=== PATIENT | female | born 1960 | race Caucasian/White ===

== ENCOUNTER 2020-08-01 21:56 | Emergency (ER) | payer OTHER, SELFPAY ==
--- NOTE | ~2020-08-01 | US_ITS ---
EXAMINATION: US pelvic complete w TV EXAM DATE: 08/02/2020 07:40 INDICATION: Elevated beta hCG. Rule out tumor. TECHNIQUE: Pelvic transabdominal and transvaginal sonogram was performed. There are multiple graysca le and Doppler images available for interpretation. There is no prior study for comparison. FINDINGS: Uterus measures 6.2 x 4.6 x 2.9 cmwith focal region most likely fibroid in lower uterine s egment measuring 1.8 x 1.2 x 1.4 cm. Endometrium is within normal limits, with thin fluid pocket ins mel measuring about 2 mm in thickness. No intrauterine gestation sac identified. There is small pocke t of fluid within the endometrium There is no free pelvic fluid. Right adnexa: The ovary is not identified. There is no adnexal mass. Left adnexa: The ovary is not identified. There is no adnexal mass. IMPRESSION: 1. Small amount of endometrial fluid. 2. Lower uterine segment focal mass most likely fibroid. 3. No intrauterine or extrauterine identified. Please note the ovaries were not visualized . Reviewed, dictated and finalized at location A. IMPRESSION: 1. Small amount of endometrial fluid. 2. Lower uterine segment focal mass most likely fibroid. 3. No intrauterine or extrauterine identified. Please note the ovari es were not visualized.
--- NOTE | ~2020-08-01 | XR_ITS ---
EXAMINATION: XR chest 2V DATE: 08/01/2020 23:02 INDICATION: Syncope. TECHNIQUE: Frontal and lateral views of the chest were obtained. COMPARISON: Chest 2 views 06/08/2016 FINDINGS: There is mild scarring at right lung apex. No pleural effusion or pneumothorax. The heart s ize is normal. There is a moderate-sized hiatal hernia. IMPRESSION: 1. Mild scarring at right lung apex. 2. Moderate-sized hiatal hernia. Reviewed, dictated and finalized at location A.
[2020-08-01 21:53] VITALS: BP 103/75; PULSE 103; RESP 17; TEMP 36.3; O2SAT 98
--- NOTE | 2020-08-01 21:54 | ECG_ITS ---
Measurements Intervals [place] Rate: 92 P: 32 NV: 138 QRS: -1 QRSD: 90 T: 29 QT: 355 QTc: 440 Interpretive Statements SINUS RHYTHM LOW QRS VOLTAGE IN PRECORDIAL LEADS CANNOT RULE OUT SEPTAL INFARCT, AGE INDETERMINATE BORDERLINE ST-T WAVE ABNORMALITY- DIFFUSE LEADS ABNORMAL ECG Electronically Signed On 08-02-2020 7:32:49 CDT by Mick Leon D.O.
--- NOTE | 2020-08-01 21:54 | ED.OVERDOSE ---
HPI - Overdose General Chief Complaint: Alcohol <Radha Barrera MD - Last Filed: 08/02/20 07:12> Stated Complaint: depressed <Radha Barrera MD - Last Filed: 08/02/20 07:12> Source: patient and EMS <Radha Barrera MD - Last Filed: 08/02/20 07:12> Mode of arrival: EMS <Radha Barrera MD - Last Filed: 08/02/20 07:12> Limitations: intoxication <Radha Barrera MD - Last Filed: 08/02/20 07:12> History of Present Illness HPI Narrative: Patient is a 60-year-old female with a history of alcoholism who presents for evaluation of depression and alcohol intoxication. Patient had presented to the emergency department for evaluation of feeling sad per EMS. Patient transferred here and is intoxicated. She was found down the street from her house, laying down on the sidewalk by a passerby. No sign of traumatic injury at the time of EMS arrival and patient is intoxicated but alert and oriented to person, place and to time. Patient transported here in stable condition. For me, she is denying any headache, chest pain or shortness of breath. She is intoxicated but able to provide history. She states she is quite sad, lives with her brother and does feel safe at home. She denies suicidal thoughts, or plans to harm herself. She denies homicidal thoughts. Patient states that she drinks 5 small bottles of liquor today. She states she is a daily drinker. She states that she often drinks and then walks long distances. <Radha Barrera MD - Last Filed: 08/02/20 07:12> Related Data Allergies/Adverse Reactions: Allergies Allergy/AdvReac Type Severity Reaction Status Date / Time monosodium glutamate Allergy Unknown Unknown Verified 11/03/19 15:32 <Radha Barrera MD - Last Filed: 08/02/20 07:12> Review of Systems Review of Systems: Narrative: CONSTITUTIONAL: Denies fever, chills, or sweats. CARDIOVASCULAR: Denies chest pain, palpitations, or edema. RESPIRATORY: Denies cough or dyspnea. GASTROINTESTINAL: Denies abdominal pain, nausea, vomiting, or diarrhea. GENITOURINARY: Denies dysuria or hematuria. SKIN: Denies rash or itching. MUSCULOSKELETAL: Denies back pain, joint pain, or myalgia. NEUROLOGIC: Denies headache, numbness, or weakness. <Radha Barrera MD - Last Filed: 08/02/20 07:12> [facility]LY [facility] Past Medical History Medical History: Medical History Alcoholic Anxiety Clavicle fracture Depression Facial fracture Foot fracture, left Guillain-Simpson syndrome Self diagnosed Seizure Due to alcohol withdrawal Subarachnoid hemorrhage <Radha Barrera MD - Last Filed: 08/02/20 07:12> Surgical History Surgical History: Surgical History No significant past surgical history <Radha Barrera MD - Last Filed: 08/02/20 07:12> Social History Social History: Social History Social History: Patient is currently unemployed. She lives with her brother. 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 Her brother is a durable power contracts attorney for healthcare. Smoking status: Never smoker Alcohol intake: current Drinks per week: 42 Substance use: never Substance use type: does not use Gender identity (if verbalized by the patient): Female Spiritual care concerns: No Agree to blood products: Yes <Radha Barrera MD - Last Filed: 08/02/20 07:12> Exam Narrative: Exam Narrative: GENERAL: Awake, alert, conversant, intoxicated HEAD: Normocephalic, atraumatic. EYES: PERRLA and EOMI. ENT: Nares clear, no rhinorrhea or epistaxis. Mucous membranes moist. NECK: Supple. CHEST: No respiratory distress, breathing even and non labored HEART: Tachycardic rate, sinus rhythm ABDOMEN:Non distended, non tender EXTREMITIES: Normal range of motion. No edema. SKIN: Warm, dry, no rash. NEURO:No focal deficits. Alert and
[2020-08-01 22:48] LABS: Basophils Percent Auto 0.7 % (0.2-1.2); Eosinophils Absolute Auto 0.1 K/mm3 (0-0.3); Hematocrit 41.2 % (37.0-47.0); Hemoglobin 14.3 g/dL (12.0-15.0); Immature Granulocyte Absolute 0.04 K/mm3 (0.00-0.031); Immature Granulocyte Percent A 0.7 % (0-0.5); Lymphocytes Absolute Auto 2.85 K/mm3 (0.9-3.2); Lymphocytes Percent Auto 47.7 % (18.3-44.2); Mean Corpuscular HGB Conc 34.7 g/dl (32-36); Mean Corpuscular Hemoglobin 35.7 pg (26-34); Mean Corpuscular Volume 102.7 fl (80-100); Mean Platelet Volume 9.4 fl (7.4-10.4); Monocytes Absolute Auto 0.7 K/mm3 (0.1-0.6); Neutrophils Absolute Auto 2.3 K/mm3 (1.3-6.7); Neutrophils Percent Auto 37.9 % (45.5-73.1); Platelet Count Result 262 k/mm3 (150-375); Red Blood Count 4.01 M/mm3 (4.2-5.4); Red Cell Distribution Width 13.4 % (11.5-14.5)
[2020-08-01 22:56] LABS: Alanine Aminotransferase 72 U/L (4-35); Alkaline Phosphatase 77 U/L (38-126); Anion Gap 8 mmol/L (8-16); Aspartate Amino Transferase 369 U/L (14-36); Bilirubin,Total 0.5 mg/dL (0.2-1.3); Blood Urea Nitrogen 8 mg/dL (7-17); Calcium 8.9 mg/dL (8.4-10.2); Carbon Dioxide 32 mmol/L (22-30); Chloride 102 mmol/L (98-107); Estimated Glomerular Filt Rate > 60; Glucose 95 mg/dL (65-105); Magnesium 1.4 mg/dL (1.6-2.3); Potassium 3.7 mmol/L (3.4-5.0); Sodium 142 mmol/L (137-145)
[2020-08-01 23:06] LABS: Ethanol 409 mg/dL (<10)
[2020-08-01] MEDS: THIAMINE HCL 100 MG TABLET PO (23:43)
[2020-08-01] MEDS: FOLIC ACID 1 MG TABLET PO (23:54)
[2020-08-02 02:15] VITALS: BP 104/70; PULSE 94; RESP 20; O2SAT 96
[2020-08-02 03:20] LABS: Beta HCG Quantitative 17.14 mIU/ML
[2020-08-02 03:25] LABS: Add Urine Microscopic? YES; Appearance Urine Cloudy (Clear); Bilirubin Urine Negative (Negative); Blood Urine 1+ (Negative); Color Urine Amber (Yellow); Glucose Urine UA Negative (Negative); Ketones Urine Negative (Negative); Leukocyte Esterase Ur 2+ LEU/UL (Negative); Mucus Urine Heavy /lpf; Nitrate Urine Positive (Negative); Protein Urine 1+ mg/dL (Negative); Specific Grav Ur 1.028 (1.001-1.035); Squamous Epithelial Cell Urine Many /hpf (Few); WBC Urine 31-50 /hpf
[2020-08-02 04:05] LABS: Amphetamine Screen Urine Negative (Negative); Barbiturate Screen Urine Negative (Negative); Benzodiazepines Screen Urine Negative (Negative); Cannabinoid Screen Urine Negative (Negative); Cocaine Screen Urine Negative (Negative); Methadone Screen Urine Negative (Negative); Opiate Screen Urine Negative (Negative); Phencyclidine Screen Urine Negative (Negative)
[2020-08-02 04:16] VITALS: BP 105/72; PULSE 90; RESP 18; O2SAT 96
[2020-08-02 05:56] VITALS: BP 98/67; PULSE 86; RESP 18; O2SAT 98
[2020-08-02 08:04] VITALS: BP 100/73; PULSE 80; RESP 18; O2SAT 98
[2020-08-02] MEDS: NITROFURANTOIN MONOHYD MACROCR 100 MG CAP PO (08:04)
[2020-08-02 12:19] LABS: Ethanol 104 mg/dL (<10)
[2020-08-02 12:25] LABS: SARS-CoV-2 RNA PCR Negative
== END 2020-08-02 14:56 | disposition home or self-care (01) ==
PROVIDERS: Emergency Medicine; Emergency Provider Emergency Medicine
DX: F10.920 Alcohol use, unspecified with intoxication, uncomplicated (principal); N39.0 Urinary tract infection, site not specified; R82.998 Other abnormal findings in urine
CPT/HCPCS: 36415; 71046; 76830; 76856; 80053; 80307; 81001; 81025; 83735; 84443; 84702; 85025; 87086; 87088; 87635; 93005; 99284; A9270; C9803; U0003

== ENCOUNTER 2020-08-28 14:32 | Observation (INO) | payer OTHER, SELFPAY ==
[2020-08-28] VITALS (36 sets, daily range): BP systolic 125–156; BP diastolic 79–116; PULSE 91–124; RESP 13–25; TEMP 37.2–37.6; O2SAT 90–100; BMI 20.7
--- NOTE | ~2020-08-28 | CT_ITS ---
EXAMINATION: CT brain wo con INDICATION: Altered mental status COMPARISON: 03/19/2019 TECHNIQUE: Standard unenhanced head CT. The dose-length product (DLP) was 605.33 mGy-cm. The mA was a djusted according to patient size. Iterative reconstruction technique was employed. FINDINGS: There is no acute intraparenchymal hemorrhage. No evidence of mass lesion. No evidence of a cute infarction. There is mild periventricular and subcortical hypodensity probably related to small vessel ischemic disease. There is mild prominence of the sulci and ventricles related to cerebral atr ophy. Intracranial calcified cerebral atherosclerosis is noted. There are no extra-axial collections. There is no mass effect or midline shift. The orbits and soft tissues are unremarkable. The visuali zed sinuses and mastoid air cells are well aerated. IMPRESSION: 1. No acute intracranial abnormality. 2. Age related findings. Reviewed, dictated and finalized at location A.
--- NOTE | 2020-08-28 14:38 | ECG_ITS ---
Measurements Intervals [place] Rate: 111 P: 25 IA: 125 QRS: -9 QRSD: 88 T: 4 QT: 330 QTc: 449 Interpretive Statements SINUS TACHYCARDIA INFERIOR INFARCT, AGE INDETERMINATE BORDERLINE ST-T WAVE ABNORMALITY- ANTEROLAT/HIGH LAT LEADS ABNORMAL ECG Electronically Signed On 08-28-2020 15:00:19 CDT by Mick Leon D.O.
[2020-08-28 15:04] LABS: Basophils Percent Auto 0.8 % (0.2-1.2); Eosinophils Percent Auto 0.2 % (0-4.4); Hematocrit 40.8 % (37.0-47.0); Hemoglobin 14.6 g/dL (12.0-15.0); Immature Granulocyte Absolute 0.04 K/mm3 (0.00-0.031); Immature Granulocyte Percent A 0.8 % (0-0.5); Lymphocytes Absolute Auto 0.61 K/mm3 (0.9-3.2); Lymphocytes Percent Auto 12.4 % (18.3-44.2); Mean Corpuscular HGB Conc 35.8 g/dl (32-36); Mean Corpuscular Hemoglobin 35.7 pg (26-34); Mean Corpuscular Volume 99.8 fl (80-100); Mean Platelet Volume 9.1 fl (7.4-10.4); Monocytes Absolute Auto 0.5 K/mm3 (0.1-0.6); Neutrophils Absolute Auto 3.7 K/mm3 (1.3-6.7); Neutrophils Percent Auto 74.8 % (45.5-73.1); Platelet Count Result 180 k/mm3 (150-375); Red Blood Count 4.09 M/mm3 (4.2-5.4); Red Cell Distribution Width 13.6 % (11.5-14.5); White Blood Count 4.9 K/mm3 (4.5-10.0)
[2020-08-28 15:16] LABS: Add Urine Microscopic? YES; Appearance Urine Cloudy (Clear); Bacteria Urine 3+ /hpf; Bilirubin Urine 1+ (Negative); Blood Urine 1+ (Negative); Color Urine Amber (Yellow); Glucose Urine UA Negative (Negative); Ketones Urine Trace mg/dL (Negative); Leukocyte Esterase Ur 1+ LEU/UL (Negative); Mucus Urine Heavy /lpf; Nitrate Urine Negative (Negative); Protein Urine 2+ mg/dL (Negative); Specific Grav Ur 1.018 (1.001-1.035); Squamous Epithelial Cell Urine Moderate /hpf (Few)
[2020-08-28 15:19] LABS: Ethanol < 10 mg/dL (<10)
[2020-08-28 15:23] LABS: Alanine Aminotransferase 60 U/L (4-35); Albumin Level 4.6 g/dL (3.5-5.1); Alkaline Phosphatase 146 U/L (38-126); Anion Gap 15 mmol/L (8-16); Aspartate Amino Transferase 326 U/L (14-36); Bilirubin,Total 0.9 mg/dL (0.2-1.3); Blood Urea Nitrogen 5 mg/dL (7-17); Calcium 8.4 mg/dL (8.4-10.2); Carbon Dioxide 32 mmol/L (22-30); Chloride 86 mmol/L (98-107); Estimated CRCL calculation 83 ml/min; Estimated Glomerular Filt Rate > 60; Glucose 129 mg/dL (65-105); Potassium 2.6 mmol/L (3.4-5.0); Sodium 133 mmol/L (137-145)
--- NOTE | 2020-08-28 15:26 | ED.GENADULT ---
HPI - General Adult General Chief complaint: Altered Mental Status Stated complaint: Altered Source: patient History of Present Illness HPI narrative: Patient is a 60 y/o female brought in by EMS for altered mental status. EMS was called by bystander at a local establishment because patient was not responsive. When EMS arrived, patient was awake, but still somewhat confused. Patient states that she feels fine. She has some headache. She admits that she was drinking last night but not today, She denies using any illicit drugs. Related Data Home Medications Medication Instructions Recorded Confirmed No Home Medications 08/28/20 08/28/20 Allergies Allergy/AdvReac Type Severity Reaction Status Date / Time monosodium glutamate Allergy Unknown Unknown Verified 11/03/19 15:32 Review of Systems Constitutional: Constitutional: Denies chills, Denies fever(s), Reports headache(s) and Denies weakness Eyes: Eyes: Denies blurry vision ENT: Reports headache(s) and Denies neck pain Cardiovascular: Cardiovascular: Denies chest pain and Denies dyspnea Respiratory: Respiratory: Denies cough and Denies dyspnea Gastrointestinal: Gastrointestinal: Denies abdominal pain, Denies diarrhea, Denies nausea and Denies vomiting Genitourinary: Genitourinary: Denies hematuria and Denies dysuria Musculoskeletal: Musculoskeletal: Denies back pain and Denies neck pain Neurologic: Reports headache(s) and Denies weakness PMFSH Past Medical History Medical History (Updated 08/28/20 @ 20:34 by Tawanna He MD) Alcoholic Anxiety Clavicle fracture Depression Facial fracture Foot fracture, left Guillain-[place]o syndrome Self diagnosed Seizure Due to alcohol withdrawal Subarachnoid hemorrhage Surgical History Surgical History No significant past surgical history Family History Family History (Updated 08/28/20 @ 19:52 by Ramona Trevino RN) Sibling Family history of multiple sclerosis Father Colon cancer Arthritis Mother Throat cancer Social History Social History Social History: Patient is currently unemployed. She lives with her brother. 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 Her brother is a durable power commonwealth attorney for healthcare. Smoking status: Never smoker Alcohol intake: current Drinks per week: 42 Substance use: never Substance use type: does not use Gender identity (if verbalized by the patient): Female Spiritual care concerns: No Agree to blood products: Yes Exam Const: General: no acute distress and well developed Orientation/consciousness: oriented to person, oriented to place and confusion HENMT: Head: normocephalic Ears: external ears normal General nose exam: Normal external nose present Eyes: General: appearance normal, both eyes and all related structures Conjunctivae: conjunctivae normal Neck: Neck: normal visual inspection and full ROM Chest: Chest palpation & inspection: normal inspection of the chest and no tenderness Resp: Effort & Inspection: normal respiratory effort Auscultation: clear to auscultation bilaterally Cardio: Rate: regular rate Rhythm: regular rhythm GI: GI Palp: No abdominal tenderness and Yes Soft to palpation Skin: General skin exam: normal color and turgor normal Neuro: General: oriented to person and oriented to place Cognition (Neuro): normal cognition Extrem: General: normal to inspection, full ROM and no pedal edema Psych: Appearance: grossly normal Mental Status: mental status grossly normal Affect: normal affect Course Consultations Consultation #1: Discussed with SHA Villasenor, who agrees to admit to Dr. De León. Date: 08/28/20 Time: 17:10 Vital Signs Vital signs: Vital Signs Pulse Rate 118 H 08/28/20 14:33 Respiratory Rate 22 H 08/28/20 14:33 Blood Pressure 150/92 H 08/28/20 14:33 Pulse Oximetry 96 08/28/20 14:33
[2020-08-28 15:33] LABS: Amphetamine Screen Urine Negative (Negative); Barbiturate Screen Urine Negative (Negative); Benzodiazepines Screen Urine Negative (Negative); Cannabinoid Screen Urine Negative (Negative); Cocaine Screen Urine Negative (Negative); Methadone Screen Urine Negative (Negative); Opiate Screen Urine Negative (Negative); Phencyclidine Screen Urine Negative (Negative)
[2020-08-28] MEDS: POTASSIUM CHLORIDE 20 MEQ TABLET 40 MEQ PO (15:49)
[2020-08-28] MEDS: KCL 20 MEQ/D5/0.45% SOD CHL 1,000 ML 100 ML IV CONT (17:48)
--- NOTE | 2020-08-28 19:15 | PC.NURSE ---
BEDSIDE REPORT TO ARMANI DRUMMOND AT THIS TIME, SHE HAS ASSUMED PT CARE.
--- NOTE | 2020-08-28 19:51 | ADMGEN ---
This patient, Radha Strong, was admitted to 2 Medical Room 254-01. Patient/family oriented to hospital policies and general routines including ID bracelet, bed and alarms, visiting hours, pain management, procedures, bathroom and other care routines, personal items, smoking policy, room service/diet, and visiting hours. Valuables list has been completed. Information on how to activate the Rapid Response Team has been discussed. Patient/Family are encouraged to report perceived risks to care and to ask questions if they do not understand what they are told or what they should do.
--- NOTE | 2020-08-28 21:23 | PM.IMHP ---
H&P: HPI History of Present Illness Date/Time: 08/28/20 21:23 Chief complaint: hypokalemia/altered mental status Narrative: This is a pleasant 60-year-old female with known past medical history of subarachnoid hemorrhage and withdrawal seizures who is known to be a daily drinker presented to the hospital today with acute altered mental status. The patient herself does not remember what happened today and cannot give me any specific details about how she got to the hospital. According to the emergency physician's note EMS was called by a bystander at a local establishments because the patient was and not responsive. The patient herself cannot tell me when the last time she had any alcohol. She also is not sure if she had any type of seizure-like activity today but she denies any recent head trauma. She also denies any tongue lacerations or loss of urine. She believes her last alcoholic drink was last night. She was complaining of a headache in the ER but currently she has no headache. The patient states she does not take any medications daily and on my encounter with her she has no complaints. She denies any fever, chills, chest pain, shortness of breath, wheezing, cough, nausea, vomiting, abdominal pain, dysuria, open wounds, diarrhea, rectal bleeding, or lower extremity swelling. Patient was evaluated emergency room and routine labs were obtained. Urinalysis was mildly abnormal and the patient was treated with IV ceftriaxone in the ER. On my encounter with her she flat out denies any urinary symptoms including dysuria, hematuria, urinary frequency, or urinary incontinence. Brain CT was unremarkable for any acute pathology. The patient was found to have significant hypokalemia. She was treated with an oral dose of potassium and started on IV fluids that contain potassium. Review of Systems Review of Systems: All systems reviewed & are unremarkable except as noted in HPI and below PMFSH Past Medical History Medical History (Updated 08/28/20 @ 21:34 by Abdirahman Lynch MD) Alcoholic Anxiety Clavicle fracture Depression Facial fracture Foot fracture, left Guillain-Holloway syndrome Self diagnosed Seizure Due to alcohol withdrawal Subarachnoid hemorrhage Surgical History Surgical History No significant past surgical history Family History Family History Sibling Family history of multiple sclerosis Father Colon cancer Arthritis Mother Throat cancer Social History Social History Social History: Patient is currently unemployed. She lives with her brother. 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 Her brother is a durable power vacuum forming machine operator for healthcare. Smoking status: Never smoker Alcohol intake: current Drinks per week: 42 Substance use: never Substance use type: does not use Gender identity (if verbalized by the patient): Female Spiritual care concerns: No Agree to blood products: Yes Meds Home Medications and Allergies Home Medications Medication Instructions Recorded Confirmed Type No Home Medications 08/28/20 08/28/20 History Allergies Allergy/AdvReac Type Severity Reaction Status Date / Time monosodium glutamate Allergy Unknown Unknown Verified 11/03/19 15:32 Vital Signs Vital Signs - 24 hr 08/28/20 14:33 08/28/20 14:35 08/28/20 14:36 Temperature 37.2 C Pulse Rate 118 H 124 H Respiratory Rate 22 H 17 Blood Pressure 150/92 H 144/116 H Pulse Oximetry 96 96 08/28/20 14:37 08/28/20 14:39 08/28/20 14:45 Temperature Pulse Rate 119 H 110 H 113 H Respiratory Rate 25 H 23 H 21 H Blood Pressure 150/92 H 143/94 H Pulse Oximetry 96 96 97 08/28/20 14:46 08/28/20 14:49 08/28/20 15:00 Temperature Pulse Rate 111 H 108 H 100 Respiratory Rate 15 19 19 Blood Pressure 143/94 H Pulse Oximetry
[2020-08-28 21:34] LABS: Magnesium 1.1 mg/dL (1.6-2.3)
[2020-08-28] MEDS: chlordiazePOXIDE (*CRX) 25 MG CAPSULE PO (21:51)
[2020-08-28] MEDS: THIAMINE HCL 200 MG/2 ML VIAL 100 MG IV PUSH (22:03)
[2020-08-28] MEDS: MAGNESIUM SULF 2 GM/WATER 50ML 2 GM/50 ML BAG IVPB (22:04)
[2020-08-28] MEDS: SODIUM CHLORIDE 0.9% IV 1,000 ML 100 ML IV CONT (22:04)
[2020-08-29] VITALS (11 sets, daily range): BP systolic 109–138; BP diastolic 70–95; PULSE 81–101; RESP 16–20; TEMP 36.5–37.2; O2SAT 95–98; BMI 20.7
[2020-08-29 02:12] LABS: Glucose Point of Care 108 (65-105)
[2020-08-29] MEDS: chlordiazePOXIDE (*CRX) 25 MG CAPSULE PO ×3 (04:24→20:56)
[2020-08-29 06:06] LABS: Anion Gap 5 mmol/L (8-16); Basophils Percent Auto 0.7 % (0.2-1.2); Blood Urea Nitrogen 3 mg/dL (7-17); Calcium 7.8 mg/dL (8.4-10.2); Carbon Dioxide 34 mmol/L (22-30); Chloride 96 mmol/L (98-107); Eosinophils Absolute Auto 0.1 K/mm3 (0-0.3); Eosinophils Percent Auto 1.4 % (0-4.4); Estimated CRCL calculation 83 ml/min; Estimated Glomerular Filt Rate > 60; Glucose 86 mg/dL (65-105); Hematocrit 35.5 % (37.0-47.0); Hemoglobin 12.2 g/dL (12.0-15.0); Immature Granulocyte Absolute 0.02 K/mm3 (0.00-0.031); Immature Granulocyte Percent A 0.5 % (0-0.5); Lymphocytes Absolute Auto 1.11 K/mm3 (0.9-3.2); Lymphocytes Percent Auto 26.7 % (18.3-44.2); Mean Corpuscular HGB Conc 34.4 g/dl (32-36); Mean Corpuscular Hemoglobin 33.8 pg (26-34); Mean Corpuscular Volume 98.3 fl (80-100); Mean Platelet Volume 9.4 fl (7.4-10.4); Monocytes Absolute Auto 0.7 K/mm3 (0.1-0.6); Monocytes Percent Auto 16.8 % (2.6-8.5); Neutrophils Absolute Auto 2.2 K/mm3 (1.3-6.7); Neutrophils Percent Auto 53.9 % (45.5-73.1); Platelet Count Result 178 k/mm3 (150-375); Potassium 3.7 mmol/L (3.4-5.0); Red Blood Count 3.61 M/mm3 (4.2-5.4); Red Cell Distribution Width 13.6 % (11.5-14.5); Sodium 135 mmol/L (137-145); White Blood Count 4.2 K/mm3 (4.5-10.0)
[2020-08-29 07:10] LABS: Folic Acid 3.5 ng/mL (2.76->20)
[2020-08-29 07:42] LABS: Glucose Point of Care 80 (65-105)
[2020-08-29 08:01] LABS: Glucose Point of Care 74 (65-105)
[2020-08-29 11:46] LABS: Alanine Aminotransferase 37 U/L (4-35); Albumin Level 3.3 g/dL (3.5-5.1); Alkaline Phosphatase 92 U/L (38-126); Aspartate Amino Transferase 186 U/L (14-36); Bilirubin,Total 0.8 mg/dL (0.2-1.3); Magnesium 1.9 mg/dL (1.6-2.3)
[2020-08-29 12:31] LABS: Glucose Point of Care 93 (65-105)
[2020-08-29 13:09] LABS: Hepatitis B Surface Antigen Negative (Negative)
[2020-08-29 13:15] LABS: HAV RESULT Negative (Negative); Hepatitis B Core IgM Result Negative (Negative)
[2020-08-29] MEDS: SODIUM CHLORIDE 0.9% IV 1,000 ML 100 ML IV CONT (13:23)
[2020-08-29 13:27] LABS: Hepatitis C Virus Antibody Negative (Negative)
--- NOTE | 2020-08-29 13:41 | PCNSR ---
On 08/29/20, the student, Antonia Oneill, provided care and completed [facility] documentation on this patient. I have reviewed the student's documentation and agree with the findings.
--- NOTE | 2020-08-29 13:57 | PM.IMPN ---
Progress Note: A&P Assessment and Plan (1) Acute metabolic encephalopathy: Code(s): G93.41 - Metabolic encephalopathy Status: Acute Assessment and Plan: -----patient's altered mental status is likely from withdrawal seizure. She says her last drink was 2 days ago and she has a history of withdrawal seizures in the past. She has not had any symptoms since being here but does not recall the events prior. Her CIWA score this morning was 9 but back down to 1. On my exam she is alert and oriented x4 and answers all questions and commands. I do not suspect infection at this time and the UA seems to be a contaminant with moderate amount of squamous cells. The plan is to wean down Librium and watch her CIWA score overnight since she is in Prime time for seizure withdrawal. If she does well she can go home. If we notice her CIWA score increasing, Librium can be added back. Patient has history of subarachnoid hemorrhage, CT of the brain is normal. She has no deficits on exam or headache. This would be less likely (2) Alcohol withdrawal syndrome: Qualifiers: Complication of substance-induced condition: with unspecified complication Qualified Code(s): F10.239 - Alcohol dependence with withdrawal, unspecified Code(s): F10.239 - Alcohol dependence with withdrawal, unspecified Status: Acute Assessment and Plan: ------as above. Continue CIWA-AR protocol. Thiamine IV and folic acid q24hrs. Librium PO scheduled. Ativan withdrawal prophylaxis. (3) Hypokalemia: Code(s): E87.6 - Hypokalemia Status: Acute Assessment and Plan: -----potassium and magnesium improved. Will start Mag daily (4) Abnormal urinalysis: Code(s): R82.90 - Unspecified abnormal findings in urine Status: Acute Assessment and Plan: -----likely contaminant, no treatment indicated. 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 Hepatitis screen negative. We had a long discussion about liver failure and alcohol. She understands that if she continues to drink her liver will fail. Time Spent With Patient Time with patient: 25 - 35 minutes Subjective Date/time seen: 08/29/20 13:57 Interval history: Pt is a a 60-year-old female here for alcohol withdrawal and confusion. Patient was seen today and is actually feeling a little better. She states that she has had a withdrawal seizure in the past and has had elucidation the past but so far she has not had either of those since being here. She is eating and drinking well. Pt denies nausea, vomiting, fevers, chills, constipation, diarrhea, chest pain, sob, or abdominal pain. We had a long conversation about the effects of alcohol and her current state. We discussed that if she continues the way she is she will go into full liver failure which causes . She says that she is motivated although does not seem happy about the decision. No thoughts of harming herself or others Review of Systems Review of Systems: All systems reviewed & are unremarkable except as noted in HPI and below Exam Narrative: Exam Narrative: General: Well developed well nourished patient in NAD HEENT: normocephalic Neck: supple Neuro: Alert and oriented x4. Cranial nerves 2-12 intact. Equal strength the upper lower extremities 5/5. Able to do [id number] and rapid alternating movements CV:RRR Resp:CTA Abd: Soft, non distended. No pain to palpation. Positive bowel sounds Extremities: No swelling, erythema, or pain to palpation. Objective Data Vital Signs Vital Signs: Vital Signs - 24 hr 08/28/20 14:33 08/28/20 14:35 08/28/20 14:36 Temperature 98.9 F Pulse Rate 118 H 124 H Respiratory Rate 22 H 17 Blood Pressure 150/92 H 144/116 H Pulse Oximetry 96 96
[2020-08-29] MEDS: FOLIC ACID 1 MG TABLET PO (17:11)
[2020-08-29 17:24] LABS: Glucose Point of Care 96 (65-105)
[2020-08-29] MEDS: THIAMINE HCL 200 MG/2 ML VIAL 100 MG IV PUSH (20:56)
[2020-08-30] VITALS: PULSE 89
[2020-08-30 00:10] LABS: Glucose Point of Care 91 (65-105)
[2020-08-30] MEDS: SODIUM CHLORIDE 0.9% IV 1,000 ML 100 ML IV CONT (00:42)
[2020-08-30] MEDS: LORazepam INJ (*CRX) 2 MG/ML VIAL 1 MG IV PUSH (00:51)
[2020-08-30 02:00] VITALS: BP 118/68; PULSE 88; RESP 12; TEMP 36.6; O2SAT 98
[2020-08-30 04:00] VITALS: PULSE 85
[2020-08-30 06:00] VITALS: BP 114/76; PULSE 81; RESP 18; TEMP 36.7; O2SAT 93
[2020-08-30 06:21] LABS: Glucose Point of Care 73 (65-105)
[2020-08-30 06:56] LABS: Alanine Aminotransferase 33 U/L (4-35); Albumin Level 2.9 g/dL (3.5-5.1); Alkaline Phosphatase 81 U/L (38-126); Anion Gap 3 mmol/L (8-16); Aspartate Amino Transferase 147 U/L (14-36); Bilirubin,Total 0.9 mg/dL (0.2-1.3); Blood Urea Nitrogen 3 mg/dL (7-17); Calcium 8.3 mg/dL (8.4-10.2); Carbon Dioxide 30 mmol/L (22-30); Chloride 104 mmol/L (98-107); Estimated CRCL calculation 83 ml/min; Estimated Glomerular Filt Rate > 60; Glucose 86 mg/dL (65-105); Magnesium 1.6 mg/dL (1.6-2.3); Potassium 3.8 mmol/L (3.4-5.0); Sodium 137 mmol/L (137-145)
[2020-08-30 08:00] VITALS: PULSE 84
[2020-08-30] MEDS: chlordiazePOXIDE (*CRX) 25 MG CAPSULE PO (08:37)
[2020-08-30] MEDS: MAGNESIUM OXIDE 400 MG TABLET PO (08:37)
[2020-08-30] MEDS: FOLIC ACID 1 MG TABLET PO (08:37)
[2020-08-30 09:40] VITALS: BP 143/92; PULSE 84; RESP 16; TEMP 36.8; O2SAT 96
[2020-08-30] MEDS: CEFDINIR 300 MG CAPSULE PO (10:10)
--- NOTE | 2020-08-30 10:56 | PM.DS ---
DS: Admitting Diagnosis Admitting Diagnosis Admitting Diagnosis: hypokalemia/altered mental status DS: Discharge Diagnosis Discharge Diagnosis (1) Acute metabolic encephalopathy: Code(s): G93.41 - Metabolic encephalopathy Status: Acute Assessment and Plan: -----patient's altered mental status is likely from withdrawal seizure. She says her last drink was1.5 days prior and she has a history of withdrawal seizures in the past. She has not had any symptoms since being here but does not recall the events prior. Her CIWA has been 1. On my exam she is alert and oriented x4 and answers all questions and commands. Urine culture positive, short course of abx were given but doubt this was causing her AMS. The plan is to wean down Librium outpt. Patient has history of subarachnoid hemorrhage, CT of the brain is normal. She has no deficits on exam or headache. This would be less likely (2) Alcohol withdrawal syndrome: Qualifiers: Complication of substance-induced condition: with unspecified complication Qualified Code(s): F10.239 - Alcohol dependence with withdrawal, unspecified Code(s): F10.239 - Alcohol dependence with withdrawal, unspecified Status: Acute Assessment and Plan: ------as above. (3) Hypokalemia: Code(s): E87.6 - Hypokalemia Status: Acute Assessment and Plan: -----potassium and magnesium improved. 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 Hepatitis screen negative. We had a long discussion about liver failure and alcohol. She understands that if she continues to drink her liver will fail. (5) UTI (urinary tract infection): Code(s): N39.0 - Urinary tract infection, site not specified Status: Acute Assessment and Plan: -----continue abx DS: Summary Hospital Course Reason for hospitalization: Altered mental status Hospital Course: Patient is a 60-year-old female who has a history of alcohol abuse intoxication after being found laying on the sidewalk. Temperature is 36.3? C, pulse 103, RR 17, 103/75, o2 98. CBC within normal limits. BMP within normal limits. EKG showed no ST abnormalities but did have inverted T-waves anteriorly which was seen on prior EKGs. No CP. Head CT shows no acute abnormalities. Patient was thought to have alcohol withdrawal possible seizure and was admitted to the hospitalist service on Librium and was observed. She never showed signs of withdrawal while hospitalized and had no complaints. We had a long conversation about the importance of refraining from alcohol and she understands. She plans to quit and understands that she cannot take the Librium and drink. Since she has multiple episodes of alcohol withdrawal including a seizure, she was given Librium taper at discharge with special instructions. The patient seems motivated and has no thoughts of harming herself or others. She was educated about the worrisome signs and symptoms to come back to emergency room for and was discharged in stable condition. Status at Discharge Functional status at discharge: independent ambulation Overall status at discharge: patient is back to baseline Time Spent with Patient Time attestation: Total time spent providing and/or coordinating discharge services: 34 min Exam Narrative: Exam Narrative: General: Well developed well nourished patient in NAD HEENT: normocephalic Neck: supple Neuro: Alert and oriented x4. Cranial nerves 2-12 intact. Equal strength the upper lower extremities 5/5. Able to do [id number] and rapid alternating movements CV:RRR Resp:CTA Abd: Soft, non distended. No pain to palpation. Positive bowel sounds Extremities: No swelling, erythema, or pain to palpation. DS: Data Data Completed and Pending Lab
[2020-08-30 11:40] LABS: Glucose Point of Care 82 (65-105)
== END 2020-08-30 12:00 | disposition home or self-care (01) ==
LOC: ANHED 17:21 → ANH2MED 18:24
PROVIDERS: Family Medicine; Physician Assistant; Admitting Provider Family Medicine; Emergency Provider Emergency Medicine; Visit Provider Family Medicine
DX: G93.40 Encephalopathy, unspecified (principal); F10.239 Alcohol dependence with withdrawal, unspecified; N39.0 Urinary tract infection, site not specified; E87.6 Hypokalemia; R74.8 Abnormal levels of other serum enzymes; F41.8 Other specified anxiety disorders
CPT/HCPCS: 36415; 70450; 80048; 80053; 80074; 80076; 80307; 81001; 82607; 82746; 83735; 84132; 84443; 85025; 87077; 87086; 87088; 87186; 93005; 96361; 96365; 96366; 96367; 96374; 96375; 99285; A9270; G0378; G0379; J0696; J2060; J3411; J3475; J3480; J7030

== ENCOUNTER 2020-09-18 20:32 | Observation (INO) | payer OTHER, SELFPAY ==
--- NOTE | ~2020-09-18 | CT_ITS ---
EXAMINATION: CT brain wo con DATE: 09/18/2020 22:01 INDICATION: Dizziness. TECHNIQUE: Computed tomography (CT) of the head was performed without intravenous contrast. The mA wa s adjusted according to patient size. Iterative reconstruction technique was employed. The dose-lengt h product was 681.00 mGy-cm. COMPARISON: Head CT 08/28/2020 FINDINGS: There is no intracranial hemorrhage, acute infarction, or abnormal intracranial mass lesion . There are scattered areas of low attenuation in the cerebral white matter, which is within normal l imits for the patient's age. The ventricles are normal in size. There is mild mucosal thickening in t he paranasal sinuses. The orbits are normal. The mastoid air cells are normal. IMPRESSION: 1. Normal aging brain. Reviewed, dictated and finalized at location A. T [employer]PER[employer] IMPRESSION: 1. Normal aging brain.
[2020-09-18 20:38] VITALS: BP 160/101; PULSE 118; RESP 20; TEMP 36.7; O2SAT 97
--- NOTE | 2020-09-18 21:30 | ECG_ITS ---
Measurements Intervals [place] Rate: 101 P: 25 ME: 132 QRS: 23 QRSD: 85 T: 53 QT: 360 QTc: 469 Interpretive Statements SINUS TACHYCARDIA ATRIAL PREMATURE COMPLEX BORDERLINE ST ABNORMALITY- DIFFUSE LEADS BASELINE ARTIFACT- II, III, AVR, AVL, AVF, V1-V6 BORDERLINE ECG Electronically Signed On 09-19-2020 6:58:19 NURSE PRACTITIONER HOME ASSESSMENTS by Mick Leon D.O.
--- NOTE | 2020-09-18 21:33 | ED.SEIZURE ---
HPI - Seizure General Chief Complaint: Seizure Stated Complaint: seizure Time Seen by Provider: 09/18/20 21:11 Source: patient Mode of arrival: EMS Limitations: no limitations History of Present Illness HPI Narrative: Patient is a 60-year-old female brought in by EMS due to seizure, one episode, started prior to arrival. Patient states that she has a history of seizure and gets one when I drink a lot . Patient states that she drank a lot last night. She denies drinking today. Denies any drug use. Patient cannot recall if she hit her head or not when she fell and had a seizure tonight. She denies any neck pain, chest pain, shortness of breath, abdominal pain, back pain or any other extremity pain/injury. Seizure History: Yes (alcohol withdrawl seizures) Related Data Allergies Allergy/AdvReac Type Severity Reaction Status Date / Time monosodium glutamate Allergy Unknown Unknown Verified 09/18/20 20:41 Review of Systems Review of Systems: All systems reviewed & are unremarkable except as noted in HPI and below Constitutional: Constitutional: Denies body ache(s), Denies chills, Denies excessive sweating, Denies fatigue, Denies fever(s), Denies headache(s), Denies lethargy, Denies malaise, Denies weakness and Denies weight loss Eyes: Eyes: Denies blurry vision, Denies change in vision and Denies loss of vision ENT: Denies dizziness, Denies ear discharge, Denies headache(s), Denies lip swelling, Denies epistaxis, Denies nasal congestion, Denies neck pain, Denies throat swelling and Denies tongue swelling Cardiovascular: Cardiovascular: Denies chest pain, Denies chest pain at rest, Denies chest pain with activity, Denies diaphoresis, Denies rapid heart rate, Denies edema, Denies irregular heart rhythm, Denies lightheadedness, Denies palpitations, Denies dyspnea and Denies dyspnea on exertion Respiratory: Respiratory: Denies chest congestion, Denies cough, Denies hemoptysis, Denies dyspnea and Denies dyspnea on exertion Gastrointestinal: Gastrointestinal: Denies abdominal pain, Denies melena, Denies hematochezia, Denies diarrhea, Denies nausea, Denies vomiting and Denies hematemesis Musculoskeletal: Musculoskeletal: Denies abnormal gait, Denies deformity, Denies joint swelling, Denies limited range of motion, Denies neck pain and Denies numbness Neurologic: Denies Abnormal speech present, Denies abnormal gait, Denies confusion, Denies dizziness, Denies headache(s), Denies focal weakness, Denies loss of vision, Denies numbness, Denies Other visual disturbances, Denies Sensory deficit (Neuro) and Denies weakness Psychiatric: Psychiatric: Denies confusion, Denies depression, Denies auditory hallucinations, Denies homicidal ideation and Denies suicidal ideation Endocrine: Endocrine: Denies cold intolerance, Denies excessive sweating, Denies fatigue, Denies heat intolerance and Denies palpitations Hematologic/Lymphatic: Hematologic/Lymphatic: Denies easy bleeding and Denies easy bruising Allergic/Immunologic: Allergic/Immunologic: Denies lip swelling, Denies throat swelling and Denies tongue swelling PMFSH Past Medical History Medical History (Updated 09/18/20 @ 22:37 by Migdalia Alvarenga DO) Alcoholic Anxiety Clavicle fracture Depression Facial fracture Foot fracture, left Guillain-[place] syndrome Self diagnosed Seizure Due to alcohol withdrawal Subarachnoid hemorrhage Surgical History Surgical History No significant past surgical history Family History Family History Sibling Family history of multiple sclerosis Father Colon cancer Arthritis Mother Throat cancer Social History Social History Social History: Patient is currently unemployed. She lives with her brother. 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 Her brother is a durable power civil litigation attorney for healthcare.
[2020-09-18 21:50] LABS: Basophils Percent Auto 0.3 % (0.2-1.2); Eosinophils Percent Auto 0.2 % (0-4.4); Hematocrit 34.6 % (37.0-47.0); Hemoglobin 12.2 g/dL (12.0-15.0); Immature Granulocyte Absolute 0.02 K/mm3 (0.00-0.031); Immature Granulocyte Percent A 0.3 % (0-0.5); Lymphocytes Absolute Auto 0.59 K/mm3 (0.9-3.2); Lymphocytes Percent Auto 9.5 % (18.3-44.2); Mean Corpuscular HGB Conc 35.3 g/dl (32-36); Mean Corpuscular Hemoglobin 34.7 pg (26-34); Mean Corpuscular Volume 98.3 fl (80-100); Mean Platelet Volume 9.1 fl (7.4-10.4); Monocytes Absolute Auto 0.4 K/mm3 (0.1-0.6); Monocytes Percent Auto 6.4 % (2.6-8.5); Neutrophils Absolute Auto 5.2 K/mm3 (1.3-6.7); Neutrophils Percent Auto 83.3 % (45.5-73.1); Platelet Count Result 139 k/mm3 (150-375); Red Blood Count 3.52 M/mm3 (4.2-5.4); Red Cell Distribution Width 13.6 % (11.5-14.5); White Blood Count 6.2 K/mm3 (4.5-10.0)
[2020-09-18 21:59] LABS: Prothrombin Time 14.1 Seconds (11.1-14.7)
[2020-09-18 22:00] LABS: Partial Thromboplastin Time 26.8 SECONDS (22.3-36.8)
[2020-09-18 22:02] LABS: Alanine Aminotransferase 35 U/L (4-35); Alkaline Phosphatase 120 U/L (38-126); Anion Gap 13 mmol/L (8-16); Aspartate Amino Transferase 157 U/L (14-36); Bilirubin,Total 0.8 mg/dL (0.2-1.3); Blood Urea Nitrogen 4 mg/dL (7-17); Calcium 7.9 mg/dL (8.4-10.2); Carbon Dioxide 31 mmol/L (22-30); Chloride 92 mmol/L (98-107); Estimated CRCL calculation 83 ml/min; Estimated Glomerular Filt Rate > 60; Ethanol < 10 mg/dL (<10); Glucose 123 mg/dL (65-105); Potassium 2.5 mmol/L (3.4-5.0); Sodium 136 mmol/L (137-145)
[2020-09-18 22:12] LABS: Troponin I 0.014 ng/mL (0.000-0.034)
[2020-09-18 22:26] VITALS: BP 150/94; PULSE 102; RESP 18; O2SAT 95
--- NOTE | 2020-09-18 22:36 | PM.IMHP ---
H&P: HPI History of Present Illness Date/Time: 09/18/20 22:36 Chief complaint: SEIZURE, ALCOHOL RELATED, HYPOKALEMIA Narrative: Radha Strong is a 60 year old female with past medical history of alcohol abuse who presents to ED brought in by EMS for reported seizure. 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 She went home and drink 4 mixed drinks 4 which is normal for her giving a buzz. This time she does not know what happened. She has no recollection of the events of the evening. She lives with her brother and is fairly independent. She has no history of seizures, has no neurologist. Patient states she was seen in the ED a couple weeks ago and was prescribed potassium supplement as she was hypokalemic. she was recently admitted 08/28 to 08/30 for hypokalemia/L2 mental status. She was thought to have a withdrawal seizure at the time. During that admission her CIWA has been 1. She was found to have a UTI as well which was treated. She was discharged with Librium outpatient. Patient has a history of subarachnoid hemorrhage. In the ED: She is on very hypokalemic at 2.5. Patient was admitted for observation for seizure Which may be due to the low potassium versus alcohol withdrawal however she states she was drinking last night. Review of Systems Review of Systems: Narrative: Constitutional: No Fever, No Chills, No Night Sweats, No Fatigue, No Malaise ENT/Mouth: No Hearing Changes, No Ear Pain, No Nasal Congestion, No Sinus Pain, No Hoarseness, No sore throat, No Rhinorrhea, No Swallowing Difficulty Eyes: No Eye Pain, No Redness, No Vision Changes Cardiovascular: No Chest Pain, No Palpitations, No Dyspnea on Exertion, No Orthopnea, No Claudication, No Edema Respiratory: No Cough, No Sputum, No Wheezing, No Shortness of Breath Gastrointestinal: Endorses nausea, vomiting. Denies diarrhea/constipation/abdominal pain. 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 Psych: No Anxiety/Panic, No Depression, No Insomnia Heme: No Bruising, No Bleeding Lymph: No Adenopathy Endocrine: No Polyuria, No Polydipsia, No Temperature Intolerance PMF Past Medical History Medical History (Updated 09/19/20 @ 01:58 by Migdalia Alvarenga DO) Alcoholic Anxiety Clavicle fracture Depression Facial fracture Foot fracture, left 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 She lives with her brother. 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 Her brother is a durable power commercial attorney for healthcare. Smoking status: Never smoker Alcohol intake: current Drinks per week: 4 Substance use: former Substance use type: does not use Additional occupation/education comments: worked the 2019 Gender identity (if verbalized by the patient): Female Spiritual care concerns: Yes Agree to blood products: Yes Meds Home Medications and Allergies Home Medications Medication Instructions Recorded Confirmed Type folic acid 1 mg PO DAILY #30 tablet 08/30/20 09/19/20 Rx magnesium oxide 400 mg PO QAM #30 tablet 08/30/20 09/19/20 Rx Allergies Allergy/AdvReac Type Severity Reactio
[2020-09-18 22:42] VITALS: O2SAT 99
[2020-09-18] MEDS: POTASSIUM CHLORIDE 20 MEQ PACKET (FOR LIQUID) 40 MEQ PO (22:56)
[2020-09-18 23:07] LABS: Lactic Acid Reflex 3.1 mmol/L (0.7-2.1)
[2020-09-19] VITALS (14 sets, daily range): BP systolic 110–162; BP diastolic 74–98; PULSE 93–136; RESP 13–22; TEMP 36.4–37.7; O2SAT 96–99; BMI 22.3
[2020-09-19] MEDS: KCL 20 MEQ/SW 100 ML 100 ML 50 MEQ IVPB (00:09)
--- NOTE | 2020-09-19 00:27 | PC.NURSE ---
This patient, Radha Strong, was admitted to 2 Medical Room 247-. Patient/family oriented to hospital policies and general routines including ID bracelet, bed and alarms, visiting hours, pain management, procedures, bathroom and other care routines, personal items, smoking policy, room service/diet, and visiting hours. Information on how to activate the Rapid Response Team has been discussed. Patient/Family are encouraged to report perceived risks to care and to ask questions if they do not understand what they are told or what they should do. Pt come up from ER incontinent of urine pt states she didn't know where to go so she just urinated on stretcher. Pt also vomiting received order for zofran.
[2020-09-19] MEDS: ONDANSETRON INJ 4 MG/2 ML VIAL IV PUSH (00:33)
[2020-09-19] MEDS: SODIUM CHLORIDE 0.9% IV 1,000 ML 999 ML IV CONT (00:33)
[2020-09-19 01:50] LABS: Reflex Lactic Acid Yes or No Add Lactic
[2020-09-19 02:59] LABS: Lactic Acid 1.4 mmol/L (0.7-2.1)
[2020-09-19] MEDS: chlordiazePOXIDE (*CRX) 10 MG CAPSULE PO ×3 (05:38→21:11)
--- NOTE | 2020-09-19 08:40 | PM.IMPN ---
Progress Note: A&P Assessment and Plan (1) Alcohol withdrawal syndrome: Qualifiers: Complication of substance-induced condition: with unspecified complication Qualified Code(s): F10.239 - Alcohol dependence with withdrawal, unspecified Code(s): F10.239 - Alcohol dependence with withdrawal, unspecified Status: Acute Assessment and Plan: The patient reports chronic alcohol dependence and has a hx of alcohol withdrawal seizures with a witness seizure yesterday per EMS. Most recent CIWA was 8. She a moderate tremor but is otherwise fairly calm. Continue CIWA-AR protocol, thiamine, and folic acid supplementation. Continue scheduled librium 10mg TID. Continue to monitor closely as she is still in the window for withdrawal and seizures. (2) Seizure: Code(s): R56.9 - Unspecified convulsions Status: Acute Assessment and Plan: Secondary to alcohol withdrawal. CT brain was unremarkable. Potassium was low which likely contributed. The seizure was reported by EMS but the pt is unable to recall any details. Lactic acid was elevated at 3 and may be secondary to the seizure. She has a hx of alcohol withdrawal seizures. Hx is inconsistent as she reports that she drank last night but alcohol level was negative in the ED. Continue seizure precautions and librium 10mg TID. Continue CIWA monitoring with additional plan as above. Will plan to ask neurology to see her due to recurrence although they do seem secondary to alcohol use and withdrawal. (3) Hypokalemia: Code(s): E87.6 - Hypokalemia Status: Acute Assessment and Plan: Potassium was 2.5 on arrival to the emergency department. She did have vomiting which likely contributed and has resolved. She received IV KCl supplementation. Plan to repeat BMP. Replace as necessary. (4) Acute encephalopathy: Code(s): G93.40 - Encephalopathy, unspecified Status: Resolved Assessment and Plan: Possibly secondary to post-ictal confusion. Mentation is back to baseline. (5) Tachycardia: Code(s): R00.0 - Tachycardia, unspecified Status: Acute Assessment and Plan: Sinus tachycardia on telemetry monitoring. Possibly secondary to volume depletion vs alcohol withdrawal. Heart rate has improved today to the 90s/low 100s. She did received 1 liter fluid bolus. Continue to monitor. Continue CIWA monitoring. (6) Lactic acidosis: Code(s): E87.2 - Acidosis Status: Resolved Assessment and Plan: Resolved. Possibly secondary to seizure vs volume depletion with vomiting. She has no symptoms to suggest infection and does not appear septic. She received 1 liter IV fluid bolus. Lactic normalized to 1.4. Subjective Date/time seen: 09/19/20 08:40 Mrs. Strong is a 60 y.o. female with PMH significant for alcohol dependence and withdrawal seizures who is seen in follow-up for reported seizure per EMS. She is doing well today. 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 She is alert and oriented x4 and pleasant today. She notes that she feels tired after having a long day working. She relates that she has considered alcohol cessation and was in Alcoholics Anonymous in the past. She denies chest pain, dyspnea, and cough. She has no urinary complaints. She is requesting to eat. She has no abdominal pain, nausea, or vomiting. Review of Systems Review of Systems: All systems reviewed & are unremarkable except as noted in HPI and below Exam Narrative: Exam Narrative: General: Pleasant, well-developed and well-nourished 60 y.o. female lying semi-recumbent in bed watching TV in no acute distress. Head: Normocephalic and atraumatic. Sclerae anicteric. Conjunctivae without injection or exudate. EOMI. Oral mucosa tacky. Edentulous. Neck: Supple. Cardiac: Regul
[2020-09-19] MEDS: FOLIC ACID 1 MG TABLET PO (08:49)
[2020-09-19] MEDS: MAGNESIUM OXIDE 400 MG TABLET PO (08:49)
[2020-09-19] MEDS: ENOXAPARIN 40 MG/0.4 ML SYRINGE SUB-Q (08:49)
[2020-09-19 09:27] LABS: Anion Gap 5 mmol/L (8-16); Carbon Dioxide 35 mmol/L (22-30); Chloride 93 mmol/L (98-107); Estimated CRCL calculation 83 ml/min; Estimated Glomerular Filt Rate > 60; Glucose 98 mg/dL (65-105); Magnesium 1.4 mg/dL (1.6-2.3); Potassium 3.1 mmol/L (3.4-5.0); Sodium 133 mmol/L (137-145)
[2020-09-19 09:43] LABS: Blood Urea Nitrogen < 2 mg/dL (7-17)
[2020-09-19] MEDS: POTASSIUM CHLORIDE 20 MEQ TABLET 40 MEQ PO (09:43)
[2020-09-19] MEDS: THIAMINE HCL 100 MG TABLET PO (09:43)
[2020-09-19] MEDS: LORazepam INJ (*CRX) 2 MG/ML VIAL IV PUSH (09:48)
[2020-09-19] MEDS: MAGNESIUM SULF 1 GM/D5W 100 ML 1 GM/100 ML BAG IVPB (11:54)
[2020-09-19 18:50] LABS: Potassium 3.4 mmol/L (3.4-5.0)
[2020-09-20] VITALS (9 sets, daily range): BP systolic 100–132; BP diastolic 66–84; PULSE 89–115; RESP 14–18; TEMP 36.1–37; O2SAT 97–99
[2020-09-20 05:13] LABS: Hematocrit 38.2 % (37.0-47.0); Hemoglobin 13.1 g/dL (12.0-15.0); Mean Corpuscular HGB Conc 34.3 g/dl (32-36); Mean Corpuscular Volume 99.2 fl (80-100); Mean Platelet Volume 9.3 fl (7.4-10.4); Platelet Count Result 142 k/mm3 (150-375); Red Blood Count 3.85 M/mm3 (4.2-5.4); Red Cell Distribution Width 13.4 % (11.5-14.5); White Blood Count 5.5 K/mm3 (4.5-10.0)
[2020-09-20 05:27] LABS: Anion Gap 7 mmol/L (8-16); Blood Urea Nitrogen 3 mg/dL (7-17); Calcium 8.7 mg/dL (8.4-10.2); Carbon Dioxide 35 mmol/L (22-30); Chloride 95 mmol/L (98-107); Estimated CRCL calculation 70 ml/min; Estimated Glomerular Filt Rate > 60; Glucose 97 mg/dL (65-105); Magnesium 1.9 mg/dL (1.6-2.3); Potassium 3.2 mmol/L (3.4-5.0); Sodium 137 mmol/L (137-145)
[2020-09-20] MEDS: chlordiazePOXIDE (*CRX) 10 MG CAPSULE PO ×2 (05:36→13:50)
[2020-09-20] MEDS: POTASSIUM CHLORIDE 20 MEQ PACKET (FOR LIQUID) 40 MEQ PO (09:03)
[2020-09-20] MEDS: MAGNESIUM OXIDE 400 MG TABLET PO (09:04)
[2020-09-20] MEDS: ENOXAPARIN 40 MG/0.4 ML SYRINGE SUB-Q (09:04)
[2020-09-20] MEDS: THIAMINE HCL 100 MG TABLET PO (09:04)
[2020-09-20] MEDS: FOLIC ACID 1 MG TABLET PO (09:04)
--- NOTE | 2020-09-20 09:17 | PM.IMPN ---
Progress Note: A&P Assessment and Plan (1) Alcohol withdrawal syndrome: Qualifiers: Complication of substance-induced condition: with unspecified complication Qualified Code(s): F10.239 - Alcohol dependence with withdrawal, unspecified Code(s): F10.239 - Alcohol dependence with withdrawal, unspecified Status: Acute Assessment and Plan: The patient reports chronic alcohol dependence and has a hx of alcohol withdrawal seizures with a witnessed seizure yesterday 09/18 per EMS. CIWA was elevated yesterday up to 16 the early hours of 09/19 and has improved with most recent of 5. She has very mild tremor today. Continue librium 10mg TID and plan to wean later today if she is improving. Continue CIWA-AR protocol, thiamine, and folic acid supplementation. Continue to monitor closely as she is still in the window for withdrawal and seizures. (2) Seizure: Code(s): R56.9 - Unspecified convulsions Status: Acute Assessment and Plan: Secondary to alcohol withdrawal. CT brain was unremarkable. Potassium was low which likely contributed. The seizure was reported by EMS but the pt is unable to recall any details. Lactic acid was elevated at 3 and may be secondary to the seizure. Lactic acid was 1.4 on repeat labs. She has a hx of alcohol withdrawal seizures. Hx is inconsistent as she reports that she drank the night she was brought in by EMSbut alcohol level was negative in the ED. Continue seizure precautions and librium 10mg TID, wean as tolerated. Continue CIWA monitoring with additional plan as above. Neurology has been consulted to see her due to seizure recurrence although they do seem secondary to alcohol use and withdrawal. Await further neurology recommendations. (3) Hypokalemia: Code(s): E87.6 - Hypokalemia Status: Acute Assessment and Plan: Potassium was 2.5 on arrival to the emergency department. She did have vomiting which likely contributed and has resolved. She received IV KCl supplementation with improvement. Potassium is 3.2. Replace with 40mEg potassium PO today. Repeat BMP tomorrow. Replace as necessary. (4) Acute encephalopathy: Code(s): G93.40 - Encephalopathy, unspecified Status: Resolved Assessment and Plan: Possibly secondary to post-ictal confusion. Mentation is back to baseline. (5) Tachycardia: Code(s): R00.0 - Tachycardia, unspecified Status: Acute Assessment and Plan: Sinus tachycardia on telemetry monitoring. Possibly secondary to volume depletion vs alcohol withdrawal. Heart rate has improved. She did received 1 liter fluid bolus and she is tolerating PO intake well. Continue to monitor. Continue CIWA monitoring. (6) Lactic acidosis: Code(s): E87.2 - Acidosis Status: Resolved Assessment and Plan: Resolved. Possibly secondary to seizure vs volume depletion with vomiting. She has no symptoms to suggest infection and does not appear septic. She received 1 liter IV fluid bolus. Lactic normalized to 1.4. Subjective Date/time seen: 09/20/20 09:17 Mrs. Strong is a 60 y.o. female with PMH significant for alcohol dependence and withdrawal seizures who is seen in follow-up for reported seizure per EMS. She feels much better today. 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 She is tolerating a regular diet. She does not feel anxious. She is not having any chest pain or dyspnea. She denies fever and chills. She denies abdominal pain. She reports no leg pain or swelling. She has no other concerns. Review of Systems Review of Systems: All systems reviewed & are unremarkable except as noted in HPI and below Exam Narrative: Exam Narrative: General: Well-developed and well-nourished 60 y.o. female lying semi-recumbent in bed in no acute distress. HEENT: Normocephalic and a
--- NOTE | 2020-09-20 10:43 | WPDNEURCNPN ---
Assessment and Plan Assessment and plan (1) Seizure: Code(s): R56.9 - Unspecified convulsions Status: Acute Additional Plan Chronic alcoholism with seizure disorder even though she has no focal neurological deficit and her CT scan is negative I will prefer to start her on Keppra 500 mg p.o. b.i.d. and follow her as an outpatient Consult date: 09/20/20 Time Seen: 10:43 HPI: Radha Strong is a 60 year old femaleAdmitted to the hospital through the emergency room where she was brought with the history of seizure. 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 She went home and had mixed drinks which is normal for her giving a A buzz she has no recollection of the events of the evening .she lives with her brother and is fairly independent and also has no history of having had seizures in the past. But she was seen in the emergency room couple of weeks ago when she was prescribed potassium supplement as she was noted to have low k at the time she was thought to have a withdrawal seizure and also she was found to have UTI which was treated accordingly she was discharged on Librium as an outpatient. 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 She lives with her brother. 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 Her brother is a durable power economic geographer for healthcare. 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 Gender identity (if verbalized by the patient): Female Spiritual care concerns: Yes Agree to blood products: Yes Meds Home Medications and Allergies Home Medications Medication Instructions Recorded Confirmed Type folic acid 1 mg PO DAILY #30 tablet 08/30/20 09/19/20 Rx magnesium oxide 400 mg PO QAM #30 tablet 08/30/20 09/19/20 Rx Allergies Allergy/AdvReac Type Severity Reaction Status Date / Time monosodium glutamate Allergy Severe Rash Verified 09/19/20 11:29 Vital Signs Vital Signs - 24 hr 09/19/20 12:00 09/19/20 14:00 09/19/20 16:00 Temperature 37.1 C Pulse Rate 103 H 106 H 96 Pulse Rate [Right Ulnar] 103 H 96 Respiratory Rate 17 Blood Pressure 110/74 Pulse Oximetry 98 09/19/20 18:00 09/19/20 20:00 09/20/20 00:00 Temperature 37.6 C 36.4 C 36.1 C L Pulse Rate 94 95 96 Pulse Rate [Right Ulnar] 95 92 Respiratory Rate 13 18 18 Blood Pressure 120/86 120/86 103/70 Pulse Oximetry 96 96 97 09/20/20 04:00 Temperature 36.2 C L Pulse Rate 100 Pulse Rate [Right Ulnar] 89 Respiratory Rate 18 Blood Pressure 100/66 Pulse Oximetry 97 Exam Narrative: Exam Narrative: examination today revealed her to be awake alert cooperative in no obvious acute distress.
[2020-09-20] MEDS: levETIRAcetam 500 MG TABLET PO (20:57)
[2020-09-20] MEDS: chlordiazePOXIDE (*CRX) 5 MG CAPSULE PO (20:58)
[2020-09-21 02:00] VITALS: BP 94/65; PULSE 101; RESP 16; TEMP 36.8; O2SAT 99
[2020-09-21 05:58] LABS: Anion Gap 5 mmol/L (8-16); Blood Urea Nitrogen 9 mg/dL (7-17); Calcium 8.9 mg/dL (8.4-10.2); Carbon Dioxide 35 mmol/L (22-30); Chloride 96 mmol/L (98-107); Estimated CRCL calculation 61 ml/min; Estimated Glomerular Filt Rate > 60; Glucose 100 mg/dL (65-105); Magnesium 1.5 mg/dL (1.6-2.3); Potassium 3.2 mmol/L (3.4-5.0); Sodium 136 mmol/L (137-145)
[2020-09-21 06:00] VITALS: BP 92/62; PULSE 92; RESP 16; TEMP 36.9; O2SAT 94
[2020-09-21] MEDS: chlordiazePOXIDE (*CRX) 5 MG CAPSULE PO (06:10)
[2020-09-21 08:30] VITALS: PULSE 89
[2020-09-21 08:32] VITALS: O2SAT 96
[2020-09-21] MEDS: ENOXAPARIN 40 MG/0.4 ML SYRINGE SUB-Q (08:32)
[2020-09-21] MEDS: MAGNESIUM SULF 2 GM/WATER 50ML 2 GM/50 ML BAG IVPB (08:32)
[2020-09-21] MEDS: THIAMINE HCL 100 MG TABLET PO (08:32)
[2020-09-21] MEDS: levETIRAcetam 500 MG TABLET PO (08:32)
[2020-09-21] MEDS: FOLIC ACID 1 MG TABLET PO (08:32)
--- NOTE | 2020-09-21 09:33 | PM.DS ---
DS: Admitting Diagnosis Admitting Diagnosis Admitting Diagnosis: SEIZURE, ALCOHOL RELATED, HYPOKALEMIA DS: Discharge Diagnosis Discharge Diagnosis (1) Seizure: Code(s): R56.9 - Unspecified convulsions Status: Acute Assessment and Plan: Discharge Summary (Date of service 09/21/20): Mrs. Strong is a 60 y.o. female with PMH significant for alcohol dependence and withdrawal seizures who presented to the emergency department 09/18/20 via EMS after a witnessed seizure. She reported that she drank a lot of alcohol the night of 09/17/20. She worked the [employer] all day 09/18/20 and was noted to have a witnessed seizure that night. Hx was somewhat inconsistent as she told the admitting provider that she had a few drinks the night of 09/18, although her alcohol level was negative in the ED. CT brain was unremarkable. Potassium was low which likely contributed. Lactic acid was elevated at 3, likely secondary to the seizure. Lactic acid normalized on repeat labs. She had no symptoms to suggest infection. Librium 10mg TID was given and weaned. Neurology was consulted to see her due to seizure recurrence. Neurology recommended she begin keppra for seizure prophylaxis and follow-up outpatient. Her CIWA scores improved. I spent extensive time discussing the importance of alcohol cessation. She also met with care coordination to discuss community resources available. She expressed the desire to quit. She also expressed that she wished to try something to treat her depression as she felt that this contributed to her alcohol use. I started low-dose escitalopram. Potential adverse reactions were discussed including suicidal thoughts. She verbalized understanding in the need to watch for any of these symptoms call her doctor/stop the medication immediately should this develop. Potassium and magnesium were supplemented. She was advised to have repeat labs and establish care with a primary care doctor outpatient. Dr. Cardona was carbonation equipment tender and I was able to schedule an appt for her to see him within 1 week. She understood worrisome signs and symptoms which warranted return to the emergency department. She was discharged in hemodynamically stable condition the afternoon of 09/21/20. (2) Alcohol withdrawal syndrome: Qualifiers: Complication of substance-induced condition: with unspecified complication Qualified Code(s): F10.239 - Alcohol dependence with withdrawal, unspecified Code(s): F10.239 - Alcohol dependence with withdrawal, unspecified Status: Acute Assessment and Plan: As above. (3) Hypokalemia: Code(s): E87.6 - Hypokalemia Status: Acute Assessment and Plan: Potassium was 2.5 on arrival to the emergency department. She did have vomiting which likely contributed and has resolved. She received IV KCl supplementation with improvement. She was discharged on a 7 day course of low dose potassium with lab order for repeat potassium within 1 week to ensure hypokalemia has resolved. (4) Acute encephalopathy: Code(s): G93.40 - Encephalopathy, unspecified Status: Resolved Assessment and Plan: Possibly secondary to post-ictal confusion. Mentation returned to baseline. (5) Tachycardia: Code(s): R00.0 - Tachycardia, unspecified Status: Acute Assessment and Plan: Resolved. Sinus tachycardia was demonstrated on telemetry monitoring. Possibly secondary to volume depletion vs alcohol withdrawal. Heart rate improved. (6) Lactic acidosis: Code(s): E87.2 - Acidosis Status: Resolved Assessment and Plan: Resolved. Possibly secondary to seizure vs volume depletion with vomiting. She had no symptoms to suggest infection. She received 1 liter IV fluid bolus. Lactic normalized to 1.4. (7) Depression: Qualifiers: Depression Type: unspecified Qualified Code(s): F32.9 - Major depressive disorder, single episode, unspecified Code(
[2020-09-21] MEDS: POTASSIUM CHLORIDE 20 MEQ TABLET 40 MEQ PO (09:52)
[2020-09-21 10:00] VITALS: BP 113/78; PULSE 95; RESP 14; TEMP 36.9; O2SAT 98
== END 2020-09-21 13:55 | disposition home or self-care (01) ==
LOC: ANHED 22:39 → ANH2MED 23:19
PROVIDERS: Physician Assistant; Admitting Provider Student in an Organized Health Care Education/Training Program; Emergency Provider Emergency Medicine; Visit Provider Family Medicine
DX: F10.239 Alcohol dependence with withdrawal, unspecified; R56.9 Unspecified convulsions; E87.6 Hypokalemia; G93.40 Encephalopathy, unspecified; R00.0 Tachycardia, unspecified; E87.2 Acidosis; F32.9 Major depressive disorder, single episode, unspecified; Z28.21 Immunization not carried out because of patient refusal; Z79.899 Other long term (current) drug therapy; Z86.79 Personal history of other diseases of the circulatory system
CPT/HCPCS: 36415; 70450; 80048; 80053; 80307; 83605; 83735; 84132; 84484; 85025; 85027; 85610; 85730; 93005; 96365; 96366; 96367; 96372; 96375; 99285; A9270; G0378; G0379; J1650; J2060; J2405; J3411; J3475; J3480; J7030; J7121

== ENCOUNTER 2020-12-25 22:36 | Inpatient (IN) | payer OTHER, SELFPAY ==
--- NOTE | ~2020-12-25 | CT_ITS ---
EXAMINATION: CT brain wo con DATE: 12/25/2020 23:14 INDICATION: Altered mental status TECHNIQUE: Computed tomography (CT) of the head was performed without intravenous contrast. Sagittal and coronal reconstructions were performed. The mA was adjusted according to patient size. Iterative reconstruction technique was employed. The dose-length product was 605.33 mGy-cm. COMPARISON: head CT dated 09/18/2020 FINDINGS: No acute intracranial hemorrhage, acute infarction or abnormal extra axial fluid collection. There is mild scattered white matter hypoattenuation consistent with chronic small vessel ischemic disease. S ymmetric prominence of the sulci consistent with moderate diffuse cerebral volume loss is disproporti chiqui for age. Ventricles are normal and symmetric. No mass/mass effect. Intracranial calcified cereb ral atherosclerosis is noted. The orbits, paranasal sinuses and mastoid air cells are normal. IMPRESSION: 1. No acute intracranial process. 2. Moderate diffuse volume loss which is disproportionate for age and likely related to reported hist ory of chronic alcoholism. 3. Mild scattered white matter hypoattenuation which could be related to chronic small vessel ischemi c disease and/or without). Reviewed, dictated and finalized at location [facility]. [facility] IMPRESSION: 1. No acute intracranial process. 2. Moderate diffuse volume loss which is disproportionate for age and likely re lated to reported history of chronic alcoholism. 3. Mild scattered white matter hypoattenuation which could be related to chroni c small vessel ischemic disease and/or without).
[2020-12-25 22:37] VITALS: BP 137/87; PULSE 116; RESP 20; TEMP 36.2; O2SAT 100
--- NOTE | 2020-12-25 22:52 | ECG_ITS ---
Measurements Intervals [place] Rate: 91 P: 56 CA: 123 QRS: 44 QRSD: 89 T: 55 QT: 447 QTc: 553 Interpretive Statements SINUS RHYTHM BORDERLINE ST ABNORMALITY- ANTEROLATERAL LEADS BASELINE ARTIFACT- I, II, III, AVR, AVL, AVF, V1-V6 BORDERLINE ECG Electronically Signed On 12-26-2020 7:06:49 CAREER TRANSITION SPECIALIST by Mick Leon D.O.
--- NOTE | 2020-12-25 22:54 | ED.PSYCH ---
HPI - Psych General Chief Complaint: Altered Mental Status Stated Complaint: Mental issues/ brought in by police Time Seen by Provider: 12/25/20 22:51 Source: patient Mode of arrival: ambulatory Limitations: altered mental status History of Present Illness HPI Narrative: Patient is a 60-year-old female brought in by EMS due to auditory hallucinations, described as people watching me, listening on my conversations, trying to kidnap me, putting animals inside the house , due to this she had called the police department multiple times leading them to call EMS to bring the patient to the emergency room for psych evaluation. Patient denies any suicidal or homicidal ideations. Patient admits to drinking daily but states that she quit approximately 1 week ago. Related Data Allergies Allergy/AdvReac Type Severity Reaction Status Date / Time monosodium glutamate Allergy Severe Rash Verified 12/25/20 22:41 Review of Systems Review of Systems: All systems reviewed & are unremarkable except as noted in HPI and below Constitutional: Constitutional: Denies body ache(s), Denies chills, Denies excessive sweating, Denies fatigue, Denies fever(s), Denies headache(s), Denies lethargy, Denies malaise, Denies weakness and Denies weight loss Eyes: Eyes: Denies blurry vision, Denies change in vision and Denies loss of vision ENT: Denies dizziness, Denies ear discharge, Denies headache(s), Denies lip swelling, Denies epistaxis, Denies nasal congestion, Denies neck pain, Denies throat swelling and Denies tongue swelling Cardiovascular: Cardiovascular: Denies chest pain, Denies chest pain at rest, Denies chest pain with activity, Denies diaphoresis, Denies rapid heart rate, Denies edema, Denies irregular heart rhythm, Denies lightheadedness, Denies palpitations, Denies dyspnea and Denies dyspnea on exertion Respiratory: Respiratory: Denies chest congestion, Denies cough, Denies hemoptysis, Denies dyspnea and Denies dyspnea on exertion Gastrointestinal: Gastrointestinal: Denies abdominal pain, Denies melena, Denies hematochezia, Denies diarrhea, Denies nausea, Denies vomiting and Denies hematemesis Musculoskeletal: Musculoskeletal: Denies abnormal gait, Denies deformity, Denies joint swelling, Denies limited range of motion, Denies neck pain and Denies numbness Neurologic: Denies Abnormal speech present, Denies abnormal gait, Denies confusion, Denies dizziness, Denies headache(s), Denies focal weakness, Denies loss of vision, Denies numbness, Denies Other visual disturbances, Denies Sensory deficit (Neuro) and Denies weakness Psychiatric: Psychiatric: Denies depression, Denies homicidal ideation and Denies suicidal ideation Endocrine: Endocrine: Denies cold intolerance, Denies excessive sweating, Denies fatigue, Denies heat intolerance and Denies palpitations Hematologic/Lymphatic: Hematologic/Lymphatic: Denies easy bleeding and Denies easy bruising Allergic/Immunologic: Allergic/Immunologic: Denies lip swelling, Denies throat swelling and Denies tongue swelling PMF Past Medical History Medical History (Updated 12/26/20 @ 00:57 by Guzman Collins MD) Alcoholic Anxiety Clavicle fracture Depression Facial fracture Foot fracture, left Guillain-[place] syndrome Self diagnosed Seizure Due to alcohol withdrawal Subarachnoid hemorrhage Surgical History Surgical History No significant past surgical history Family History Family History Sibling Family history of multiple sclerosis Father Colon cancer Arthritis Mother Throat cancer Social History Social History Social History: Patient is currently unemployed. She lives with her brother. 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 Her brother is a durable power insurance defense attorney for healthcare. Smoking status: Never smoker Alcohol intake: c
--- NOTE | 2020-12-25 23:04 | PC.NURSE ---
Spoke with patients brother Baldemar. He states that he has been working tonight but was notified by PD that she was here. Denies patients psychiatric history or hallucinations. Says she has never acted like this before . States she has a pretty significant drinking problem and is unsure when she last drank but it was within the last few days.
[2020-12-25 23:32] LABS: Glucose Point of Care 73 (65-105)
[2020-12-25 23:40] LABS: Basophils Percent Auto 0.2 % (0.2-1.2); Eosinophils Percent Auto 0.1 % (0-4.4); Hematocrit 43.8 % (37.0-47.0); Immature Granulocyte Absolute 0.06 K/mm3 (0.00-0.031); Immature Granulocyte Percent A 0.7 % (0-0.5); Lymphocytes Absolute Auto 0.53 K/mm3 (0.9-3.2); Lymphocytes Percent Auto 5.8 % (18.3-44.2); Mean Corpuscular HGB Conc 34.2 g/dl (32-36); Mean Corpuscular Hemoglobin 33.6 pg (26-34); Mean Platelet Volume 9.8 fl (7.4-10.4); Monocytes Absolute Auto 0.8 K/mm3 (0.1-0.6); Monocytes Percent Auto 8.7 % (2.6-8.5); Neutrophils Absolute Auto 7.7 K/mm3 (1.3-6.7); Neutrophils Percent Auto 84.5 % (45.5-73.1); Platelet Count Result 156 k/mm3 (150-375); Red Blood Count 4.47 M/mm3 (4.2-5.4); Red Cell Distribution Width 13.3 % (11.5-14.5); White Blood Count 9.1 K/mm3 (4.5-10.0)
[2020-12-25 23:58] LABS: Alanine Aminotransferase 49 U/L (4-35); Albumin Level 4.6 g/dL (3.5-5.1); Alkaline Phosphatase 163 U/L (38-126); Anion Gap 22 mmol/L (8-16); Aspartate Amino Transferase 180 U/L (14-36); Bilirubin,Total 1.9 mg/dL (0.2-1.3); Blood Urea Nitrogen 10 mg/dL (7-17); Calcium 8.4 mg/dL (8.4-10.2); Carbon Dioxide 23 mmol/L (22-30); Chloride 89 mmol/L (98-107); Estimated CRCL calculation 44 ml/min; Estimated Glomerular Filt Rate 57; Glucose 70 mg/dL (65-105); Potassium 2.6 mmol/L (3.4-5.0); Sodium 134 mmol/L (137-145)
[2020-12-26] VITALS (14 sets, daily range): BP systolic 95–140; BP diastolic 49–100; PULSE 89–125; RESP 16–28; TEMP 36.4–37.1; O2SAT 95–100
[2020-12-26 00:02] LABS: Acetaminophen < 10 ug/mL (10-30); Ethanol < 10 mg/dL (<10); Salicylate < 1.0 mg/dL (2-20)
[2020-12-26] MEDS: THIAMINE HCL INJ 100 MG, FOLIC ACID INJ 1 MG, MULTIVITAMINS-12 INJ VIAL 1 5 ML, MULTIVI... 250 MG IV CONT (00:05)
[2020-12-26 00:18] LABS: Add Urine Microscopic? YES; Appearance Urine Cloudy (Clear); Bacteria Urine 2+ /hpf; Bilirubin Urine Negative (Negative); Blood Urine 1+ (Negative); Color Urine Yellow (Yellow); Glucose Urine UA 1+ mg/dL (Negative); Hyaline Casts Urine 50+ /lpf; Ketones Urine 2+ mg/dL (Negative); Leukocyte Esterase Ur 2+ LEU/UL (Negative); Mucus Urine Heavy /lpf; Nitrate Urine Negative (Negative); Protein Urine 2+ mg/dL (Negative); Specific Grav Ur 1.014 (1.001-1.035); Squamous Epithelial Cell Urine Many /hpf (Few); WBC Urine 51-75 /hpf
[2020-12-26] MEDS: POTASSIUM CHLORIDE 20 MEQ PACKET (FOR LIQUID) 40 MEQ PO ×3 (00:32→21:08)
[2020-12-26] MEDS: KCL 20 MEQ/SW 100 ML 100 ML 50 MEQ IVPB (00:37)
[2020-12-26 00:39] LABS: Amphetamine Screen Urine Negative (Negative); Barbiturate Screen Urine Negative (Negative); Benzodiazepines Screen Urine Negative (Negative); Cannabinoid Screen Urine Negative (Negative); Cocaine Screen Urine Negative (Negative); Methadone Screen Urine Negative (Negative); Opiate Screen Urine Negative (Negative); Phencyclidine Screen Urine Negative (Negative)
[2020-12-26] MEDS: MAGNESIUM OXIDE 400 MG TABLET PO (02:02)
[2020-12-26 02:11] LABS: Magnesium 1.1 mg/dL (1.6-2.3)
[2020-12-26] MEDS: LORazepam INJ (*CRX) 2 MG/ML VIAL 1 MG IV PUSH (03:04)
[2020-12-26] MEDS: levoFLOXacin 500 MG/D5W 100 ML 500 MG/100 ML BAG 100 MG IVPB (03:05)
[2020-12-26] MEDS: chlordiazePOXIDE (*CRX) 25 MG CAPSULE 50 MG PO ×2 (03:05→05:18)
--- NOTE | 2020-12-26 03:14 | PC.NURSE ---
This patient, Radha Strong, was admitted to Intensive Care Unit-8. Patient/family oriented to hospital policies and general routines including ID bracelet, bed and alarms, visiting hours, pain management, procedures, bathroom and other care routines, personal items, smoking policy, room service/diet, and visiting hours. Information on how to activate the Rapid Response Team has been discussed. Patient/Family are encouraged to report perceived risks to care and to ask questions if they do not understand what they are told or what they should do.
[2020-12-26] MEDS: LORazepam INJ (*CRX) 2 MG/ML VIAL IV PUSH (05:18)
[2020-12-26] MEDS: chlordiazePOXIDE (*CRX) 25 MG CAPSULE 100 MG PO (05:54)
--- NOTE | 2020-12-26 06:13 | PM.IMHP ---
H&P: HPI History of Present Illness Date/Time: 12/26/20 06:13 Chief Complaint: Hallucinations Narrative: Radha Strong is a 60 year old female with a past medical history of alcoholism and alcohol withdrawal seizures who presented to the ER with hallucinations. The patient reported that she feels like people are watching her, listening to her and releasing animals into her house. She called the police to tell them that her family had been kidnapped. The patient had called police multiple times and they brought her into the ER for evaluation. On arrival to the ER the patient reported that she had not drank any alcohol in 7 days. The patient reports that she drinks about 4 mixed drinks a day. She has arrived to the ER and in July with an alcohol level of 409. Her alcohol level at the time of this hospitalization was less than 10. When the patient arrived to the ICU see denied having auditory hallucinations. However, patient was overtly confused. She does know the month, year name of the hospital and is oriented to person. However she was noted to be talking to people that were not there and saying nonsensical sentences. She had did not follow-up with a physician after she was discharged in September with alcohol withdrawal seizures. She has not filled her prescriptions since she was discharged. The patient arrived to the ER discharge hold and smelling strongly of urine. The ER physician had ordered a straight cath urine however it appears that this may have actually been a clean-catch that was obtained. She denies any dysuria or hematuria but again is a poor historian. She has not had any nausea or vomiting. She is obviously quite anxious in his tremulous. She denies any chest pain, shortness of breath or palpitations. Review of Systems Review of Systems: ROS unobtainable: Yes unobtainable due to medical condition (Extremely limited due to patient's alcohol withdrawal delirium) [facility] Past Medical History Medical History (Updated 12/26/20 @ 09:31 by Vira Bermudez DO) Alcoholic Anxiety Clavicle fracture Depression Facial fracture Foot fracture, left Guillain-[place] syndrome Self diagnosed Seizure Due to alcohol withdrawal Subarachnoid hemorrhage Surgical History Surgical History (Updated 12/26/20 @ 09:29 by Vira Bermudez DO) History of appendectomy Family History Family History Sibling Family history of multiple sclerosis Father Colon cancer Arthritis Mother Throat cancer Social History Social History Social History: Patient is currently unemployed. She lives with her brother. 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 Her brother is a durable power county attorney for healthcare. 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 Gender identity (if verbalized by the patient): Female Spiritual care concerns: No Agree to blood products: Yes Meds Home Medications and Allergies Home Medications Medication Instructions Recorded Confirmed Type No Home Medications 12/26/20 12/26/20 History Allergies Allergy/AdvReac Type Severity Reaction Status Date / Time monosodium glutamate Allergy Severe Rash Verified 12/25/20 22:41 Vital Signs Vital Signs - 24 hr 12/25/20 22:37 12/26/20 02:04 12/26/20 02:33 Temperature 97.2 F L 98.8 F Pulse Rate 116 H 96 Pulse Rate [Monitor] 99 Respiratory Rate 20 20 Blood Pressure 137/87 140/100 H Pulse Oximetry 100 100 12/26/20 03:34 12/26/20 04:00 12/26/20 04:45 Temperature 98.7 F Pulse Rate 122 H Pulse Rate [Monitor] 89 110 H Respiratory Rate 28 H Blood Pressure 101/49 L 109/76 Pulse Oximetry 97 12/26/20 06:00 Temperature Pulse Rate 108 H Pulse Rate [Radha
[2020-12-26 10:47] LABS: Basophils Percent Auto 0.3 % (0.2-1.2); Eosinophils Absolute Auto 0.2 K/mm3 (0-0.3); Eosinophils Percent Auto 2.2 % (0-4.4); Hematocrit 37.1 % (37.0-47.0); Hemoglobin 12.9 g/dL (12.0-15.0); Immature Granulocyte Absolute 0.02 K/mm3 (0.00-0.031); Immature Granulocyte Percent A 0.3 % (0-0.5); Immature Platelet Fraction Pct 4.3 % (0.9-11.2); Lymphocytes Absolute Auto 1.41 K/mm3 (0.9-3.2); Lymphocytes Percent Auto 20.3 % (18.3-44.2); Mean Corpuscular HGB Conc 34.8 g/dl (32-36); Mean Corpuscular Volume 94.9 fl (80-100); Mean Platelet Volume 9.8 fl (7.4-10.4); Monocytes Absolute Auto 0.8 K/mm3 (0.1-0.6); Monocytes Percent Auto 11.7 % (2.6-8.5); Neutrophils Absolute Auto 4.5 K/mm3 (1.3-6.7); Neutrophils Percent Auto 65.2 % (45.5-73.1); Platelet Count Result 143 k/mm3 (150-375); Red Blood Count 3.91 M/mm3 (4.2-5.4); Red Cell Distribution Width 13.2 % (11.5-14.5)
[2020-12-26 10:52] LABS: Potassium 3.1 mmol/L (3.4-5.0)
[2020-12-26 11:03] LABS: Anion Gap 8 mmol/L (8-16); Blood Urea Nitrogen 9 mg/dL (7-17); Carbon Dioxide 31 mmol/L (22-30); Chloride 95 mmol/L (98-107); Estimated CRCL calculation 70 ml/min; Estimated Glomerular Filt Rate > 60; Glucose 75 mg/dL (65-105); Sodium 134 mmol/L (137-145)
[2020-12-26] MEDS: MAGNESIUM SULF 4 GM/WATER100ML 4 GM/100 ML BAG IVPB (11:42)
[2020-12-26 12:11] LABS: Free T4 Free Thyroxine 1.61 ng/mL (0.78-2.19)
[2020-12-26 13:08] LABS: Magnesium 1.7 mg/dL (1.6-2.3)
--- NOTE | 2020-12-26 14:04 | PM.IMPN ---
Progress Note: A&P Assessment and Plan (1) Alcohol withdrawal with delirium: Code(s): F10.231 - Alcohol dependence with withdrawal delirium Status: Acute Assessment and Plan: Treated in IMU with alcohol withdrawal protocol IV Ativan or Librium decrease the dose of oral Librium (2) Acute hypokalemia: Code(s): E87.6 - Hypokalemia Status: Acute Assessment and Plan: Replace magnesium replace potassium (3) Seizure: Code(s): R56.9 - Unspecified convulsions Status: Acute Assessment and Plan: History of seizure with alcohol withdrawal monitor correct electrolyte (4) Acute metabolic encephalopathy: Code(s): G93.41 - Metabolic encephalopathy Status: Acute Assessment and Plan: Secondary to alcohol withdrawal or alcohol withdrawal protocol improved (5) Hypomagnesemia: Code(s): E83.42 - Hypomagnesemia Status: Acute Assessment and Plan: Replace (6) Anxiety: Code(s): F41.9 - Anxiety disorder, unspecified Status: Chronic Assessment and Plan: Continue home medication Subjective Date/time seen: 12/26/20 14:04 Interval history: Patient seen and examined Patient feels weak patient is more alert Patient denies fever headache chest pain shortness of breath I am seeing the patient for alcohol intoxication Exam Narrative: Exam Narrative: More alert Chest no wheeze crackles Abdomen nontender nondistended CVS S1 + S2 Lower extremity edema Objective Data Vital Signs Vital Signs: Vital Signs - 24 hr 12/25/20 22:37 12/26/20 02:04 12/26/20 02:33 Temperature 97.2 F L 98.8 F Pulse Rate 116 H 96 Pulse Rate [Monitor] 99 Respiratory Rate 20 20 Blood Pressure 137/87 140/100 H Pulse Oximetry 100 100 12/26/20 03:34 12/26/20 04:00 12/26/20 04:45 Temperature 98.7 F Pulse Rate 122 H Pulse Rate [Monitor] 89 110 H Respiratory Rate 28 H Blood Pressure 101/49 L 109/76 Pulse Oximetry 97 12/26/20 06:00 12/26/20 08:00 12/26/20 10:00 Temperature 97.6 F Pulse Rate 108 H 100 102 H Pulse Rate [Monitor] 100 Respiratory Rate 16 Blood Pressure 95/64 L Pulse Oximetry 95 95 12/26/20 12:00 Temperature Pulse Rate 100 Pulse Rate [Monitor] 105 H Respiratory Rate 22 H Blood Pressure 97/76 L Pulse Oximetry 98 Intake/Output Intake/Output: Intake & Output 12/23/20 12/24/20 12/25/20 12/26/20 23:59 23:59 23:59 23:59 Intake Total 400 Output Total 300 Balance 100 Meds/Results Medications: Active Medications Generic Name Dose Route Start Last Admin Trade Name Freq PRN Reason Stop Dose Admin Chlordiazepoxide HCl 25 mg 12/26/20 18:00 Chlordiazepoxide (*Crx) 25 Mg Capsule PO Q6HR WILMER Folic Acid 1 mg 12/27/20 09:00 Folic Acid 1 Mg Tablet PO DAILY WILMER Lorazepam 2 mg 12/26/20 05:06 Lorazepam Inj (*Crx) 2 Mg/Ml Vial IV PUSH Q2HR PRN Withdrawal Potassium Chloride 40 meq 12/26/20 12:15 Potassium Chloride 20 Meq Packet (For Liquid) PO 12/26/20 16:16 Q4H WILMER Thiamine HCl 100 mg 12/27/20 09:00 [facility] Hcl [facility] Results: ITS Impressions Head CT 12/25/20 23:28 IMPRESSION: 1. No acute intracranial process. 2. Moderate diffuse volume loss which is disproportionate for age and likely related to reported history of chronic alcoholism. 3. Mild scattered white matter hypoattenuation which could be related to chronic small vessel ischemic disease and/or without). Labs Labs: Laboratory Results - last 24 hr 12/25/20 12/25/20 12/25/20 23:28 23:31 23:31 WBC RBC Hgb Hct MCV MCH MCHC RDW Plt Count MPV Immature Gran % (Auto) Neut % (Auto) Lymph % (Auto) [place] % (Auto) Eos % (Auto) Baso % (Auto) Lymph # (Auto) [place] # (Auto) Eos # (Auto) Baso # (Auto) Abs Immat Gran (auto) Absolute Neuts (auto) Absolu
[2020-12-26] MEDS: POTASSIUM PHOS/SODIUM PHOS 250 MG TABLET PO (21:08)
[2020-12-26] MEDS: chlordiazePOXIDE (*CRX) 25 MG CAPSULE PO (22:59)
[2020-12-27] VITALS (13 sets, daily range): BP systolic 94–133; BP diastolic 62–94; PULSE 90–124; RESP 19–24; TEMP 36.4–36.8; O2SAT 94–98; BMI 22.4
[2020-12-27] MEDS: chlordiazePOXIDE (*CRX) 25 MG CAPSULE PO ×3 (05:57→22:13)
[2020-12-27] MEDS: THIAMINE HCL 100 MG TABLET PO (07:46)
[2020-12-27] MEDS: POTASSIUM PHOS/SODIUM PHOS 250 MG TABLET PO ×3 (07:46→18:14)
[2020-12-27] MEDS: FOLIC ACID 1 MG TABLET PO (07:46)
[2020-12-27 08:56] LABS: Basophils Percent Auto 0.4 % (0.2-1.2); Eosinophils Absolute Auto 0.2 K/mm3 (0-0.3); Eosinophils Percent Auto 3.3 % (0-4.4); Hematocrit 36.9 % (37.0-47.0); Hemoglobin 12.7 g/dL (12.0-15.0); Immature Granulocyte Absolute 0.02 K/mm3 (0.00-0.031); Immature Granulocyte Percent A 0.4 % (0-0.5); Lymphocytes Absolute Auto 1.01 K/mm3 (0.9-3.2); Lymphocytes Percent Auto 19.5 % (18.3-44.2); Mean Corpuscular HGB Conc 34.4 g/dl (32-36); Mean Corpuscular Hemoglobin 33.8 pg (26-34); Mean Corpuscular Volume 98.1 fl (80-100); Mean Platelet Volume 9.8 fl (7.4-10.4); Monocytes Absolute Auto 0.8 K/mm3 (0.1-0.6); Monocytes Percent Auto 15.2 % (2.6-8.5); Neutrophils Absolute Auto 3.2 K/mm3 (1.3-6.7); Neutrophils Percent Auto 61.2 % (45.5-73.1); Platelet Count Result 123 k/mm3 (150-375); Red Blood Count 3.76 M/mm3 (4.2-5.4); Red Cell Distribution Width 14.4 % (11.5-14.5); White Blood Count 5.2 K/mm3 (4.5-10.0)
[2020-12-27 09:07] LABS: Alanine Aminotransferase 34 U/L (4-35); Albumin Level 3.2 g/dL (3.5-5.1); Alkaline Phosphatase 97 U/L (38-126); Anion Gap 6 mmol/L (8-16); Aspartate Amino Transferase 135 U/L (14-36); Bilirubin,Total 0.7 mg/dL (0.2-1.3); Blood Urea Nitrogen 7 mg/dL (7-17); Calcium 8.3 mg/dL (8.4-10.2); Carbon Dioxide 33 mmol/L (22-30); Chloride 94 mmol/L (98-107); Estimated CRCL calculation 83 ml/min; Estimated Glomerular Filt Rate > 60; Glucose 105 mg/dL (65-105); Sodium 133 mmol/L (137-145)
--- NOTE | 2020-12-27 10:35 | PM.IMPN ---
Progress Note: A&P Assessment and Plan (1) Alcohol withdrawal with delirium: Code(s): F10.231 - Alcohol dependence with withdrawal delirium Status: Acute Assessment and Plan: Treated in IMU with alcohol withdrawal protocol IV Ativan Librium Patient condition improved Okay Transfer to medical floor with telemetry Anticipate discharge in a.m. (2) Acute hypokalemia: Code(s): E87.6 - Hypokalemia Status: Acute Assessment and Plan: Replace again today (3) Seizure: Code(s): R56.9 - Unspecified convulsions Status: Acute Assessment and Plan: History of seizure with alcohol withdrawal monitor correct electrolyte (4) Acute metabolic encephalopathy: Code(s): G93.41 - Metabolic encephalopathy Status: Acute Assessment and Plan: Secondary to alcohol withdrawal or alcohol withdrawal protocol improved (5) Hypomagnesemia: Code(s): E83.42 - Hypomagnesemia Status: Acute Assessment and Plan: Replaced (6) Anxiety: Code(s): F41.9 - Anxiety disorder, unspecified Status: Chronic Assessment and Plan: Continue home medication Subjective Date/time seen: 12/27/20 10:35 Interval history: Patient seen and examined Patient feels Patient is alert and oriented Patient denies fever headache chest pain shortness of breath I am seeing the patient for alcohol intoxication Exam Narrative: Exam Narrative: More alert Chest no wheeze crackles Abdomen nontender nondistended CVS S1 + S2 Lower extremity edema Objective Data Vital Signs Vital Signs: Vital Signs - 24 hr 12/26/20 12:00 12/26/20 14:00 12/26/20 16:00 Temperature 97.7 F Pulse Rate 100 102 H 97 Pulse Rate [Monitor] 105 H Respiratory Rate 22 H 20 Blood Pressure 97/76 L 95/70 L Pulse Oximetry 98 96 12/26/20 18:00 12/26/20 20:00 12/26/20 22:00 Temperature 97.7 F Pulse Rate 100 121 H 106 H Pulse Rate [Monitor] 121 H Respiratory Rate 23 H Blood Pressure 97/69 L Pulse Oximetry 99 12/27/20 00:00 12/27/20 02:00 12/27/20 04:00 Temperature 97.7 F 98.3 F Pulse Rate 90 114 H 109 H Pulse Rate [Monitor] 90 109 H Respiratory Rate 24 H 19 Blood Pressure 110/71 94/62 L Pulse Oximetry 98 94 12/27/20 06:00 12/27/20 08:00 12/27/20 10:00 Temperature 98 F Pulse Rate 102 H 110 H 111 H Pulse Rate [Monitor] Respiratory Rate 20 Blood Pressure 107/86 Pulse Oximetry 98 Intake/Output Intake/Output: Intake & Output 12/24/20 12/25/20 12/26/20 12/27/20 23:59 23:59 23:59 23:59 Intake Total 1160 1680 Output Total 1500 Balance -340 1680 Meds/Results Medications: Active Medications Generic Name Dose Route Start Last Admin Trade Name Freq PRN Reason Stop Dose Admin Chlordiazepoxide HCl 25 mg 12/26/20 18:00 12/27/20 05:57 Chlordiazepoxide (*Crx) 25 Mg Capsule PO 25 mg Q6HR WILMER Administration Folic Acid 1 mg 12/27/20 09:00 12/27/20 07:46 Folic Acid 1 Mg Tablet PO 1 mg DAILY WILMER Administration Lorazepam 2 mg 12/26/20 05:06 Lorazepam Inj (*Crx) 2 Mg/Ml Vial IV PUSH Q2HR PRN Withdrawal Potassium Chloride 40 meq 12/27/20 13:00 Potassium Chloride 20 Meq Packet (For Liquid) PO 12/27/20 21:01 Q4HR WILMER Sodium Phosphate 250 mg 12/26/20 17:00 12/27/20 07:46 Potassium Phos/Sodium Phos 250 Mg Tablet PO 12/28/20 13:01 250 mg TID WILMER Administration Thiamine HCl 100 mg 12/27/20 09:00 12/27/20 07:46 Thiamine Hcl 100 Mg Tablet PO 100 mg QAM WILMER Administration Radiology Results: ITS Impressions Head CT 12/25/20 23:28 IMPRESSION: 1. No acute intracranial process. 2. Moderate diffuse volume loss which is disproportionate for age and likely related to reported history of chronic alcoholism. 3. Mild scattered white matter hypoattenuation which could be related to chronic small vessel ischemic disease and/or without). Labs Labs: Laboratory Res
[2020-12-27] MEDS: POTASSIUM CHLORIDE 20 MEQ PACKET (FOR LIQUID) 40 MEQ PO ×3 (12:54→20:51)
--- NOTE | 2020-12-27 22:13 | PC.NURSE ---
This patient, Radha Strong, was transferred to [facility] on 12/27/20 at 2155. Personal belongings sent with patient. Report given to Marilou LOMELI. Appropriate documentation sent with patient.
--- NOTE | 2020-12-27 22:28 | PC.NURSE ---
This patient, Radha Strong, was received from [ ICU 8 ] on 12/27/20 at 2228. Patient/family oriented to unit policies and routines
[2020-12-28] VITALS: BP 102/65; PULSE 106; PULSE 109; PULSE 114; RESP 17; TEMP 36.8; O2SAT 98
[2020-12-28 04:00] VITALS: BP 102/65; PULSE 102; PULSE 109
[2020-12-28 05:10] VITALS: BP 126/84; PULSE 96; RESP 17; TEMP 36.6; O2SAT 97
[2020-12-28] MEDS: chlordiazePOXIDE (*CRX) 25 MG CAPSULE PO (05:11)
[2020-12-28 08:00] VITALS: PULSE 107
[2020-12-28 08:17] LABS: Alanine Aminotransferase 39 U/L (4-35); Albumin Level 3.2 g/dL (3.5-5.1); Alkaline Phosphatase 84 U/L (38-126); Anion Gap 1 mmol/L (8-16); Aspartate Amino Transferase 122 U/L (14-36); Bilirubin,Total 0.4 mg/dL (0.2-1.3); Blood Urea Nitrogen 8 mg/dL (7-17); Calcium 7.9 mg/dL (8.4-10.2); Carbon Dioxide 33 mmol/L (22-30); Chloride 101 mmol/L (98-107); Estimated CRCL calculation 83 ml/min; Estimated Glomerular Filt Rate > 60; Glucose 107 mg/dL (65-105); Potassium 4.1 mmol/L (3.4-5.0); Sodium 135 mmol/L (137-145)
[2020-12-28 08:18] LABS: Basophils Percent Auto 0.6 % (0.2-1.2); Eosinophils Absolute Auto 0.2 K/mm3 (0-0.3); Eosinophils Percent Auto 3.5 % (0-4.4); Hematocrit 37.5 % (37.0-47.0); Hemoglobin 12.5 g/dL (12.0-15.0); Immature Granulocyte Absolute 0.03 K/mm3 (0.00-0.031); Immature Granulocyte Percent A 0.6 % (0-0.5); Immature Platelet Fraction Pct 4.7 % (0.9-11.2); Lymphocytes Absolute Auto 1.46 K/mm3 (0.9-3.2); Lymphocytes Percent Auto 27.2 % (18.3-44.2); Mean Corpuscular HGB Conc 33.3 g/dl (32-36); Mean Corpuscular Hemoglobin 33.3 pg (26-34); Mean Platelet Volume 9.8 fl (7.4-10.4); Monocytes Absolute Auto 0.8 K/mm3 (0.1-0.6); Monocytes Percent Auto 15.1 % (2.6-8.5); Neutrophils Absolute Auto 2.9 K/mm3 (1.3-6.7); Platelet Count Result 147 k/mm3 (150-375); Red Blood Count 3.75 M/mm3 (4.2-5.4); Red Cell Distribution Width 14.6 % (11.5-14.5); White Blood Count 5.4 K/mm3 (4.5-10.0)
[2020-12-28 08:30] VITALS: BP 126/84; PULSE 109
[2020-12-28] MEDS: FOLIC ACID 1 MG TABLET PO (08:30)
[2020-12-28] MEDS: POTASSIUM PHOS/SODIUM PHOS 250 MG TABLET PO (08:30)
[2020-12-28] MEDS: THIAMINE HCL 100 MG TABLET PO (08:30)
[2020-12-28 08:35] VITALS: BP 135/88; PULSE 100; RESP 16; TEMP 36.5; O2SAT 99
--- NOTE | 2020-12-28 10:29 | PM.DS ---
DS: Admitting Diagnosis Admitting Diagnosis Admitting Diagnosis: hallucination DS: Discharge Diagnosis Discharge Diagnosis (1) Alcohol withdrawal with delirium: Code(s): F10.231 - Alcohol dependence with withdrawal delirium Status: Acute Assessment and Plan: Treated in IMU with alcohol withdrawal protocol IV Ativan Librium Patient condition improved patient condition significantly improved patient will be discharged today on vitamin supplement follow-up with PCP as outpatient (2) Acute hypokalemia: Code(s): E87.6 - Hypokalemia Status: Acute Assessment and Plan: resolved (3) Seizure: Code(s): R56.9 - Unspecified convulsions Status: Acute Assessment and Plan: History of seizure with alcohol withdrawal monitor correct electrolyte follow-up with PCP avoid alcohol (4) Acute metabolic encephalopathy: Code(s): G93.41 - Metabolic encephalopathy Status: Acute Assessment and Plan: Secondary to alcohol withdrawal treated with alcohol withdrawal protocol resolved (5) Hypomagnesemia: Code(s): E83.42 - Hypomagnesemia Status: Acute Assessment and Plan: Replaced repeat magnesium level in 1 week (6) Anxiety: Code(s): F41.9 - Anxiety disorder, unspecified Status: Chronic Assessment and Plan: resolved DS: Summary Hospital Course Hospital Course: patient was admitted to the hospital with altered mental status secondary to acute metabolic encephalopathy secondary to alcohol withdrawal patient treated in ICU with alcohol withdrawal protocol her condition improved also she has electrolyte imbalance hypokalemia hypomagnesemia hypophosphatemia electrolyte was replaced patient condition improved patient will be discharged to follow-up with PCP counseling regarding alcohol was given to the patient Time Spent with Patient Time attestation: Total time spent providing and/or coordinating discharge services: Exam Narrative: Exam Narrative: More alert Chest no wheeze crackles Abdomen nontender nondistended CVS S1 + S2 Lower extremity edema DS: Data Data Completed and Pending Labs on day of discharge: Labs from last 24 hours 12/28/20 12/28/20 07:54 07:54 WBC 5.4 RBC 3.75 L Hgb 12.5 Hct 37.5 MCV 100.0 MCH 33.3 MCHC 33.3 RDW 14.6 H Plt Count 147 L MPV 9.8 Immature Gran % (Auto) 0.6 H Neut % (Auto) 53.0 Lymph % (Auto) 27.2 [place] % (Auto) 15.1 H Eos % (Auto) 3.5 Baso % (Auto) 0.6 Lymph # (Auto) 1.46 [place] # (Auto) 0.8 H Eos # (Auto) 0.2 Baso # (Auto) 0.0 Abs Immat Gran (auto) 0.03 Absolute Neuts (auto) 2.9 Absolute Nucleated RBC 0.0 Nucleated RBC % 0.0 % Immature Plt Fraction 4.7 Sodium 135 L Potassium 4.1 Chloride 101 Carbon Dioxide 33 H Anion Gap 1 L BUN 8 Creatinine 0.50 L Estim Creat Clear Calc 83 Estimated GFR > 60 Glucose 107 H Calcium 7.9 L Total Bilirubin 0.4 AST 122 H ALT 39 H Alkaline Phosphatase 84 Total Protein 6.0 L Albumin 3.2 L Discharge Plan Discharge Attending physician on discharge: Deborah Weinberg M.A. Consulting providers: Olive Cavazos Discharging Clinician: Deborah Weinberg M.A. Patient Disposition: Home Health Service Activity: as tolerated Diet: as tolerated Patient Instructions: Antibiotic Form Stand Alone Forms: General Discharge Information Follow-up/Referrals: Olive Cavazos MD [Physician] - Discharge Medications: New thiamine HCl (vitamin B1) [Vitamin B-1] 100 mg Tablet 100 mg PO QAM Qty: 30 RF: 0 folic acid 1 mg Tablet 1 mg PO DAILY Qty: 30 RF: 0 No Action No Home Medications RF: 0 Date of admission: 12/26/20 01:20 Primary Care Provider: PHYSICIAN,DIAMOND MOUNTER Admitting Provider: Vira Bermudez Attending physician on admission: Vira Bermudez Condition: Improved Quality VTE Prophylaxis VTE prophylax
== END 2020-12-28 11:15 | disposition home or self-care (01) | DRG 775 ==
LOC: ANHED 12-26 00:57 → ANHICU 12-26 09:52 → ANH3MED 12-28 10:28 → ANHICU 01-01 11:06
PROVIDERS: Admitting Provider Internal Medicine; Emergency Provider Emergency Medicine; Visit Provider Internal Medicine
DX: F10.231 Alcohol dependence with withdrawal delirium (principal); G40.89 Other seizures; G93.41 Metabolic encephalopathy; E87.6 Hypokalemia; E83.42 Hypomagnesemia; E87.1 Hypo-osmolality and hyponatremia; F41.8 Other specified anxiety disorders; R82.71 Bacteriuria; R82.81 Pyuria
CPT/HCPCS: 36415; 70450; 80048; 80053; 80307; 81001; 82948; 83735; 84100; 84439; 84443; 85025; 85055; 87086; 87088; 93005; 96365; 96375; 99285; A9270; J1956; J2060; J3411; J3475; J3480; J7121

== ENCOUNTER 2021-01-19 19:35 | Emergency (ER) | payer OTHER, SELFPAY ==
[2021-01-19 19:34] VITALS: BP 132/92; PULSE 111; RESP 18; TEMP 37.1; O2SAT 97
[2021-01-19 20:06] VITALS: BP 116/84; PULSE 88; RESP 16; O2SAT 100
[2021-01-19 20:11] LABS: Basophils Percent Auto 0.9 % (0.2-1.2); Eosinophils Absolute Auto 0.2 K/mm3 (0-0.3); Eosinophils Percent Auto 3.9 % (0-4.4); Hematocrit 36.4 % (37.0-47.0); Hemoglobin 12.3 g/dL (12.0-15.0); Immature Granulocyte Absolute 0.01 K/mm3 (0.00-0.031); Immature Granulocyte Percent A 0.2 % (0-0.5); Lymphocytes Absolute Auto 1.85 K/mm3 (0.9-3.2); Lymphocytes Percent Auto 40.5 % (18.3-44.2); Mean Corpuscular HGB Conc 33.8 g/dl (32-36); Mean Corpuscular Hemoglobin 33.6 pg (26-34); Mean Corpuscular Volume 99.5 fl (80-100); Mean Platelet Volume 8.8 fl (7.4-10.4); Monocytes Absolute Auto 0.6 K/mm3 (0.1-0.6); Monocytes Percent Auto 12.5 % (2.6-8.5); Neutrophils Absolute Auto 1.9 K/mm3 (1.3-6.7); Platelet Count Result 169 k/mm3 (150-375); Red Blood Count 3.66 M/mm3 (4.2-5.4); Red Cell Distribution Width 14.6 % (11.5-14.5); White Blood Count 4.6 K/mm3 (4.5-10.0)
[2021-01-19 20:23] LABS: Anion Gap 8 mmol/L (8-16); Blood Urea Nitrogen 7 mg/dL (7-17); Calcium 8.7 mg/dL (8.4-10.2); Carbon Dioxide 35 mmol/L (22-30); Chloride 103 mmol/L (98-107); Estimated CRCL calculation 70 ml/min; Estimated Glomerular Filt Rate > 60; Glucose 109 mg/dL (65-105); Potassium 3.4 mmol/L (3.4-5.0); Sodium 146 mmol/L (137-145)
[2021-01-19 20:31] VITALS: BP 119/88; PULSE 78; RESP 16; O2SAT 99
[2021-01-19 20:33] LABS: Ethanol 371 mg/dL (<10)
[2021-01-19 21:19] VITALS: BP 122/86; PULSE 78; RESP 16; O2SAT 100
[2021-01-19 22:37] VITALS: BP 114/79; PULSE 78; RESP 16; O2SAT 99
--- NOTE | 2021-01-19 23:21 | PC.NURSE ---
small shot of mikael caban found in pts bed when this rn took report from previous nurse. pt states she took the shot approx an hour ago. pt states she has no other etoh w/ her. notified.
[2021-01-19 23:22] VITALS: BP 115/95; PULSE 88; RESP 18; O2SAT 100
--- NOTE | 2021-01-20 00:58 | ED.GENADULT ---
HPI - General Adult General Chief complaint: Unspecified Stated complaint: not feeling well History of Present Illness HPI narrative: Patient is a 6-year-old female who presents ER with not feeling well. . Patient was drinking alcohol tonight and was walking home when she laid herself down on the ground. Bystanders are laying outside and called 911 who came and evaluated her. This happens to patient on a regular occasion according to EMS. Patient asked to come here to be evaluated. Recently patient has been having hypokalemia and has required hospitalization. Patient reports night she drinks 6 shots of whiskey. She has no other complaints at this time. Related Data Allergies Allergy/AdvReac Type Severity Reaction Status Date / Time monosodium glutamate Allergy Severe Rash Verified 12/25/20 22:41 Review of Systems Review of Systems: All systems reviewed & are unremarkable except as noted in HPI and below Constitutional: Constitutional: Denies chills, Reports fatigue and Denies fever(s) ENT: Denies sinus pressure and Denies sore throat Cardiovascular: Cardiovascular: Denies chest pain, Denies rapid heart rate and Denies leg edema Respiratory: Respiratory: Denies cough and Denies dyspnea on exertion Gastrointestinal: Gastrointestinal: Denies abdominal pain, Denies nausea and Denies vomiting [facility] Past Medical History Medical History (Updated 01/20/21 @ 05:56 by Rome Sagastume MD) Alcoholic Anxiety Clavicle fracture Depression Facial fracture Foot fracture, left 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 She lives with her brother. 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 Her brother is a durable power consumer attorney for healthcare. 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 HEAD: Normocephalic, atraumatic. ENT: Mucous membranes moist. CHEST: Clear to auscultation. No respiratory distress. HEART: Regular rate and rhythm. Normal peripheral pulses. ABDOMEN: Soft, nontender, nondistended. EXTREMITIES: Normal range of motion. No edema NEURO: Alert and oriented x3. PSYCH: Normal mood and affect. Course Course Emergency Course: Patient found with alcohol in her room. Is been confiscated. Patient is now awake alert oriented x3. She walks with steady gait. She will be catching the bus back to her home. Vital Signs Vital signs: Vital Signs Temperature 98.7 F 01/19/21 19:34 Pulse Rate 111 H 01/19/21 19:34 Respiratory Rate 18 01/19/21 19:34 Blood Pressure 132/92 H 01/19/21 19:34 Pulse Oximetry 97 01/19/21 19:34 Temperature 98.7 F 01/19/21 19:34 Pulse Rate 78 01/20/21 05:01 Respiratory Rate 14 01/20/21 05:01 Blood Pressure 114/78 01/20/21 05:01 Pulse Oximetry 100 01/20/21 05:01 Medical Decision Making Vital Signs Vital Signs: Vital Signs Temperature 98.7 F 01/19/21 19:34 Pulse Rate 111 H 01/19/21 19:34 Respiratory Rate 18 01/19/21 19:34 Blood Pressure 132/92 H 01/19/21 19:34 Pulse Oximetry 97 01/19/21 19:34 Temperature 98.7 F 01/19/21 19:34 Pulse Rate 78 01/20/21 05
[2021-01-20 01:00] VITALS: BP 108/74; PULSE 80; RESP 20; O2SAT 100
--- NOTE | 2021-01-20 01:23 | PC.NURSE ---
this rn went into room 2 to check on pt. this rn noticed pt hid a truly (open) underneath the bed. this rn also found a black plastic bag with multiple empty bottles of alcohol underneath the bed. this rn went through all of pts belongings to make sure there was no more alcohol. this rn also threw out all bottles that pt had hid underneath stretcher. this rn dumped out the rest of pts truly. while doing this, pt was laughing.
[2021-01-20 02:55] VITALS: BP 112/74; PULSE 84; RESP 16; O2SAT 100
[2021-01-20 05:01] VITALS: BP 114/78; PULSE 78; RESP 14; O2SAT 100
[2021-01-20 06:54] VITALS: BP 120/75; PULSE 72; RESP 18; O2SAT 99
== END 2021-01-20 06:55 | disposition home or self-care (01) ==
PROVIDERS: Emergency Provider Emergency Medicine
DX: F10.229 Alcohol dependence with intoxication, unspecified (principal); Y90.9 Presence of alcohol in blood, level not specified
CPT/HCPCS: 36415; 80048; 80307; 85025; 99283

== ENCOUNTER 2021-09-17 07:42 | Inpatient (IN) | payer OTHER, SELFPAY ==
[2021-09-17] VITALS (28 sets, daily range): BP systolic 102–136; BP diastolic 65–96; PULSE 75–103; RESP 16–18; TEMP 36.6–36.8; O2SAT 98–100; BMI 20.2
--- NOTE | ~2021-09-17 | XR_ITS ---
EXAMINATION: XR chest 1V portable DATE: 09/17/2021 07:55 INDICATION: Cough and weakness TECHNIQUE: frontal view of the chest was obtained. COMPARISON: Chest radiograph dated 08/01/2020 FINDINGS: Large gas-filled hiatal hernia projects over the normal sized heart. No airspace opacities, pulmonary edema, pleural effusion or pneumothorax. Visualized bones and soft tissues are unremarkable. IMPRESSION: 1. No acute cardiopulmonary disease. 2. Large hiatal hernia. Reviewed, dictated and finalized at location A.
--- NOTE | ~2021-09-17 | US_ITS ---
EXAMINATION: US abdomen limited DATE: 09/18/2021 10:57 INDICATION: Elevated liver function tests TECHNIQUE: Multiple grayscale and Doppler ultrasound images of the abdomen were obtained. COMPARISON: 07/08/2013 FINDINGS: Bowel gas obscures visualization of the pancreas. The visualized portions of the pancreas a re unremarkable. The liver demonstrates increased echogenicity, heterogenous echotexture, and decreas ed through transmission. No surface nodularity. Normal hepatopetal flow in the main portal vein. The gallbladder is normal with no abnormal wall thickening, pericholecystic fluid or stones. The normal c ommon bile duct measures 3 mm. There was no sonographic Scott sign. IMPRESSION: 1. Diffuse hepatic steatosis. Reviewed, dictated and finalized at location B.
--- NOTE | 2021-09-17 07:42 | ECG_ITS ---
Measurements Intervals [place] Rate: 102 P: ME: 0 QRS: 37 QRSD: 84 T: 17 QT: 336 QTc: 439 Interpretive Statements SINUS TACHYCARDIA VENTRICULAR PREMATURE COMPLEX NONSPECIFIC ST & T-WAVE ABNORMALITY- ANTEROLAT/INF LEADS BASELINE ARTIFACT- I, II, III, AVR, AVL, AVF, V1-V6 BORDERLINE ECG Electronically Signed On 09-17-2021 11:52:59 CDT by Mick Leon D.O.
--- NOTE | 2021-09-17 07:52 | ED.WEAKNESS ---
HPI - Weakness General Chief complaint: Weakness Stated complaint: WEAKNESS Source: patient and EMS Mode of arrival: EMS Limitations: no limitations History of Present Illness HPI Narrative: Patient is a 61-year-old female with a history of alcohol abuse presenting for evaluation of weakness. Patient states she has felt increasingly weak over the past 72 hours. Patient reports that she has had a cough, rhinorrhea, congestion and sore throat over the past 3 days. She denies any focal weakness or numbness, states that she feels weak all over. She denies any fever or chills, nausea, vomiting or abdominal pain. Denies chest pain. No palpitations. Patient states she typically has a history of alcohol abuse, drinks 4 drinks daily, has not been drinking over the past week due to how weak she has been feeling. She states she is vaccinated for Covid and has no known history of Covid infection. No recent sick contacts. No loss of sense of taste or smell. No diarrhea. Related Data Allergies Allergy/AdvReac Type Severity Reaction Status Date / Time monosodium glutamate Allergy Severe Rash Verified 12/25/20 22:41 Review of Systems Review of Systems: CONSTITUTIONAL: Denies fever, chills, or sweats. EYES: Denies visual changes, redness, or discharge. ENT: Reports rhinorrhea, congestion and sore throat CARDIOVASCULAR: Denies chest pain, palpitations, or edema. RESPIRATORY: Denies cough or dyspnea. GASTROINTESTINAL: Denies abdominal pain, nausea, vomiting, or diarrhea. GENITOURINARY: Denies dysuria or hematuria. SKIN: Denies rash or itching. MUSCULOSKELETAL: Denies back pain, joint pain, or myalgia. 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 She lives with her brother. 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 Her brother is a durable power machine learning intern for healthcare. 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 EYES: PERRLA and EOMI. ENT: Nares clear, no rhinorrhea or epistaxis. Mucous membranes moist. Uvula is midline. No evidence of tonsillar exudate. No anterior cervical lymphadenopathy. NECK: Supple. CHEST: No respiratory distress, breathing even and non labored, coarse breath sounds bilaterally, greater on the left, no wheezing, no crackles HEART:Tachycardic rate, sinus rhythm ABDOMEN:Non distended, non tender EXTREMITIES: Normal range of motion. No edema. SKIN: Warm, dry, no rash. NEURO:No focal deficits. Alert and oriented x3. Finger to nose intact bilaterally. EOMs intact without nystagmus. No facial droop/asymmetry noted bilaterally. Grimace intact. Intact sensation in face. Hearing intact bilaterally. Shoulder shrug intact. Strength 5/5 bilateral upper extremities. Strength 5/5 bilateral lower extremities. Reflexes 2+ patellar. Heel to vásquez intact bilaterally. Pt ambulates with partial assistance, no significant ataxia. Course Vital
[2021-09-17 08:18] LABS: Basophils Percent Auto 0.2 % (0.2-1.2); Hematocrit 40.4 % (37.0-47.0); Immature Granulocyte Absolute 0.07 K/mm3 (0.00-0.031); Immature Granulocyte Percent A 0.6 % (0-0.5); Lymphocytes Absolute Auto 0.84 K/mm3 (0.9-3.2); Lymphocytes Percent Auto 6.8 % (18.3-44.2); Mean Corpuscular HGB Conc 34.7 g/dl (32-36); Mean Corpuscular Hemoglobin 33.7 pg (26-34); Mean Corpuscular Volume 97.1 fl (80-100); Mean Platelet Volume 10.1 fl (7.4-10.4); Monocytes Absolute Auto 0.8 K/mm3 (0.1-0.6); Monocytes Percent Auto 6.5 % (2.6-8.5); Neutrophils Absolute Auto 10.7 K/mm3 (1.3-6.7); Neutrophils Percent Auto 85.9 % (45.5-73.1); Platelet Count Result 141 k/mm3 (150-375); Red Blood Count 4.16 M/mm3 (4.2-5.4); Red Cell Distribution Width 14.6 % (11.5-14.5); White Blood Count 12.4 K/mm3 (4.5-10.0)
[2021-09-17] MEDS: SODIUM CHLORIDE 0.9% IV 1,000 ML 999 ML IV CONT (08:23)
[2021-09-17] MEDS: THIAMINE HCL INJ 100 MG, FOLIC ACID INJ 1 MG, MULTIVITAMINS-12 INJ VIAL 1 5 ML, MULTIVI... IV CONT (08:24)
[2021-09-17] MEDS: FOLIC ACID 1 MG TABLET PO (09:03)
[2021-09-17] MEDS: LORazepam INJ (*CRX) 2 MG/ML VIAL 1 MG IV PUSH (09:04)
[2021-09-17 09:22] LABS: Lactic Acid Reflex 1.1 mmol/L (0.7-2.1)
[2021-09-17 10:17] LABS: Alanine Aminotransferase 41 U/L (4-35); Albumin Level 3.9 g/dL (3.5-5.1); Alkaline Phosphatase 154 U/L (38-126); Anion Gap 18 mmol/L (8-16); Aspartate Amino Transferase 161 U/L (14-36); Bilirubin,Total 1.7 mg/dL (0.2-1.3); Blood Urea Nitrogen 6 mg/dL (7-17); Calcium 8.5 mg/dL (8.4-10.2); Carbon Dioxide 22 mmol/L (22-30); Chloride 92 mmol/L (98-107); Estimated Glomerular Filt Rate > 60; Glucose 74 mg/dL (65-110); Magnesium 1.5 mg/dL (1.6-2.3); Potassium 3.2 mmol/L (3.4-5.0); Sodium 132 mmol/L (137-145); Troponin I < 0.012 ng/mL (0.000-0.034)
[2021-09-17 10:47] LABS: Phosphorus < 1.0 mg/dL (2.5-4.5)
[2021-09-17 10:52] LABS: Add Urine Microscopic? YES; Appearance Urine Cloudy (Clear); Bilirubin Urine Negative (Negative); Blood Urine 1+ (Negative); Color Urine Yellow (Yellow); Glucose Urine UA Negative (Negative); Ketones Urine 2+ mg/dL (Negative); Leukocyte Esterase Ur Negative LEU/UL (Negative); Mucus Urine Rare /lpf; Nitrate Urine Negative (Negative); Protein Urine 2+ mg/dL (Negative); Specific Grav Ur 1.021 (1.001-1.035); Squamous Epithelial Cell Urine Few /hpf (Few); Transitional Epi Cells Urine Rare /hpf (None Seen)
[2021-09-17] MEDS: POTASSIUM CHLORIDE 20 MEQ PACKET (FOR LIQUID) 40 MEQ PO (12:44)
--- NOTE | 2021-09-17 14:45 | ADMGEN ---
This patient, Radha Strong, was admitted to [facility] Surg Room 303-01. Patient/family oriented to hospital policies and general routines including ID bracelet, bed and alarms, visiting hours, pain management, procedures, bathroom and other care routines, personal items, smoking policy, room service/diet, and visiting hours. Information on how to activate the Rapid Response Team has been discussed. Patient/Family are encouraged to report perceived risks to care and to ask questions if they do not understand what they are told or what they should do.
[2021-09-17 15:09] LABS: Folic Acid 4.8 ng/mL (2.76->20)
--- NOTE | 2021-09-17 17:45 | PM.IMHP ---
H&P: HPI History of Present Illness Date/Time: 09/17/21 17:45 Chief Complaint: Generalized weakness. Narrative: This is a 61-year-old female with history of alcohol abuse including history of alcohol withdrawal and alcohol withdrawal seizures, depression, and anxiety presented to the emergency department earlier today via EMS from home for evaluation of generalized weakness. Thursday while out running errands she developed sudden, severe nausea and burning discomfort in the epigastrium radiating up into the chest. For the last 3 days she has had little to no oral intake due to ongoing nausea and vomiting. She describes having innumerable bouts of emesis over the last several days that she describes as the brownish yellow and acidic. Additionally she notes a mild, nonproductive cough and she has a hard time distinguishing if her cough is coming from her chest or rather perhaps it is related to her GERD symptoms. Per EMS report she was also reporting mild shortness of breath however she denies that to me. She is vaccinated for COVID-19 and she denies sick contacts. She has not had fever, chills, or sweats. No rhinorrhea, sinus congestion, otalgia, or odynophagia. She has not had any alcohol since Thursday evening and reports mild shakes but she denies hallucinations and sweats. Review of Systems Review of Systems: Twelve systems were reviewed. She has been feeling weak with walking but denies falls, syncope, and near syncope. She has no known history of cirrhosis or hepatitis. She has had elevated LFTs for quite some time though she does not think that has ever been worked up. No gallbladder disease or history of pancreatitis. Except as documented all other systems were reviewed and are negative. [facility] Past Medical History Medical History (Updated 09/17/21 @ 19:53 by Deysi Jasso PA-C) Alcohol abuse Alcohol withdrawal seizure Anxiety Depression History of fracture Including clavicle fracture left foot fracture. Subarachnoid hemorrhage Surgical History Surgical History History of appendectomy Family History Family History Sibling Family history of multiple sclerosis Father Colon cancer Arthritis Mother Throat cancer Social History Social History (Updated 09/17/21 @ 19:48 by Deysi Jasso PA-C) Social History: Surrogate decision maker: Baldemar Strong, brother. Code status: Full code. Smoking status: Never smoker Alcohol intake: current Drinks per week: 28 Alcohol use details: Patient consumes four airplane shots a day. Substance use type: does not use Additional living arrangements comments: The patient lives in [place] with her brother. Additional occupation/education comments: Unemployed. Meds Home Medications and Allergies Home Medications Medication Instructions Recorded Confirmed Type No Home Medications 09/17/21 09/17/21 History Allergies Allergy/AdvReac Type Severity Reaction Status Date / Time monosodium glutamate Allergy Severe Rash Verified 12/25/20 22:41 Vital Signs Vital Signs - 24 hr 09/17/21 07:44 09/17/21 07:49 09/17/21 08:00 Temperature 97.8 F Pulse Rate 103 H 96 90 Respiratory Rate 16 Blood Pressure 136/96 H Pulse Oximetry 100 100 100 09/17/21 08:15 09/17/21 08:30 09/17/21 08:45 Temperature Pulse Rate 83 82 77 Respiratory Rate Blood Pressure Pulse Oximetry 100 100 100 09/17/21 09:00 09/17/21 09:15 09/17/21 09:30 Temperature Pulse Rate 86 88 89 Respiratory Rate Blood Pressure Pulse Oximetry 100 100 100 09/17/21 12:20 09/17/21 12:21 09/17/21 12:30 Temperature Pulse Rate 88 85 80 Respiratory Rate 18 Blood Pressure 114/81 114/81 Pulse Oximetry 98 99 99 09/17/21 12:31 09/17/21 12:32 09/17/21 13:18 Temperature Pulse Rate 79 80 86 Respiratory Rate Blood Pressure 102/7
[2021-09-17 18:29] LABS: SARS-CoV-2 RNA PCR Negative
[2021-09-17 20:30] LABS: Partial Thromboplastin Time 27.2 SECONDS (22.3-36.8); Prothrombin Time 12.9 Seconds (11.1-14.7)
[2021-09-17 20:36] LABS: Anion Gap 14 mmol/L (8-16); Blood Urea Nitrogen 3 mg/dL (7-17); Calcium 8.3 mg/dL (8.4-10.2); Carbon Dioxide 23 mmol/L (22-30); Chloride 95 mmol/L (98-107); Estimated CRCL calculation 81 ml/min; Estimated Glomerular Filt Rate > 60; Glucose 96 mg/dL (65-110); Magnesium 1.7 mg/dL (1.6-2.3); Phosphorus < 0.5 mg/dL (2.5-4.5); Potassium 2.8 mmol/L (3.4-5.0); Sodium 132 mmol/L (137-145)
[2021-09-17] MEDS: SODIUM CHLORIDE 0.9% IV 1,000 ML 100 ML IV CONT (21:35)
[2021-09-17] MEDS: PANTOPRAZOLE SODIUM IV 40 MG VIAL IV PUSH (21:48)
[2021-09-17 22:20] LABS: Hepatitis B Surface Antigen Negative (Negative)
[2021-09-17] MEDS: POTASSIUM PHOS,M-BASIC-D-BASIC 40 MMOL in SODIUM CHLORIDE 0.9% IV 250 ML 43.89 MMOL IVPB (22:22)
[2021-09-17 22:26] LABS: HAV RESULT Negative (Negative); Hepatitis B Core IgM Result Negative (Negative)
[2021-09-17 22:37] LABS: Hepatitis C Virus Antibody Negative (Negative)
[2021-09-18] VITALS: BP 133/65
[2021-09-18 04:00] VITALS: BP 133/65
[2021-09-18 05:57] LABS: Hematocrit 32.2 % (37.0-47.0); Hemoglobin 11.4 g/dL (12.0-15.0); Immature Platelet Fraction Pct 4.4 % (0.9-11.2); Mean Corpuscular HGB Conc 35.4 g/dl (32-36); Mean Corpuscular Volume 96.1 fl (80-100); Mean Platelet Volume 10.4 fl (7.4-10.4); Platelet Count Result 116 k/mm3 (150-375); Red Blood Count 3.35 M/mm3 (4.2-5.4); Red Cell Distribution Width 14.5 % (11.5-14.5); White Blood Count 6.9 K/mm3 (4.5-10.0)
[2021-09-18 06:00] VITALS: BP 120/82; PULSE 96; RESP 18; TEMP 36.7; O2SAT 97
--- NOTE | 2021-09-18 06:00 | ECG_ITS ---
Measurements Intervals [place] Rate: 96 P: -2 [place]: 123 QRS: 32 QRSD: 82 T: 12 QT: 363 QTc: 459 Interpretive Statements SINUS RHYTHM VENTRICULAR PREMATURE COMPLEX BORDERLINE T WAVE ABNORMALITY- ANT/INF LEADS BASELINE ARTIFACT- II, III, AVR, AVL, AVF, V3-V6 BORDERLINE ECG Electronically Signed On 09-18-2021 9:57:24 CDT by Mick Leon D.O.
[2021-09-18 06:05] LABS: Alanine Aminotransferase 36 U/L (4-35); Albumin Level 3.3 g/dL (3.5-5.1); Alkaline Phosphatase 116 U/L (38-126); Anion Gap 15 mmol/L (8-16); Aspartate Amino Transferase 137 U/L (14-36); Bilirubin,Total 2.4 mg/dL (0.2-1.3); Blood Urea Nitrogen 2 mg/dL (7-17); Calcium 7.8 mg/dL (8.4-10.2); Carbon Dioxide 23 mmol/L (22-30); Chloride 94 mmol/L (98-107); Estimated CRCL calculation 98 ml/min; Estimated Glomerular Filt Rate > 60; Glucose 82 mg/dL (65-110); Magnesium 1.4 mg/dL (1.6-2.3); Phosphorus 1.5 mg/dL (2.5-4.5); Potassium 2.5 mmol/L (3.4-5.0); Sodium 132 mmol/L (137-145)
[2021-09-18] MEDS: FOLIC ACID 1 MG TABLET PO (09:08)
[2021-09-18] MEDS: PANTOPRAZOLE SODIUM IV 40 MG VIAL IV PUSH ×2 (09:08→20:40)
[2021-09-18] MEDS: THIAMINE HCL 200 MG/2 ML VIAL 100 MG IV PUSH ×3 (11:13→17:29)
[2021-09-18] MEDS: POTASSIUM/PHOSPHORUS/SODIUM 1.5 GM PACKET 2 PACKET PO ×2 (11:19→16:04)
[2021-09-18 13:23] LABS: Anion Gap 8 mmol/L (8-16); Blood Urea Nitrogen 2 mg/dL (7-17); Calcium 8.2 mg/dL (8.4-10.2); Carbon Dioxide 31 mmol/L (22-30); Chloride 90 mmol/L (98-107); Estimated CRCL calculation 98 ml/min; Estimated Glomerular Filt Rate > 60; Glucose 113 mg/dL (65-110); Lipase 548 U/L (23-300); Magnesium 1.3 mg/dL (1.6-2.3); Phosphorus 1.3 mg/dL (2.5-4.5); Potassium 3.1 mmol/L (3.4-5.0); Sodium 129 mmol/L (137-145)
[2021-09-18 13:33] LABS: Troponin I < 0.012 ng/mL (0.000-0.034)
[2021-09-18 14:00] VITALS: BP 117/82; PULSE 87; RESP 20; TEMP 36.9; O2SAT 97
[2021-09-18] MEDS: MAGNESIUM SULF 4 GM/WATER100ML 4 GM/100 ML BAG IVPB ×2 (14:56→20:40)
--- NOTE | 2021-09-18 15:01 | PM.IMPN ---
Progress Note: A&P Assessment and Plan (1) Pancreatitis, alcoholic, acute: Qualifiers: Acute pancreatitis complication: unspecified Qualified Code(s): K85.20 - Alcohol induced acute pancreatitis without necrosis or infection Code(s): K85.20 - Alcohol induced acute pancreatitis without necrosis or infection Status: Acute (2) Alcoholic hepatitis: Qualifiers: Ascites presence: without ascites Qualified Code(s): K70.10 - Alcoholic hepatitis without ascites Code(s): K70.10 - Alcoholic hepatitis without ascites Status: Acute (3) Alcoholic ketosis: Code(s): E88.89 - Other specified metabolic disorders Status: Acute (4) Dehydration: Code(s): E86.0 - Dehydration Status: Acute (5) Asymptomatic bacteriuria: Code(s): R82.71 - Bacteriuria Status: Acute (6) Thrombocytopenia: Code(s): D69.6 - Thrombocytopenia, unspecified Status: Acute (7) Anemia: Qualifiers: Anemia type: unspecified type Qualified Code(s): D64.9 - Anemia, unspecified Code(s): D64.9 - Anemia, unspecified Status: Acute (8) Leukocytosis: Qualifiers: Leukocytosis type: unspecified Qualified Code(s): D72.829 - Elevated white blood cell count, unspecified Code(s): D72.829 - Elevated white blood cell count, unspecified Status: Resolved (9) Hypokalemia: Code(s): E87.6 - Hypokalemia Status: Acute (10) Hypomagnesemia: Code(s): E83.42 - Hypomagnesemia Status: Acute (11) Hypophosphatemia: Code(s): E83.39 - Other disorders of phosphorus metabolism Status: Acute (12) Alcohol withdrawal syndrome: Qualifiers: Complication of substance-induced condition: with unspecified complication Qualified Code(s): F10.239 - Alcohol dependence with withdrawal, unspecified Code(s): F10.239 - Alcohol dependence with withdrawal, unspecified Status: Acute (13) Hyperbilirubinemia: Code(s): E80.6 - Other disorders of bilirubin metabolism Status: Acute (14) Elevated liver transaminase level: Code(s): R74.01 - Elevation of levels of liver transaminase levels Status: Acute (15) Lactic acidosis: Code(s): E87.2 - Acidosis Status: Resolved (16) Alcohol abuse: Code(s): F10.10 - Alcohol abuse, uncomplicated Status: Acute (17) Hepatic steatosis: Code(s): K76.0 - Fatty (change of) liver, not elsewhere classified Status: Acute Additional Plan 1. Acute pancreatitis: -patient noted to present with abdominal pain, chest pressure, nausea and vomiting -lipase noted to be mildly elevated to 543 -will continue IV fluids -can resume diet if she is not nauseous anymore. -given concerns for chest pain and chest pressure patient was also evaluated for possible cardiac causes, given her age. -troponin negative x2 and EKG normal sinus rhythm with some frequent ventricular premature contractions 2. Hepatitis: -noted to have elevated bilirubin, AST and ALT levels. -ultrasound abdomen with no gallstones. -hepatic steatosis seen on ultrasound abdomen -knee of school of 6.5; does not qualify for steroids at this time 3. Multiple electrolyte abnormalities: -noted to hypokalemia, hypomagnesemia, hypophosphatemia -continue to replete -BMP q.8 hours, phosphorus levels q.8 hours and magnesium levels q.8 hours. 4. Alcohol withdrawal: -continue to monitor CIWA scores -be NPO the EpiPen as per CIWA protocol suggested -continue IV thiamine t.i.d. -continue IV fluids Time Spent With Patient Time with patient: 25 - 35 minutes Subjective Date/time seen: 09/18/21 15:01 Interval history: 61-year-old female with past medical history significant for alcohol abuse and withdrawal seizures, depression and anxiety presented to the ED with complaints of generalized weakness, nausea, vomiting and abdominal pain with chest pressure.
[2021-09-18] MEDS: POTASSIUM CHLORIDE 20 MEQ PACKET (FOR LIQUID) 60 MEQ PO (16:04)
[2021-09-18 20:00] VITALS: BP 119/80; PULSE 85; RESP 14; O2SAT 97
[2021-09-18 22:00] VITALS: BP 119/80; PULSE 85; RESP 14; TEMP 37.2; O2SAT 97
[2021-09-19] VITALS: BP 112/75
[2021-09-19] MEDS: SODIUM CHLORIDE 0.9% IV 1,000 ML 125 ML IV CONT ×3 (00:20→21:23)
[2021-09-19 04:00] VITALS: BP 138/96
[2021-09-19 06:00] VITALS: BP 138/96; PULSE 110; RESP 20; TEMP 37.1; O2SAT 96
[2021-09-19 06:17] LABS: Basophils Percent Auto 0.2 % (0.2-1.2); Eosinophils Absolute Auto 0.1 K/mm3 (0-0.3); Eosinophils Percent Auto 1.5 % (0-4.4); Hematocrit 34.9 % (37.0-47.0); Hemoglobin 12.4 g/dL (12.0-15.0); Immature Granulocyte Absolute 0.02 K/mm3 (0.00-0.031); Immature Granulocyte Percent A 0.4 % (0-0.5); Lymphocytes Percent Auto 19.1 % (18.3-44.2); Mean Corpuscular HGB Conc 35.5 g/dl (32-36); Mean Corpuscular Hemoglobin 33.1 pg (26-34); Mean Corpuscular Volume 93.1 fl (80-100); Mean Platelet Volume 9.7 fl (7.4-10.4); Monocytes Absolute Auto 0.5 K/mm3 (0.1-0.6); Monocytes Percent Auto 10.9 % (2.6-8.5); Neutrophils Absolute Auto 3.2 K/mm3 (1.3-6.7); Neutrophils Percent Auto 67.9 % (45.5-73.1); Platelet Count Result 103 k/mm3 (150-375); Red Blood Count 3.75 M/mm3 (4.2-5.4); Red Cell Distribution Width 14.7 % (11.5-14.5); White Blood Count 4.7 K/mm3 (4.5-10.0)
[2021-09-19 06:21] LABS: Lactic Acid Reflex 0.7 mmol/L (0.7-2.1)
[2021-09-19 06:38] LABS: Alanine Aminotransferase 42 U/L (4-35); Albumin Level 3.2 g/dL (3.5-5.1); Alkaline Phosphatase 114 U/L (38-126); Anion Gap 8 mmol/L (8-16); Aspartate Amino Transferase 148 U/L (14-36); Bilirubin,Total 1.4 mg/dL (0.2-1.3); Calcium 7.4 mg/dL (8.4-10.2); Carbon Dioxide 28 mmol/L (22-30); Chloride 95 mmol/L (98-107); Creatine Kinase 49 U/L (30-135); Estimated CRCL calculation 125 ml/min; Estimated Glomerular Filt Rate > 60; Glucose 95 mg/dL (65-110); Magnesium 2.5 mg/dL (1.6-2.3); Phosphorus 1.6 mg/dL (2.5-4.5); Potassium 2.6 mmol/L (3.4-5.0); Sodium 131 mmol/L (137-145)
[2021-09-19 06:56] LABS: Blood Urea Nitrogen < 2 mg/dL (7-17)
[2021-09-19 07:13] LABS: Prothrombin Time 12.8 Seconds (11.1-14.7)
[2021-09-19] MEDS: ENOXAPARIN 40 MG/0.4 ML SYRINGE SUB-Q (08:50)
[2021-09-19] MEDS: PANTOPRAZOLE SODIUM IV 40 MG VIAL IV PUSH (08:50)
[2021-09-19] MEDS: FOLIC ACID 1 MG TABLET PO (08:50)
[2021-09-19] MEDS: THIAMINE HCL 200 MG/2 ML VIAL 100 MG IV PUSH ×3 (08:51→21:17)
[2021-09-19] MEDS: POTASSIUM CHLORIDE 20 MEQ TABLET 40 MEQ PO (08:55)
[2021-09-19] MEDS: POTASSIUM/PHOSPHORUS/SODIUM 1.5 GM PACKET 2 PACKET PO ×2 (12:58→16:51)
[2021-09-19 14:00] VITALS: BP 132/89; PULSE 93; RESP 18; TEMP 36.6; O2SAT 96
[2021-09-19 14:11] LABS: Anion Gap 10 mmol/L (8-16); Carbon Dioxide 27 mmol/L (22-30); Chloride 96 mmol/L (98-107); Estimated CRCL calculation 98 ml/min; Estimated Glomerular Filt Rate > 60; Glucose 111 mg/dL (65-110); Magnesium 2.1 mg/dL (1.6-2.3); Phosphorus 1.8 mg/dL (2.5-4.5); Potassium 3.4 mmol/L (3.4-5.0); Sodium 133 mmol/L (137-145)
[2021-09-19 14:12] LABS: Blood Urea Nitrogen < 2 mg/dL (7-17)
[2021-09-19 14:42] LABS: Anion Gap 5 mmol/L (8-16); Calcium 7.7 mg/dL (8.4-10.2); Carbon Dioxide 29 mmol/L (22-30); Chloride 96 mmol/L (98-107); Estimated CRCL calculation 98 ml/min; Estimated Glomerular Filt Rate > 60; Glucose 110 mg/dL (65-110); Phosphorus 2.1 mg/dL (2.5-4.5); Potassium 3.7 mmol/L (3.4-5.0); Sodium 130 mmol/L (137-145)
[2021-09-19 15:05] LABS: Blood Urea Nitrogen < 2 mg/dL (7-17)
--- NOTE | 2021-09-19 15:55 | PM.IMPN ---
Progress Note: A&P Assessment and Plan (1) Refeeding syndrome: Code(s): E87.8 - Other disorders of electrolyte and fluid balance, not elsewhere classified Status: Acute (2) Pancreatitis, alcoholic, acute: Qualifiers: Acute pancreatitis complication: unspecified Qualified Code(s): K85.20 - Alcohol induced acute pancreatitis without necrosis or infection Code(s): K85.20 - Alcohol induced acute pancreatitis without necrosis or infection Status: Acute (3) Alcoholic hepatitis: Qualifiers: Ascites presence: without ascites Qualified Code(s): K70.10 - Alcoholic hepatitis without ascites Code(s): K70.10 - Alcoholic hepatitis without ascites Status: Acute (4) Hyponatremia: Code(s): E87.1 - Hypo-osmolality and hyponatremia Status: Acute (5) Hypokalemia: Code(s): E87.6 - Hypokalemia Status: Resolved (6) Hypophosphatemia: Code(s): E83.39 - Other disorders of phosphorus metabolism Status: Acute (7) GERD (gastroesophageal reflux disease): Qualifiers: Esophagitis presence: esophagitis presence not specified Qualified Code(s): K21.9 - Gastro-esophageal reflux disease without esophagitis Code(s): K21.9 - Gastro-esophageal reflux disease without esophagitis Status: Acute (8) Alcoholic ketosis: Code(s): E88.89 - Other specified metabolic disorders Status: Resolved (9) Hypomagnesemia: Code(s): E83.42 - Hypomagnesemia Status: Resolved (10) Dehydration: Code(s): E86.0 - Dehydration Status: Acute (11) Asymptomatic bacteriuria: Code(s): R82.71 - Bacteriuria Status: Acute (12) Hyperbilirubinemia: Code(s): E80.6 - Other disorders of bilirubin metabolism Status: Acute (13) Elevated liver transaminase level: Code(s): R74.01 - Elevation of levels of liver transaminase levels Status: Acute (14) Hepatic steatosis: Code(s): K76.0 - Fatty (change of) liver, not elsewhere classified Status: Acute (15) Alcohol abuse: Code(s): F10.10 - Alcohol abuse, uncomplicated Status: Acute (16) Alcohol withdrawal syndrome: Qualifiers: Complication of substance-induced condition: with unspecified complication Qualified Code(s): F10.239 - Alcohol dependence with withdrawal, unspecified Code(s): F10.239 - Alcohol dependence with withdrawal, unspecified Status: Resolved (17) Thrombocytopenia: Code(s): D69.6 - Thrombocytopenia, unspecified Status: Acute Additional Plan 1. Refeeding syndrome: - patient with alcoholic ketosis on presentation; now resuming feeds and on IV fluids is noted to have persistent hypokalemia and hypophosphatemia, raising concerns for refeeding syndrome - would be detrimental to discharge patient at this time with persistent electrolyte abnormalities, as refeeding syndrome puts patient at risk of cardiac arrhythmias if prematurely sent home - can consider discharge tomorrow 2. GERD; burning chest pain: - Patient with continued chest burning noted; despite pantoprazole BID - can convert pantoprazole to PO BID - will add sucralfate due to possibility of alcohol induced ulcerations - patient to follow with OP PCP and possibly GI for eventual EGD if no improvement noted with medications - advised patient lifestyle changes and sitting up with head elevation to avoid worsening reflux symptoms 3. Acute pancreatitis- resolving: - No abdominal pain or tenderness noted - will continue IV fluids and encourage PO intake as tolerated patient noted to present with abdominal pain, chest pressure, nausea and vomiting -lipase was noted to be mildly elevated to 543 -given concerns for chest pain and chest pressure patient was also evaluated for possible cardiac causes, given her age. -troponin negative x2 and EKG normal sinus rhythm with some frequent ventricular premature contractions 4. Alco
[2021-09-19] MEDS: SUCRALFATE SUSP 100 MG/ML 10 ML UDC 1000 MG PO ×2 (16:51→21:19)
[2021-09-19 19:42] VITALS: PULSE 93; RESP 18; O2SAT 96
[2021-09-19] MEDS: POTASSIUM CHLORIDE 20 MEQ PACKET (FOR LIQUID) 40 MEQ PO (21:19)
[2021-09-19 21:23] VITALS: BP 140/105; PULSE 109; RESP 18; TEMP 36.7; O2SAT 97
[2021-09-20 03:47] VITALS: BP 123/83; PULSE 93; RESP 20; TEMP 36.7; O2SAT 97
[2021-09-20] MEDS: SODIUM CHLORIDE 0.9% IV 1,000 ML 125 ML IV CONT ×2 (05:48→12:35)
[2021-09-20] MEDS: SUCRALFATE SUSP 100 MG/ML 10 ML UDC 1000 MG PO ×2 (05:48→11:30)
[2021-09-20 06:40] LABS: Basophils Percent Auto 0.4 % (0.2-1.2); Eosinophils Absolute Auto 0.1 K/mm3 (0-0.3); Eosinophils Percent Auto 2.1 % (0-4.4); Hematocrit 35.1 % (37.0-47.0); Hemoglobin 12.1 g/dL (12.0-15.0); Immature Granulocyte Absolute 0.04 K/mm3 (0.00-0.031); Immature Granulocyte Percent A 0.8 % (0-0.5); Immature Platelet Fraction Pct 3.7 % (0.9-11.2); Lymphocytes Absolute Auto 1.64 K/mm3 (0.9-3.2); Lymphocytes Percent Auto 31.4 % (18.3-44.2); Mean Corpuscular HGB Conc 34.5 g/dl (32-36); Mean Corpuscular Hemoglobin 33.2 pg (26-34); Mean Corpuscular Volume 96.2 fl (80-100); Mean Platelet Volume 9.6 fl (7.4-10.4); Monocytes Absolute Auto 0.8 K/mm3 (0.1-0.6); Monocytes Percent Auto 15.1 % (2.6-8.5); Neutrophils Absolute Auto 2.6 K/mm3 (1.3-6.7); Neutrophils Percent Auto 50.2 % (45.5-73.1); Platelet Count Result 132 k/mm3 (150-375); Red Blood Count 3.65 M/mm3 (4.2-5.4); Red Cell Distribution Width 15.3 % (11.5-14.5); White Blood Count 5.2 K/mm3 (4.5-10.0)
[2021-09-20 06:51] LABS: Alanine Aminotransferase 46 U/L (4-35); Albumin Level 3.3 g/dL (3.5-5.1); Alkaline Phosphatase 110 U/L (38-126); Anion Gap 5 mmol/L (8-16); Aspartate Amino Transferase 129 U/L (14-36); Bilirubin,Total 0.9 mg/dL (0.2-1.3); Calcium 8.3 mg/dL (8.4-10.2); Carbon Dioxide 27 mmol/L (22-30); Chloride 103 mmol/L (98-107); Estimated CRCL calculation 99 ml/min; Estimated Glomerular Filt Rate > 60; Glucose 103 mg/dL (65-110); Magnesium 1.7 mg/dL (1.6-2.3); Phosphorus 2.1 mg/dL (2.5-4.5); Potassium 3.7 mmol/L (3.4-5.0); Sodium 135 mmol/L (137-145)
[2021-09-20 06:52] LABS: Blood Urea Nitrogen < 2 mg/dL (7-17)
[2021-09-20] MEDS: FOLIC ACID 1 MG TABLET PO (08:17)
[2021-09-20] MEDS: ENOXAPARIN 40 MG/0.4 ML SYRINGE SUB-Q (08:17)
[2021-09-20] MEDS: THIAMINE HCL 100 MG TABLET PO (08:18)
[2021-09-20] MEDS: THIAMINE HCL 200 MG/2 ML VIAL 100 MG IV PUSH ×2 (08:18→12:35)
[2021-09-20] MEDS: POTASSIUM CHLORIDE 20 MEQ PACKET (FOR LIQUID) 40 MEQ PO (08:18)
[2021-09-20] MEDS: PANTOPRAZOLE 40 MG TABLET PO (08:18)
[2021-09-20 11:52] LABS: Magnesium 1.6 mg/dL (1.6-2.3)
--- NOTE | 2021-09-20 13:46 | PM.DS ---
DS: Admitting Diagnosis Discharge Date 09/20/2021 Admitting Diagnosis Dehydration. Alcoholic ketosis Alcohol hepatitis Hypokalemia DS: Discharge Diagnosis Discharge Diagnosis (1) Refeeding syndrome: Code(s): E87.8 - Other disorders of electrolyte and fluid balance, not elsewhere classified Status: Acute (2) Pancreatitis, alcoholic, acute: Qualifiers: Acute pancreatitis complication: unspecified Qualified Code(s): K85.20 - Alcohol induced acute pancreatitis without necrosis or infection Code(s): K85.20 - Alcohol induced acute pancreatitis without necrosis or infection Status: Acute (3) Alcoholic hepatitis: Qualifiers: Ascites presence: without ascites Qualified Code(s): K70.10 - Alcoholic hepatitis without ascites Code(s): K70.10 - Alcoholic hepatitis without ascites Status: Acute (4) Hyponatremia: Code(s): E87.1 - Hypo-osmolality and hyponatremia Status: Acute (5) Hypokalemia: Code(s): E87.6 - Hypokalemia Status: Resolved (6) Hypophosphatemia: Code(s): E83.39 - Other disorders of phosphorus metabolism Status: Acute (7) GERD (gastroesophageal reflux disease): Qualifiers: Esophagitis presence: esophagitis presence not specified Qualified Code(s): K21.9 - Gastro-esophageal reflux disease without esophagitis Code(s): K21.9 - Gastro-esophageal reflux disease without esophagitis Status: Acute (8) Alcoholic ketosis: Code(s): E88.89 - Other specified metabolic disorders Status: Resolved (9) Hypomagnesemia: Code(s): E83.42 - Hypomagnesemia Status: Resolved (10) Dehydration: Code(s): E86.0 - Dehydration Status: Acute (11) Asymptomatic bacteriuria: Code(s): R82.71 - Bacteriuria Status: Acute (12) Hyperbilirubinemia: Code(s): E80.6 - Other disorders of bilirubin metabolism Status: Acute (13) Elevated liver transaminase level: Code(s): R74.01 - Elevation of levels of liver transaminase levels Status: Acute (14) Hepatic steatosis: Code(s): K76.0 - Fatty (change of) liver, not elsewhere classified Status: Acute (15) Alcohol abuse: Code(s): F10.10 - Alcohol abuse, uncomplicated Status: Acute (16) Alcohol withdrawal syndrome: Qualifiers: Complication of substance-induced condition: with unspecified complication Qualified Code(s): F10.239 - Alcohol dependence with withdrawal, unspecified Code(s): F10.239 - Alcohol dependence with withdrawal, unspecified Status: Resolved (17) Thrombocytopenia: Code(s): D69.6 - Thrombocytopenia, unspecified Status: Acute DS: Summary Hospital Course Reason for hospitalization: Generalize weakness and dehydration. Hospital Course: Please refer to admission H& P. Briefly, this is a 61-year-old female with history of alcohol abuse including history of alcohol withdrawal and alcohol withdrawal seizures, depression, and anxiety presented to the emergency department on 09/17/2021 via EMS from home for evaluation of generalized weakness. Thursday while out running errands she developed sudden, severe nausea and burning discomfort in the epigastrium radiating up into the chest. For the last 3 days she has had little to no oral intake due to ongoing nausea and vomiting. She describes having innumerable bouts of emesis over the last several days that she describes as the brownish yellow and acidic. Additionally she notes a mild, nonproductive cough and she has a hard time distinguishing if her cough is coming from her chest or rather perhaps it is related to her GERD symptoms. Per EMS report she was also reporting mild shortness of breath however she denies that to me. She is vaccinated for COVID-19 and she denies sick contacts. She has not had fever, chills, or sweats. No rhinorrhea, sinus congestion, otalgia, or odynophagia. She has not had any al
== END 2021-09-20 14:36 | disposition home or self-care (01) | DRG 775 ==
LOC: ANHED 12:41 → ANH3MEDSUR 13:43
PROVIDERS: Internal Medicine; Physician Assistant; Admitting Provider Family Medicine; Emergency Provider Emergency Medicine; Visit Provider Internal Medicine
DX: F10.239 Alcohol dependence with withdrawal, unspecified (principal); Z20.822 Contact with and (suspected) exposure to COVID-19; E87.1 Hypo-osmolality and hyponatremia; K70.10 Alcoholic hepatitis without ascites; E87.6 Hypokalemia; E88.89 Other specified metabolic disorders; R82.71 Bacteriuria; E83.39 Other disorders of phosphorus metabolism; K21.9 Gastro-esophageal reflux disease without esophagitis; E83.42 Hypomagnesemia; E86.0 Dehydration; F32.A Depression, unspecified; F41.9 Anxiety disorder, unspecified; K76.0 Fatty (change of) liver, not elsewhere classified; D64.9 Anemia, unspecified; Z90.49 Acquired absence of other specified parts of digestive tract
CPT/HCPCS: 36415; 71045; 76705; 80048; 80053; 80074; 81001; 82533; 82550; 82607; 82746; 83605; 83690; 83735; 84100; 84443; 84484; 85025; 85027; 85055; 85610; 85730; 87040; 87804; 93005; 96361; 96365; 96366; 96374; 96375; 99285; A9270; C9113; C9803; G0378; G0379; J1650; J2060; J3411; J3475; J3480; J7030; J7050; J7121; U0003; U0005

== ENCOUNTER 2022-05-12 17:23 | Inpatient (IN) | payer OTHER, SELFPAY ==
[2022-05-12] VITALS (16 sets, daily range): BP systolic 114–155; BP diastolic 78–95; PULSE 93–118; RESP 16–26; TEMP 36–38.3; O2SAT 96–100
--- NOTE | ~2022-05-12 | XR_ITS ---
EXAMINATION: XR chest 1V portable Exam Date/Time: 05/12/2022 18:04 CDT HISTORY: SOB, weakness x 5 days found with maggots all over Comparison: 09/17/2021. RESULT: Lines, tubes, and devices: None. Lungs and pleura: Senescent change, otherwise clear. Cardiomediastinal silhouette: Stable cardiomediastinal silhouette including a moderate-sized hiatal hernia. Other: No acute osseous or upper abdominal finding. IMPRESSION: No acute cardiopulmonary process. Reviewed, dictated and finalized at location K.
--- NOTE | ~2022-05-12 | CT_ITS ---
EXAMINATION: CTA chest PE protocol DATE: 05/12/2022 19:31 INDICATION: elevated d dimer, SOB TECHNIQUE: Computed tomography angiography (CTA) of the chest was performed with 100 mL Omnipaque-350 intravenous contrast timed to evaluate the pulmonary arteries. Coronal maximum intensity projection 3D-reconstructions were created by the technologist. The dose-length product (DLP) was 212.18 mGy-cm. Automated exposure control and iterative reconstruction technique were employed. COMPARISON: X-ray chest, same date. FINDINGS: Study quality: Adequate. Pulmonary arteries: No pulmonary emboli detected. Thoracic aorta: Mild ectasia and arch calcification. Lung parenchyma and airways: Bibasilar atelectasis. Mild senescent change. Interlobular septal thicke nicki and mild patchy and dependent areas of groundglass opacity and small focal areas of consolidatio n in the left lung. Thoracic inlet, axillae and chest wall: Unremarkable. Mediastinum: Borderline lymphadenopathy. Large hiatal hernia. Heart and pericardium: Normal. Coronary artery calcifications: Absent. Pleura: Unremarkable. Upper abdomen: Fatty infiltration of the liver. Bones: No acute osseous finding. IMPRESSION: No CT evidence of acute pulmonary embolus. Pulmonary findings may reflect mild pulmonary edema or aty pical/viral infection. Hepatic steatosis. Reviewed, dictated and finalized at location K. IMPRESSION: No CT evidence of acute pulmonary embolus. Pulmonary findings may reflect mild pulmonary edema or atypical/viral infection. Hepatic steatosis.
--- NOTE | 2022-05-12 17:33 | ECG_ITS ---
Measurements Intervals [place] Rate: 106 P: 13 MI: 137 QRS: -5 QRSD: 84 T: -30 QT: 288 QTc: 384 Interpretive Statements SINUS TACHYCARDIA INFERIOR MYOCARDIAL INFARCTION , OF INDETERMINATE AGE Electronically Signed On 05-13-2022 10:53:19 CDT by Denis Rebolledo M.D.
--- NOTE | 2022-05-12 17:33 | ED.WEAKNESS ---
HPI - Weakness General Chief complaint: Weakness Stated complaint: gen. weak, fever, SOB w exertion Time Seen by Provider: 05/12/22 17:28 History of Present Illness HPI Narrative: 62-year-old female presented to the emergency room via EMS for evaluation of generalized weakness, subjective fever, and shortness of breath. Patient states she has been experiencing the symptoms for about 5 days. Patient states that she is a heavy alcohol user, admitting to 8-12 drinks a day. Patient denies smoking or any other recreational drug use. Patient also endorses body aches, and a headache. Related Data Allergies Allergy/AdvReac Type Severity Reaction Status Date / Time monosodium glutamate Allergy Severe Rash Verified 05/12/22 19:23 Review of Systems Review of Systems: CONSTITUTIONAL: Denies fever, chills, or sweats. EYES: Denies visual changes, redness, or discharge. ENT: Denies rhinorrhea, congestion, sore throat, or otalgia. CARDIOVASCULAR: Denies chest pain, palpitations, or edema. RESPIRATORY: Reports shortness of breath GASTROINTESTINAL: Denies abdominal pain, nausea, vomiting, or diarrhea. GENITOURINARY: Denies dysuria or hematuria. SKIN: Denies rash or itching. MUSCULOSKELETAL: Denies back pain, joint pain, or myalgia. NEUROLOGIC: Reports generalized weakness PSYCHIATRIC: Denies anxiety or depression. [facility] Past Medical History Medical History (Updated 05/12/22 @ 20:38 by Donavan Cornejo, ARMANDO) Alcohol abuse Alcohol withdrawal seizure Anxiety Depression History of fracture Including clavicle fracture left foot fracture. Subarachnoid hemorrhage Surgical History Surgical History History of appendectomy Family History Family History Sibling Family history of multiple sclerosis Father Colon cancer Arthritis Mother Throat cancer Social History Social History (Updated 09/17/21 @ 19:48 by Deysi Jasso PA-C) Social History: Surrogate decision maker: Baldemar Strong, saraer. Code status: Full code. Smoking status: Never smoker Alcohol intake: current Drinks per week: 28 Alcohol use details: Patient consumes four airplane shots a day. Substance use type: does not use Additional living arrangements comments: The patient lives in [place] with her brother. Additional occupation/education comments: Unemployed. Exam Narrative: GENERAL: Well-appearing, cachectic, no physical limitations, and in no acute distress. HEAD: Normocephalic, atraumatic. EYES: Conjunctivae normal, PERRLA and EOMI. CHEST: Decreased breath sounds right side. No respiratory distress. No wheezes rales or rhonchi. No tenderness. HEART: Tachycardic and regular rhythm. No murmur heard. Normal peripheral pulses. ABDOMEN: Soft, nontender, nondistended, normal active bowel sounds. : Normal external male/female exam. BACK: No CVA tenderness; No cervical/thoracic/lumbar tenderness, step-offs, bony abnormality; FROM EXTREMITIES: Normal range of motion. No edema. No clubbing or cyanosis SKIN: Warm, dry, no rash. No noted wounds NEURO: No focal deficits. Alert and oriented x3. MAEW. CN's II-XI intact bilaterally, normal gait PSYCH: Cooperative. Normal mood and affect. Course Vital Signs Vital signs: Vital Signs Temperature 38.3 C H 05/12/22 17:30 Pulse Rate 118 H 05/12/22 17:30 Respiratory Rate 20 05/12/22 17:30 Blood Pressure 114/78 05/12/22 17:30 Pulse Oximetry 96 05/12/22 17:30 Oxygen Delivery Room Air 05/12/22 17:30 Temperature 38.3 C H 05/12/22 17:30 Pulse Rate 118 H 05/12/22 17:30 Respiratory Rate 20 05/12/22 17:30 Blood Pressure 114/78 05/12/22 17:30 Pulse Oximetry 96 05/12/22 17:30 Oxygen Delivery Room Air 05/12/22 17:30 MDM - Weakness MDM Narrative Medical decision making narrative: 60-year-old female presented the emergency room for evaluation of
[2022-05-12] MEDS: SODIUM CHLORIDE 0.9% IV 1,000 ML 250 ML IV CONT ×2 (17:55→21:58)
[2022-05-12 18:19] LABS: Basophils Percent Auto 0.4 % (0.2-1.2); Eosinophils Percent Auto 0.3 % (0-4.4); Hemoglobin 11.1 g/dL (12.0-15.0); Immature Granulocyte Absolute 0.04 K/mm3 (0.00-0.031); Immature Granulocyte Percent A 0.5 % (0-0.5); Lymphocytes Absolute Auto 0.65 K/mm3 (0.9-3.2); Lymphocytes Percent Auto 8.2 % (18.3-44.2); Mean Corpuscular HGB Conc 32.6 g/dl (32-36); Mean Corpuscular Hemoglobin 27.3 pg (26-34); Mean Corpuscular Volume 83.7 fl (80-100); Mean Platelet Volume 9.3 fl (7.4-10.4); Monocytes Percent Auto 12.6 % (2.6-8.5); Neutrophils Absolute Auto 6.2 K/mm3 (1.3-6.7); Platelet Count Result 230 k/mm3 (150-375); Red Blood Count 4.06 M/mm3 (4.2-5.4); Red Cell Distribution Width 18.2 % (11.5-14.5); White Blood Count 7.9 K/mm3 (4.5-10.0)
[2022-05-12 18:29] LABS: Ethanol 45 mg/dL (<10)
[2022-05-12 18:33] LABS: D Dimer 0.65 ug/mL (<0.48)
[2022-05-12 18:46] LABS: Alanine Aminotransferase 53 U/L (6-35); Albumin Level 3.1 g/dL (3.5-5.1); Alkaline Phosphatase 117 U/L (38-126); Anion Gap 14 mmol/L (8-16); Aspartate Amino Transferase 252 U/L (14-36); Bilirubin,Total 0.5 mg/dL (0.2-1.3); Blood Urea Nitrogen 4 mg/dL (7-17); Calcium 7.4 mg/dL (8.4-10.2); Carbon Dioxide 28 mmol/L (22-30); Chloride 87 mmol/L (98-107); Estimated Glomerular Filt Rate > 60; Glucose 128 mg/dL (65-110); Lipase 159 U/L (23-300); Sodium 129 mmol/L (137-145)
[2022-05-12 18:47] LABS: Lactic Acid Reflex 6.8 mmol/L (0.7-2.0)
[2022-05-12 18:55] LABS: SARS-CoV-2 RNA PCR Negative
[2022-05-12] MEDS: POTASSIUM CHLORIDE INJ 40 MEQ in SODIUM CHLORIDE 0.9% IV 500 ML 130 MEQ IVPB (19:48)
[2022-05-12 19:58] LABS: Appearance Urine Cloudy (Clear); Bilirubin Urine Negative (Negative); Blood Urine Trace-lysed (Negative); Color Urine Yellow (Yellow); Glucose Urine UA Negative (Negative); Ketones Urine Negative (Negative); Leukocyte Esterase Ur 2+ LEU/UL (Negative); Nitrate Urine Positive (Negative); Protein Urine Negative (Negative); Specific Grav Ur <= 1.005 (1.001-1.035)
[2022-05-12] MEDS: SODIUM CHLORIDE 0.9% IV 1,000 ML 999 ML IV CONT (19:58)
[2022-05-12 20:02] LABS: Bacteria Urine 4+ /hpf; Mucus Urine Rare /lpf; Squamous Epithelial Cell Urine Few /hpf (Few); WBC Urine 21-30 /hpf
[2022-05-12 20:03] LABS: Add Urine Microscopic? YES
[2022-05-12] MEDS: IBUPROFEN 400 MG TABLET PO (20:48)
[2022-05-12 20:49] LABS: Magnesium 1.1 mg/dL (1.6-2.3)
[2022-05-12] MEDS: POTASSIUM CHLORIDE 20 MEQ TABLET 80 MEQ PO (20:49)
[2022-05-12 21:17] LABS: Reflex Lactic Acid Yes or No Add Lactic
[2022-05-12] MEDS: THIAMINE HCL 200 MG/2 ML VIAL 100 MG IV PUSH (21:52)
[2022-05-12] MEDS: SODIUM CHLORIDE 0.9% IV 1,000 ML 125 ML IV CONT (23:21)
[2022-05-13] VITALS (11 sets, daily range): BP systolic 107–143; BP diastolic 74–100; PULSE 78–103; RESP 16–20; TEMP 36.3–36.8; O2SAT 91–97; BMI 20.7
[2022-05-13] MEDS: SODIUM CHLORIDE 0.9% IV 1,000 ML 125 ML IV CONT ×3 (04:54→21:21)
--- NOTE | 2022-05-13 06:18 | PM.IMHP ---
H&P: HPI History of Present Illness Date/Time: 05/13/22 06:18 Chief Complaint: Increased weakness Narrative: 62-year-old female with past medical history of alcohol abuse, alcohol withdrawal seizures, depression anxiety presented to the ER from home via EMS due to evaluation of generalized weakness. She reports that she has been generally weak for the last 5 days. She stated that she has not been able to go outside and walk around and run her errands like usual. She had some nausea and vomiting 5 days ago for 1 day but this resolved. She has not had any diarrhea. She has had increased urinary frequency over the last couple of days but denies any dysuria. She has been sleeping more than usual. She denies any back pain. She denies any significant headache are being lightheaded. She denies any hematuria. She has not noticed any blood in her stool. She does continue to drink alcohol but states that she has cut down her alcohol consumption from 8 shot today down to 4 shots a day over the last 2 weeks. She reports that she has not been having as many withdrawal symptoms that she usually does. She does not feel shaky at all and only had 1 shot yesterday. Her alcohol level correlated with her report of only drinking 1 shot of alcohol. She denies any chest pain, palpitations or muscle cramping. Patient denies any cough, congestion, shortness of breath. She denied having any fevers at home but was febrile to 101? when she arrived to the ER. When she arrived to the ER her purse was covered with maggots in the room maggots on the ER stretcher. She did not have any wounds to indicate where she would have picked up the maggots. She was picked up outside of her home and EMS did not actually see her living conditions. She reports that she has been having some crustiness to her eyes and her eyes have been itching. She thinks her symptoms may be due to allergies. The patient has had multiple similar admissions for similar symptoms. Review of Systems Review of Systems: 12 systems were reviewed with pertinent positives and negatives per HPI. Except as documented in the HPI, all other systems were reviewed and are negative. [facility] Past Medical History Medical History (Updated 05/13/22 @ 08:55 by Vira Bermudez DO) Alcohol abuse Alcohol withdrawal seizure Anxiety Depression GERD (gastroesophageal reflux disease) Hepatic steatosis History of fracture Including clavicle fracture left foot fracture. Subarachnoid hemorrhage Surgical History Surgical History History of appendectomy Family History Family History (Updated 05/13/22 @ 08:37 by Vira Bermudez DO) Sibling Multiple sclerosis Father Colon cancer Arthritis Mother Throat cancer Social History Social History Social History: Surrogate decision maker: Baldemar Strong, brother. Code status: Full code. Smoking status: Never smoker Alcohol intake: current Drinks per week: 30 Alcohol use details: Patient consumes four airplane shots a day. Substance use: never Additional living arrangements comments: The patient lives in [place] with her brother. Additional occupation/education comments: Unemployed. Spiritual care concerns: No Meds Home Medications and Allergies Home Medications Medication Instructions Recorded Confirmed Type No Home Medications 05/12/22 05/12/22 History Allergies Allergy/AdvReac Type Severity Reaction Status Date / Time monosodium glutamate Allergy Severe Rash Verified 05/12/22 19:23 Vital Signs Vital Signs - 24 hr 05/12/22 17:30 05/12/22 19:46 05/12/22 19:35 Temperature 101 F H Pulse Rate 118 H 105 H Respiratory Rate 20 16 Blood Pressure 114/78 155/95 H Pulse Oximetry 96 97 100 Oxygen Delivery Room Air 05/12/22 19:45 05/12/22 19:46 05/12/22 20:00 Temperature Pulse Rate 105 H
[2022-05-13 06:49] LABS: Basophils Absolute Auto 0.1 K/mm3 (0.0-0.1); Basophils Percent Auto 0.8 % (0.2-1.2); Eosinophils Absolute Auto 0.1 K/mm3 (0-0.3); Eosinophils Percent Auto 1.4 % (0-4.4); Hematocrit 31.4 % (37.0-47.0); Hemoglobin 10.4 g/dL (12.0-15.0); Immature Granulocyte Absolute 0.04 K/mm3 (0.00-0.031); Immature Granulocyte Percent A 0.6 % (0-0.5); Lymphocytes Absolute Auto 1.33 K/mm3 (0.9-3.2); Lymphocytes Percent Auto 21.1 % (18.3-44.2); Mean Corpuscular HGB Conc 33.1 g/dl (32-36); Mean Corpuscular Hemoglobin 27.9 pg (26-34); Mean Corpuscular Volume 84.2 fl (80-100); Monocytes Absolute Auto 0.7 K/mm3 (0.1-0.6); Monocytes Percent Auto 11.3 % (2.6-8.5); Neutrophils Absolute Auto 4.1 K/mm3 (1.3-6.7); Neutrophils Percent Auto 64.8 % (45.5-73.1); Platelet Count Result 222 k/mm3 (150-375); Red Blood Count 3.73 M/mm3 (4.2-5.4); Red Cell Distribution Width 18.6 % (11.5-14.5); White Blood Count 6.3 K/mm3 (4.5-10.0)
[2022-05-13 06:50] LABS: Lactic Acid Reflex 1.8 mmol/L (0.7-2.0)
[2022-05-13 07:00] LABS: Alanine Aminotransferase 49 U/L (6-35); Albumin Level 2.4 g/dL (3.5-5.1); Alkaline Phosphatase 109 U/L (38-126); Anion Gap 3 mmol/L (8-16); Aspartate Amino Transferase 258 U/L (14-36); Bilirubin,Total 0.8 mg/dL (0.2-1.3); Blood Urea Nitrogen 3 mg/dL (7-17); Calcium 6.3 mg/dL (8.4-10.2); Carbon Dioxide 29 mmol/L (22-30); Chloride 103 mmol/L (98-107); Estimated Glomerular Filt Rate > 60; Glucose 115 mg/dL (65-110); Phosphorus 2.2 mg/dL (2.5-4.5); Potassium 3.1 mmol/L (3.4-5.0); Sodium 135 mmol/L (137-145)
[2022-05-13] MEDS: MAGNESIUM SULF 4 GM/WATER100ML 4 GM/100 ML BAG IVPB (08:23)
[2022-05-13] MEDS: THIAMINE HCL 100 MG TABLET PO (08:24)
[2022-05-13] MEDS: FOLIC ACID 1 MG TABLET PO (08:25)
[2022-05-13 08:46] LABS: Iron 29 ug/dL (37-170)
[2022-05-13] MEDS: POTASSIUM CHLORIDE 20 MEQ TABLET 40 MEQ PO ×2 (08:46→14:19)
[2022-05-13 08:56] LABS: Percent Iron Saturation 15 % (20-50)
[2022-05-13 09:54] LABS: Folic Acid 8.5 ng/mL (2.76->20)
[2022-05-13 10:47] LABS: IFOB Positive Control Positive; Immunochemical Fecal Occult Bl Negative (N)
[2022-05-13 11:18] LABS: Anion Gap 8 mmol/L (8-16); Blood Urea Nitrogen 2 mg/dL (7-17); Calcium 6.7 mg/dL (8.4-10.2); Carbon Dioxide 27 mmol/L (22-30); Chloride 98 mmol/L (98-107); Estimated CRCL calculation 80 ml/min; Estimated Glomerular Filt Rate > 60; Glucose 113 mg/dL (65-110); Magnesium 2.8 mg/dL (1.6-2.3); Phosphorus 1.6 mg/dL (2.5-4.5); Potassium 2.9 mmol/L (3.4-5.0); Sodium 133 mmol/L (137-145)
[2022-05-13] MEDS: POTASSIUM PHOS/SODIUM PHOS 250 MG TABLET PO ×2 (12:05→16:58)
--- NOTE | 2022-05-13 13:30 | PCNSR ---
On 05/13/22, the student, Maurice Lo, provided care and completed [facility] documentation on this patient. I have reviewed the student's documentation and agree with the findings.
[2022-05-13] MEDS: POTASSIUM/PHOSPHORUS/SODIUM 1.5 GM PACKET 1 PACKET PO (14:19)
--- NOTE | 2022-05-13 15:15 | PM.IMPN ---
Progress Note: A&P Assessment and Plan (1) Sepsis: Code(s): A41.9 - Sepsis, unspecified organism Status: Acute Assessment and Plan: Sepsis likely secondary to UTI. Sepsis criteria met on admission with tachycardia, fever, tachypnea and severe lactic acidosis. Lactic acidosis resolved after IV fluid hydration. Blood cultures and urine culture are pending. Continue empiric antibiotic therapy with Rocephin. Tachycardia, tachypnea, fever resolved. No leukocytosis. (2) UTI (urinary tract infection): Code(s): N39.0 - Urinary tract infection, site not specified Status: Acute Assessment and Plan: Likely urinary tract infection with sepsis. Urine cultures are pending. Blood cultures are pending. Empiric antibiotic therapy with Rocephin. Await culture results and tailor antibiotics accordingly (3) Weakness: Code(s): R53.1 - Weakness Status: Acute Assessment and Plan: Generalized weakness likely due to a combination of chronic alcohol abuse and significant electrolyte disturbances with hypokalemia, hypomagnesemia, hypophosphatemia and borderline low hyponatremia. Patient also does have increased anemia from baseline. Appreciate PT/OT evaluation Dietary supplement (4) Electrolyte abnormality: Code(s): E87.8 - Other disorders of electrolyte and fluid balance, not elsewhere classified Status: Acute Assessment and Plan: Hypokalemia: Potassium remains decreased despite supplementation. Continue with p.o. potassium supplementation. Additional 40 mEq given this afternoon and will begin schedule KCl 20 mEq b.i.d. Also receiving potassium supplementation with phosphate supplement Hypomagnesiumia: Resolved with supplementation Hypophosphatemia: Phos 1.6 today, actually decreased from presentation despite supplementation Continue K-Phos neutral packets Hypocalcemia: Calcium low but is appropriate when corrected for hypoalbuminemia Hold on supplementation at this time. Monitor on telemetry. Repeat labs tomorrow morning (5) Anemia: Qualifiers: Anemia type: iron deficiency Code(s): D64.9 - Anemia, unspecified Status: Acute Assessment and Plan: Normocytic anemia worsened from baseline. Hemoglobin is 10.4 today Iron panel reviewed with significantly decreased iron stores. She will benefit from IV iron supplementation. Stool occult blood test is negative B12 and folate within normal limits (6) Hepatic steatosis: Code(s): K76.0 - Fatty (change of) liver, not elsewhere classified Status: Inactive Assessment and Plan: Elevated transaminases likely due to continued alcohol abuse in the setting of chronic hepatic steatosis. LFTs are relatively stable. Will continue monitor (7) Alcohol abuse: Code(s): F10.10 - Alcohol abuse, uncomplicated Status: Acute Assessment and Plan: The patient reports that she is motivated to quit drinking. She states that she has cut her alcohol use back by about half (previously drinking 3-4 shooters per day) Now most recently down to 1 shot per day. She has no active evidence of withdrawal. Continue thiamine and folic acid supplementation CIWA protocol implemented. Ativan as needed for CIWA scores greater than 8. Resources have been provided for alcohol cessation. Patient has been contact with a counselor Subjective Date/time seen: 05/13/22 15:15 Interval history: Date of service: 05/13/2022 Radha Strong is a 62-year-old female with a history of alcohol abuse, alcohol withdrawal seizure, anxiety, depression, GERD is seen in follow-up for sepsis secondary to suspected UTI electrolyte abnormality. Patient reports she has been decreasing her alcohol intake and is drinking 1 shot per day. Her last drink was yesterday. She was feeling extremely weak and fatigued. She states this is improved today although she contin
[2022-05-13] MEDS: IRON SUCROSE COMPLEX 200 MG in SODIUM CHLORIDE 0.9% IV 50 ML 120 MG IVPB (16:53)
[2022-05-13] MEDS: POTASSIUM CHLORIDE 20 MEQ TABLET.ER PO (16:58)
[2022-05-14] VITALS (9 sets, daily range): BP systolic 107–123; BP diastolic 79–97; PULSE 96–106; RESP 18–20; TEMP 37.3–37.9; O2SAT 88–94
[2022-05-14 06:27] LABS: Basophils Absolute Auto 0.1 K/mm3 (0.0-0.1); Basophils Percent Auto 0.8 % (0.2-1.2); Eosinophils Absolute Auto 0.1 K/mm3 (0-0.3); Eosinophils Percent Auto 1.4 % (0-4.4); Hematocrit 33.3 % (37.0-47.0); Hemoglobin 11.3 g/dL (12.0-15.0); Immature Granulocyte Absolute 0.05 K/mm3 (0.00-0.031); Immature Granulocyte Percent A 0.6 % (0-0.5); Lymphocytes Absolute Auto 1.37 K/mm3 (0.9-3.2); Lymphocytes Percent Auto 17.4 % (18.3-44.2); Mean Corpuscular HGB Conc 33.9 g/dl (32-36); Mean Corpuscular Volume 82.6 fl (80-100); Mean Platelet Volume 9.1 fl (7.4-10.4); Monocytes Absolute Auto 0.7 K/mm3 (0.1-0.6); Monocytes Percent Auto 8.3 % (2.6-8.5); Neutrophils Absolute Auto 5.6 K/mm3 (1.3-6.7); Neutrophils Percent Auto 71.5 % (45.5-73.1); Platelet Count Result 241 k/mm3 (150-375); Red Blood Count 4.03 M/mm3 (4.2-5.4); Red Cell Distribution Width 18.6 % (11.5-14.5); White Blood Count 7.9 K/mm3 (4.5-10.0)
[2022-05-14] MEDS: SODIUM CHLORIDE 0.9% IV 1,000 ML 125 ML IV CONT (06:27)
[2022-05-14 06:36] LABS: Alanine Aminotransferase 48 U/L (6-35); Albumin Level 2.6 g/dL (3.5-5.1); Alkaline Phosphatase 118 U/L (38-126); Anion Gap 8 mmol/L (8-16); Aspartate Amino Transferase 196 U/L (14-36); Bilirubin,Total 0.6 mg/dL (0.2-1.3); Calcium 6.9 mg/dL (8.4-10.2); Carbon Dioxide 28 mmol/L (22-30); Chloride 97 mmol/L (98-107); Estimated CRCL calculation 80 ml/min; Estimated Glomerular Filt Rate > 60; Glucose 103 mg/dL (65-110); Magnesium 1.3 mg/dL (1.6-2.3); Phosphorus 2.9 mg/dL (2.5-4.5); Potassium 3.7 mmol/L (3.4-5.0); Sodium 133 mmol/L (137-145)
[2022-05-14 06:51] LABS: Blood Urea Nitrogen < 2 mg/dL (7-17)
[2022-05-14] MEDS: POTASSIUM PHOS/SODIUM PHOS 250 MG TABLET PO (08:14)
[2022-05-14] MEDS: FOLIC ACID 1 MG TABLET PO (08:14)
[2022-05-14] MEDS: POTASSIUM CHLORIDE 20 MEQ TABLET.ER PO ×2 (08:14→17:17)
[2022-05-14] MEDS: THIAMINE HCL 100 MG TABLET PO (08:14)
--- NOTE | 2022-05-14 11:51 | PM.IMPN ---
Progress Note: A&P Assessment and Plan (1) Sepsis: Code(s): A41.9 - Sepsis, unspecified organism Status: Acute Assessment and Plan: Sepsis likely secondary to UTI. Sepsis criteria met on admission with tachycardia, fever, tachypnea and severe lactic acidosis. Lactic acidosis resolved after IV fluid hydration. Blood cultures are pending. Urine culture positive for Klebsiella pneumoniae which is sensitive to Rocephin. Continue Rocephin. Tachycardia, tachypnea, fever resolved. No leukocytosis. (2) UTI (urinary tract infection): Code(s): N39.0 - Urinary tract infection, site not specified Status: Acute Assessment and Plan: Likely urinary tract infection with sepsis. Blood cultures are pending. Urine culture positive as above. Continue IV antibiotic therapy with Rocephin. (3) Weakness: Code(s): R53.1 - Weakness Status: Acute Assessment and Plan: Generalized weakness likely due to a combination of chronic alcohol abuse and significant electrolyte disturbances with hypokalemia, hypomagnesemia, hypophosphatemia and borderline low hyponatremia. Also UTI and increased anemia from baseline. Appreciate PT/OT evaluation Dietary supplement Continue to push oral intake (4) Electrolyte abnormality: Code(s): E87.8 - Other disorders of electrolyte and fluid balance, not elsewhere classified Status: Acute Assessment and Plan: Hypokalemia: Resolved w/ supplementation Continue with p.o. KCl 20 mEq b.i.d. until tolerating normal diet. Hypomagnesiumia: Resolved with supplementation Hypophosphatemia: Resolved w/ supplementation. Will dc phosphate packets. Hypocalcemia: Calcium low but is appropriate when corrected for hypoalbuminemia Hold on supplementation at this time. Monitor on telemetry. Repeat labs tomorrow morning. (5) Anemia: Qualifiers: Anemia type: iron deficiency Code(s): D64.9 - Anemia, unspecified Status: Acute Assessment and Plan: Normocytic anemia worsened from baseline. Hemoglobin is 11.3 today Iron panel reviewed with significantly decreased iron stores. She will benefit from IV iron supplementation. Stool occult blood test is negative B12 and folate within normal limits (6) Hepatic steatosis: Code(s): K76.0 - Fatty (change of) liver, not elsewhere classified Status: Inactive Assessment and Plan: Elevated transaminases likely due to continued alcohol abuse in the setting of chronic hepatic steatosis. LFTs are relatively stable. Will continue monitor (7) Alcohol abuse: Code(s): F10.10 - Alcohol abuse, uncomplicated Status: Acute Assessment and Plan: The patient reports that she is motivated to quit drinking. She states that she has cut her alcohol use back by about half (previously drinking 3-4 shooters per day) Now most recently down to 1 shot per day. She has no active evidence of withdrawal. Continue thiamine and folic acid supplementation CIWA protocol implemented. Ativan as needed for CIWA scores greater than 8. Resources have been provided for alcohol cessation. Patient has been in contact with a counselor Subjective Date/time seen: 05/14/22 11:51 Interval history: Radha Strong is a 62-year-old female with a history of alcohol abuse, alcohol withdrawal seizure, anxiety, depression, GERD is seen in follow-up for sepsis secondary to suspected UTI. Continuing to improve today. Has had some intermittent nausea still with decreased appetite. Tolerating liquids well but having trouble getting food down. No cp/sob/palpitations, though she is noted to be tachycardic on exam. Denies tremor, anxiety, agitation, confusion. States she slept well last night aside from having frequent urination while receiving IVF. Denies dysuria, hematuria, or abdominal pain. Discussed the issue with her having mag
[2022-05-14] MEDS: SODIUM CHLORIDE 0.9% IV 1,000 ML 75 ML IV CONT (20:23)
[2022-05-15] VITALS (9 sets, daily range): BP systolic 100–117; BP diastolic 60–86; PULSE 82–112; RESP 16–18; TEMP 35.8–37.6; O2SAT 94–98
[2022-05-15 07:12] LABS: Basophils Absolute Auto 0.1 K/mm3 (0.0-0.1); Basophils Percent Auto 0.7 % (0.2-1.2); Eosinophils Absolute Auto 0.1 K/mm3 (0-0.3); Eosinophils Percent Auto 1.1 % (0-4.4); Hematocrit 32.4 % (37.0-47.0); Immature Granulocyte Absolute 0.03 K/mm3 (0.00-0.031); Immature Granulocyte Percent A 0.3 % (0-0.5); Lymphocytes Absolute Auto 1.71 K/mm3 (0.9-3.2); Lymphocytes Percent Auto 18.2 % (18.3-44.2); Mean Corpuscular Hemoglobin 27.8 pg (26-34); Mean Platelet Volume 9.3 fl (7.4-10.4); Monocytes Percent Auto 10.6 % (2.6-8.5); Neutrophils Absolute Auto 6.5 K/mm3 (1.3-6.7); Neutrophils Percent Auto 69.1 % (45.5-73.1); Platelet Count Result 277 k/mm3 (150-375); Red Blood Count 3.95 M/mm3 (4.2-5.4); Red Cell Distribution Width 18.7 % (11.5-14.5); White Blood Count 9.4 K/mm3 (4.5-10.0)
[2022-05-15 07:16] LABS: Alanine Aminotransferase 43 U/L (6-35); Albumin Level 2.4 g/dL (3.5-5.1); Alkaline Phosphatase 115 U/L (38-126); Anion Gap 3 mmol/L (8-16); Aspartate Amino Transferase 141 U/L (14-36); Bilirubin,Total 0.7 mg/dL (0.2-1.3); Calcium 7.2 mg/dL (8.4-10.2); Carbon Dioxide 28 mmol/L (22-30); Chloride 98 mmol/L (98-107); Estimated CRCL calculation 80 ml/min; Estimated Glomerular Filt Rate > 60; Glucose 92 mg/dL (65-110); Phosphorus 3.1 mg/dL (2.5-4.5); Potassium 3.9 mmol/L (3.4-5.0); Sodium 129 mmol/L (137-145)
[2022-05-15 07:50] LABS: Blood Urea Nitrogen < 2 mg/dL (7-17)
[2022-05-15] MEDS: FOLIC ACID 1 MG TABLET PO (08:57)
[2022-05-15] MEDS: ACETAMINOPHEN 325 MG TABLET 650 MG PO ×2 (08:57→22:15)
[2022-05-15] MEDS: POTASSIUM CHLORIDE 20 MEQ TABLET.ER PO ×2 (08:57→16:58)
[2022-05-15] MEDS: THIAMINE HCL 100 MG TABLET PO (08:57)
[2022-05-15] MEDS: MAGNESIUM SULF 2 GM/WATER 50ML 2 GM/50 ML BAG IVPB (08:58)
[2022-05-15] MEDS: SODIUM CHLORIDE 0.9% IV 1,000 ML 75 ML IV CONT (08:59)
[2022-05-15] MEDS: MAGNESIUM OXIDE 400 MG TABLET PO (09:54)
--- NOTE | 2022-05-15 13:37 | PM.IMPN ---
Progress Note: A&P Assessment and Plan (1) Sepsis: Code(s): A41.9 - Sepsis, unspecified organism Status: Acute Assessment and Plan: Sepsis likely secondary to UTI. Sepsis criteria met on admission with tachycardia, fever, tachypnea and severe lactic acidosis. Lactic acidosis resolved after IV fluid hydration. Blood cultures NGTD. Urine culture positive for Klebsiella pneumoniae which is sensitive to Rocephin. Continue Rocephin. Tachycardia, tachypnea, fever resolved. No leukocytosis. (2) UTI (urinary tract infection): Code(s): N39.0 - Urinary tract infection, site not specified Status: Acute Assessment and Plan: Likely urinary tract infection with sepsis. Blood cultures NGTD. Urine culture positive as above. Continue IV antibiotic therapy with Rocephin. (3) Weakness: Code(s): R53.1 - Weakness Status: Acute Assessment and Plan: Generalized weakness likely due to a combination of chronic alcohol abuse and significant electrolyte disturbances with hypokalemia, hypomagnesemia, hypophosphatemia and borderline low hyponatremia. Also UTI and increased anemia from baseline. Appreciate PT/OT evaluation Dietary supplement Continue to push oral intake (4) Electrolyte abnormality: Code(s): E87.8 - Other disorders of electrolyte and fluid balance, not elsewhere classified Status: Acute Assessment and Plan: Hypokalemia: Resolved w/ supplementation Continue with p.o. KCl 20 mEq b.i.d. until tolerating normal diet. Hypomagnesemia: Continue supplementation. 1.1 on arrival. Was up to 2.8 but after supplementation was stopped she dropped to 1.0. Hypophosphatemia: Resolved w/ supplementation. Will dc phosphate packets. Hypocalcemia: Calcium low but is appropriate when corrected for hypoalbuminemia Hold on supplementation at this time. Repeat labs tomorrow morning. (5) Anemia: Qualifiers: Anemia type: iron deficiency Code(s): D64.9 - Anemia, unspecified Status: Acute Assessment and Plan: Normocytic anemia worsened from baseline. Hemoglobin is 11.3 today Iron panel reviewed with significantly decreased iron stores. She will benefit from IV iron supplementation. Stool occult blood test is negative B12 and folate within normal limits (6) Alcohol abuse: Code(s): F10.10 - Alcohol abuse, uncomplicated Status: Acute Assessment and Plan: The patient reports that she is motivated to quit drinking. She states that she has cut her alcohol use back by about half (previously drinking 3-4 shooters per day) Now most recently down to 1 shot per day. She has no active evidence of withdrawal. Continue thiamine and folic acid supplementation CIWA protocol implemented. Ativan as needed for CIWA scores greater than 8. Resources have been provided for alcohol cessation. Patient has been in contact with a counselor Subjective Date/time seen: 05/15/22 13:37 Interval history: Radha Strong is a 62-year-old female with a history of alcohol abuse, alcohol withdrawal seizure, anxiety, depression, GERD is seen in follow-up for sepsis secondary to suspected UTI. She didn't sleep well last night. Had a headache this morning and low grade fever that resolved with tylenol. No cp/sob/palpitations/tremor/n/v/abd pain. Still urinating a lot. No dysuria. Review of Systems Review of Systems: All systems reviewed & are unremarkable except as noted in HPI and below Exam Narrative: General: Thin, well-appearing, well-groomed 62-year-old female, sitting up in bed, comfortable, NARD Neuro: awake, alert and oriented x4, speech clear, no focal neuro deficits noted HEENMT: normocephalic, atraumatic, EOMI, sclerae anicteric, moist oral mucosa Respiratory: clear to auscultation bilaterally, nonlabored breathing Cardio: tachycardic rate, regular rhythm with S1-S2 Abdomen: n
[2022-05-15] MEDS: MELATONIN 5 MG TABLET PO (22:02)
[2022-05-16] VITALS: BP 117/83
[2022-05-16 04:00] VITALS: BP 117/83
[2022-05-16 06:00] VITALS: BP 110/80; PULSE 93; RESP 18; TEMP 36.3; O2SAT 98
[2022-05-16 06:20] LABS: Basophils Absolute Auto 0.1 K/mm3 (0.0-0.1); Basophils Percent Auto 0.6 % (0.2-1.2); Eosinophils Absolute Auto 0.1 K/mm3 (0-0.3); Eosinophils Percent Auto 1.4 % (0-4.4); Hemoglobin 11.7 g/dL (12.0-15.0); Immature Granulocyte Absolute 0.05 K/mm3 (0.00-0.031); Immature Granulocyte Percent A 0.5 % (0-0.5); Lymphocytes Absolute Auto 1.68 K/mm3 (0.9-3.2); Lymphocytes Percent Auto 16.8 % (18.3-44.2); Mean Corpuscular HGB Conc 33.4 g/dl (32-36); Mean Corpuscular Hemoglobin 27.5 pg (26-34); Mean Corpuscular Volume 82.2 fl (80-100); Monocytes Absolute Auto 1.2 K/mm3 (0.1-0.6); Monocytes Percent Auto 11.5 % (2.6-8.5); Neutrophils Absolute Auto 6.9 K/mm3 (1.3-6.7); Neutrophils Percent Auto 69.2 % (45.5-73.1); Platelet Count Result 323 k/mm3 (150-375); Red Blood Count 4.26 M/mm3 (4.2-5.4); Red Cell Distribution Width 19.2 % (11.5-14.5)
[2022-05-16 06:29] LABS: Alanine Aminotransferase 44 U/L (6-35); Albumin Level 2.7 g/dL (3.5-5.1); Alkaline Phosphatase 121 U/L (38-126); Anion Gap 1 mmol/L (8-16); Aspartate Amino Transferase 125 U/L (14-36); Bilirubin,Total 0.8 mg/dL (0.2-1.3); Blood Urea Nitrogen 6 mg/dL (7-17); Calcium 7.9 mg/dL (8.4-10.2); Carbon Dioxide 29 mmol/L (22-30); Chloride 99 mmol/L (98-107); Estimated CRCL calculation 80 ml/min; Estimated Glomerular Filt Rate > 60; Glucose 96 mg/dL (65-110); Potassium 5.2 mmol/L (3.4-5.0); Sodium 129 mmol/L (137-145)
[2022-05-16] MEDS: FOLIC ACID 1 MG TABLET PO (08:54)
[2022-05-16] MEDS: THIAMINE HCL 100 MG TABLET PO (08:54)
[2022-05-16] MEDS: MAGNESIUM OXIDE 400 MG TABLET PO (08:54)
--- NOTE | 2022-05-16 09:48 | PM.IMPN ---
Progress Note: A&P Assessment and Plan (1) Sepsis: Code(s): A41.9 - Sepsis, unspecified organism Status: Acute Assessment and Plan: Sepsis likely secondary to UTI. Sepsis criteria met on admission with tachycardia, fever, tachypnea and severe lactic acidosis. Lactic acidosis resolved after IV fluid hydration. Blood cultures NGTD. Urine culture positive for Klebsiella pneumoniae which is sensitive to Rocephin. Continue Rocephin. Tachycardia, tachypnea, fever resolved. No leukocytosis. (2) UTI (urinary tract infection): Code(s): N39.0 - Urinary tract infection, site not specified Status: Acute Assessment and Plan: Likely urinary tract infection with sepsis. Blood cultures NGTD. Urine culture positive as above. Continue IV antibiotic therapy with Rocephin. (3) Weakness: Code(s): R53.1 - Weakness Status: Acute Assessment and Plan: Generalized weakness likely due to a combination of chronic alcohol abuse and significant electrolyte disturbances with hypokalemia, hypomagnesemia, hypophosphatemia and borderline low hyponatremia. Also UTI and increased anemia from baseline. Appreciate PT/OT evaluation Dietary supplement Continue to push oral intake (4) Electrolyte abnormality: Code(s): E87.8 - Other disorders of electrolyte and fluid balance, not elsewhere classified Status: Acute Assessment and Plan: Hypokalemia: Resolved w/ supplementation Continue with p.o. KCl 20 mEq b.i.d. until tolerating normal diet. K 5.2 today, stopped K supplement Hypomagnesemia: Continue supplementation. 1.1 on arrival. Was up to 2.8 but after supplementation was stopped she dropped to 1.0. Hypophosphatemia: Resolved w/ supplementation. Will dc phosphate packets. Hypocalcemia: Calcium low but is appropriate when corrected for hypoalbuminemia Hold on supplementation at this time. Repeat labs tomorrow morning. (5) Anemia: Qualifiers: Anemia type: iron deficiency Code(s): D64.9 - Anemia, unspecified Status: Acute Assessment and Plan: Normocytic anemia worsened from baseline. Hemoglobin is 11.7 today Iron panel reviewed with significantly decreased iron stores. She will benefit from IV iron supplementation. Stool occult blood test is negative B12 and folate within normal limits (6) Alcohol abuse: Code(s): F10.10 - Alcohol abuse, uncomplicated Status: Acute Assessment and Plan: The patient reports that she is motivated to quit drinking. She states that she has cut her alcohol use back by about half (previously drinking 3-4 shooters per day) Now most recently down to 1 shot per day. She has no active evidence of withdrawal. Continue thiamine and folic acid supplementation CIWA protocol implemented. Ativan as needed for CIWA scores greater than 8. Resources have been provided for alcohol cessation. Patient has been in contact with a counselor Subjective Date/time seen: 05/16/22 09:48 Interval history: Radha Strong is a 62-year-old female with a history of alcohol abuse, alcohol withdrawal seizure, anxiety, depression, GERD is seen in follow-up for sepsis secondary to suspected UTI. Slept better last night, however IV went bad and was not replaced until this AM so she did not receive fluids overnight. Appetite improving. No withdrawal symptoms. No cp/sob/n/v/abd pain/dysuria. Review of Systems Review of Systems: All systems reviewed & are unremarkable except as noted in HPI and below Exam Narrative: General: Thin, well-appearing, well-groomed 62-year-old female, sitting up in bed, comfortable, NARD Neuro: awake, alert and oriented x4, speech clear, no focal neuro deficits noted HEENMT: normocephalic, atraumatic, EOMI, sclerae anicteric, moist oral mucosa Respiratory: clear to auscultation bilaterally, nonlabored breathing Cardio: tachycardic
[2022-05-16 10:18] LABS: Magnesium 1.6 mg/dL (1.6-2.3)
[2022-05-16 12:35] LABS: Anion Gap 3 mmol/L (8-16); Blood Urea Nitrogen 5 mg/dL (7-17); Calcium 7.9 mg/dL (8.4-10.2); Carbon Dioxide 27 mmol/L (22-30); Chloride 98 mmol/L (98-107); Estimated CRCL calculation 80 ml/min; Estimated Glomerular Filt Rate > 60; Glucose 101 mg/dL (65-110); Magnesium 1.3 mg/dL (1.6-2.3); Potassium 4.4 mmol/L (3.4-5.0); Sodium 128 mmol/L (137-145)
[2022-05-16] MEDS: MAGNESIUM SULF 4 GM/WATER100ML 4 GM/100 ML BAG IVPB (13:34)
[2022-05-16 14:00] VITALS: BP 107/80; PULSE 97; RESP 18; TEMP 36.6; O2SAT 94
--- NOTE | 2022-05-16 15:34 | PCCCNOTE ---
On 05/16/22, the student, [Kaitlin Grady], provided care and completed [facility] documentation on this patient. I have reviewed the student's documentation and agree with the findings.
[2022-05-16] MEDS: MELATONIN 5 MG TABLET PO (21:15)
[2022-05-16 22:00] VITALS: BP 99/71; PULSE 90; RESP 18; TEMP 37.1; O2SAT 91
[2022-05-17] MEDS: SODIUM CHLORIDE 0.9% IV 1,000 ML 75 ML IV CONT ×2 (00:33→10:07)
[2022-05-17 04:53] VITALS: BP 96/59; PULSE 88; RESP 18; TEMP 36.9; O2SAT 96
[2022-05-17 06:00] LABS: Basophils Absolute Auto 0.1 K/mm3 (0.0-0.1); Basophils Percent Auto 0.6 % (0.2-1.2); Eosinophils Absolute Auto 0.2 K/mm3 (0-0.3); Eosinophils Percent Auto 1.9 % (0-4.4); Hematocrit 29.9 % (37.0-47.0); Hemoglobin 9.8 g/dL (12.0-15.0); Immature Granulocyte Absolute 0.05 K/mm3 (0.00-0.031); Immature Granulocyte Percent A 0.6 % (0-0.5); Lymphocytes Absolute Auto 1.35 K/mm3 (0.9-3.2); Lymphocytes Percent Auto 16.7 % (18.3-44.2); Mean Corpuscular HGB Conc 32.8 g/dl (32-36); Mean Corpuscular Hemoglobin 27.8 pg (26-34); Mean Corpuscular Volume 84.9 fl (80-100); Mean Platelet Volume 9.2 fl (7.4-10.4); Monocytes Absolute Auto 0.9 K/mm3 (0.1-0.6); Monocytes Percent Auto 11.3 % (2.6-8.5); Neutrophils Absolute Auto 5.6 K/mm3 (1.3-6.7); Neutrophils Percent Auto 68.9 % (45.5-73.1); Platelet Count Result 318 k/mm3 (150-375); Red Blood Count 3.52 M/mm3 (4.2-5.4); Red Cell Distribution Width 19.7 % (11.5-14.5); White Blood Count 8.1 K/mm3 (4.5-10.0)
[2022-05-17 06:15] LABS: Alanine Aminotransferase 39 U/L (6-35); Albumin Level 2.5 g/dL (3.5-5.1); Alkaline Phosphatase 113 U/L (38-126); Anion Gap 3 mmol/L (8-16); Aspartate Amino Transferase 126 U/L (14-36); Bilirubin,Total 0.5 mg/dL (0.2-1.3); Blood Urea Nitrogen 3 mg/dL (7-17); Calcium 7.4 mg/dL (8.4-10.2); Carbon Dioxide 27 mmol/L (22-30); Chloride 100 mmol/L (98-107); Estimated CRCL calculation 80 ml/min; Estimated Glomerular Filt Rate > 60; Glucose 96 mg/dL (65-110); Magnesium 1.8 mg/dL (1.6-2.3); Potassium 4.5 mmol/L (3.4-5.0); Sodium 130 mmol/L (137-145)
[2022-05-17] MEDS: FOLIC ACID 1 MG TABLET PO (08:27)
[2022-05-17] MEDS: THIAMINE HCL 100 MG TABLET PO (08:27)
[2022-05-17] MEDS: MAGNESIUM OXIDE 400 MG TABLET PO (08:27)
--- NOTE | 2022-05-17 11:19 | PM.DS ---
DS: Admitting Diagnosis Discharge Date 05/17/22 Admitting Diagnosis sepsis/UTI DS: Discharge Diagnosis Discharge Diagnosis (1) Sepsis: Code(s): A41.9 - Sepsis, unspecified organism Status: Acute Assessment and Plan: Sepsis likely secondary to UTI. Sepsis criteria met on admission with tachycardia, fever, tachypnea and severe lactic acidosis. Lactic acidosis resolved after IV fluid hydration. Blood cultures NGTD. Urine culture positive for Klebsiella pneumoniae which is sensitive to Rocephin. Continue Rocephin. Switch to Cefdinir on discharge. Tachycardia, tachypnea, fever resolved. No leukocytosis. (2) UTI (urinary tract infection): Code(s): N39.0 - Urinary tract infection, site not specified Status: Acute Assessment and Plan: Likely urinary tract infection with sepsis. Blood cultures NGTD. Urine culture positive as above. IV antibiotic therapy with Rocephin x4 days, will switch to PO cefdinir on discharge for a total of 10 days of therapy (3) Weakness: Code(s): R53.1 - Weakness Status: Acute Assessment and Plan: Generalized weakness likely due to a combination of chronic alcohol abuse and significant electrolyte disturbances with hypokalemia, hypomagnesemia, hypophosphatemia and borderline low hyponatremia. Also UTI and increased anemia from baseline. PT/OT evaluation Dietary supplement Continued to push oral intake (4) Electrolyte abnormality: Code(s): E87.8 - Other disorders of electrolyte and fluid balance, not elsewhere classified Status: Acute Assessment and Plan: Hypokalemia: Resolved w/ supplementation Continue with p.o. KCl 20 mEq b.i.d. until tolerating normal diet. K 5.2 up to, stopped K supplement on discharge she is at 4.5 without supplementation for the past 2 days. I will send her out on a multi vitamin. Recheck K next week, pcp f/u 1 week Hypomagnesemia: 1.1 on arrival. Was up to 2.8 but after supplementation was stopped she dropped to 1.0. Will send home on daily oral supplement. Recheck mag next week. Hypophosphatemia: Resolved w/ supplementation. Will dc phosphate packets. Hypocalcemia: Calcium low but is appropriate when corrected for hypoalbuminemia Hold on supplementation at this time. Repeat labs next week and she will establish with a pcp within 1 week. (5) Anemia: Qualifiers: Anemia type: iron deficiency Code(s): D64.9 - Anemia, unspecified Status: Acute Assessment and Plan: Normocytic anemia worsened from baseline. Hemoglobin is 9.8 today Iron panel reviewed with significantly decreased iron stores. She will benefit from IV iron supplementation. Stool occult blood test is negative B12 and folate within normal limits (6) Alcohol abuse: Code(s): F10.10 - Alcohol abuse, uncomplicated Status: Acute Assessment and Plan: The patient reports that she is motivated to quit drinking. She states that she has cut her alcohol use back by about half (previously drinking 3-4 shooters per day) Now most recently down to 1 shot per day. She has no active evidence of withdrawal. Continue thiamine and folic acid supplementation CIWA protocol implemented. Resources have been provided for alcohol cessation. Patient has been in contact with a counselor. DS: Summary Hospital Course Reason for hospitalization: Radha Strong is a 62-year-old female with a history of alcohol abuse, alcohol withdrawal seizure, anxiety, depression, GERD is seen in follow-up for sepsis secondary to UTI.? Please see HPI for further details. Hospital Course: Please see above for details of hospital course. Status at Discharge Cognitive/behavioral status at discharge: stable Functional status at discharge: independent ambulation Overall status at discharge: patient is progressing back to baseline Time Spent with Patient Time atte
== END 2022-05-17 13:29 | disposition home or self-care (01) | DRG 720 ==
LOC: ANHED 20:38 → ANH3MEDSUR 21:41
PROVIDERS: Physician Assistant; Admitting Provider Internal Medicine; Emergency Provider Nurse Practitioner Family; Visit Provider Internal Medicine
DX: A41.9 Sepsis, unspecified organism (principal); N39.0 Urinary tract infection, site not specified; B96.1 Klebsiella pneumoniae [K. pneumoniae] as the cause of diseases classified elsewhere; Z20.822 Contact with and (suspected) exposure to COVID-19; F10.10 Alcohol abuse, uncomplicated; E87.2 Acidosis; D64.9 Anemia, unspecified; E87.6 Hypokalemia; E83.42 Hypomagnesemia; E87.1 Hypo-osmolality and hyponatremia; K76.0 Fatty (change of) liver, not elsewhere classified; E83.39 Other disorders of phosphorus metabolism; F41.9 Anxiety disorder, unspecified; E83.51 Hypocalcemia; F32.A Depression, unspecified; K21.9 Gastro-esophageal reflux disease without esophagitis; Z90.49 Acquired absence of other specified parts of digestive tract; R64 Cachexia; Z68.20 Body mass index [BMI] 20.0-20.9, adult
CPT/HCPCS: 36415; 71045; 71275; 80048; 80053; 80307; 81001; 82274; 82607; 82728; 82746; 83540; 83550; 83605; 83690; 83735; 84100; 85025; 85380; 87040; 87077; 87086; 87088; 87186; 93005; 96374; 96375; 97161; 97165; 99285; A9270; C9803; J0696; J1756; J3411; J3475; J3480; J7030; J7040; Q9967; U0003; U0005

== ENCOUNTER 2022-07-04 16:35 | Observation (INO) | payer OTHER, SELFPAY ==
--- NOTE | ~2022-07-04 | XR_ITS ---
EXAMINATION: XR chest 1V portable DATE: 07/05/2022 10:08 INDICATION: Shortness of breath. TECHNIQUE: A single frontal view of the chest was obtained. COMPARISON: Chest single view 05/12/2022, chest CT 05/12/2022 FINDINGS: There is a large hiatal hernia. There is mild scarring at right lung apex. No pleural effus ion or pneumothorax. The heart size is normal. IMPRESSION: 1. Large hiatal hernia. Reviewed, dictated and finalized at location A. IMPRESSION: 1. Large hiatal hernia.
[2022-07-04 16:36] VITALS: BP 139/91; PULSE 90; RESP 20; TEMP 36.5; O2SAT 99
[2022-07-04 16:47] VITALS: PULSE 90
--- NOTE | 2022-07-04 16:55 | ECG_ITS ---
Measurements Intervals [place] Rate: 0 P: MI: 0 QRS: QRSD: 0 T: QT: 0 QTc: 0 Interpretive Statements PROBABLE SINUS TACHYCARDIA WITH APCS COMPARED TO THE PRIOR TRACING, THE LATERAL ST SEGMENT DEPRESSION HAS IMPROVED AND THERE ARE NO LONGER FINDINGS CONSISTENT WITH AN OLD INFERIOR ID. Electronically Signed On 07-05-2022 13:34:03 CDT by Alix Wiley M.D.
[2022-07-04 17:18] LABS: Basophils Percent Auto 0.6 % (0.2-1.2); Hematocrit 25.7 % (37.0-47.0); Hemoglobin 8.6 g/dL (12.0-15.0); Immature Granulocyte Absolute 0.04 K/mm3 (0.00-0.031); Immature Granulocyte Percent A 0.6 % (0-0.5); Lymphocytes Absolute Auto 0.34 K/mm3 (0.9-3.2); Lymphocytes Percent Auto 4.7 % (18.3-44.2); Mean Corpuscular HGB Conc 33.5 g/dl (32-36); Mean Corpuscular Hemoglobin 31.4 pg (26-34); Mean Corpuscular Volume 93.8 fl (80-100); Mean Platelet Volume 8.8 fl (7.4-10.4); Monocytes Absolute Auto 0.5 K/mm3 (0.1-0.6); Monocytes Percent Auto 6.4 % (2.6-8.5); Neutrophils Absolute Auto 6.4 K/mm3 (1.3-6.7); Neutrophils Percent Auto 87.7 % (45.5-73.1); Platelet Count Result 169 k/mm3 (150-375); Red Blood Count 2.74 M/mm3 (4.2-5.4); Red Cell Distribution Width 21.1 % (11.5-14.5); White Blood Count 7.2 K/mm3 (4.5-10.0)
[2022-07-04 17:26] LABS: Ethanol < 10 mg/dL (<10)
[2022-07-04 17:31] LABS: Alanine Aminotransferase 30 U/L (6-35); Albumin Level 1.8 g/dL (3.5-5.1); Alkaline Phosphatase 89 U/L (38-126); Anion Gap 10 mmol/L (8-16); Aspartate Amino Transferase 130 U/L (14-36); Bilirubin,Total 0.7 mg/dL (0.2-1.3); Blood Urea Nitrogen 3 mg/dL (7-17); Calcium 4.9 mg/dL (8.4-10.2); Carbon Dioxide 19 mmol/L (22-30); Chloride 109 mmol/L (98-107); Estimated CRCL calculation 84 ml/min; Estimated Glomerular Filt Rate > 60; Glucose 75 mg/dL (65-110); Magnesium 0.7 mg/dL (1.6-2.3); Potassium 2.1 mmol/L (3.4-5.0); Sodium 138 mmol/L (137-145)
--- NOTE | 2022-07-04 17:35 | ED.SYNCOPE ---
HPI - Syncope General Chief Complaint: Syncope Stated Complaint: n/v - poss etoh withdrawal Time Seen by Provider: 07/04/22 16:50 History of Present Illness HPI narrative: 62yoF p/w pre-syncope, weakness, n/v, tremors, she is a daily alcohol user who wants to stop drinking. Also endorses nausea and vomiting. Last drink 24 hours ago. Related Data Allergies Allergy/AdvReac Type Severity Reaction Status Date / Time monosodium glutamate Allergy Severe Rash Verified 05/12/22 19:23 Review of Systems Review of Systems: CONST: No fever. HEENT: No sore throat C/V: No chest pain RESP: No cough GI: Nausea and vomiting : No dysuria. M/S: Tremors SKIN: No rash. NEURO: Tremors PSYCH: Anxious PMFSH Past Medical History Medical History Alcohol abuse Alcohol withdrawal seizure Anxiety Depression GERD (gastroesophageal reflux disease) Hepatic steatosis History of fracture Including clavicle fracture left foot fracture. Subarachnoid hemorrhage Surgical History Surgical History History of appendectomy Family History Family History Sibling Multiple sclerosis Father Colon cancer Arthritis Mother Throat cancer Social History Social History Social History: Surrogate decision maker: Baldemar Strong, brother. Code status: Full code. Smoking status: Never smoker Alcohol intake: current Drinks per week: 30 Alcohol use details: Patient consumes four airplane shots a day. Substance use: never Additional living arrangements comments: The patient lives in [place] with her brother. Additional occupation/education comments: Unemployed. Spiritual care concerns: No Exam Narrative: EXAMINATION OF ORGAN SYSTEMS/BODY AREAS: Constitutional: Vital signs per nursing GENERAL: Appears quite shaky HEAD: Normal with no signs of head trauma. EYES: EOMI, conjunctiva normal ENT: Hearing grossly intact, tongue wag LUNGS: Nonlabored breathing. HEART: Tachycardic ABD: [Soft], [nontender to palpation] EXT: Tremulous SKIN: [No rashes or lesions.] NEURO: [Alert and oriented x 3. Tremors.] PSYCH: Anxious affect Course Vital Signs Vital signs: Vital Signs Temperature 97.7 F 07/04/22 16:36 Pulse Rate 90 07/04/22 16:36 Respiratory Rate 20 07/04/22 16:36 Blood Pressure 139/91 H 07/04/22 16:36 Pulse Oximetry 99 07/04/22 16:36 Oxygen Delivery Room Air 07/04/22 16:36 Temperature 97.7 F 07/04/22 16:36 Pulse Rate 90 07/04/22 16:47 Respiratory Rate 20 07/04/22 16:36 Blood Pressure 139/91 H 07/04/22 16:36 Pulse Oximetry 99 07/04/22 16:36 Oxygen Delivery Room Air 07/04/22 16:36 MDM - Syncope MDM Narrative Medical decision making narrative: 62-year-old female presenting with nausea presyncope and tremors, vital signs notable for tachycardia, on exam she is quite tremulous but alert and oriented, I suspect likely alcohol withdrawal but will obtain work-up including EKG and blood work. We will treat her with Ativan and Librium. She is given 1 L of IV fluids. Labs are notable for potassium of 2.1, magnesium 0.7, these are repleted and she will be admitted for alcohol withdrawal and electrolyte abnormalities. Case discussed with the hospitalist who accepts Lab Data Result diagrams: 07/04/22 17:10 07/04/22 17:10 Labs: Lab Results 07/04/22 07/04/22 07/04/22 Range/Units 17:10 17:10 17:10 WBC 7.2 (4.5-10.0) K/mm3 RBC 2.74 L (4.2-5.4) M/mm3 Hgb 8.6 L (12.0-15.0) g/dL Hct 25.7 L (37.0-47.0) % MCV 93.8 (80-100) fl MCH 31.4 (26-34) pg MCHC 33.5 (32-36) g/dl RDW 21.1 H (11.5-14.5) % Plt Count 169 (150-375) k/mm3 MPV 8.8 (7.4-10.4) fl Immature Gran % (Auto) 0.6 H (0-0.5) % Neut % (Auto) 87
[2022-07-04] MEDS: LORazepam INJ (*CRX) 2 MG/ML VIAL 1 MG IV PUSH (17:48)
[2022-07-04] MEDS: chlordiazePOXIDE (*CRX) 25 MG CAPSULE PO (17:48)
--- NOTE | 2022-07-04 18:00 | PM.IMHP ---
H&P: HPI History of Present Illness Date/Time: 07/04/22 18:00 Chief Complaint: Weakness, nausea, vomiting. Narrative: This is a 62-year-old female with chronic alcohol abuse with history of alcohol withdrawal, withdrawal seizures, depression, and anxiety who presented to the emergency department earlier today via EMS for evaluation of weakness, nausea, and vomiting. She felt okay this morning but was tired from not sleeping well. Because of the nice weather she walked down town where she spent some time at a local establishment, reading a book. She did not have anything to eat for breakfast and only had cranberry juice while reading. Not long prior to arrival she started to feel nauseated and she proceeded to have dry heaves for several minutes. Thereafter she was extremely weak and felt as though she was going to pass out and someone nearby called 911. In route to the hospital she had several episodes of emesis and she reports feeling very tremulous, in fact she was afraid that she was perhaps starting to have an alcohol withdrawal seizure. Her last drink was yesterday afternoon and she goes on to say that it would be unusual for her to have withdrawal symptoms this quickly. Typically she drinks 6 to 8 airplane shots of vodka and/or rum a day. Her blood pressures were a bit soft on arrival but have improved with IV fluids. In the emergency department she was found to have several electrolyte abnormalities including a potassium of 2.1 and a magnesium of 0.7. She is being admitted in this setting for further treatment and observation. Currently she feels much better after receiving IV fluids and antiemetics. She admits that she does not eat much in consumes a majority of her calories in the way of alcohol. She does try to eat 1 good meal a day however. At this time she has mild tremors; she denies sweats, anxiety, and hallucinations. Review of Systems Review of Systems: Twelve systems were reviewed. No fever, chills, or sweats. No recent cold or flu symptoms. No sick contacts. No chest pain or pleuritic pain. No cough or shortness of breath. No diarrhea or dysuria. She denies melena, hematochezia, and hematemesis. Except as documented, all other systems were reviewed and are negative. FOR[facility] Past Medical History Medical History (Updated 07/04/22 @ 23:24 by Deysi Jasso PA-C) Alcohol abuse Alcohol withdrawal seizure Anxiety Chronic anemia Depression Gastroesophageal reflux disease Hepatic steatosis History of fracture Including clavicle fracture left foot fracture. Subarachnoid hemorrhage Surgical History Surgical History History of appendectomy Family History Family History Sibling Multiple sclerosis Father Colon cancer Arthritis Mother Throat cancer Social History Social History (Updated 07/04/22 @ 23:21 by Deysi Jasso PA-C) Social History: Surrogate decision maker: Baldemar Strong, brother. Code status: Full code. Smoking status: Never smoker Alcohol intake: current Drinks per week: 49 Alcohol use details: Drinks 6 to 8 airplane shots a day. Substance use: never Substance use type: does not use Additional living arrangements comments: The patient lives in [place] with her brother. Additional occupation/education comments: Unemployed. Spiritual care concerns: No Meds Home Medications and Allergies Home Medications Medication Instructions Recorded Confirmed Type No Home Medications 07/04/22 07/04/22 History Allergies Allergy/AdvReac Type Severity Reaction Status Date / Time monosodium glutamate AdvReac Intermediate Vomiting Verified 07/04/22 22:42 Vital Signs Vital Signs - 24 hr 07/04/22 16:36 07/04/22 16:47 07/04/22 22:00 Temperature 97.7 F 98.2 F Pulse Rate 90 90 102 H Respiratory Rate 20 20 Blood Pressure 139/91 H 109/66 Pulse Oxi
[2022-07-04] MEDS: POTASSIUM CHLORIDE 20 MEQ PACKET (FOR LIQUID) 40 MEQ PO (18:02)
[2022-07-04] MEDS: MAGNESIUM SULF 4 GM/WATER100ML 4 GM/100 ML BAG IVPB (18:02)
[2022-07-04] MEDS: POTASSIUM CHLORIDE 20 MEQ TABLET 40 MEQ PO (18:02)
[2022-07-04] MEDS: POTASSIUM CHLORIDE INJ 40 MEQ in SODIUM CHLORIDE 0.9% IV 500 ML 130 MEQ IVPB (18:33)
[2022-07-04] MEDS: SODIUM CHLORIDE 0.9% IV 1,000 ML 250 ML (19:00)
[2022-07-04 21:50] VITALS: PULSE 104
[2022-07-04 22:00] VITALS: BP 109/66; PULSE 102; RESP 20; TEMP 36.8; O2SAT 98
[2022-07-04 22:26] VITALS: BMI 19.3
[2022-07-04 22:38] LABS: Appearance Urine Clear (Clear); Bilirubin Urine 1+ (Negative); Blood Urine Negative (Negative); Color Urine Yellow (Yellow); Glucose Urine UA Negative (Negative); Ketones Urine 1+ mg/dL (Negative); Leukocyte Esterase Ur Negative LEU/UL (Negative); Nitrate Urine Negative (Negative); Protein Urine Negative (Negative); pH Urine 7.5 (5.0-9.0)
[2022-07-04 22:42] LABS: Bacteria Urine Trace /hpf; Mucus Urine Rare /lpf; Squamous Epithelial Cell Urine Few /hpf (Few)
[2022-07-04 22:45] LABS: Add Urine Microscopic? YES
[2022-07-05] VITALS (10 sets, daily range): BP systolic 104–123; BP diastolic 72–88; PULSE 95–96; RESP 16; TEMP 36.6; O2SAT 97–98
[2022-07-05 00:06] LABS: Anion Gap 6 mmol/L (8-16); Blood Urea Nitrogen 5 mg/dL (7-17); Calcium 6.5 mg/dL (8.4-10.2); Carbon Dioxide 27 mmol/L (22-30); Chloride 101 mmol/L (98-107); Estimated CRCL calculation 76 ml/min; Estimated Glomerular Filt Rate > 60; Glucose 99 mg/dL (65-110); Magnesium 2.3 mg/dL (1.6-2.3); Phosphorus 2.5 mg/dL (2.5-4.5); Potassium 5.1 mmol/L (3.4-5.0); Sodium 134 mmol/L (137-145)
[2022-07-05] MEDS: PANTOPRAZOLE SODIUM IV 40 MG VIAL IV PUSH (00:13)
[2022-07-05] MEDS: DEXTROSE 5%/0.9% SOD CHL 1,000 ML 75 ML IV CONT (00:13)
[2022-07-05] MEDS: THIAMINE HCL 200 MG/2 ML VIAL 100 MG IV PUSH (00:14)
[2022-07-05 00:15] LABS: Iron 118 ug/dL (37-170)
[2022-07-05 00:23] LABS: Percent Iron Saturation 88 % (20-50)
[2022-07-05 00:28] LABS: Glucose Point of Care 184 mg/dl (65-105)
[2022-07-05 01:09] LABS: Folic Acid 5.8 ng/mL (2.76->20)
[2022-07-05] MEDS: CALCIUM GLUCONATE 1,000 MG/10 ML VIAL 1000 MG IV PUSH (01:49)
[2022-07-05] MEDS: chlordiazePOXIDE (*CRX) 25 MG CAPSULE PO ×2 (05:29→14:25)
[2022-07-05 05:31] LABS: Hematocrit 28.8 % (37.0-47.0); Hemoglobin 9.3 g/dL (12.0-15.0); Mean Corpuscular HGB Conc 32.3 g/dl (32-36); Mean Corpuscular Hemoglobin 30.8 pg (26-34); Mean Corpuscular Volume 95.4 fl (80-100); Platelet Count Result 194 k/mm3 (150-375); Red Blood Count 3.02 M/mm3 (4.2-5.4); Red Cell Distribution Width 21.6 % (11.5-14.5)
[2022-07-05 05:32] LABS: Glucose Point of Care 114 mg/dl (65-105)
[2022-07-05 05:48] LABS: Alanine Aminotransferase 46 U/L (6-35); Albumin Level 2.2 g/dL (3.5-5.1); Alkaline Phosphatase 114 U/L (38-126); Anion Gap 5 mmol/L (8-16); Aspartate Amino Transferase 205 U/L (14-36); Bilirubin,Total 0.8 mg/dL (0.2-1.3); Blood Urea Nitrogen 4 mg/dL (7-17); Calcium 6.6 mg/dL (8.4-10.2); Carbon Dioxide 26 mmol/L (22-30); Chloride 104 mmol/L (98-107); Estimated CRCL calculation 65 ml/min; Estimated Glomerular Filt Rate > 60; Glucose 108 mg/dL (65-110); Magnesium 2.1 mg/dL (1.6-2.3); Potassium 4.2 mmol/L (3.4-5.0); Sodium 135 mmol/L (137-145)
[2022-07-05 06:57] LABS: Free T4 Free Thyroxine Reflex 1.17 ng/dL (0.78-2.19)
[2022-07-05 08:20] LABS: Total Triiodothyronine (T3) 0.89 NG/ML (0.97-1.69)
[2022-07-05] MEDS: FOLIC ACID 1 MG TABLET PO (09:22)
[2022-07-05] MEDS: PANTOPRAZOLE 40 MG TABLET PO (09:22)
[2022-07-05] MEDS: THIAMINE HCL 100 MG TABLET PO (09:22)
[2022-07-05] MEDS: CALCIUM CARBONATE (OSCAL) 500 MG TABLET PO (11:28)
[2022-07-05 12:04] LABS: Glucose Point of Care 100 mg/dl (65-105)
--- NOTE | 2022-07-05 14:28 | PM.DS ---
DS: Admitting Diagnosis Discharge Date 07/05/22 Admitting Diagnosis Weakness, nausea, vomiting DS: Discharge Diagnosis Discharge Diagnosis (1) Near syncope: Code(s): R55 - Syncope and collapse Status: Acute (2) Nausea and vomiting: Code(s): R11.2 - Nausea with vomiting, unspecified Status: Acute (3) Gastroesophageal reflux disease: Code(s): K21.9 - Gastro-esophageal reflux disease without esophagitis Status: Acute (4) Hypokalemia: Code(s): E87.6 - Hypokalemia Status: Acute (5) Hypomagnesemia: Code(s): E83.42 - Hypomagnesemia Status: Acute (6) Chronic anemia: Code(s): D64.9 - Anemia, unspecified Status: Acute (7) Alcohol abuse: Code(s): F10.10 - Alcohol abuse, uncomplicated Status: Acute (8) Malnourished: Code(s): E46 - Unspecified protein-calorie malnutrition Status: Acute DS: Summary Hospital Course Reason for hospitalization: 62yo female with chronic alcohol abuse and history of alcohol withdrawal and withdrawal seizures presents for weakness, nausea and vomiting. Please see H&P for details. Hospital Course: Patient's last drink was 1 day prior to admission. She states she does not drink every day but when she does she drinks 6 to 8 airplane shots of vodka and/or rum a day. Her blood pressures were soft on arrival but have improved with IV fluids. In the emergency department she was found to have several electrolyte abnormalities including a potassium of 2.1 and a magnesium of 0.7. She was admitted in this setting Potassium and magnesium were replaced. She was continued on IV fluids. She was started on thiamine and folate. CIWA protocol was performed. We continued her on scheduled Librium. CIWA score was 1. She did not have orthostatic hypotension. She has very low calcium but probably related to the low albumin. Calcium was replaced. She was anemic with a hemoglobin 8.6 but on repeated climbed to 9.3. Indices were normal. White count and platelet count were normal. B12 folate levels were normal. TSH was slightly elevated but free T4 was normal. AST and ALT are elevated but this is not uncommon for her. Elevated liver enzymes probably related to alcohol use. Her iron levels and ferritin were normal. TIBC was low which gave a saturation of 88%. Stool was guaiac negative a few months ago. Alcohol levels negative. Chest x-ray shows large hiatal hernia. EKG showed probable sinus tachycardia with those lot of artifact. Overall it was felt the EKG was improved from a prior EKG. Patient had clinical improvement. Electrolytes normalized. She was eating and tolerating without difficulty. Care coordination provided information about alcohol rehab resources. Will see if she can get meals on wheels. She overall did well. She was educated about the benefits of abstaining from alcohol. She states that she knows she needs to quit but does not commit to abstaining from use so will not send her home with Librium. She was able to be discharged home on 07/05/2022. Status at Discharge Cognitive/behavioral status at discharge: Stable Time Spent with Patient Time attestation: Total time spent providing and/or coordinating discharge services: 32 minutes Time spent: Greater than 30 minutes Exam Narrative: AF 97.9 104/76 96 16 97% ra Gen - NARD Chest - few basilar rhonchi. nml RR CV - RRR S1/S2 Abd - Soft, NT/ND, Positive BS. +liver tip medially Ext - No pedal edema Neuro - Alert and oriented. Nonfocal exam. Psych - Nml mood and affect Skin - Warm and dry DS: Data Data Completed and Pending Labs on day of discharge: Labs from last 24 hours 07/05/22 07/05/22 07/05/22 11:30 05:27 05:11 WBC RBC Hgb Hct MCV MCH MCHC RDW Plt Count MPV Immature Gran % (Auto) Neut % (Auto) Lymph % (Auto) [place] % (Auto) Eos % (Auto) Baso % (Auto) Ly
== END 2022-07-05 15:50 | disposition home or self-care (01) ==
LOC: ANHED 18:11 → ANH2MED 20:55
PROVIDERS: Physician Assistant; Admitting Provider Internal Medicine; Emergency Provider Emergency Medicine; Visit Provider Internal Medicine
DX: R55 Syncope and collapse (principal); R11.2 Nausea with vomiting, unspecified; K21.9 Gastro-esophageal reflux disease without esophagitis; E87.6 Hypokalemia; E83.42 Hypomagnesemia; D64.9 Anemia, unspecified; E46 Unspecified protein-calorie malnutrition; F10.239 Alcohol dependence with withdrawal, unspecified; R56.9 Unspecified convulsions; R94.6 Abnormal results of thyroid function studies; R74.01 Elevation of levels of liver transaminase levels; K44.9 Diaphragmatic hernia without obstruction or gangrene; R00.0 Tachycardia, unspecified; R53.1 Weakness; F41.9 Anxiety disorder, unspecified; F32.A Depression, unspecified; K76.0 Fatty (change of) liver, not elsewhere classified; Z79.899 Other long term (current) drug therapy
CPT/HCPCS: 36415; 71045; 80048; 80053; 80307; 81001; 82607; 82728; 82746; 82948; 83540; 83550; 83735; 84100; 84439; 84443; 84480; 85025; 85027; 93005; 96365; 96374; 96375; 99285; A9270; C9113; G0378; G0379; J0610; J2060; J3411; J3475; J3480; J7030; J7040; J7042

== ENCOUNTER 2022-07-11 17:31 | Emergency (ER) | payer OTHER, SELFPAY ==
[2022-07-11] VITALS (22 sets, daily range): BP systolic 105–132; BP diastolic 72–90; PULSE 95–107; RESP 18–26; O2SAT 98–100
--- NOTE | 2022-07-11 18:16 | ED.WEAKNESS ---
HPI - Weakness General Chief complaint: Weakness Stated complaint: weakness x weeks - ETOH Time Seen by Provider: 07/11/22 17:59 History of Present Illness HPI Narrative: 62-year-old female with history of alcohol abuse presented to the emergency department for evaluation of increased generalized weakness. Patient states she just felt that she did not have very much stamina today. Patient was evaluated emergency department last week for evaluation of nausea vomiting and diarrhea. Patient states she feels improved since then. Patient is also seeking help and quitting her drinking. Patient states she has attempted to follow-up with [facility] but states due to not having a cell phone and having very few financial resources she has had increased difficulty in securing follow-up. Related Data Allergies Allergy/AdvReac Type Severity Reaction Status Date / Time monosodium glutamate AdvReac Intermediate Vomiting Verified 07/11/22 17:54 Review of Systems Review of Systems: CONSTITUTIONAL: Increased generalized weakness EYES: Denies visual changes, redness, or discharge. ENT: Denies rhinorrhea, congestion, sore throat, or otalgia. CARDIOVASCULAR: Denies chest pain, palpitations, or edema. RESPIRATORY: Denies cough or dyspnea. GASTROINTESTINAL: Denies abdominal pain, nausea, vomiting, or diarrhea. GENITOURINARY: Denies dysuria or hematuria. SKIN: Denies rash or itching. MUSCULOSKELETAL: Denies back pain, joint pain, or myalgia. NEUROLOGIC: Denies headache, numbness, or weakness. PSYCHIATRIC: Alcoholism and depression [facility] Past Medical History Medical History (Updated 07/04/22 @ 23:24 by Deysi Jasso PA-C) Alcohol abuse Alcohol withdrawal seizure Anxiety Chronic anemia Depression Gastroesophageal reflux disease Hepatic steatosis History of fracture Including clavicle fracture left foot fracture. Subarachnoid hemorrhage Surgical History Surgical History History of appendectomy Family History Family History Sibling Multiple sclerosis Father Colon cancer Arthritis Mother Throat cancer Social History Social History (Updated 07/04/22 @ 23:21 by Deysi Jasso PA-C) Social History: Surrogate decision maker: Baldemar Strong, brother. Code status: Full code. Smoking status: Never smoker Alcohol intake: current Drinks per week: 49 Alcohol use details: Drinks 6 to 8 airplane shots a day. Substance use: never Substance use type: does not use Additional living arrangements comments: The patient lives in [place] with her brother. Additional occupation/education comments: Unemployed. Spiritual care concerns: No Exam Narrative: APPEARANCE: Well appearing, no pain, no distress, well-nourished. HEAD: normocephalic, atraumatic. EYES: PERRLA/EOMI, conjunctivae clear. NOSE: Normal no drainage THROAT: Pharynx clear, no exudate. NECK: Supple. No adenopathy, no masses. RESPIRATORY: Airway patent, respirations nonlabored. Clear to auscultation bilaterally, no rales, rhonchi, wheezing. CARDIOVASCULAR: Regular rate and rhythm without murmurs rubs or gallops. ABDOMINAL: Soft, nontender, nondistended, normal bowel sounds MUSCULOSKELETAL: Moves all extremities. Strength/ROM intact, No edema, No calf tenderness. NEURO: Alert. Cranial nerves II through XII intact. Grossly intact SKIN: Warm, dry. Normal Color Course Course Emergency Course: Care coordination was consulted. And patient was provided outpatient information to follow-up with [facility] services. Patient was comfortable with the plan for discharge and close follow-up. All questions and concerns were addressed. Patient was well-appearing at time of discharge. Vital Signs Vital signs: Vital Signs Pulse Rate 107 H 07/11/22 17:41 Respiratory Rate 26 H 07/11/22 17:41 Blood Pressure 108/75 07/11/22 17:41 Puls
[2022-07-11] MEDS: SODIUM CHLORIDE 0.9% IV 1,000 ML 999 ML IV CONT ×2 (18:32→21:21)
[2022-07-11 18:37] LABS: Basophils Absolute Auto 0.1 K/mm3 (0.0-0.1); Basophils Percent Auto 0.9 % (0.2-1.2); Eosinophils Absolute Auto 0.3 K/mm3 (0-0.3); Eosinophils Percent Auto 3.2 % (0-4.4); Hematocrit 29.1 % (37.0-47.0); Hemoglobin 9.6 g/dL (12.0-15.0); Immature Granulocyte Absolute 0.05 K/mm3 (0.00-0.031); Immature Granulocyte Percent A 0.5 % (0-0.5); Lymphocytes Absolute Auto 2.32 K/mm3 (0.9-3.2); Lymphocytes Percent Auto 25.4 % (18.3-44.2); Mean Corpuscular Hemoglobin 31.8 pg (26-34); Mean Corpuscular Volume 96.4 fl (80-100); Mean Platelet Volume 9.2 fl (7.4-10.4); Monocytes Absolute Auto 1.2 K/mm3 (0.1-0.6); Monocytes Percent Auto 13.2 % (2.6-8.5); Neutrophils Absolute Auto 5.2 K/mm3 (1.3-6.7); Neutrophils Percent Auto 56.8 % (45.5-73.1); Platelet Count Result 229 k/mm3 (150-375); Red Blood Count 3.02 M/mm3 (4.2-5.4); Red Cell Distribution Width 20.4 % (11.5-14.5); White Blood Count 9.1 K/mm3 (4.5-10.0)
[2022-07-11 18:46] LABS: Lactic Acid Reflex 2.8 mmol/L (0.7-2.0)
[2022-07-11 18:47] LABS: Alanine Aminotransferase 34 U/L (6-35); Albumin Level 2.7 g/dL (3.5-5.1); Alkaline Phosphatase 123 U/L (38-126); Anion Gap 9 mmol/L (8-16); Aspartate Amino Transferase 137 U/L (14-36); Bilirubin,Total 0.3 mg/dL (0.2-1.3); Blood Urea Nitrogen 6 mg/dL (7-17); Calcium 8.2 mg/dL (8.4-10.2); Carbon Dioxide 30 mmol/L (22-30); Chloride 99 mmol/L (98-107); Estimated CRCL calculation 77 ml/min; Estimated Glomerular Filt Rate > 60; Glucose 91 mg/dL (65-110); Potassium 3.5 mmol/L (3.4-5.0); Sodium 138 mmol/L (137-145)
--- NOTE | 2022-07-11 18:47 | PCCCNOTE ---
met with patient bedside, patient is alert and oriented x 4, I ADL and lives with her brother Bryon in [place]. patient states that she went up to a mounted police officer rahel asking for help with her alcoholism and was brought to the hospital. Patient asked about [facility] detox program. CC gave patient flyers for [facility]. CC also called and left a voicemail with Ty from [employer]. patient states that she was recently in contact with someone for [employer]. patient plans to follow up with [facility] and [facility]. CC will continue to follow for any other needs that may arise.
[2022-07-11 19:50] LABS: Appearance Urine Clear (Clear); Bilirubin Urine Negative (Negative); Blood Urine Negative (Negative); Color Urine Yellow (Yellow); Glucose Urine UA Negative (Negative); Ketones Urine Negative (Negative); Leukocyte Esterase Ur Negative LEU/UL (Negative); Nitrate Urine Negative (Negative); Protein Urine Negative (Negative); Urobilinogen Urine 0.2 mg/dL (<2.0); pH Urine 5.5 (5.0-9.0)
[2022-07-11 19:51] LABS: Add Urine Microscopic? NO
[2022-07-11 21:34] LABS: Reflex Lactic Acid Yes or No Add Lactic
== END 2022-07-11 22:08 | disposition home or self-care (01) ==
PROVIDERS: Emergency Provider Emergency Medicine
DX: F10.10 Alcohol abuse, uncomplicated (principal); D64.9 Anemia, unspecified; K21.9 Gastro-esophageal reflux disease without esophagitis
CPT/HCPCS: 36415; 80053; 81003; 83605; 85025; 96360; 96361; 99283; J7030

== ENCOUNTER 2022-08-09 18:47 | Inpatient (IN) | payer OTHER, SELFPAY ==
--- NOTE | ~2022-08-09 | XR_ITS ---
XR chest 1V portable DATE: 08/09/2022 19:38 INDICATION: Weakness for 2 to 3 weeks. History of seizures. Recent shortness of breath. TECHNIQUE: Portable upright AP chest on 08/05/2022 at 1930 hours COMPARISON: 07/05/2022 portable AP chest FINDINGS: Heart size appears normal. Aortic arch calcification. No hilar or mediastinal enlargement. There is a moderately prominent hiatal hernia. No pulmonary infiltrate or consolidation, pleural effusion or pulmonary vascular congestion or pneumo thorax. Diffuse osteopenia. Thoracic dextroscoliosis. IMPRESSION: No active cardiopulmonary disease Aortic atherosclerosis Hiatal hernia Reviewed, dictated and finalized at location A.
--- NOTE | 2022-08-09 19:02 | ECG_ITS ---
Measurements Intervals [place] Rate: 85 P: 28 WY: 156 QRS: 8 QRSD: 85 T: -14 QT: 338 QTc: 404 Interpretive Statements SINUS RHYTHM LOW QRS VOLTAGE IN PRECORDIAL LEADS BORDERLINE ST-T WAVE ABNORMALITY- ANTEROLAT/INF LEADS BASELINE ARTIFACT- II, III, AVF, V3 BORDERLINE ECG COMPARED TO ECG 07/04/2022 17:58:55 HEART RATE HAS DECREASED Electronically Signed On 08-10-2022 8:13:41 CDT by Mick Leon D.O.
[2022-08-09 19:20] LABS: Basophils Percent Auto 0.5 % (0.2-1.2); Eosinophils Percent Auto 0.4 % (0-4.4); Hemoglobin 10.1 g/dL (12.0-15.0); Immature Granulocyte Absolute 0.04 K/mm3 (0.00-0.031); Immature Granulocyte Percent A 0.5 % (0-0.5); Lymphocytes Percent Auto 21.8 % (18.3-44.2); Mean Corpuscular HGB Conc 33.7 g/dl (32-36); Mean Corpuscular Hemoglobin 32.7 pg (26-34); Mean Corpuscular Volume 97.1 fl (80-100); Mean Platelet Volume 9.5 fl (7.4-10.4); Monocytes Absolute Auto 1.1 K/mm3 (0.1-0.6); Monocytes Percent Auto 13.7 % (2.6-8.5); Neutrophils Absolute Auto 5.2 K/mm3 (1.3-6.7); Neutrophils Percent Auto 63.1 % (45.5-73.1); Platelet Count Result 321 k/mm3 (150-375); Red Blood Count 3.09 M/mm3 (4.2-5.4); Red Cell Distribution Width 15.3 % (11.5-14.5); White Blood Count 8.3 K/mm3 (4.5-10.0)
[2022-08-09 19:31] LABS: Ethanol 163 mg/dL (<10)
[2022-08-09 19:51] LABS: Alanine Aminotransferase 50 U/L (6-35); Albumin Level 2.9 g/dL (3.5-5.1); Alkaline Phosphatase 103 U/L (38-126); Anion Gap 14 mmol/L (8-16); Aspartate Amino Transferase 197 U/L (14-36); Bilirubin,Total 0.9 mg/dL (0.2-1.3); Blood Urea Nitrogen 5 mg/dL (7-17); Calcium 7.9 mg/dL (8.4-10.2); Carbon Dioxide 29 mmol/L (22-30); Chloride 91 mmol/L (98-107); Estimated Glomerular Filt Rate > 60; Glucose 98 mg/dL (65-110); Potassium < 2.0 mmol/L (3.4-5.0); Sodium 134 mmol/L (137-145)
[2022-08-09 20:03] LABS: Appearance Urine Clear (Clear); Bilirubin Urine Negative (Negative); Color Urine Yellow (Yellow); Glucose Urine UA Negative (Negative); Ketones Urine Negative (Negative); Leukocyte Esterase Ur 2+ LEU/UL (Negative); Nitrate Urine Negative (Negative); Protein Urine Negative (Negative)
[2022-08-09 20:07] LABS: Bacteria Urine Trace /hpf; Mucus Urine Rare /lpf; Squamous Epithelial Cell Urine Many /hpf (Few); WBC Urine 16-20 /hpf
[2022-08-09 20:08] LABS: Add Urine Microscopic? YES; Blood Urine Trace-Intact (Negative)
--- NOTE | 2022-08-09 20:22 | PM.IMHP ---
H&P: HPI History of Present Illness Date/Time: 08/09/22 20:22 Chief Complaint: weakness Narrative: This is a 62-year-old female with past medical history significant for alcohol dependence. Patient presents to the emergency room today due to generalized weakness patient states that she has never driven a car and she is used to walking everywhere she goes and today prior to presentation to emergency room she was just feeling very weak and fatigued with short distances and she was unable to get up from sitting position. Patient denies any tingling, numbness, pain of bilateral lower extremities, no fevers, no rigors, no chills, no nausea, no vomiting, no diarrhea, no cough, no sputum production. Preliminary workup was significant for numerous WBCs present in the urine. Patient is been admitted for further evaluation management and treatment. Review of Systems Review of Systems: Generalized weakness, fatigue. Constitutional: Constitutional: Denies chills, Reports fatigue, Denies fever(s), Reports lethargy, Denies malaise, Denies night sweats and Reports weakness Eyes: Eyes: Denies decreased night vision, Denies irritation, Denies itchy eyes, Denies other visual disturbances and Denies eye pain ENT: Denies dysphagia, Denies vertigo, Denies dizziness and Denies odynophagia Cardiovascular: Cardiovascular: Denies syncope, Denies irregular heart rhythm, Denies lightheadedness and Denies palpitations Respiratory: Respiratory: Denies chest congestion, Denies excessive phlegm production, Denies pain on inspiration, Denies dyspnea and Denies dyspnea on exertion Gastrointestinal: Gastrointestinal: Denies abdominal pain, Denies dyspepsia, Denies heartburn, Denies diarrhea, Denies nausea and Denies vomiting Genitourinary: Genitourinary: Denies dysuria Musculoskeletal: Musculoskeletal: Denies myalgias, Denies atrophy, Denies joint swelling, Denies limited range of motion, Denies muscle weakness, Denies neck pain and Denies numbness Integumentary/Breasts: Skin/Breast: Denies rash Neurologic: Denies vertigo, Denies dizziness, Denies focal weakness and Denies Sensory deficit (Neuro) Psychiatric: Psychiatric: Reports no additional psychiatric complaints and Reports as per HPI Endocrine: Endocrine: Denies cold intolerance, Reports fatigue, Denies flushing, Denies heat intolerance, Denies polyphagia, Denies polydipsia and Denies palpitations Hematologic/Lymphatic: Hematologic/Lymphatic: Reports no additional hematologic/lymphatic complaints and Reports as per HPI Allergic/Immunologic: Allergic/Immunologic: Reports no additional allergic/immunologic complaints and Reports as per HPI PMFSH Past Medical History Medical History Alcohol abuse Alcohol withdrawal seizure Anxiety Chronic anemia Depression Gastroesophageal reflux disease Hepatic steatosis History of fracture Including clavicle fracture left foot fracture. Subarachnoid hemorrhage Surgical History Surgical History History of appendectomy Family History Family History (Updated 08/10/22 @ 00:05 by Neha Esteves RN) Sibling Multiple sclerosis Sibling Father Colon cancer Arthritis Parents Mother Throat cancer Parents Social History Social History Social History: Surrogate decision maker: Baldemar Strong, brother. Code status: Full code. Smoking status: Never smoker Alcohol intake: current Drinks per week: 6 Alcohol use details: Drinks 6 to 8 airplane shots a day. Substance use: never Substance use type: does not use Additional living arrangements comments: The patient lives in [place] with her brother. Additional occupation/education comments: Unemployed. Spiritual care concerns: No Meds Home Medications and Allergies Home Medications Medication Ins
--- NOTE | 2022-08-09 20:28 | ED.WEAKNESS ---
HPI - Weakness General Chief complaint: Weakness Stated complaint: weakness Time Seen by Provider: 08/09/22 19:12 History of Present Illness HPI Narrative: This patient with a history of alcohol use disorder presents with weakness over the last 2 weeks, she states that she has been trying not to drink alcohol, today. We reviewed this today so across the road because she was not feeling well today she was going to try drinking some alcohol to see if it helped and it did not. She does state that she has been trying to eat and drink but has not been having much of an appetite, does endorse some urinary frequency. Related Data Allergies Allergy/AdvReac Type Severity Reaction Status Date / Time monosodium glutamate AdvReac Intermediate Vomiting Verified 07/11/22 17:54 Review of Systems Review of Systems: CONST: Generalized weakness. HEENT: No sore throat C/V: No chest pain RESP: No cough GI: no abdominal pain : No dysuria. M/S: No joint pain. SKIN: No rash. NEURO: [No headache or focal numbness or weakness] PSYCH: [No depression] [facility] Past Medical History Medical History Alcohol abuse Alcohol withdrawal seizure Anxiety Chronic anemia Depression Gastroesophageal reflux disease Hepatic steatosis History of fracture Including clavicle fracture left foot fracture. Subarachnoid hemorrhage Surgical History Surgical History History of appendectomy Family History Family History Sibling Multiple sclerosis Father Colon cancer Arthritis Mother Throat cancer Social History Social History Social History: Surrogate decision maker: Baldemar Strong, brother. Code status: Full code. Smoking status: Never smoker Alcohol intake: current Drinks per week: 49 Alcohol use details: Drinks 6 to 8 airplane shots a day. Substance use: never Substance use type: does not use Additional living arrangements comments: The patient lives in [place] with her brother. Additional occupation/education comments: Unemployed. Spiritual care concerns: No Exam Narrative: EXAMINATION OF ORGAN SYSTEMS/BODY AREAS: Constitutional: Vital signs per nursing GENERAL:[No acute distress, non-toxic appearing.] HEAD: Normal with no signs of head trauma. EYES: EOMI, conjunctiva normal ENT: Hearing grossly intact LUNGS: Nonlabored breathing. HEART: [Regular rate and rhythm] ABD: [Soft], [nontender to palpation] EXT: Normal range of motion; moves all extremities but seems tired SKIN: [No rashes or lesions.] NEURO: [Alert and oriented x 3. Diminishes patellar reflexes.] PSYCH: Normal affect MDM - Weakness MDM Narrative Medical decision making narrative: This patient with a history of alcohol use disorder presents with generalized weakness, vital signs within acceptable limits, she is moving her extremities and has no focal neurologic deficits, though she does have diminished reflexes. I am concerned for possible electrolyte deficiency versus infection or GBS, versus unlikely spinal cord etiology, transverse myelitis without any back pain. Labs notable for K of 1.8, redraw 2.0 confirms, and she is started on K (40meq PO and 40meq IV) and Mg and I did call the hospitalist for admission. Also started on ceftriaxone for UTI. Patient updated on the findings and agreeable to this plan. Lab Data Result diagrams: 08/09/22 19:10 08/09/22 20:02 Labs: Lab Results 08/09/22 08/09/22 08/09/22 Range/Units 19:10 19:10 19:10 WBC 8.3 (4.5-10.0) K/mm3 RBC 3.09 L (4.2-5.4) M/mm3 Hgb 10.1 L (12.0-15.0) g/dL Hct 30.0 L (37.0-47.0) % MCV 97.1 (80-100) fl MCH 32.7 (26-34) pg MCHC 33.7 (32-36) g/dl RDW 15.3 H (11.5-14.5) % Plt Count 321 (150-375) k/mm3 MPV 9.5 (7.4
[2022-08-09 20:36] LABS: Magnesium 1.1 mg/dL (1.6-2.3)
[2022-08-09] MEDS: POTASSIUM CHLORIDE INJ 40 MEQ in SODIUM CHLORIDE 0.9% IV 500 ML 130 MEQ IVPB (20:58)
[2022-08-09] MEDS: POTASSIUM CHLORIDE 20 MEQ TABLET 40 MEQ PO (20:58)
[2022-08-09] MEDS: LACTATED RINGERS 1,000 ML 200 ML IV CONT (20:59)
[2022-08-09] MEDS: MAGNESIUM SULF 2 GM/WATER 50ML 2 GM/50 ML BAG IVPB (21:56)
[2022-08-09 21:57] VITALS: PULSE 78
--- NOTE | 2022-08-09 22:52 | ADMGEN ---
This patient, Radha Strong, was admitted to Medical Room 344-01. Patient/family oriented to hospital policies and general routines including ID bracelet, bed and alarms, visiting hours, pain management, procedures, bathroom and other care routines, personal items, smoking policy, room service/diet, and visiting hours. Information on how to activate the Rapid Response Team has been discussed. Patient/Family are encouraged to report perceived risks to care and to ask questions if they do not understand what they are told or what they should do.
[2022-08-09 22:59] VITALS: BP 106/66; PULSE 89; RESP 16; TEMP 36.6; O2SAT 100
[2022-08-09 23:00] VITALS: BMI 17.6
[2022-08-09 23:06] VITALS: BP 96/54; PULSE 84; RESP 16; O2SAT 97
[2022-08-10] VITALS (9 sets, daily range): BP systolic 100–122; BP diastolic 50–78; PULSE 82–96; RESP 16; TEMP 36.1–36.7; O2SAT 93–98
[2022-08-10] MEDS: THIAMINE HCL INJ 100 MG, FOLIC ACID INJ 1 MG, MULTIVITAMINS-12 INJ VIAL 1 5 ML, MULTIVI... IV CONT (02:46)
--- NOTE | 2022-08-10 08:12 | PM.IMPN ---
Progress Note: A&P Assessment and Plan (1) UTI (urinary tract infection): Qualifiers: Hematuria presence: without hematuria Urinary tract infection type: site unspecified Qualified Code(s): N39.0 - Urinary tract infection, site not specified Code(s): N39.0 - Urinary tract infection, site not specified Status: Acute Assessment and Plan: Urine culture pending. Continue ceftriaxone for now. (2) EtOH dependence: Code(s): F10.20 - Alcohol dependence, uncomplicated Status: Acute Assessment and Plan: CIWA ordered with prn Lorazepam and chlordiazepoxide. (3) Generalized weakness: Code(s): R53.1 - Weakness Status: Acute Assessment and Plan: May have been having alcohol withdrawal at home over the past three weeks she did not drink. May have also been from suspected UTI -Continue ceftriaxone -Continue PT/OT (4) Gastroesophageal reflux disease: Code(s): K21.9 - Gastro-esophageal reflux disease without esophagitis Status: Acute Assessment and Plan: PPI (5) Hypokalemia: Code(s): E87.6 - Hypokalemia Status: Acute Assessment and Plan: Potassium chloride 120 mEq ordered. Will repeat BMP. (6) Chronic anemia: Code(s): D64.9 - Anemia, unspecified Status: Acute Assessment and Plan: likely secondary to alcohol intake and poor per oral intake Subjective Date/time seen: 08/10/22 08:12 Patient says she had not had a drink of alcohol for three week prior to last night. She says during that three weeks she felt horrible. She noted two days ago her legs felt very week. She thought she might feel better if she had a drink, so last night she had a cristina. While returning from getting the drink was when she decided to call 911 due to the significant thigh/leg weakness. Denies history of pancreatitis or abdominal pain. She says she feels much better this morning. She denies dysuria. Review of Systems Gastrointestinal: Gastrointestinal: Reports abdominal pain Exam Narrative: GENERAL: NAD, cooperative HEENT: Normocephalic, atraumatic, anicteric NECK: Supple CV: Normal S1, S2, RRR, No MRG RESP: CTAB, Normal work of breathing. Abdomen: Soft, non-tender, non-distended EXTREMITIES: Warm and well perfused, no clubbing, cyanosis, or edema. SKIN: warm, dry and intact. NEURO: CN 2-12 grossly intact. Objective Data Vital Signs Vital Signs: Vital Signs - 24 hr 08/09/22 21:57 08/09/22 22:59 08/09/22 23:06 Temperature 36.6 C Pulse Rate 78 89 84 Respiratory Rate 16 16 Blood Pressure 106/66 96/54 L Pulse Oximetry 100 97 Oxygen Delivery 08/09/22 22:51 08/10/22 00:00 08/10/22 04:00 Temperature Pulse Rate 95 82 Respiratory Rate Blood Pressure Pulse Oximetry Oxygen Delivery Room Air 08/10/22 05:12 Temperature 36.1 C L Pulse Rate 89 Respiratory Rate 16 Blood Pressure 100/50 L Pulse Oximetry 98 Oxygen Delivery Intake/Output Intake/Output: Intake & Output 08/07/22 08/08/22 08/09/22 08/10/22 23:59 23:59 23:59 23:59 Intake Total 100 1820 Output Total 500 Balance 100 1320 Meds/Results Medications: Active Medications Generic Name Dose Route Start Last Admin Trade Name Freq PRN Reason Stop Dose Admin Lactated Ringer's 1,000 mls @ 75 mls/hr 08/09/22 20:25 08/10/22 02:38 Lr - Lactated Ringers Iv IV CONT 08/10/22 09:44 Infused .[id number] STA Infusion Thiamine HCl 100 mg/ Folic 1,013.2 mls @ 100 mls/hr 08/09/22 23:12 08/10/22 02:46 Acid 1 mg/ Multivitamins 5 ml/ IV CONT 08/10/22 09:19 100 mls/hr Multivitamins 5 ml/ Magnesium .[id number] ONE Administration Sulfate 1 gm/ Dextrose/Sodium Chloride Ceftriaxone Sodium 1 gm/ 50 mls @ 100 mls/hr 08/10/22 21:00 Dextrose IVPB Q24H WILMER Ondansetron HCl 4 mg 08/09/22 23:13 Ondansetron Inj 4 Mg/2 Ml Vial IV PUSH Q6H PRN Nausea And Vomit
[2022-08-10 09:07] LABS: Basophils Absolute Auto 0.1 K/mm3 (0.0-0.1); Basophils Percent Auto 1.3 % (0.2-1.2); Eosinophils Absolute Auto 0.1 K/mm3 (0-0.3); Hematocrit 27.2 % (37.0-47.0); Hemoglobin 9.2 g/dL (12.0-15.0); Immature Granulocyte Absolute 0.02 K/mm3 (0.00-0.031); Immature Granulocyte Percent A 0.3 % (0-0.5); Lymphocytes Percent Auto 21.7 % (18.3-44.2); Mean Corpuscular HGB Conc 33.8 g/dl (32-36); Mean Corpuscular Hemoglobin 32.7 pg (26-34); Mean Corpuscular Volume 96.8 fl (80-100); Mean Platelet Volume 9.7 fl (7.4-10.4); Monocytes Percent Auto 14.6 % (2.6-8.5); Neutrophils Absolute Auto 4.2 K/mm3 (1.3-6.7); Neutrophils Percent Auto 60.1 % (45.5-73.1); Platelet Count Result 312 k/mm3 (150-375); Red Blood Count 2.81 M/mm3 (4.2-5.4); Red Cell Distribution Width 15.6 % (11.5-14.5); White Blood Count 6.9 K/mm3 (4.5-10.0)
[2022-08-10 09:35] LABS: Anion Gap 5 mmol/L (8-16); Blood Urea Nitrogen 3 mg/dL (7-17); Calcium 7.4 mg/dL (8.4-10.2); Carbon Dioxide 29 mmol/L (22-30); Chloride 103 mmol/L (98-107); Estimated CRCL calculation 85 ml/min; Estimated Glomerular Filt Rate > 60; Glucose 122 mg/dL (65-110); Potassium 2.5 mmol/L (3.4-5.0); Sodium 137 mmol/L (137-145)
[2022-08-10] MEDS: POTASSIUM CHLORIDE INJ 40 MEQ in SODIUM CHLORIDE 0.9% IV 500 ML 130 MEQ IVPB ×3 (11:56→21:48)
[2022-08-10] MEDS: THIAMINE HCL INJ 100 MG, FOLIC ACID INJ 1 MG, MULTIVITAMINS-12 INJ VIAL 1 5 ML, MULTIVI... 125 MG IV CONT (11:56)
[2022-08-10 12:23] LABS: Glucose Point of Care 98 mg/dl (65-105)
[2022-08-10 17:45] LABS: Glucose Point of Care 99 mg/dl (65-105)
[2022-08-10 17:48] LABS: Anion Gap 5 mmol/L (8-16); Blood Urea Nitrogen 3 mg/dL (7-17); Calcium 7.1 mg/dL (8.4-10.2); Carbon Dioxide 26 mmol/L (22-30); Chloride 106 mmol/L (98-107); Estimated CRCL calculation 85 ml/min; Estimated Glomerular Filt Rate > 60; Glucose 95 mg/dL (65-110); Potassium 3.2 mmol/L (3.4-5.0); Sodium 137 mmol/L (137-145)
[2022-08-10] MEDS: cefTRIAXone 1 GM in DEXTROSE 5% IN WATER 50 ML IVPB (20:35)
[2022-08-11] VITALS (9 sets, daily range): BP systolic 103–124; BP diastolic 67–80; PULSE 90–101; RESP 16–20; TEMP 36.1–36.9; O2SAT 96–97; BMI 17.6
[2022-08-11 00:44] LABS: Glucose Point of Care 119 mg/dl (65-105)
[2022-08-11 07:03] LABS: Glucose Point of Care 119 mg/dl (65-105)
[2022-08-11 11:19] LABS: Anion Gap 4 mmol/L (8-16); Calcium 7.5 mg/dL (8.4-10.2); Carbon Dioxide 29 mmol/L (22-30); Chloride 101 mmol/L (98-107); Estimated CRCL calculation 85 ml/min; Estimated Glomerular Filt Rate > 60; Glucose 108 mg/dL (65-110); Sodium 134 mmol/L (137-145)
[2022-08-11 11:22] LABS: Blood Urea Nitrogen < 2 mg/dL (7-17)
[2022-08-11 12:15] LABS: Glucose Point of Care 126 mg/dl (65-105)
[2022-08-11] MEDS: POTASSIUM CHLORIDE 20 MEQ TABLET 40 MEQ PO (13:02)
[2022-08-11] MEDS: POTASSIUM CHLORIDE INJ 40 MEQ in SODIUM CHLORIDE 0.9% IV 500 ML 130 MEQ IVPB (13:02)
[2022-08-11 13:16] LABS: Phosphorus 2.1 mg/dL (2.5-4.5)
[2022-08-11 13:28] LABS: Magnesium 1.4 mg/dL (1.6-2.3)
[2022-08-11 16:59] LABS: Glucose Point of Care 104 mg/dl (65-105)
--- NOTE | 2022-08-11 17:36 | PM.IMPN ---
Progress Note: A&P Assessment and Plan (1) UTI (urinary tract infection): Qualifiers: Hematuria presence: without hematuria Urinary tract infection type: site unspecified Qualified Code(s): N39.0 - Urinary tract infection, site not specified Code(s): N39.0 - Urinary tract infection, site not specified Status: Acute Assessment and Plan: Urine culture with mixed genital kelly. Will continue ceftriaxone due to patient improvement in sympoms and potassium continues to be low. -Continue ceftriaxone. (2) EtOH dependence: Code(s): F10.20 - Alcohol dependence, uncomplicated Status: Acute Assessment and Plan: CIWA ordered with prn Lorazepam and chlordiazepoxide. (3) Generalized weakness: Code(s): R53.1 - Weakness Status: Acute Assessment and Plan: May have been having alcohol withdrawal at home over the past three weeks she did not drink. May have also been from suspected UTI -Continue ceftriaxone -Continue PT/OT (4) Gastroesophageal reflux disease: Code(s): K21.9 - Gastro-esophageal reflux disease without esophagitis Status: Acute Assessment and Plan: PPI (5) Hypokalemia: Code(s): E87.6 - Hypokalemia Status: Acute Assessment and Plan: Still low. Giving 40 mEq IV and oral potassium. Will recheck BMP. (6) Chronic anemia: Code(s): D64.9 - Anemia, unspecified Status: Acute Assessment and Plan: likely secondary to alcohol intake and poor per oral intake Subjective Date/time seen: 08/11/22 17:36 Patient says she feels much better today. Denies leg weakness. Review of Systems Musculoskeletal: Musculoskeletal: Denies myalgias Comments: No leg weakness Exam Narrative: GENERAL: NAD, cooperative HEENT: Normocephalic, atraumatic, anicteric NECK: Supple CV: Normal S1, S2, RRR, No MRG RESP: CTAB, Normal work of breathing. EXTREMITIES: Warm and well perfused, no clubbing, cyanosis, or edema. SKIN: warm, dry and intact. NEURO: CN 2-12 grossly intact. Objective Data Vital Signs Vital Signs: Vital Signs - 24 hr 08/10/22 20:12 08/10/22 20:00 08/11/22 00:00 Temperature 36.3 C L Pulse Rate 94 94 90 Respiratory Rate 16 Blood Pressure 122/78 Pulse Oximetry 93 Oxygen Delivery 08/11/22 04:00 08/11/22 04:48 08/11/22 08:00 Temperature 36.1 C L Pulse Rate 91 94 Respiratory Rate 16 Blood Pressure 124/80 122/78 Pulse Oximetry 96 Oxygen Delivery 08/11/22 08:00 08/11/22 08:00 08/11/22 12:00 Temperature Pulse Rate 94 101 H Respiratory Rate Blood Pressure Pulse Oximetry Oxygen Delivery Room Air 08/11/22 14:00 08/11/22 12:00 08/11/22 16:00 Temperature 36.9 C Pulse Rate 97 96 Respiratory Rate 20 Blood Pressure 103/67 103/67 Pulse Oximetry 96 Oxygen Delivery Intake/Output Intake/Output: Intake & Output 08/08/22 08/09/22 08/10/22 08/11/22 23:59 23:59 23:59 23:59 Intake Total 100 3355 1235 Output Total 1000 900 Balance 100 2355 335 Meds/Results Medications: Active Medications Generic Name Dose Route Start Last Admin Trade Name Cornelioq PRN Reason Stop Dose Admin Acetaminophen 650 mg 08/10/22 08:13 Acetaminophen 325 Mg Tablet PO Q8H PRN Pain Chlordiazepoxide HCl 25 mg 08/10/22 10:16 Chlordiazepoxide (*Crx) 25 Mg Capsule PO Q6H PRN Withdrawal Ceftriaxone Sodium 1 gm/ 50 mls @ 100 mls/hr 08/10/22 21:00 08/10/22 21:05 Dextrose IVPB Infused Q24H WILMER Infusion Lorazepam 2 mg 08/10/22 10:16 Lorazepam Inj (*Crx) 2 Mg/Ml Vial IV PUSH Q4H PRN Withdrawal Ondansetron HCl 4 mg 08/09/22 23:13 Ondansetron Inj 4 Mg/2 Ml Vial IV PUSH Q6H PRN Nausea And Vomiting Radiology Results: ITS Impressions Chest X-Ray 08/09/22 19:47 IMPRESSION: No active cardiopulmonary disease Aortic atherosclerosis Hiatal h
[2022-08-11 18:16] LABS: Anion Gap 5 mmol/L (8-16); Blood Urea Nitrogen 2 mg/dL (7-17); Carbon Dioxide 26 mmol/L (22-30); Chloride 103 mmol/L (98-107); Estimated CRCL calculation 85 ml/min; Estimated Glomerular Filt Rate > 60; Glucose 111 mg/dL (65-110); Sodium 134 mmol/L (137-145)
[2022-08-11] MEDS: cefTRIAXone 1 GM in DEXTROSE 5% IN WATER 50 ML IVPB (20:42)
[2022-08-11 23:51] LABS: Glucose Point of Care 132 mg/dl (65-105)
[2022-08-12] VITALS (9 sets, daily range): BP systolic 102–109; BP diastolic 62–76; PULSE 90–100; RESP 16–18; TEMP 36.7–36.8; O2SAT 95–98
[2022-08-12 05:58] LABS: Anion Gap 6 mmol/L (8-16); Blood Urea Nitrogen 4 mg/dL (7-17); Calcium 8.2 mg/dL (8.4-10.2); Carbon Dioxide 29 mmol/L (22-30); Chloride 101 mmol/L (98-107); Estimated CRCL calculation 85 ml/min; Estimated Glomerular Filt Rate > 60; Glucose 117 mg/dL (65-110); Potassium 4.3 mmol/L (3.4-5.0); Sodium 136 mmol/L (137-145)
--- NOTE | 2022-08-12 07:57 | P.DS_ITS ---
DS: Summary Time Spent with Patient Time attestation: Total time spent providing and/or coordinating discharge services: DS: Data Data Completed and Pending Labs on day of discharge: Labs from last 24 hours 08/12/22 08/11/22 08/11/22 05:18 23:48 17:59 Sodium 136 L 134 L Potassium 4.3 5.0 Chloride 101 103 Carbon Dioxide 29 26 Anion Gap 6 L 5 L BUN 4 L 2 L Creatinine 0.40 L 0.40 L Estim Creat Clear Calc 85 85 Estimated GFR > 60 > 60 Glucose 117 H 111 H POC Capillary Glucose 132 H Calcium 8.2 L 8.0 L Phosphorus Magnesium 08/11/22 08/11/22 08/11/22 16:56 12:10 10:08 Sodium 134 L Potassium 3.0 L Chloride 101 Carbon Dioxide 29 Anion Gap 4 L BUN < 2 L Creatinine 0.40 L Estim Creat Clear Calc 85 Estimated GFR > 60 Glucose 108 POC Capillary Glucose 104 126 H Calcium 7.5 L Phosphorus Magnesium 08/11/22 10:06 Sodium Potassium Chloride Carbon Dioxide Anion Gap BUN Creatinine Estim Creat Clear Calc Estimated GFR Glucose POC Capillary Glucose Calcium Phosphorus 2.1 L Magnesium 1.4 L Discharge Plan Discharge Discharge Medications: No Action acetaminophen [Tylenol Arthritis] 650 mg Tablet Extended Release 650 mg PO Q8H PRN (Reason: Pain) Date of admission: 08/10/22 08:02 Primary Care Provider: PHYSICIAN,GALVANOMETER ASSEMBLER Admitting Provider: Anthony Carrasco V. Attending physician on admission: Anthony Carrasco V. Condition: Serious
[2022-08-12] MEDS: NITROFURANTOIN MONOHYD MACROCR 100 MG CAP PO ×2 (08:48→20:29)
--- NOTE | 2022-08-12 08:53 | PM.IMPN ---
Progress Note: A&P Assessment and Plan (1) UTI (urinary tract infection): Qualifiers: Hematuria presence: without hematuria Urinary tract infection type: site unspecified Qualified Code(s): N39.0 - Urinary tract infection, site not specified Code(s): N39.0 - Urinary tract infection, site not specified Status: Acute Assessment and Plan: Urine culture with mixed genital kelly. Will continue ceftriaxone due to patient improvement in sympoms and potassium continues to be low. -Nitrofurantoin 100 mg BID to finish 08/15 (2) EtOH dependence: Code(s): F10.20 - Alcohol dependence, uncomplicated Status: Acute Assessment and Plan: CIWA ordered with prn Lorazepam and chlordiazepoxide. (3) Generalized weakness: Code(s): R53.1 - Weakness Status: Acute Assessment and Plan: May have been having alcohol withdrawal at home over the past three weeks she did not drink. May have also been from suspected UTI. -Continue Nitrofurantoin -Continue PT/OT (4) Gastroesophageal reflux disease: Code(s): K21.9 - Gastro-esophageal reflux disease without esophagitis Status: Acute Assessment and Plan: PPI (5) Hypokalemia: Code(s): E87.6 - Hypokalemia Status: Acute Assessment and Plan: Resolved. (6) Chronic anemia: Code(s): D64.9 - Anemia, unspecified Status: Acute Assessment and Plan: likely secondary to alcohol intake and poor per oral intake (7) Electrolyte disturbance: Code(s): E87.8 - Other disorders of electrolyte and fluid balance, not elsewhere classified Status: Acute Assessment and Plan: Magnesium and phosphorus low. -Sodium phosphate 20 mmol -Magnesium 3 gm IV -Will repeat BMP after completion of labs and if all are normal patient can be discharged to home. Subjective Date/time seen: 08/12/22 19:53 Patient says after she saw me yesterday morning she did no feel so well, so she was glad she was not discharged. Nurse reports elevated heart rate this morning 100s-130s. Patient is unaware of elevated heart rate and denies chest pain, palpitations, shortness of breath. Patient says she felt like she had urgency overnight. Says she had a bag of fluid running and felt like she had to urinate every few minutes until the bag of fluid finished. Review of Systems Cardiovascular: Cardiovascular: Denies chest pain and Denies palpitations Respiratory: Respiratory: Denies dyspnea Exam Narrative: GENERAL: NAD, cooperative HEENT: Normocephalic, atraumatic, anicteric NECK: Supple CV: Normal S1, S2, RRR, No MRG RESP: CTAB, Normal work of breathing. EXTREMITIES: Warm and well perfused, no clubbing, cyanosis, or edema. SKIN: warm, dry and intact. NEURO: CN 2-12 grossly intact. Objective Data Vital Signs Vital Signs: Vital Signs - 24 hr 08/11/22 19:56 08/11/22 20:00 08/11/22 20:00 Temperature 36.8 C Pulse Rate 99 94 94 Respiratory Rate 20 20 Blood Pressure 110/78 Pulse Oximetry 97 97 Oxygen Delivery Room Air 08/12/22 00:00 08/12/22 04:00 08/12/22 04:20 Temperature 36.8 C Pulse Rate 90 94 96 Respiratory Rate 18 Blood Pressure 102/62 Pulse Oximetry 95 Oxygen Delivery 08/12/22 08:00 08/12/22 08:00 08/12/22 12:00 Temperature Pulse Rate 93 98 Respiratory Rate Blood Pressure Pulse Oximetry Oxygen Delivery Room Air 08/12/22 14:00 08/12/22 16:00 Temperature 36.8 C Pulse Rate 95 95 Respiratory Rate 18 Blood Pressure 103/65 Pulse Oximetry 98 Oxygen Delivery Intake/Output Intake/Output: Intake & Output 08/09/22 08/10/22 08/11/22 08/12/22 23:59 23:59 23:59 23:59 Intake Total 100 3355 1525 2946.6667 Output Total 4510 390 7725 Balance 100 6285 238 1696.6667 Meds/Results Medications: Active Medications Generic Name Dose Route Start Last Admin Trade Name Freq PRN [place]
--- NOTE | 2022-08-12 09:39 | ECG_ITS ---
Measurements Intervals [place] Rate: 95 P: -10 MA: 107 QRS: 17 QRSD: 74 T: 2 QT: 325 QTc: 410 Interpretive Statements SINUS RHYTHM WITH SHORT MA INTERVAL BORDERLINE T WAVE ABNORMALITY- ANT/INF LEADS BORDERLINE ECG COMPARED TO ECG 08/09/2022 19:01:00 NO SIGNIFICANT CHANGES Electronically Signed On 08-12-2022 11:49:10 CDT by Mick Leon D.O.
[2022-08-12 09:56] LABS: Magnesium 1.4 mg/dL (1.6-2.3); Phosphorus 2.7 mg/dL (2.5-4.5)
[2022-08-12] MEDS: MAGNESIUM SULFATE 3GM/D5W100ML 3 GM/100 ML BAG IVPB (11:42)
[2022-08-12 12:31] LABS: Glucose Point of Care 137 mg/dl (65-105)
[2022-08-12] MEDS: SODIUM PHOSPHATE 20 MM in DEXTROSE 5% IN WATER 250 ML 50 MM IVPB (13:05)
[2022-08-12 17:10] LABS: Glucose Point of Care 116 mg/dl (65-105)
[2022-08-12 20:26] LABS: Anion Gap 5 mmol/L (8-16); Blood Urea Nitrogen 4 mg/dL (7-17); Calcium 7.9 mg/dL (8.4-10.2); Carbon Dioxide 29 mmol/L (22-30); Chloride 97 mmol/L (98-107); Estimated CRCL calculation 70 ml/min; Estimated Glomerular Filt Rate > 60; Glucose 103 mg/dL (65-110); Magnesium 1.7 mg/dL (1.6-2.3); Phosphorus 4.7 mg/dL (2.5-4.5); Potassium 3.6 mmol/L (3.4-5.0); Sodium 131 mmol/L (137-145)
[2022-08-13] VITALS (7 sets, daily range): BP systolic 90–106; BP diastolic 50–70; PULSE 90–105; RESP 16; TEMP 36.6–36.7; O2SAT 95–100
[2022-08-13 03:05] LABS: Glucose Point of Care 116 mg/dl (65-105)
[2022-08-13 05:15] LABS: Anion Gap 7 mmol/L (8-16); Blood Urea Nitrogen 5 mg/dL (7-17); Calcium 8.6 mg/dL (8.4-10.2); Carbon Dioxide 29 mmol/L (22-30); Chloride 100 mmol/L (98-107); Estimated CRCL calculation 85 ml/min; Estimated Glomerular Filt Rate > 60; Glucose 106 mg/dL (65-110); Magnesium 1.6 mg/dL (1.6-2.3); Phosphorus 4.3 mg/dL (2.5-4.5); Potassium 3.8 mmol/L (3.4-5.0); Sodium 136 mmol/L (137-145)
[2022-08-13] MEDS: NITROFURANTOIN MONOHYD MACROCR 100 MG CAP PO (08:56)
[2022-08-13 12:11] LABS: Glucose Point of Care 111 mg/dl (65-105)
--- NOTE | 2022-08-13 14:42 | PM.DS ---
DS: Admitting Diagnosis Discharge Date August 13, 2022 Admitting Diagnosis Generalized weakness DS: Discharge Diagnosis Discharge Diagnosis (1) UTI (urinary tract infection): Qualifiers: Hematuria presence: without hematuria Urinary tract infection type: site unspecified Qualified Code(s): N39.0 - Urinary tract infection, site not specified Code(s): N39.0 - Urinary tract infection, site not specified Status: Acute Assessment and Plan: Urine culture with mixed genital kelly. Will continue ceftriaxone due to patient improvement in sympoms and potassium continues to be low. -Nitrofurantoin 100 mg BID to finish 08/15 (2) EtOH dependence: Code(s): F10.20 - Alcohol dependence, uncomplicated Status: Acute Assessment and Plan: CIWA ordered with prn Lorazepam and chlordiazepoxide. (3) Generalized weakness: Code(s): R53.1 - Weakness Status: Acute Assessment and Plan: May have been having alcohol withdrawal at home over the past three weeks she did not drink. May have also been from suspected UTI. -Continue Nitrofurantoin -Continue PT/OT (4) Gastroesophageal reflux disease: Code(s): K21.9 - Gastro-esophageal reflux disease without esophagitis Status: Acute Assessment and Plan: PPI (5) Hypokalemia: Code(s): E87.6 - Hypokalemia Status: Acute Assessment and Plan: Resolved. (6) Chronic anemia: Code(s): D64.9 - Anemia, unspecified Status: Acute Assessment and Plan: likely secondary to alcohol intake and poor per oral intake (7) Electrolyte disturbance: Code(s): E87.8 - Other disorders of electrolyte and fluid balance, not elsewhere classified Status: Acute Assessment and Plan: Magnesium and phosphorus low. -Sodium phosphate 20 mmol -Magnesium 3 gm IV -Will repeat BMP after completion of labs and if all are normal patient can be discharged to home. DS: Summary Hospital Course Hospital Course: 62-year-old female with past medical history significant for alcohol dependence.? Patient presents to the emergency room today due to generalized weakness patient states that she has never driven a car and she is used to walking everywhere she goes and today prior to presentation to emergency room she was just feeling very weak and fatigued with short distances and she was unable to get up from sitting position.? Patient denies any tingling, numbness, pain of bilateral lower extremities, no fevers, no rigors, no chills, no nausea, no vomiting, no diarrhea, no cough, no sputum production. Preliminary workup was significant for numerous WBCs present in the urine.? Patient is been admitted for further evaluation management and treatment. Urine culture negative for infection. However, due to patient improvement antibiotics, antibiotics were continued at discharge into August 15 with Macrobid. All alcohol withdrawal symptoms resolved. She was discharged in good condition close outpatient follow-up. Time Spent with Patient Time attestation: Total time spent providing and/or coordinating discharge services: Exam Narrative: GENERAL: NAD, cooperative HEENT: Normocephalic, atraumatic, anicteric NECK: Supple CV: Normal S1, S2, RRR, No MRG RESP: CTAB, Normal work of breathing. EXTREMITIES: Warm and well perfused, no clubbing, cyanosis, or edema. SKIN: warm, dry and intact. NEURO: CN 2-12 grossly intact. DS: Data Data Completed and Pending Labs on day of discharge: Labs from last 24 hours 08/13/22 08/13/22 08/12/22 12:03 04:58 20:02 Sodium 136 L 131 L Potassium 3.8 3.6 Chloride 100 97 L Carbon Dioxide 29 29 Anion Gap 7 L 5 L BUN 5 L 4 L Creatinine 0.40 L 0.50 L Estim Creat Clear Calc 85 70 Estimated GFR > 60 > 60 Glucose 106 103 POC Capillary Glucose 111 H Calcium 8.6 7.9 L Phosphorus 4.3 4.7 H Ma
== END 2022-08-13 17:10 | disposition home or self-care (01) | DRG 463 ==
LOC: ANHED 20:38 → ANH3MED 21:16
PROVIDERS: Emergency Medicine; Family Medicine; Admitting Provider Internal Medicine; Emergency Provider Emergency Medicine; Visit Provider Student in an Organized Health Care Education/Training Program
DX: N39.0 Urinary tract infection, site not specified (principal); E83.39 Other disorders of phosphorus metabolism; K76.0 Fatty (change of) liver, not elsewhere classified; E83.42 Hypomagnesemia; E87.6 Hypokalemia; D64.9 Anemia, unspecified; K21.9 Gastro-esophageal reflux disease without esophagitis; R53.1 Weakness; F10.20 Alcohol dependence, uncomplicated; F32.A Depression, unspecified; F41.9 Anxiety disorder, unspecified
CPT/HCPCS: 36415; 71045; 80048; 80053; 80307; 81001; 82948; 83735; 84100; 84132; 85025; 87086; 87088; 93005; 96365; 96366; 96367; 96368; 96375; 97165; 99285; A9270; G0378; G0379; J0696; J3411; J3475; J3480; J7030; J7040; J7042; J7060; J7120

== ENCOUNTER 2023-05-20 13:47 | Inpatient (IN) | payer OTHER, SELFPAY ==
[2023-05-20] VITALS (20 sets, daily range): BP systolic 108–143; BP diastolic 62–88; PULSE 78–101; RESP 16–25; TEMP 36.1–37; O2SAT 94–100; BMI 20.8
--- NOTE | ~2023-05-20 | XR_ITS ---
EXAMINATION: XR chest 2V DATE: 05/20/2023 14:51 INDICATION: Dizziness. Shortness of breath. TECHNIQUE: Frontal and lateral views of the chest were obtained. COMPARISON: Chest single view 08/09/2022, chest CT 05/12/2022 FINDINGS: There is blunting of right posterior costophrenic angle. No pneumothorax. The heart size is normal. There is a large hiatal hernia. IMPRESSION: 1. Blunting of right posterior costophrenic angle, consistent with atelectasis/scarring versus tiny p leural effusion. 2. Large hiatal hernia. Reviewed, dictated and finalized at location A. IMPRESSION: 1. Blunting of right posterior costophrenic angle, consistent with atelectasis/ scarring versus tiny pleural effusion. 2. Large hiatal hernia.
--- NOTE | 2023-05-20 14:32 | ECG_ITS ---
Measurements Intervals [place] Rate: 93 P: 3 NV: 120 QRS: 43 QRSD: 75 T: 42 QT: 367 QTc: 458 Interpretive Statements SINUS RHYTHM BORDERLINE R WAVE PROGRESSION, ANTERIOR LEADS BORDERLINE ECG COMPARED TO ECG 08/12/2022 10:27:41 NO SIGNIFICANT CHANGES Electronically Signed On 05-20-2023 14:42:37 CDT by Mick Leon D.O.
[2023-05-20 15:07] LABS: Alanine Aminotransferase 16 U/L (6-35); Albumin Level 3.4 g/dL (3.5-5.1); Alkaline Phosphatase 90 U/L (38-126); Anion Gap 10 mmol/L (8-16); Aspartate Amino Transferase 31 U/L (14-36); Bilirubin,Total 0.3 mg/dL (0.2-1.3); Blood Urea Nitrogen 5 mg/dL (7-17); Carbon Dioxide 22 mmol/L (22-30); Chloride 106 mmol/L (98-107); Estimated Glomerular Filt Rate > 60; Glucose 98 mg/dL (65-110); Lipase 191 U/L (23-300); Potassium 3.4 mmol/L (3.4-5.0); Sodium 138 mmol/L (137-145)
[2023-05-20 15:14] LABS: INR 1.2; Prothrombin Time 15.7 Seconds (11.1-14.7)
--- NOTE | 2023-05-20 15:14 | ED.DIZZY ---
HPI - Dizziness General Chief Complaint: Dizziness Stated Complaint: lightheaded/dizzy Time Seen by Provider: 05/20/23 14:16 History of Present Illness HPI Narrative: 63-year-old female presenting to the emergency department for evaluation of increased dizziness. Patient states over the last few weeks she has had increased dizziness when standing up. Patient states over the last week she has had increased swelling of her bilateral lower extremities. Patient has had some shortness of breath with this but denies any chest pain. Patient denies any prior history of GI bleed. Patient denies any current hematemesis or melena. Patient denies any heavy vaginal bleeding. Patient has no prior history of anemia. Related Data Home Medications Medication Instructions Recorded Confirmed acetaminophen 650 mg 650 mg PO Q8H PRN Pain 08/09/22 08/10/22 tablet,extended release Allergies Allergy/AdvReac Type Severity Reaction Status Date / Time monosodium glutamate AdvReac Intermediate Vomiting Verified 05/20/23 13:48 Review of Systems Review of Systems: All systems reviewed & are unremarkable except as noted in HPI and below PMFSH Past Medical History Medical History Alcohol abuse Alcohol withdrawal seizure Anxiety Chronic anemia Depression Gastroesophageal reflux disease Hepatic steatosis History of fracture Including clavicle fracture left foot fracture. Subarachnoid hemorrhage Surgical History Surgical History History of appendectomy Family History Family History Sibling Multiple sclerosis Sibling Father Colon cancer Arthritis Parents Mother Throat cancer Parents Social History Social History Social History: Surrogate decision maker: Baldemar Strong, brother. Code status: Full code. Smoking status: Never smoker Alcohol intake: former Drinks per week: 20 Alcohol use details: Drinks 6 to 8 airplane shots a day. Substance use: never Substance use type: does not use Lack of Transportation: No Lack of Food: Never True Current Housing: I Do Not Have Housing Concerned About Future Housing: No Difficulty Paying Gas/Electric Bills: No Difficulty Paying for Meds: No Currently Unemployed: No Education: High School Diploma/GED Difficulty w/ Childcare or Family Care: No Living arrangements: with family Additional living arrangements comments: The patient lives in [place] with her brother. Occupation/Education: unemployed Additional occupation/education comments: Unemployed. Spiritual care concerns: No Exam Narrative: APPEARANCE: Well appearing, no pain, no distress, well-nourished. HEAD: normocephalic, atraumatic. EYES: PERRLA/EOMI, pale conjunctiva NOSE: Normal no drainage EARS:TMS clear with good light reflex. THROAT: Pharynx clear, no exudate. NECK: Supple. No adenopathy, no masses. RESPIRATORY: Airway patent, respirations nonlabored. Clear to auscultation bilaterally, no rales, rhonchi, wheezing. CARDIOVASCULAR: Regular rate and rhythm without murmurs rubs or gallops. ABDOMINAL: Soft, nontender, nondistended, normal bowel sounds Rectal exam: Hemoccult negative MUSCULOSKELETAL: Moves all extremities. Strength/ROM intact, No edema, No calf tenderness. NEURO: Alert. Cranial nerves II through XII intact. SKIN: Pale Course Course Emergency Course: 60-year-old female presented the emergency department for evaluation of generalized weakness lower extremity edema. Patient had a hemoglobin of 3.6. Patient was ordered 2 units of packed red blood cells. Case was discussed with the hospitalist and patient was accepted for admission. Patient was updated and results of her work-up and plan for transfusion and admission. All questions
[2023-05-20 15:15] LABS: Partial Thromboplastin Time 30.6 SECONDS (22.3-36.8)
[2023-05-20 15:16] LABS: NT Pro B Type Natriuretic Pept 331 pg/mL (19.9-100)
[2023-05-20] MEDS: SODIUM CHLORIDE 0.9% IV 1,000 ML 999 ML IV CONT (15:16)
[2023-05-20 15:18] LABS: Troponin I < 0.012 ng/mL (0.000-0.034)
[2023-05-20 15:33] LABS: Basophils Percent Auto 0.6 % (0.2-1.2); Eosinophils Absolute Auto 0.1 K/mm3 (0-0.3); Eosinophils Percent Auto 1.9 % (0-4.4); Immature Granulocyte Absolute 0.02 K/mm3 (0.00-0.031); Immature Granulocyte Percent A 0.4 % (0-0.5); Lymphocytes Absolute Auto 1.18 K/mm3 (0.9-3.2); Lymphocytes Percent Auto 25.1 % (18.3-44.2); Mean Corpuscular Hemoglobin 16.1 pg (26-34); Mean Corpuscular Volume 64.6 fl (80-100); Mean Platelet Volume 8.9 fl (7.4-10.4); Monocytes Absolute Auto 0.6 K/mm3 (0.1-0.6); Monocytes Percent Auto 11.9 % (2.6-8.5); Neutrophils Absolute Auto 2.8 K/mm3 (1.3-6.7); Neutrophils Percent Auto 60.1 % (45.5-73.1); Platelet Count Result 346 k/mm3 (150-375); Red Blood Count 2.23 M/mm3 (4.2-5.4); Red Cell Distribution Width 22.1 % (11.5-14.5); White Blood Count 4.7 K/mm3 (4.5-10.0)
[2023-05-20 15:38] LABS: Hematocrit 14.4 % (37.0-47.0); Hemoglobin 3.6 g/dL (12.0-15.0)
[2023-05-20 15:57] LABS: Platelet Estimate Adequate (Adequate)
[2023-05-20 15:59] LABS: Anisocytosis 3+ (NORMAL); Hypochromasia 2+ (NORMAL); Microcytosis 2+ (NORMAL); Schistocytes Rare (NORMAL)
[2023-05-20 16:01] LABS: Macrocytosis 1+ (NORMAL)
[2023-05-20 16:14] LABS: Iron 15 ug/dL (37-170)
[2023-05-20 16:23] LABS: Percent Iron Saturation 3 % (20-50)
[2023-05-20] MEDS: SODIUM CHLORIDE 0.9% IV 250 ML 30 ML IV CONT (16:35)
[2023-05-20] MEDS: TUBING, BLOOD PLUM PUMP TUBING 1 EACH XX ×2 (16:49→21:36)
--- NOTE | 2023-05-20 18:36 | ADMGEN ---
This patient, Radha Strong, was admitted to [facility] Surg Room 315-02. Patient/family oriented to hospital policies and general routines including ID bracelet, bed and alarms, visiting hours, pain management, procedures, bathroom and other care routines, personal items, smoking policy, room service/diet, and visiting hours. Information on how to activate the Rapid Response Team has been discussed. Patient/Family are encouraged to report perceived risks to care and to ask questions if they do not understand what they are told or what they should do.
--- NOTE | 2023-05-20 18:46 | PC.NURSE ---
Pt brought up with blood infusing. Vitals off track due to transfer. Will continue vitals.
[2023-05-20 19:25] LABS: Troponin I < 0.012 ng/mL (0.000-0.034)
[2023-05-20 20:48] LABS: Troponin I < 0.012 ng/mL (0.000-0.034)
--- NOTE | 2023-05-20 21:55 | PM.IMHP ---
H&P: HPI History of Present Illness Date/Time: 05/20/23 20:00 Chief Complaint: Lightheaded and dizzy. Narrative: This is a pleasant 63-year-old female with history of alcohol abuse though she has abstained since November 2022, alcohol withdrawal seizures, Guillain-Seaton syndrome, depression, and anxiety who presented to the emergency department via private vehicle from home for evaluation of lightheadedness and dizziness. The patient provides the following history. The last several weeks she has been getting lightheaded and dizzy when standing. She has been getting short of breath with sensations of racing heart with usual activities of daily living and more recently she has noticed swelling in her ankles. Vital signs were stable on arrival to the emergency department. Pertinent labs include a WBC count of 4.7, hemoglobin 3.6, hematocrit 14.4%, MCV 64.4, platelets 346, PT 15.7, INR 1.2, PTT 30.6 proBNP 331, total protein 6.0, albumin 3.4. Chest x-ray showed blunting of the right posterior costophrenic angle consistent with atelectasis/scarring versus tiny pleural effusion and a large hiatal hernia. She is being admitted in this setting for blood transfusion and anemia workup. She denies epistaxis, gingival bleeding, easy bruising, hematemesis, hemoptysis, hematuria, melena, and hematochezia. She also denies epigastric and abdominal pain, bloating, and belching. She has had GERD in the past but denies recent issues with such. No known history of peptic ulcers. She also denies chest pain, palpitations, orthopnea, and paroxysmal nocturnal dyspnea. No known history of liver disease. She has abstained from alcohol since November 2022. No NSAID use. No significant caffeine use. Review of Systems Review of Systems: Twelve systems were reviewed and are negative except for as per HPI. [facility] Past Medical History Medical History Alcohol abuse Alcohol withdrawal seizure Anxiety Chronic anemia Depression Gastroesophageal reflux disease Hepatic steatosis History of fracture Including clavicle fracture left foot fracture. Subarachnoid hemorrhage Surgical History Surgical History History of appendectomy Family History Family History Sibling Multiple sclerosis Sibling Father Colon cancer Arthritis Parents Mother Throat cancer Parents Social History Social History Social History: Surrogate decision maker: Baldemar Strong, saraer. Code status: Full code. Smoking status: Never smoker Alcohol intake: former Drinks per week: 20 Alcohol use details: Drinks 6 to 8 airplane shots a day. Substance use: never Substance use type: does not use Lack of Transportation: No Lack of Food: Never True Current Housing: I Do Not Have Housing Concerned About Future Housing: No Difficulty Paying Gas/Electric Bills: No Difficulty Paying for Meds: No Currently Unemployed: No Education: High School Diploma/GED Difficulty w/ Childcare or Family Care: No Living arrangements: with family Additional living arrangements comments: The patient lives in [place] with her brother. Occupation/Education: unemployed Additional occupation/education comments: Unemployed. Spiritual care concerns: No Meds Home Medications and Allergies Home Medications Medication Instructions Recorded Confirmed Type acetaminophen 650 mg 650 mg PO Q8H PRN Pain 08/09/22 05/20/23 History tablet,extended release Allergies Allergy/AdvReac Type Severity Reaction Status Date / Time monosodium glutamate AdvReac Intermediate Vomiting Verified 05/20/23 18:51 Vital Signs Vital Signs - 24 hr 05/20/23 14:05 05/20/23 14:28 05/20/23 14:29 Temperature 98.3 F Pulse Rate
[2023-05-20 23:17] LABS: Hemoglobin 8.8 g/dL (12.0-15.0)
[2023-05-20] MEDS: IRON SUCROSE COMPLEX 100 MG in SODIUM CHLORIDE 0.9% IV 50 ML 220 MG IVPB (23:58)
[2023-05-21] VITALS (14 sets, daily range): BP systolic 121–152; BP diastolic 74–93; PULSE 83–97; RESP 16–18; TEMP 35.8–37.2; O2SAT 91–98
[2023-05-21] MEDS: ACETAMINOPHEN 325 MG TABLET 650 MG PO ×2 (00:06→16:13)
[2023-05-21 06:09] LABS: Hematocrit 29.5 % (37.0-47.0); Hemoglobin 8.8 g/dL (12.0-15.0); Mean Corpuscular HGB Conc 29.8 g/dl (32-36); Mean Corpuscular Hemoglobin 22.6 pg (26-34); Mean Corpuscular Volume 75.8 fl (80-100); Mean Platelet Volume 8.9 fl (7.4-10.4); Platelet Count Result 384 k/mm3 (150-375); Red Blood Count 3.89 M/mm3 (4.2-5.4); Red Cell Distribution Width 26.5 % (11.5-14.5); White Blood Count 6.8 K/mm3 (4.5-10.0)
--- NOTE | 2023-05-21 10:47 | PM.IMPN ---
Progress Note: A&P Assessment and Plan (1) Symptomatic anemia: Code(s): D64.9 - Anemia, unspecified Status: Acute Assessment and Plan: Initial H&H 3.6/14.4, currently 8.8/29.5 with pending H&H this afternoon and CBC with morning labs. Patient received 3 units PRBCs and IV Iron. Will initiate oral iron supplementation. (2) Iron deficiency anemia: Code(s): D50.9 - Iron deficiency anemia, unspecified Status: Acute Assessment and Plan: See above (3) Lower extremity edema: Code(s): R60.0 - Localized edema Status: Acute Assessment and Plan: Lower extremity edema nearly resolved. No pain, no calf tenderness. Likely dependent edema from patient's exercise intolerance over the past couple weeks leading to a lot of sitting with legs down. (4) Hypokalemia: Code(s): E87.6 - Hypokalemia Status: Acute Assessment and Plan: Chemistry panel notes potassium of 2.9. Ordered oral replacement BID, will recheck on AM labs. Patient has history of such in the past. Time Spent With Patient Time with patient: 25 - 35 minutes Subjective Date/time seen: 05/21/23 10:47 Interval history: This is a 63-year-old female patient who was admitted to the hospital for symptomatic anemia. Patient reports that for the past couple weeks she has been feeling more worn out more weak with activity. She noticed yesterday that her lower extremities were swollen so she went to walk to the bus stop to take the bus to the hospital but she became short of breath and weak so EMS was called. In the emergency department patient found to have a hemoglobin of 3.6. She was admitted and transfused 3 units packed red blood cells. Patient denies any known blood loss. She states normal appearing stools. History of chronic alcoholism stopped drinking about 6 months ago. She reports decent appetite and varied diet. Patient states that she feels much better after blood transfusions and has symptoms of adverse reaction. Patient did report that she did not rest well overnight felt mildly anxious and had a mild frontal headache. Review of Systems Review of Systems: All systems reviewed & are unremarkable except as noted in HPI and below Exam Narrative: Const:?? Thin female in th e semi-Clayton posi tion in bed in no acute distress. ? HENMT:?? Normocephalic, at raumatic. Nares pa tent bilaterally. Moist mucous membr anes. ? Eyes:?? Pupils are reacti ve.? Extraocular m otions intact.? Sc lerae anicteric.? Conjunctiva are mi ldly pale. ? Neck:?? Supple. No JVD ? Resp:?? Respirations are nonlabored and madie gs are clear to au scultation. ? Cardio:?? Regular rate rhyt hm with normal S1- S2. ? GI:?? Abdomen is soft, nontender, and non distended with pos itive bowel sounds . ? Skin:?? Warm, dry, and mi ldly pale. ? Neuro:?? Alert. No gross f ocal deficits to c asual conversation . ? Extrem:?? No cyanosis or cl ubbing. 1+ lower e xtremity edema to mid vásquez bilateral ly. No palpable kn ots or cords. Nega tive Saulo sign. ? Psych:?? Pleasant and coop erative with appro priate mood and af fect. ?
[2023-05-21 11:33] LABS: Alanine Aminotransferase 17 U/L (6-35); Albumin Level 3.2 g/dL (3.5-5.1); Alkaline Phosphatase 91 U/L (38-126); Anion Gap 6 mmol/L (8-16); Aspartate Amino Transferase 33 U/L (14-36); Bilirubin,Total 0.7 mg/dL (0.2-1.3); Blood Urea Nitrogen 5 mg/dL (7-17); Carbon Dioxide 29 mmol/L (22-30); Chloride 104 mmol/L (98-107); Estimated CRCL calculation 79 ml/min; Estimated Glomerular Filt Rate > 60; Glucose 97 mg/dL (65-110); Magnesium 1.8 mg/dL (1.6-2.3); Potassium 2.9 mmol/L (3.4-5.0); Sodium 139 mmol/L (137-145)
[2023-05-21 15:08] LABS: Hematocrit 28.5 % (37.0-47.0); Hemoglobin 8.5 g/dL (12.0-15.0)
[2023-05-21] MEDS: POTASSIUM CHLORIDE 20 MEQ ER TABLET 40 MEQ PO (16:13)
[2023-05-21] MEDS: FERROUS SULFATE 324 MG TABLET PO (18:55)
[2023-05-21] MEDS: PANTOPRAZOLE 40 MG TABLET PO (18:55)
[2023-05-21] MEDS: PANTOPRAZOLE SODIUM IV 40 MG VIAL IV PUSH (20:06)
[2023-05-21] MEDS: DOCUSATE SODIUM 100 MG CAPSULE PO (20:06)
--- NOTE | 2023-05-21 22:10 | ECHO_ITS ---
Patient Info Name: Radha Strong Age: 63 years : 1960 Gender: Female Ht: 63 in Wt: 170 lbs BSA: 1.88 m2 HR: 94 bpm BP: 152 / 93 mmHg Heart Rhythm: Sinus Rhythm Technical Quality: Fair Exam Date: 05/21/2023 10:42 AM Exam Location: [facility] Patient Status: Outpatient Admit Date: 05/20/2023 Staff Ordering Physician: Deysi Jasso PA-C Still Operator Gin: Devin Jean RDCS Attending Provider: Jb De León MD Referring Physician: Romero WATERS; Exam Type: CA echo doppler color flow Study Info Indications - EDEMA/SOB/Elevated BNP Complete two-dimensional, color flow and Doppler transthoracic echocardiogram is performed. Summary 1. Complete two-dimensional, color flow and Doppler transthoracic echocardiogram is performed. 2. Left ventricular chamber dimension is normal. 3. Left ventricular systolic function is normal, estimated at 50-55%. 4. Right ventricular systolic function is normal. 5. Left atrial chamber dimension is mildly enlarged. 6. Right atrial chamber dimension is mildly enlarged. 7. There is mild mitral valve regurgitation. 8. There is mild tricuspid valve regurgitation. 9. There is small anterior pericardial effusion. Left Ventricle Left ventricular chamber dimension is normal. Left ventricular systolic function is normal, estimated at 50-55%. There is no increased left ventricular wall thickness. Right Ventricle Right ventricular chamber dimension is normal. Right ventricular systolic function is normal. Left Atria Left atrial chamber dimension is mildly enlarged. Right Atria Right atrial chamber dimension is mildly enlarged. Aortic Valve The aortic valve is trileaflet. There is no aortic valve stenosis. There is no aortic valve regurgitation. Pulmonic Valve The pulmonic valve is not well visualized. Mitral Valve There is mild mitral valve regurgitation. The mitral valve annulus is mildly calcified. Tricuspid Valve There is mild tricuspid valve regurgitation. Pericardium/Pleural There is small anterior pericardial effusion. Inferior Vena Cava Normal inferior vena cava with >50% collapse upon inspiration consistent with normal right atrial pressure, 3 mmHg. Aorta The aortic root size at the sinus of Valsalva is normal. Left Ventricular Outflow Tract Name Value Normal LVOT 2D LVOT Diameter 1.8 cm LVOT Doppler LVOT Peak Gradient 6 mmHg LVOT Mean Gradient 3 mmHg LVOT VTI 23 cm LVOT VTI/AV VTI Ratio 0.9 LVOT Stroke Volume 60 ml LVOT CO 5.8 l/min LVOT CI 3.1 l/min/m2 Pulmonic Valve Name Value Normal RVOT Doppler RVOT Peak Gradient 2 mmHg PV Doppler PV Peak Gradient
[2023-05-22] VITALS (12 sets, daily range): BP systolic 104–122; BP diastolic 68–85; PULSE 72–113; RESP 16–20; TEMP 35.8–36.1; O2SAT 95–98
[2023-05-22 06:28] LABS: Hematocrit 28.5 % (37.0-47.0); Hemoglobin 8.5 g/dL (12.0-15.0); Mean Corpuscular HGB Conc 29.8 g/dl (32-36); Mean Corpuscular Hemoglobin 22.8 pg (26-34); Mean Corpuscular Volume 76.4 fl (80-100); Mean Platelet Volume 9.2 fl (7.4-10.4); Platelet Count Result 369 k/mm3 (150-375); Red Blood Count 3.73 M/mm3 (4.2-5.4); Red Cell Distribution Width 27.9 % (11.5-14.5); White Blood Count 6.2 K/mm3 (4.5-10.0)
[2023-05-22 06:40] LABS: Alanine Aminotransferase 14 U/L (6-35); Albumin Level 3.2 g/dL (3.5-5.1); Alkaline Phosphatase 81 U/L (38-126); Anion Gap 5 mmol/L (8-16); Aspartate Amino Transferase 26 U/L (14-36); Bilirubin,Total 0.5 mg/dL (0.2-1.3); Blood Urea Nitrogen 5 mg/dL (7-17); Calcium 8.4 mg/dL (8.4-10.2); Carbon Dioxide 29 mmol/L (22-30); Chloride 105 mmol/L (98-107); Estimated CRCL calculation 61 ml/min; Estimated Glomerular Filt Rate > 60; Glucose 95 mg/dL (65-110); Potassium 3.7 mmol/L (3.4-5.0); Sodium 139 mmol/L (137-145)
--- NOTE | 2023-05-22 07:21 | PC.NURSE ---
tim informed to call consult to Gi this morning
[2023-05-22] MEDS: PANTOPRAZOLE SODIUM IV 40 MG VIAL IV PUSH ×2 (08:46→20:12)
[2023-05-22] MEDS: POTASSIUM CHLORIDE 20 MEQ ER TABLET 40 MEQ PO ×2 (08:47→16:34)
[2023-05-22] MEDS: ASCORBIC ACID 500 MG TABLET PO ×3 (08:47→16:34)
[2023-05-22] MEDS: PANTOPRAZOLE 40 MG TABLET PO (08:47)
[2023-05-22] MEDS: FERROUS SULFATE 324 MG TABLET PO ×3 (08:47→16:34)
[2023-05-22] MEDS: DOCUSATE SODIUM 100 MG CAPSULE PO (08:48)
--- NOTE | 2023-05-22 10:22 | PM.IMPN ---
Progress Note: A&P Assessment and Plan (1) Symptomatic anemia: Code(s): D64.9 - Anemia, unspecified Status: Acute Assessment and Plan: A severe symptomatic anemia with a hemoglobin of 3.6 unknown cause of blood loss consider Toni Aragon. GI is consulted. Patient had received 3 units packed red blood cells and repeated H&H are stable now 8.5/28.5. (2) Iron deficiency anemia: Code(s): D50.9 - Iron deficiency anemia, unspecified Status: Acute Assessment and Plan: see above (3) Hypokalemia: Code(s): E87.6 - Hypokalemia Status: Acute Assessment and Plan: Initially 2.9, on BID replacement. Morning labs 3.7. Will check again with morning labs. (4) Lower extremity edema: Code(s): R60.0 - Localized edema Status: Acute Assessment and Plan: Now resolved, was felt to be due to high output failure. Plan GI consult Iron supplementation continue PPI Check morning labs for above. Time Spent With Patient Time with patient: 25 - 35 minutes Subjective Date/time seen: 05/22/23 10:22 Interval history: 05/21: This is a 63-year-old female patient who was admitted to the hospital for symptomatic anemia.? Patient reports that for the past couple weeks she has been feeling more worn out more weak with activity.? She noticed yesterday that her lower extremities were swollen so she went to walk to the bus stop to take the bus to the hospital but she became short of breath and weak so EMS was called.? In the emergency department patient found to have a hemoglobin of 3.6.? She was admitted and transfused 3 units packed red blood cells.? Patient denies any known blood loss.? She states normal appearing stools.? History of chronic alcoholism stopped drinking about 6 months ago.? She reports decent appetite and varied diet. Patient states that she feels much better after blood transfusions and has symptoms of adverse reaction.? Patient did report that she did not rest well overnight felt mildly anxious and had a mild frontal headache. 05/22: Patient reports that she rested well overnight and is now headache free. She feels like she has much more energy today. Patient states that she is ambulatory with a steady gait no signs of dizziness or lightheadedness. Patient denies any shortness of breath with rest or exertion. Patient denies nausea vomiting states that she has good appetite and is eating well including snacking on Luis M burgess between meals. Review of Systems Review of Systems: All systems reviewed & are unremarkable except as noted in HPI and below Exam Narrative: Const:? Thin female in th ? e semi-Clayton posi ? tion in bed in no ? acute distress. ? HENMT:? Normocephalic, at ? raumatic. Nares pa ? tent bilaterally. ? Moist mucous membr ? anes. ? Eyes:? Pupils are reacti ? ve.? Extraocular m ? otions intact.? Sc ? lerae anicteric.? Conjunctiva are mi ? ldly pale. ? Neck:? Supple. No JVD ? Resp:? Respirations are ? nonlabored and madie ? gs are clear to au ? scultation. ? Cardio:? Regular rate rhyt ? hm with normal S1- ? S2. ? GI:? Abdomen is soft, ? nontender, and non ? distended with pos ? itive bowel sounds ? . ? Skin:? Warm, dry, and mi ? ldly pale. ? Neuro:? Alert. No gross f ? ocal deficits to c ? asual conversation ? . ? Extrem:? No cyanosis or cl ? ubbing. edema resolv
--- NOTE | 2023-05-22 14:05 | WPDGICN ---
Assessment and Plan Assessment and plan (1) Iron deficiency anemia: Code(s): D50.9 - Iron deficiency anemia, unspecified Status: Acute Assessment and Plan: Patient with iron deficiency anemia. Symptoms appear to develop over the last 3 weeks but there has been no indication for GI blood loss. Agree with indication for both colonoscopy an EGD which will be performed Thursday. As her stool is Hemoccult negative this is not an emergency and had certainly be performed as an outpatient if necessary. Given no history of bleeding and Hemoccult negative stools we may need to consider Hematology evaluation for her rather profound anemia. This will become especially important if endoscopy is unremarkable. (2) Family history of colon cancer in father: Code(s): Z80.0 - Family history of malignant neoplasm of digestive organs Status: Acute Assessment and Plan: Patient's father had colon cancer. Yet another indication for anticipated colonoscopy. Consider this at 5 year intervals. (3) History of alcohol abuse: Code(s): F10.11 - Alcohol abuse, in remission Status: Acute Assessment and Plan: Patient currently abstinent from alcohol. Continued long-term abstinence strongly encouraged. GI Consult Note Consult date/time: 05/22/23 14:05 Reason for consult: Iron deficiency anemia HPI: Radha Strong is a 63 year old female I am asked to see at the request of the hospitalist service because of iron deficiency anemia. Patient reports over the last 3 weeks as she has become progressively weak and short of breath. Her ankles began to swell. Patient eventually presented to the emergency room was found have rather profound microcytic anemia. Patient denies any obvious blood in her stools. In fact stools were confirmed to be Hemoccult negative. Patient denies abdominal pain. She has had no bleeding in the past. She has no history of ulcers. She has no bruises nor nose bleeds nor blood in her urine. Patient has never had a colonoscopy before she states her father had colon cancer. Past medical history is significant for alcohol abuse. She has stayed away from alcohol since November of this year. 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 Her family history is noncontributory. Review of Systems Review of Systems: Review of systems noncontributory. [facility] Past Medical History Medical History Alcohol abuse Alcohol withdrawal seizure Anxiety Chronic anemia Depression Gastroesophageal reflux disease Hepatic steatosis History of fracture Including clavicle fracture left foot fracture. Subarachnoid hemorrhage Surgical History Surgical History History of appendectomy Family History Family History Sibling Multiple sclerosis Sibling Father Colon cancer Arthritis Parents Mother Throat cancer Parents Social History Social History Social History: Surrogate decision maker: Baldemar sara Stronger. Code status: Full code. Smoking status: Never smoker Alcohol intake: former Drinks per week: 20 Alcohol use details: Drinks 6 to 8 airplane shots a day. Substance use: never Substance use type: does not use Lack of Transportation: No Lack of Food: Never True Current Housing: I Do Not Have Housing Concerned About Future Housing: No Difficulty Paying Gas/Electric Bills: No Difficulty Paying for Meds: No Currently Unemployed: No Education: High School Diploma/GED Difficulty w/ Childcare or Family Care: No Living arrangements: with family Additional living arrangements comments: The patient lives in [place] with her brothe
--- NOTE | 2023-05-22 17:43 | PDONCCN ---
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 Labs showed hemoglobin of 3.6 with MCV of 64. She denies any bleeding including melena hematochezia. She never had colonoscopy done in the past. Patient received 2 units of packed red blood cells with improvement in hemoglobin now to 8.5. She denies any previous stomach surgeries. She denies being a vegetarian. No other new complaints. Review of Systems - Review of Systems All systems reviewed & are unremarkable except as noted in [facility] and [facility] Medical History: Medical History (Last Reviewed 05/20/23 @ 22:03 by Deysi Jasso PA-C) Alcohol abuse Alcohol withdrawal seizure Anxiety Chronic anemia Depression Gastroesophageal reflux disease Hepatic steatosis History of fracture Including clavicle fracture left foot fracture. Subarachnoid hemorrhage Surgical History: Surgical History (Last Reviewed 05/20/23 @ 22:03 by Deysi Jasso PA-C) History of appendectomy Family History: Family History (Last Reviewed 05/20/23 @ 22:03 by Deysi Jasso PA-C) Sibling Multiple sclerosis Sibling Father Colon cancer Arthritis Parents Mother Throat cancer Parents - Social History Social History: Social History (Last Reviewed 05/20/23 @ 22:03 by Deysi Jasso PA-C) Alcohol Use: Alcohol intake: former Drinks per week: 20 Alcohol use details: Drinks 6 to 8 airplane shots a day. Substance Use: Substance use: never Substance use type: does not use Others: Spiritual care concerns: No Living Arrangements: Living arrangements: with family Oppucation/Education: Occupation/Education: unemployed Smoking Status: Smoking status: Never smoker Social Determinants of Health: Has the Lack of Transportation Kept You From Medical Appointments or From Getting Medications?: No Within the Past 12 Months, Were You Worried Whether Your Food Would Run Out Before You Got Money to Buy More?: Never True What is Your Housing Situation Today?: I Do Not Have Housing Are You Worried That in the Next 2 Months, You May Not Have Your Own Housing to Live In?: No Do You Have Trouble Paying Your Heating Or Electricity Bill?: No Do You Have Trouble Paying For Medicines?: No Are You Currently Unemployed and Looking for Work?: No Highest Level of Education Completed: High School Diploma/GED Do You Have Trouble With Childcare or the Care of a Family Member?: No Exam - Vital Signs Vital Signs - 24 hr 05/21/23 20:00 05/21/23 20:20 05/21/23 20:20 Temperature 37.2 C Pulse Rate 90 83 Respiratory Rate 18 16 Blood Pressure 124/81 Pulse Oximetry 94 98 Oxygen Delivery Room Air 05/21/23 20:22 05/21/23 20:24 05/21/23 20:00 Temperature Pulse Rate 84 Respiratory Rate Blood Pressure 137/87 132/74 Pulse Oximetry Oxygen Delivery 05/22/23 00:00 05/22/23 00:39 05/22/23 04:00 Temperature Pulse Rate 86 72 Respiratory Rate Blood Pressure Pulse Oximetry 97 Oxygen Delivery Room Air 05/22/23 04:57 05/22/23 08:00 05/22/23 08:26 Temperature 36.1 C L 36.1 C L Pulse Rate 80 89 103 H Respiratory Rate 16 20 Blood Pressure 113/68 105/70 122/82 Pulse Oximetry 97 98 97 Oxygen Delivery 05/22/23 08:26 05/22/23 08:57 05/22/23 08:55 Temperature Pulse Rate 113 H Respiratory Rate Blood Pressure 121/85 Pulse Oximetry 96 95 Oxygen Delivery Room Air Room Air 05/22/23 08:00 05/22/23 14:00 Temperature 36.1 C L Pulse Rate 84 91 Respirat
--- NOTE | 2023-05-22 20:56 | PC.NURSE ---
occult stool sent to lab
[2023-05-22 21:11] LABS: IFOB Positive Control Positive; Immunochemical Fecal Occult Bl Negative (N)
[2023-05-23] VITALS (8 sets, daily range): BP systolic 96–127; BP diastolic 68–89; PULSE 82–98; RESP 14–18; TEMP 35.7–36.4; O2SAT 95–100
[2023-05-23 06:34] LABS: Hematocrit 30.1 % (37.0-47.0); Hemoglobin 8.7 g/dL (12.0-15.0); Mean Corpuscular HGB Conc 28.9 g/dl (32-36); Mean Corpuscular Hemoglobin 22.8 pg (26-34); Mean Corpuscular Volume 78.8 fl (80-100); Mean Platelet Volume 8.9 fl (7.4-10.4); Platelet Count Result 413 k/mm3 (150-375); Red Blood Count 3.82 M/mm3 (4.2-5.4); Red Cell Distribution Width 29.6 % (11.5-14.5); White Blood Count 9.4 K/mm3 (4.5-10.0)
[2023-05-23 06:48] LABS: Alanine Aminotransferase 15 U/L (6-35); Albumin Level 3.6 g/dL (3.5-5.1); Alkaline Phosphatase 80 U/L (38-126); Anion Gap 2 mmol/L (8-16); Aspartate Amino Transferase 28 U/L (14-36); Bilirubin,Total 0.4 mg/dL (0.2-1.3); Blood Urea Nitrogen 7 mg/dL (7-17); Calcium 8.8 mg/dL (8.4-10.2); Carbon Dioxide 29 mmol/L (22-30); Chloride 104 mmol/L (98-107); Estimated CRCL calculation 74 ml/min; Estimated Glomerular Filt Rate > 60; Glucose 93 mg/dL (65-110); Sodium 135 mmol/L (137-145)
[2023-05-23] MEDS: ASCORBIC ACID 500 MG TABLET PO ×3 (09:32→17:51)
[2023-05-23] MEDS: FERROUS SULFATE 324 MG TABLET PO ×3 (09:32→17:51)
[2023-05-23] MEDS: IRON SUCROSE COMPLEX 500 MG in SODIUM CHLORIDE 0.9% IV 250 ML 78.57 MG IVPB (09:32)
[2023-05-23] MEDS: PANTOPRAZOLE SODIUM IV 40 MG VIAL IV PUSH ×2 (09:32→21:15)
[2023-05-23] MEDS: POTASSIUM CHLORIDE 20 MEQ ER TABLET 40 MEQ PO (09:32)
[2023-05-23] MEDS: DOCUSATE SODIUM 100 MG CAPSULE PO ×2 (09:32→21:15)
--- NOTE | 2023-05-23 09:42 | WPDGIPROGNO ---
Progress Note: A&P Assessment and Plan (1) Iron deficiency anemia: Code(s): D50.9 - Iron deficiency anemia, unspecified Status: Acute Assessment and Plan: Patient with rather profound iron deficiency anemia. No evidence for active blood loss. No history of bleeding. Stool in fact is heme negative. Plan for colonoscopy and EGD tomorrow after preparation today. (2) Family history of colon cancer in father: Code(s): Z80.0 - Family history of malignant neoplasm of digestive organs Status: Acute (3) History of alcohol abuse: Code(s): F10.11 - Alcohol abuse, in remission Status: Acute Subjective Date/time seen: 05/23/23 09:42 Interval history: Patient alert comfortable. Denies abdominal pain. Has had no bleeding. Tolerating diet without difficulty. Review of Systems Review of Systems: Review of systems noncontributory. Exam Narrative: Physical exam reveals patient be alert. Vital signs stable. HEENT exam is unremarkable. Patient is anicteric. Lungs are clear to auscultation and percussion. Heart is without murmur or extra sounds. Abdomen bowel sounds present soft nontender no organomegaly. Objective Data Vital Signs Vital Signs: Vital Signs - 24 hr 05/22/23 14:00 05/22/23 19:47 05/22/23 20:00 Temperature 96.9 F L 96.5 F L Pulse Rate 91 91 96 Respiratory Rate 16 16 16 Blood Pressure 104/68 114/69 Pulse Oximetry 98 98 98 Oxygen Delivery Room Air 05/22/23 20:20 05/22/23 20:25 05/23/23 06:00 Temperature 96.3 F L Pulse Rate 98 Respiratory Rate 14 Blood Pressure 121/77 116/76 96/68 L Pulse Oximetry 99 Oxygen Delivery 05/23/23 08:00 05/23/23 08:04 05/23/23 08:05 Temperature 97.5 F L Pulse Rate 91 Respiratory Rate 16 Blood Pressure 118/70 123/74 114/72 Pulse Oximetry 100 Oxygen Delivery Intake/Output Intake/Output: Intake & Output 05/20/23 05/21/23 05/22/23 05/23/23 23:59 23:59 23:59 23:59 Intake Total 1950 1125 1740 950 Output Total 1100 2100 700 Balance 1950 25 -360 250 Meds/Results Medications: Active Medications Generic Name Dose Route Start Last Admin Trade Name Royal PRN Reason Stop Dose Admin Acetaminophen 650 mg 05/20/23 22:11 05/21/23 16:13 Acetaminophen 325 Mg Tablet PO 650 mg Q8H PRN Administration Pain Ascorbic Acid 500 mg 05/22/23 08:00 05/23/23 09:32 Ascorbic Acid 500 Mg Tablet PO 500 mg TIDWM WILMER Administration Docusate Sodium 100 mg 05/21/23 21:00 05/23/23 09:32 Docusate Sodium 100 Mg Capsule PO 100 mg Q12HR WILMER Administration Ferrous Sulfate 324 mg 05/21/23 18:00 05/23/23 09:32 Ferrous Sulfate 324 Mg Tablet PO 324 mg TIDWM WILMER Administration Iron Sucrose 500 mg/ Sodium 275 mls @ 78.571 mls/hr 05/23/23 09:00 05/23/23 09:32 Chloride IVPB 05/25/23 08:59 78.57 mls/hr DAILY WILMER Administration Ondansetron HCl 4 mg 05/21/23 17:06 Ondansetron Inj 4 Mg/2 Ml Vial IV PUSH Q6H PRN Nausea And Vomiting Pantoprazole Sodium 40 mg 05/21/23 21:00 05/23/23 09:32 Pantoprazole Sodium Iv 40 Mg Vial IV PUSH 40 mg Q12HR WILMER Administration Potassium Chloride 40 meq 05/21/23 17:00 05/23/23 09:32 Potassium Chloride 20 Meq Er Tablet PO 40 meq BIDWM WILMER Administration Radiology Results: ITS Impressions Chest X-Ray 05/20/23 14:57 IMPRESSION: 1. Blunting of right posterior costophrenic angle, consistent with atelectasis/scarring versus tiny pleural effusion. 2. Large hiatal hernia. Labs Labs: Laboratory Results - last 24 hr 05/22/23 05/22/23 05/23/23 15:32 19:33 06:13 WBC 9.4 RBC 3.82 L Hgb 8.7 L Hct 30.1 L MCV 78.8 L MCH 22.8 L MCHC 28.9 L RDW 29.6 H Plt Count 413 H MPV 8.9 Sodium 135 L Potassium 4.0 Chloride 104 Carbon Dioxide 29 Anion Gap 2 L BUN 7 Creatinine 0.50 L Estim Creat Clear Calc 74 Estima
--- NOTE | 2023-05-23 11:16 | PM.IMPN ---
Progress Note: A&P Assessment and Plan (1) Iron deficiency anemia: Code(s): D50.9 - Iron deficiency anemia, unspecified Status: Acute Assessment and Plan: Patient admitted with severe and symptomatic iron deficiency anemia and has undergone blood transfusion x2 as well as iron infusion x2 with additional iron infusions schedule tomorrow. Hemoccult negative while hospitalized however patient has family history of colon cancer so she will undergo EGD and colonoscopy tomorrow per GI service. (2) Symptomatic anemia: Code(s): D64.9 - Anemia, unspecified Status: Acute Assessment and Plan: See above (3) Hypokalemia: Code(s): E87.6 - Hypokalemia Status: Acute Assessment and Plan: Improved with adequate dietary intake and supplementation. Plan Repeat iron infusion tomorrow and undergo EGD and colonoscopy. Time Spent With Patient Time with patient: 25 - 35 minutes Subjective Date/time seen: 05/23/23 11:16 Interval history: 05/21: This is a 63-year-old female patient who was admitted to the hospital for symptomatic anemia.? Patient reports that for the past couple weeks she has been feeling more worn out more weak with activity.? She noticed yesterday that her lower extremities were swollen so she went to walk to the bus stop to take the bus to the hospital but she became short of breath and weak so EMS was called.? In the emergency department patient found to have a hemoglobin of 3.6.? She was admitted and transfused 2 units packed red blood cells.? Patient denies any known blood loss.? She states normal appearing stools.? History of chronic alcoholism stopped drinking about 6 months ago.? She reports decent appetite and varied diet. Patient states that she feels much better after blood transfusions and has symptoms of adverse reaction.? Patient did report that she did not rest well overnight felt mildly anxious and had a mild frontal headache. 05/22:? Patient reports that she rested well overnight and is now headache free.? She feels like she has much more energy today.? Patient states that she is ambulatory with a steady gait no signs of dizziness or lightheadedness.? Patient denies any shortness of breath with rest or exertion.? Patient denies nausea vomiting states that she has good appetite and is eating well including snacking on Luis M crackers between meals. 05/23: Patient was seen yesterday Dr. Jennings with Hematology and orders placed for daily iron infusion x2 days. Additionally, gastroenterology plans to complete EGD and colonoscopy on Thursday due to severe symptomatic anemia on admission. Patient reports she did not rest well last night complaining hypersensitivity to bodily sensations. She states that she was really restless and felt like her skin hurt to even touch the sheets. Today she plans on showering and changing sheets to see if this helps. Offered antianxiety medication but patient declined at this time. She denies any chest pain, shortness a breath, nausea, vomiting or diarrhea. She states she had a normal bowel movement earlier this morning. She reports adequate appetite and was seen eating her breakfast upon examination. Review of Systems Review of Systems: All systems reviewed & are unremarkable except as noted in HPI and below Exam Narrative: Const:? Thin female in eating breakfast in bed in no ? acute distress. ? HENMT:? Normocephalic, at ? raumatic. Nares pa ? tent bilaterally. ? Moist mucous membr ? anes. ? Eyes:? Pupils are reacti ? ve.? Extraocular m ? otions intact.? Sc ? lerae anicteric.? Conjunctiva are mi ? ldly pale. ? Neck:? Supple. No JVD ? Resp:? Respirations are ? nonlabored and kam
[2023-05-23] MEDS: PEG (High)/E-LYTE SOLN 4,000 ML BTL 4000 ML PO (14:18)
[2023-05-24] VITALS (8 sets, daily range): BP systolic 85–122; BP diastolic 55–82; PULSE 74–99; RESP 14–20; TEMP 36.1–36.6; O2SAT 95–100
--- NOTE | 2023-05-24 06:17 | PC.NURSE ---
Spoke with Dr. Serrano to tell him patient wouldn't finish bowel prep and did not have clear stool. Dr. Serrano says well it's too late now then hung up the phone.
[2023-05-24 06:34] LABS: Hematocrit 30.8 % (37.0-47.0); Hemoglobin 8.8 g/dL (12.0-15.0); Mean Corpuscular HGB Conc 28.6 g/dl (32-36); Mean Corpuscular Hemoglobin 23.5 pg (26-34); Mean Corpuscular Volume 82.1 fl (80-100); Mean Platelet Volume 9.1 fl (7.4-10.4); Platelet Count Result 386 k/mm3 (150-375); Red Blood Count 3.75 M/mm3 (4.2-5.4); Red Cell Distribution Width 31.2 % (11.5-14.5)
[2023-05-24 06:44] LABS: Alanine Aminotransferase 16 U/L (6-35); Albumin Level 3.4 g/dL (3.5-5.1); Alkaline Phosphatase 77 U/L (38-126); Anion Gap 3 mmol/L (8-16); Aspartate Amino Transferase 33 U/L (14-36); Bilirubin,Total 0.5 mg/dL (0.2-1.3); Blood Urea Nitrogen 8 mg/dL (7-17); Calcium 8.7 mg/dL (8.4-10.2); Carbon Dioxide 29 mmol/L (22-30); Chloride 103 mmol/L (98-107); Estimated CRCL calculation 69 ml/min; Estimated Glomerular Filt Rate > 60; Glucose 87 mg/dL (65-110); Potassium 4.2 mmol/L (3.4-5.0); Sodium 135 mmol/L (137-145)
--- NOTE | 2023-05-24 07:39 | WPDANESEPPF ---
Anes - Initial Pre Proc Eval Procedure: Operation Date: 05/24/23 08:30 Proposed Procedures p Esophagogastroduodenoscopy & Colonoscopy - Lonnie Serrano MD Date/Time: 05/24/23 07:39 Surgeon: Jb De León MD Pre Op Diagnosis: Anemia Patient Data Age: 63 Gender: F Height: 1.6 m Weight: 45.3 kg Last Vital Signs Temp 36.1 C L 05/24/23 06:00 Pulse 74 05/24/23 06:00 Resp 14 05/24/23 06:00 BP 106/63 05/24/23 06:00 Pulse Ox 96 05/24/23 06:00 O2 Del Method Room Air 05/23/23 20:00 O2 Flow Rate 2 05/20/23 19:57 Allergies Allergy/AdvReac Type Severity Reaction Status Date / Time monosodium glutamate AdvReac Intermediate Vomiting Verified 05/24/23 07:59 Home Medications Medication Instructions Recorded Confirmed Type acetaminophen 650 mg 650 mg PO Q8H PRN Pain 08/09/22 05/20/23 History tablet,extended release Laboratory Tests 05/24/23 06:20 WBC 7.0 K/mm3 (4.5-10.0) RBC 3.75 L M/mm3 (4.2-5.4) Hgb 8.8 L g/dL (12.0-15.0) Hct 30.8 L % (37.0-47.0) MCV 82.1 fl (80-100) MCH 23.5 L pg (26-34) MCHC 28.6 L g/dl (32-36) RDW 31.2 H % (11.5-14.5) Plt Count 386 H k/mm3 (150-375) MPV 9.1 fl (7.4-10.4) Sodium 135 L mmol/L (137-145) Potassium 4.2 mmol/L (3.4-5.0) Chloride 103 mmol/L (98-107) Carbon Dioxide 29 mmol/L (22-30) Anion Gap 3 L mmol/L (8-16) BUN 8 mg/dL (7-17) Creatinine 0.50 L mg/dL (0.7-1.0) Estim Creat Clear Calc 69 ml/min Estimated GFR > 60 (59 - ) Glucose 87 mg/dL (65-110) Calcium 8.7 mg/dL (8.4-10.2) Total Bilirubin 0.5 mg/dL (0.2-1.3) AST 33 U/L (14-36) ALT 16 U/L (6-35) Alkaline Phosphatase 77 U/L (38-126) Total Protein 7.0 g/dL (6.3-8.2) Albumin 3.4 L g/dL (3.5-5.1) Patient hx anesthesia problems: none Family hx anesthesia problems: none Results Review: All pre-operative results and documents have been reviewed as part of the pre-operative evaluation. [facility] Past Medical History Medical History Alcohol abuse Alcohol withdrawal seizure Anxiety Chronic anemia Depression Gastroesophageal reflux disease Hepatic steatosis History of fracture Including clavicle fracture left foot fracture. Subarachnoid hemorrhage Surgical History Surgical History History of appendectomy Family History Family History Sibling Multiple sclerosis Sibling Father Colon cancer Arthritis Parents Mother Throat cancer Parents Social History Social History Social History: Surrogate decision maker: Baldemar Strong, brother. Code status: Full code. Smoking status: Never smoker Alcohol intake: former Drinks per week: 20 Alcohol use details: Drinks 6 to 8 airplane shots a day. Substance use: never Substance use type: does not use Lack of Transportation: No Lack of Food: Never True Current Housing: I Do Not Have Housing Concerned About Future Housing: No Difficulty Paying Gas/Electric Bills: No Difficulty Paying for Meds: No Currently Unemployed: No Education: High School Diploma/GED Difficulty w/ Childcare or Family Care: No Living arrangements: with family Additional living arrangements comments: The patient lives in [place] with her brother. Occupation/Education: unemployed Additional occupation/education comments: Unemployed. Spiritual care concerns: No Anes - Eval Final PreProcedure Day of Procedure 05/24/23 07:39 Patient weight: normal Heart: regular rate and rhythm Lungs: clear to auscultation and normal air movement Airway: Mallampati scale class II Neurological: alert and oriented Last or
[2023-05-24] MEDS: LACTATED RINGERS 1,000 ML 150 ML IV CONT (08:04)
[2023-05-24] MEDS: ASCORBIC ACID 500 MG TABLET PO ×2 (09:37→11:21)
[2023-05-24] MEDS: PANTOPRAZOLE 40 MG TABLET PO (09:37)
[2023-05-24] MEDS: IRON SUCROSE COMPLEX 500 MG in SODIUM CHLORIDE 0.9% IV 250 ML 78 MG IVPB (09:38)
--- NOTE | 2023-05-24 12:51 | PM.DS ---
DS: Admitting Diagnosis Discharge Date 05/24/2023 Admitting Diagnosis Symptomatic anemia Iron deficiency anemia Lower extremity edema DS: Discharge Diagnosis Discharge Diagnosis (1) Iron deficiency anemia: Code(s): D50.9 - Iron deficiency anemia, unspecified Status: Acute (2) Symptomatic anemia: Code(s): D64.9 - Anemia, unspecified Status: Acute (3) Hypokalemia: Code(s): E87.6 - Hypokalemia Status: Acute (4) Lower extremity edema: Code(s): R60.0 - Localized edema Status: Acute (5) Family history of colon cancer in father: Code(s): Z80.0 - Family history of malignant neoplasm of digestive organs Status: Acute (6) Gastroesophageal reflux disease: Code(s): K21.9 - Gastro-esophageal reflux disease without esophagitis Status: Acute DS: Summary Hospital Course Reason for hospitalization: This is a 63-year-old female patient who was admitted to the hospital for symptomatic severe anemia without known cause for blood loss. Hospital Course: When patient was admitted she received blood transfusion 2 or 3 units packed red blood cells which brought her hemoglobin from 3.6 up to 8.8. patient reports that her symptoms of weakness and lethargy significantly improved post transfusion. She had no transfusion reactions. Hemoccult was negative. Patient reported varied diet with slight decrease in appetite over the past few weeks. She reports that she has abstained from alcohol the past 6 months was previously chronic alcoholic. Due to severity of anemia hematology and GI Service were consulted. Hematology ordered iron infusions and GI completed an EGD and colonoscopy. EGD revealed evidence of a large healing gastric ulcer and hiatal hernia, no active bleeding and initial biopsy negative for H pylori. Colonoscopy revealed 1 large polyp assumed to be adenoma which was excised and will undergo pathology testing. GI recommends pantoprazole daily as well as iron replacement orally upon discharge. They also recommend repeat CBC and iron studies in 1 month with primary care follow-up. They recommend repeat colonoscopy in 5 years unless pathology indicates need for sooner surveillance. Patient tolerating iron infusion and states that she is ready to go home today. Status at Discharge Cognitive/behavioral status at discharge: Awake, alert, oriented and pleasant Functional status at discharge: independent ambulation Time Spent with Patient Time attestation: Total time spent providing and/or coordinating discharge services: Exam Narrative: Const:? Thin female in eating breakfast in bed in no ? acute distress. ? HENMT:? Normocephalic, at ? raumatic. Nares pa ? tent bilaterally. ? Moist mucous membr ? anes. ? Eyes:? Pupils are reacti ? ve.? Extraocular m ? otions intact.? Sc ? lerae anicteric.? Conjunctiva are mi ? ldly pale. ? Neck:? Supple. No JVD ? Resp:? Respirations are ? nonlabored and madie ? gs are clear to au ? scultation. ? Cardio:? Regular rate rhyt ? hm with normal S1- ? S2. ? GI:? Abdomen is soft, ? nontender, and non ? distended with pos ? itive bowel sounds ? . ? Skin:? Warm, dry, and mi ? ldly pale. ? Neuro:? Alert. No gross f ? ocal deficits to c ? asual conversation ? . ? Extrem:? No cyanosis or cl ? ubbing. edema resolved. No palpable kn ? ots or cords. Nega ?
== END 2023-05-24 15:10 | disposition home or self-care (01) | DRG 241 ==
LOC: ANHED 16:30 → ANH3MEDSUR 17:29
PROVIDERS: Internal Medicine Gastroenterology; Physician Assistant; Admitting Provider Family Medicine; Emergency Provider Emergency Medicine; Visit Provider Nurse Practitioner
PROC: 0DJ08ZZ Inspection of Upper Intestinal Tract, Via Natural or Artificial Opening Endoscopic (ICD-10-PCS; CPT 43235; principal; 2023-05-24 08:30)
DX: K25.4 Chronic or unspecified gastric ulcer with hemorrhage (principal); I50.83 High output heart failure; K76.0 Fatty (change of) liver, not elsewhere classified; D50.9 Iron deficiency anemia, unspecified; E87.6 Hypokalemia; F10.11 Alcohol abuse, in remission; D12.2 Benign neoplasm of ascending colon; F32.A Depression, unspecified; F41.9 Anxiety disorder, unspecified; K21.9 Gastro-esophageal reflux disease without esophagitis; K44.9 Diaphragmatic hernia without obstruction or gangrene; K29.60 Other gastritis without bleeding; Z80.0 Family history of malignant neoplasm of digestive organs
CPT/HCPCS: 36415; 36430; 71046; 80053; 82274; 82728; 83540; 83550; 83690; 83735; 83880; 84484; 85014; 85018; 85025; 85027; 85610; 85730; 86850; 86900; 86901; 86923; 87081; 88305; 93005; 93306; 96361; 96365; 96366; 96374; 96375; 96376; 99285; A9270; C9113; G0378; G0379; J1756; J2704; J7030; J7050; J7120; P9016

== ENCOUNTER 2023-08-17 00:57 | Emergency (ER) | payer SELFPAY ==
--- NOTE | ~2023-08-17 | CT_ITS ---
EXAMINATION: CT cervical spine wo con DATE: 08/17/2023 01:47 INDICATION: Neck injury. TECHNIQUE: Computed tomography (CT) of the cervical spine was performed without intravenous contrast. Automated exposure control and iterative reconstruction technique were employed. The dose-length pro duct was 96.12 mGy-cm. COMPARISON: CT cervical spine 03/19/2019 FINDINGS: There is 3 degrees levocurvature of cervical spine. There is 2 mm anterolisthesis of C4 on C5. Vertebral body heights are normal. There is mildly decreased disc height at C4-C5, C5-C6, and C6- C7. The following disc levels are specifically discussed: C2-C3: There is no uncovertebral joint osteoarthritis. There is severe bilateral facet joint osteoart hritis. There is no neural foraminal stenosis. There is no central canal stenosis. C3-C4: There is no uncovertebral joint osteoarthritis. There is moderate right and severe left facet joint osteoarthritis. There is mild left neural foraminal stenosis. There is no central canal stenosi s. C4-C5: There is mild bilateral uncovertebral joint osteoarthritis. There is mild right and severe lef t facet joint osteoarthritis. There is mild left neural foraminal stenosis. There is no central canal stenosis. C5-C6: There is mild right and moderate left uncovertebral joint osteoarthritis. There is severe bila teral facet joint osteoarthritis. There is mild bilateral neural foraminal stenosis. There is no cent ral canal stenosis. C6-C7: There is mild bilateral uncovertebral joint osteoarthritis. There is severe bilateral facet luca int osteoarthritis. There is mild bilateral neural foraminal stenosis. There is no central canal sten osis. C7-T1: There is no uncovertebral joint osteoarthritis. There is severe right and mild left facet join t osteoarthritis. There is mild right neural foraminal stenosis. There is no central canal stenosis. IMPRESSION: 1. No fracture. 2. Mild cervical spondylosis. Reviewed, dictated and finalized at location E.
--- NOTE | ~2023-08-17 | CT_ITS ---
EXAMINATION: CT brain wo con DATE: 08/17/2023 01:47 INDICATION: Head injury. TECHNIQUE: Computed tomography (CT) of the head was performed without intravenous contrast. The mA wa s adjusted according to patient size. Iterative reconstruction technique was employed. The dose-lengt h product was 605.33 mGy-cm. COMPARISON: Head CT 12/26/2020 FINDINGS: There is diffuse brain volume loss. There is acute subarachnoid hemorrhage in the left sylv yenny fissure and left frontal lobe sulci. There is an acute subdural hematoma overlying left frontal l obe with maximum thickness of 4 mm. There is no acute ischemic infarct or abnormal mass lesion. There are scattered areas of low attenuation in the cerebral white matter, which is within normal limits f or the patient's age. The ventricles are normal in size. There is mild mucosal thickening in the par anasal sinuses. The orbits are normal. The mastoid air cells are normal. There is a left frontal scal p hematoma. There is left face soft tissue swelling. IMPRESSION: 1. Acute subarachnoid hemorrhage in the left frontal lobe and left sylvian fissure. 2. Acute subdural hematoma overlying left frontal lobe. Reviewed, dictated and finalized at location E. IMPRESSION: 1. Acute subarachnoid hemorrhage in the left frontal lobe and left sylvian fiss ure. 2. Acute subdural hematoma overlying left frontal lobe.
[2023-08-17 01:07] VITALS: BP 148/82; PULSE 63; RESP 15; TEMP 36.5; O2SAT 100
--- NOTE | 2023-08-17 01:18 | ED.ALCOHOL ---
HPI - Alcohol General Chief Complaint: Fall Stated Complaint: FALL, ETOH+ Time Seen by Provider: 08/17/23 01:04 History of Present Illness HPI narrative: Patient brought to the emergency department by EMS. She was found in a park. She had a empty fifth of alcohol behind her and multiple small bottles of alcohol that were empty in her bag. Patient had fallen forward and hit her face. She is an abrasion above and a little below her left. She is intoxicated. Smells like alcohol and her speech is slurred. However she is alert. EMS contribute most of the history Related Data Home Medications Medication Instructions Recorded Confirmed acetaminophen 650 mg 650 mg PO Q8H PRN Pain 08/09/22 05/20/23 tablet,extended release Allergies Allergy/AdvReac Type Severity Reaction Status Date / Time monosodium glutamate AdvReac Intermediate Vomiting Verified 05/24/23 07:59 Review of Systems Review of Systems: Patient denies all other review of systems except for what is documented in the HPI [facility] Past Medical History Medical History Alcohol abuse Alcohol withdrawal seizure Anxiety Chronic anemia Depression Gastroesophageal reflux disease Hepatic steatosis History of fracture Including clavicle fracture left foot fracture. Subarachnoid hemorrhage Surgical History Surgical History History of appendectomy Family History Family History Sibling Multiple sclerosis Sibling Father Colon cancer Arthritis Parents Mother Throat cancer Parents Social History Social History Social History: Surrogate decision maker: Baldemar Strong, brother. Code status: Full code. Smoking status: Never smoker Alcohol intake: former Drinks per week: 20 Alcohol use details: Drinks 6 to 8 airplane shots a day. Substance use: never Substance use type: does not use Lack of Transportation: No Lack of Food: Never True Current Housing: I Do Not Have Housing Concerned About Future Housing: No Difficulty Paying Gas/Electric Bills: No Difficulty Paying for Meds: No Currently Unemployed: No Education: High School Diploma/GED Difficulty w/ Childcare or Family Care: No Living arrangements: with family Additional living arrangements comments: The patient lives in [place] with her brother. Occupation/Education: unemployed Additional occupation/education comments: Unemployed. Spiritual care concerns: No Exam Narrative: GENERAL: Well-appearing, well-nourished, and in no acute distress. intoxcated HEAD: Normocephalic, laceration left forehead and left cheek EYES: PERRLA and EOMI. ENT: Nares clear, no rhinorrhea or epistaxis. Mucous membranes moist. NECK: Supple. CHEST: Clear to auscultation. No respiratory distress. HEART: Regular rate and rhythm. ABDOMEN: Soft, nontender, nondistended. EXTREMITIES: Normal range of motion. No edema. SKIN: Warm, dry, no rash. NEURO: No focal deficits. Alert and oriented x3. speech slurred PSYCH: Normal mood and affect. Course Course Emergency Course: Patient brought into the emergency department by EMS. Her blood alcohol level is over 450. Her speech is slurred but understandable. She has an abrasion above and below her left eye. CT head ordered and resulted with subarachnoid and subdural hemorrhage. She will need to be transferred to a facility with neurosurgery to ensure it does not worsen. She was initially hypertensive but this resolved independently. She is on room air and her vital signs are stable. Consulted emergency medicine physician at outside hospital. shared decision making with patient regarding plan of care Vital Signs Vital signs: Vital Signs Temperature 36.5 C 10/0
[2023-08-17 01:28] LABS: Basophils Absolute Auto 0.1 K/mm3 (0.0-0.1); Basophils Percent Auto 1.4 % (0.2-1.2); Eosinophils Absolute Auto 0.2 K/mm3 (0-0.3); Eosinophils Percent Auto 3.6 % (0-4.4); Hemoglobin 15.1 g/dL (12.0-15.0); Immature Granulocyte Absolute 0.02 K/mm3 (0.00-0.031); Immature Granulocyte Percent A 0.3 % (0-0.5); Lymphocytes Absolute Auto 3.07 K/mm3 (0.9-3.2); Lymphocytes Percent Auto 53.3 % (18.3-44.2); Mean Corpuscular HGB Conc 32.8 g/dl (32-36); Mean Corpuscular Hemoglobin 32.3 pg (26-34); Mean Corpuscular Volume 98.5 fl (80-100); Mean Platelet Volume 8.4 fl (7.4-10.4); Monocytes Absolute Auto 0.7 K/mm3 (0.1-0.6); Monocytes Percent Auto 11.5 % (2.6-8.5); Neutrophils Absolute Auto 1.7 K/mm3 (1.3-6.7); Neutrophils Percent Auto 29.9 % (45.5-73.1); Platelet Count Result 207 k/mm3 (150-375); Red Blood Count 4.67 M/mm3 (4.2-5.4); Red Cell Distribution Width 14.3 % (11.5-14.5); White Blood Count 5.8 K/mm3 (4.5-10.0)
[2023-08-17 01:40] LABS: Alanine Aminotransferase 28 U/L (6-35); Albumin Level 4.7 g/dL (3.5-5.1); Alkaline Phosphatase 91 U/L (38-126); Anion Gap 11 mmol/L (8-16); Aspartate Amino Transferase 65 U/L (14-36); Bilirubin,Total 0.4 mg/dL (0.2-1.3); Blood Urea Nitrogen 10 mg/dL (7-17); Carbon Dioxide 32 mmol/L (22-30); Chloride 104 mmol/L (98-107); Estimated CRCL calculation 79 ml/min; Estimated Glomerular Filt Rate > 60; Glucose 101 mg/dL (65-110); Potassium 3.6 mmol/L (3.4-5.0); Sodium 147 mmol/L (137-145)
[2023-08-17 02:07] LABS: Ethanol 461 mg/dL (<10)
[2023-08-17 02:37] VITALS: BP 114/76; PULSE 72; RESP 15; O2SAT 99
[2023-08-17 03:17] VITALS: BP 132/80; PULSE 72; RESP 15; O2SAT 100
== END 2023-08-17 04:03 | disposition short-term general hospital (02) ==
LOC: ANHED 02:07
PROVIDERS: Emergency Provider Emergency Medicine
DX: S06.6XAA Traumatic subarachnoid hemorrhage with loss of consciousness status unknown, initial encounter (principal); S06.5XAA Traumatic subdural hemorrhage with loss of consciousness status unknown, initial encounter; F10.129 Alcohol abuse with intoxication, unspecified; Y90.8 Blood alcohol level of 240 mg/100 ml or more; S00.81XA Abrasion of other part of head, initial encounter; F41.9 Anxiety disorder, unspecified; D64.9 Anemia, unspecified; F32.A Depression, unspecified; K21.9 Gastro-esophageal reflux disease without esophagitis; K76.0 Fatty (change of) liver, not elsewhere classified; W19.XXXA Unspecified fall, initial encounter
CPT/HCPCS: 36415; 70450; 72125; 80053; 80307; 85025; 99291

== ENCOUNTER 2023-12-12 13:28 | Emergency (ER) | payer SELFPAY ==
[2023-12-12 13:42] VITALS: BP 140/87; PULSE 90; RESP 16; TEMP 36.3; O2SAT 94
--- NOTE | 2023-12-12 16:21 | ED.PSYCH ---
HPI - Psych General Chief Complaint: Psychiatric Symptoms <Amelia Baird PA-C - Last Filed: 12/12/23 16:29> Stated Complaint: psych eval <Amelia Baird PA-C - Last Filed: 12/12/23 16:29> Time Seen by Provider: 12/12/23 16:29 <Amelia Baird PA-C - Last Filed: 12/12/23 16:29> Focused HPI: 63 y/o F reports for evaluation via EMS for evaluation for SI x1 day. Pt states she has felt depressed recently ever since her boyfriend's friend requested the patient to write a song from [employer]. Pt states she hallucinates at times. Pt denies plan for SI, denies HI. She admits to drinking a 5th of rum a day for many years. Last ETOH drink was at 11am. Reports prior history of seizures secondary to alcohol withdrawal. Denies drug use. Denies prior known admissions to psychiatric hospital. Denies history of prior SI attempt. GENERAL: Well-appearing, well-nourished, and in no acute distress. HEAD: Normocephalic, atraumatic. CHEST: Clear to auscultation. ?No respiratory distress. HEART: Regular rate and rhythm.? NEURO: ?Alert and oriented x3. Patient screened in triage and initial orders placed.? ?Additional care and disposition to be based upon?diagnostic testing and treatment. <Amelia Baird PA-C - Last Filed: 12/12/23 16:29> Focused HPI: 63 y/o F reports for evaluation via EMS for evaluation for SI x1 day. Pt states she has felt depressed recently ever since her boyfriend's friend requested the patient to write a song from [employer]. Pt states she hallucinates at times. Pt denies plan for SI, denies HI. She admits to drinking a 5th of rum a day for many years. Last ETOH drink was at 11am. Reports prior history of seizures secondary to alcohol withdrawal. Denies drug use. Denies prior known admissions to psychiatric hospital. Denies history of prior SI attempt. GENERAL: Well-appearing, well-nourished, and in no acute distress. HEAD: Normocephalic, atraumatic. CHEST: Clear to auscultation. ?No respiratory distress. HEART: Regular rate and rhythm.? NEURO: ?Alert and oriented x3. Patient screened in triage and initial orders placed.? ?Additional care and disposition to be based upon?diagnostic testing and treatment. patient is medically cleared for psychiatric evaluation referral transfer and admission patient was seen by crisis and cleared for outpatient follow-up <Amari Matthew MD - Last Filed: 12/13/23 05:19> Related Data Home Medications: Home Medications Medication Instructions Recorded Confirmed acetaminophen 650 mg 650 mg PO Q8H PRN Pain 08/09/22 05/20/23 tablet,extended release <Amelia Baird PA-C - Last Filed: 12/12/23 16:29> Allergies/Adverse Reactions: Allergies Allergy/AdvReac Type Severity Reaction Status Date / Time monosodium glutamate AdvReac Intermediate Vomiting Verified 12/12/23 18:58 <Amelia Baird PA-C - Last Filed: 12/12/23 16:29> Review of Systems Review of Systems: All systems reviewed & are unremarkable except as noted in HPI and below <Janell Leal MD - Last Filed: 12/13/23 12:20> [facility] Past Medical History Medical History: Medical History Alcohol abuse Alcohol withdrawal seizure Anxiety Chronic anemia Depression Gastroesophageal reflux disease Hepatic steatosis History of fracture Including clavicle fracture left foot fracture. Subarachnoid hemorrhage <Amelia Baird PA-C - Last Filed: 12/12/23 16:29> Surgical History Surgical History: Surgical History History of appendectomy <Amelia Baird PA-C - Last Filed: 12/12/23 16:29> Family History Family History: Family History Sibling Multiple sclerosis Sibling Father Colon cancer Arthritis Parents Mother Throat cancer Parents deceas
--- NOTE | 2023-12-12 16:31 | ECG_ITS ---
Measurements Intervals [place] Rate: 112 P: 22 WA: 155 QRS: -3 QRSD: 68 T: 25 QT: 343 QTc: 469 Interpretive Statements SINUS TACHYCARDIA LOW QRS VOLTAGE IN PRECORDIAL LEADS CONSIDER ANTERIOR INFARCT, AGE INDETERMINATE BASELINE ARTIFACT- I, II, III, AVR, AVL, AVF, V1-V3 ABNORMAL ECG COMPARED TO ECG 05/20/2023 14:38:01 SINUS TACHYCARDIA NOW PRESENT Electronically Signed On 12-12-2023 19:26:42 [employer] by Mick Leon D.O.
[2023-12-12 16:44] LABS: Basophils Absolute Auto 0.1 K/mm3 (0.0-0.1); Basophils Percent Auto 1.6 % (0.2-1.2); Eosinophils Absolute Auto 0.1 K/mm3 (0-0.3); Eosinophils Percent Auto 2.4 % (0-4.4); Hematocrit 36.7 % (37.0-47.0); Hemoglobin 11.5 g/dL (12.0-15.0); Immature Granulocyte Absolute 0.01 K/mm3 (0.00-0.031); Immature Granulocyte Percent A 0.3 % (0-0.5); Lymphocytes Percent Auto 45.3 % (18.3-44.2); Mean Corpuscular HGB Conc 31.3 g/dl (32-36); Mean Corpuscular Hemoglobin 31.4 pg (26-34); Mean Corpuscular Volume 100.3 fl (80-100); Mean Platelet Volume 8.4 fl (7.4-10.4); Monocytes Absolute Auto 0.4 K/mm3 (0.1-0.6); Monocytes Percent Auto 9.6 % (2.6-8.5); Neutrophils Absolute Auto 1.5 K/mm3 (1.3-6.7); Neutrophils Percent Auto 40.8 % (45.5-73.1); Platelet Count Result 282 k/mm3 (150-375); Red Blood Count 3.66 M/mm3 (4.2-5.4); Red Cell Distribution Width 17.5 % (11.5-14.5); White Blood Count 3.8 K/mm3 (4.5-10.0)
[2023-12-12 16:56] LABS: Acetaminophen < 10 ug/mL (10-30); Ethanol 220 mg/dL (<10); Salicylate < 1.0 mg/dL (2-20)
[2023-12-12 16:56] LABS: Appearance Urine Cloudy (Clear); Bacteria Urine 1+ /hpf; Bilirubin Urine Negative (Negative); Blood Urine 1+ (Negative); Color Urine Yellow (Yellow); Glucose Urine UA Negative (Negative); Ketones Urine Negative (Negative); Leukocyte Esterase Ur 1+ LEU/UL (Negative); Nitrate Urine Negative (Negative); Protein Urine Trace mg/dL (Negative); Specific Grav Ur 1.021 (1.001-1.035); Squamous Epithelial Cell Urine Moderate /hpf (Few)
[2023-12-12 16:57] LABS: Alanine Aminotransferase 22 U/L (6-35); Albumin Level 3.8 g/dL (3.5-5.1); Alkaline Phosphatase 93 U/L (38-126); Anion Gap 9 mmol/L (8-16); Aspartate Amino Transferase 45 U/L (14-36); Bilirubin,Total 0.3 mg/dL (0.2-1.3); Blood Urea Nitrogen 9 mg/dL (7-17); Calcium 8.2 mg/dL (8.4-10.2); Carbon Dioxide 29 mmol/L (22-30); Chloride 105 mmol/L (98-107); Estimated CRCL calculation 68 ml/min; Estimated Glomerular Filt Rate > 60; Glucose 92 mg/dL (65-110); Sodium 143 mmol/L (137-145)
[2023-12-12 16:58] LABS: Add Urine Microscopic? YES
[2023-12-12 17:32] LABS: Barbiturate Screen Urine Negative (Negative)
[2023-12-12 17:36] LABS: Amphetamine Screen Urine Negative (Negative); Cannabinoid Screen Urine Negative (Negative); Cocaine Screen Urine Negative (Negative); Methadone Screen Urine Negative (Negative); Opiate Screen Urine Negative (Negative); Phencyclidine Screen Urine Negative (Negative)
[2023-12-12 17:50] LABS: Benzodiazepines Screen Urine Negative (Negative)
[2023-12-12 19:50] LABS: SARS-CoV-2 RNA PCR Negative (Negative)
[2023-12-12] MEDS: chlordiazePOXIDE (*CRX) 25 MG CAPSULE 50 MG PO (21:37)
[2023-12-13 01:49] LABS: Ethanol < 10 mg/dL (<10)
[2023-12-13 02:04] VITALS: BP 129/84; PULSE 103; RESP 15; O2SAT 98
== END 2023-12-13 05:34 | disposition home or self-care (01) ==
PROVIDERS: Emergency Medicine; Physician Assistant; Emergency Provider Emergency Medicine
DX: F10.129 Alcohol abuse with intoxication, unspecified (principal); Y90.7 Blood alcohol level of 200-239 mg/100 ml; F32.A Depression, unspecified; Z11.52 Encounter for screening for COVID-19; D64.9 Anemia, unspecified; K21.9 Gastro-esophageal reflux disease without esophagitis; R00.0 Tachycardia, unspecified; R94.31 Abnormal electrocardiogram [ECG] [EKG]
CPT/HCPCS: 36415; 80053; 80307; 81001; 84443; 85025; 87086; 87635; 93005; 99284; A9270

== ENCOUNTER 2024-04-09 19:01 | Emergency (ER) | payer SELFPAY ==
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
[2024-04-09 19:28] VITALS: BP 103/69; PULSE 112; RESP 14; TEMP 37.2; O2SAT 100
[2024-04-09 19:33] LABS: Basophils Percent Auto 0.7 % (0.2-1.2); Eosinophils Absolute Auto 0.1 K/mm3 (0-0.3); Eosinophils Percent Auto 2.5 % (0-4.4); Hematocrit 25.3 % (37.0-47.0); Hemoglobin 7.5 g/dL (12.0-15.0); Immature Granulocyte Absolute 0.02 K/mm3 (0.00-0.031); Immature Granulocyte Percent A 0.4 % (0-0.5); Lymphocytes Absolute Auto 1.85 K/mm3 (0.9-3.2); Lymphocytes Percent Auto 33.5 % (18.3-44.2); Mean Corpuscular HGB Conc 29.6 g/dl (32-36); Mean Corpuscular Hemoglobin 22.7 pg (26-34); Mean Corpuscular Volume 76.4 fl (80-100); Mean Platelet Volume 8.6 fl (7.4-10.4); Monocytes Absolute Auto 0.7 K/mm3 (0.1-0.6); Monocytes Percent Auto 13.2 % (2.6-8.5); Neutrophils Absolute Auto 2.7 K/mm3 (1.3-6.7); Neutrophils Percent Auto 49.7 % (45.5-73.1); Platelet Count Result 325 k/mm3 (150-375); Red Blood Count 3.31 M/mm3 (4.2-5.4); Red Cell Distribution Width 18.9 % (11.5-14.5); White Blood Count 5.5 K/mm3 (4.5-10.0)
[2024-04-09 19:44] LABS: Alanine Aminotransferase 23 U/L (6-35); Albumin Level 3.9 g/dL (3.5-5.1); Alkaline Phosphatase 137 U/L (38-126); Anion Gap 7 mmol/L (4-12); Aspartate Amino Transferase 43 U/L (14-36); Bilirubin,Total 0.3 mg/dL (0.2-1.3); Blood Urea Nitrogen 12 mg/dL (7-17); Calcium 8.7 mg/dL (8.4-10.2); Carbon Dioxide 28 mmol/L (22-30); Chloride 106 mmol/L (98-107); Estimated CRCL calculation 58 ml/min; Estimated Glomerular Filt Rate > 60; Ethanol 253 mg/dL (<10); Glucose 96 mg/dL (65-110); Potassium 3.6 mmol/L (3.4-5.0); Sodium 141 mmol/L (137-145)
[2024-04-09 19:50] LABS: Platelet Estimate Adequate (Adequate)
[2024-04-09 19:51] LABS: Anisocytosis 2+; Hypochromasia 1+; Schistocytes None Seen
[2024-04-09 20:09] LABS: SARS-CoV-2 RNA PCR Negative (Negative)
[2024-04-09 21:57] LABS: Appearance Urine Cloudy (Clear); Bacteria Urine 4+ /hpf; Bilirubin Urine Negative (Negative); Blood Urine 2+ (Negative); Color Urine Yellow (Yellow); Glucose Urine UA Negative (Negative); Ketones Urine Negative (Negative); Leukocyte Esterase Ur 2+ LEU/UL (Negative); Need Manual Microscopic Reviewed; Nitrate Urine Positive (Negative); Non Pathogenic Casts 0-2; Protein Urine Negative (Negative); Specific Grav Ur 1.007 (1.001-1.035); Squamous Epithelial Cell Urine Moderate /hpf (Few); Urobilinogen Urine 0.2 mg/dL (<2.0); WBC Urine 21-50 /hpf (0-3); pH Urine 6.5 (5.0-9.0)
[2024-04-09 21:58] LABS: Amphetamine Screen Urine Negative (Negative); Barbiturate Screen Urine Negative (Negative); Benzodiazepines Screen Urine Negative (Negative); Cannabinoid Screen Urine Negative (Negative); Cocaine Screen Urine Negative (Negative); Methadone Screen Urine Negative (Negative); Opiate Screen Urine Negative (Negative); Phencyclidine Screen Urine Negative (Negative)
[2024-04-09 21:59] LABS: Add Urine Microscopic? YES
[2024-04-09] MEDS: CEPHALEXIN 500 MG CAPSULE PO (22:26)
[2024-04-10 00:50] LABS: Ethanol 265 mg/dL (<10)
--- NOTE | 2024-04-10 05:00 | PC.NURSE ---
upon lab results for patient ETOH level. ETOH level increased. this RN went into patient room and questioned patient about alcohol use while in the hospital room. pt stated I don't know, I am not sure . This RN asked patient what she had in the water bottle in her bag. pt stated, maybe alcohol, I am not sure . this rn informed charge hand and edp dr. kingsley. this rn removed patient belongings from room.
[2024-04-10 05:10] LABS: Ethanol 266 mg/dL (<10)
== END 2024-04-10 06:10 | disposition home or self-care (01) ==
PROVIDERS: Emergency Provider Student in an Organized Health Care Education/Training Program
DX: F10.120 Alcohol abuse with intoxication, uncomplicated (principal); D64.9 Anemia, unspecified; K21.9 Gastro-esophageal reflux disease without esophagitis; Y90.8 Blood alcohol level of 240 mg/100 ml or more; Z79.899 Other long term (current) drug therapy
CPT/HCPCS: 36415; 80053; 80307; 81001; 84443; 85025; 87077; 87086; 87088; 87186; 87635; 99284; A9270

== ENCOUNTER 2025-01-28 10:35 | Observation (INO) | payer SELFPAY ==
[2025-01-28] VITALS (21 sets, daily range): BP systolic 97–160; BP diastolic 59–88; PULSE 95–110; RESP 16–24; TEMP 36.1–37.1; O2SAT 94–100
--- NOTE | ~2025-01-28 | XR_ITS ---
Portable chest x-ray Comparison: 05/20/2023 Clinical History: Shortness of breath Findings: Lungs are clear, without focal consolidation or pleural effusion. Cardiomediastinal silho uette is stable. Suspected moderate to large hiatal hernia. Osseous structures intact. Impression: Clear lungs. Probable moderate to large hiatal hernia. Reviewed, dictated and finalized at location . Impression: Clear lungs. Probable moderate to large hiatal hernia.
--- OUTSIDE RECORDS SUMMARY | 2025-01-28 10:48 | XMS_ITS | Clinical Summary ---
Author Organization [facility] [employer] Address [address] 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 This disclosure is being madepursuant to the Care Everywhere program and may not contain all information available regarding this patient. Last updated 18.[facility] [employer] Allergies No known active allergies Medications * Be aware that medications may not be up to date on this document. Alwaysverify current medications with the patient. Medication Sig Dispensed Refills Start Date End Date Status acetaminophen (TYLENOL) 325 MG tablet Take 2 tablets by mouth every 6 hours as needed for Headache Maximum allowable Acetaminophen amount = 4 Grams (4000 mg) / 24 hours. 03/21/2019 Active levETIRAcetam (Keppra) 500 MG tablet Take 1 (one) tablet by mouth 2 times daily 12 tablet 08/19/2023 Active Active Problems Problem Noted Date Diagnosed Date Dizziness 08/18/2023 Trauma 08/17/2023 Subdural hematoma 08/17/2023 Fall, initial encounter 08/17/2023 Subarachnoid hematoma, witho ut loss of consciousness, initial encounter 08/17/2023 Acute alcoholic intoxication with complication 1 Maxillary sinus fracture, closed, initial encoun ter 03/21/2019 Nasal bone fracture 03/21/2019 Orbital wall fracture, closed, initial encounter 03/21/2019 Fracture of phalanx of right thumb 03/21/2019 Fracture phalanges, hand, closed, initial encoun ter 03/21/2019 Subarachnoid bleed 03/20/2019 Acute alcohol intoxication 09/04/2014 Immunizations Name Administration Dates Next Due TDAP (7yrs+) 08/17/2023 Social History Tobacco Use Types Packs/Day Years Used Date Smoking Tobacco: Never Smokeless Tobacco: Never Tobacco Cessation:Counseling Given: Not Answered Alcohol Use Standard Drinks/Week Comments Yes 0 (1 standard drink = 0.6 oz pur e alcohol) 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 Sex and Gender Information Value Date Recorded Sex Assigned at Not on file Gender Identity Not on file Sexual Orientation Not on file Last Filed Vital Signs Vital Sign Reading Time Taken Comments Blood Pressure 127/84 08/19/2023 12:26 PM CDT Pulse 95 08/19/2023 12:26 PM CDT Temperature 37.8 C (100 F) 08/19/2023 12:26 PM CDT Respiratory Rate 20 08/19/2023 5:01 AM CDT Oxygen Saturation 93% 08/19/2023 12:26 PM CDT Inhaled Oxygen Concentration - - Weight 45.4 kg (100 lb) 08/18/2023 7:42 AM CDT Height 160 cm (5' 3 ) 08/18/2023 7:42 AM CDT Body Mass Index 17.71 08/18/2023 7:42 AM CDT Plan of Treatment Health Maintenance Due Date Last Done Comments COLOGUARD (AGES 45-75) - COL ON CA SCREENING 1960 COLON MONITORING 1960 COLONOSCOPY - COLON CA SCREENING 1960 CT COLONOGRAPHY - COLON CA SCREENING 1960 Colorectal Cancer Screening 1960 FIT - COLON CA SCREENING 1960 FLEX SIG - COLON CA SCREENING 1960 LIPID TESTING 1960 MAMMOGRAM 1960 PAP SMEAR 1960 PNEUMOCOCCAL VACCINE 50+ (1 of 1 - PCV) 02/10/2010 ZOSTER VACCINE (1 of 2) 02/10/2010 Respiratory Syncytial Virus (RSV) Vaccine Pt: or over 60 yrs (1 - Risk 60-74 years 1-dose series) 2020 COVID-19 VACCINE (3 - 2023-2 5 season) 2024 07/05/2021, 06/03/2021 INFLUENZA VACCINE (#1) 2024 DEPRESSION SCREENING 11/16/2024 DTAP/TDAP/TD VACCINES (2 - T d or Tdap) 08/17/2033 08/17/2023 HEPATITIS C SCREENING Completed 04/03/2021 HIV SCREENING Completed 04/03/2021 HEPATITIS B VACCINE Aged Out No longe r eligible based on patient's age to complete this topic HIB VACCINE Aged Out No longer eligi ble based on patient's age to complete this topic HPV VACCINE Aged Out No longer eligi ble based on patient's age to complete this topic MENINGOCOCCAL (Group B) VACCINE SHARED DECISION-MAKING Aged Out No longer eligible based on patient's age to complete this topic MENINGOCOCCAL GROUPS A/C/Y/W VACCINE Aged Out No longer eligible b ased on patient's age to complete this topic PNEUMOCOCCAL VACCINE Aged Out No long er eligible based on patient's age to complete this topic Procedures Procedure Name Priority Date/Time Associated Diagnosis Comments HEPATITIS C AB SCREEN RFLX NAAT QUANT STAT 04/03/2021 3:08 PM CDT HIV-1 HIV-2 ANTIBODY + HIV P24 AG PANEL STAT 04/03/2021 3:08 PM CDT from Last 3 Months or Most Recently Relevant to Health Maintenance Results * HEPATITIS C AB SCREEN RFLX NAAT QUANT (04/03/2021 3:08 PM CDT) Hepatitis C Antibody Non-react gilma Non-reac tive 04/03/2021 4:22 PM CDT [facility] Comment:Hepatitis C Antibody screen indicates no serologic evidence of past or current infection with Hepatitis C Virus. Patients with unexplained liver disease who are immunocompromised or suspected of having acute Hepatitis C infection may benefit from Nucleic Acid Test (FELICIA) for Hepatitis C Viral RNA to confirm Hepatitis C status. Blood BLOOD SPECIMEN / Unknown Venipuncture / Unknown 04/03/2021 3:08 PM CDT 04/03/2021 3:34 PM CDT Rome Deleon MD LAB - CHEMISTR Y ORDERABLES [facility] [address] [place] [phone], [facility] [phone] * HIV-1 HIV-2 ANTIBODY + HIV P24 AG PANEL (04/03/2021 3:08 PM CDT) HIV Antigen/Antibod y 1 & 2 Non-reacti ve Non-react gilma 04/03/2021 4:[address] [facility] Comment:Neither HIV-1 p24 An tigen nor HIV-1/HIV-2 Antibodies are detected. Blood BLOOD SPECIMEN / Unknown Venipuncture / Unknown 04/03/2021 3:08 PM CDT 04/03/2021 3:34 PM CDT Rome Deleon MD LAB - CHEMISTR Y ORDERABLES [facility] [address] [place] [phone], [facility] [phone] from Last 3 Months or Most Recently Relevant to Health Maintenance Advance Directives * Full Code (Latest Code Status on File) Date Activated Date Inactivated Comments 08/18/2023 5:17 PM 08/19/2023 6:01 PM * Full Code Date Activated Date Inactivated Comments 03/20/2019 2:48 AM 03/21/2019 4:04 PM
--- OUTSIDE RECORDS SUMMARY | 2025-01-28 10:48 | XMS_ITS | Patient Health Summary ---
Author Organization [facility] Address [address] [place] [address] Care Team Providers Care Fur Operator Name Role Phone Unavailable Primary Care Provider Unavailabl e Note from [facility],non-owned Affiliates and Associated Physician Practices is amultiple site organization consisting of ambulatory clinics and hospital sitesin [place], [place], [place] and [place]. This disclosure is being madepursuant to the Care Everywhere program and may not contain all information available regarding this patient. Last updated 18.[facility] Localsensor Allergies No known active allergies Medications * Be aware that medications may not be up to date on this document. Alwaysverify current medications with the patient. * acetaminophen (TYLENOL) 325 MG tablet(Started 03/21/2019) Take 2 tablets by mouth every 6 hours as needed for Headache Maximum allowable Acetaminophen amount= 4 Grams (4000 mg) / 24 hours. * levETIRAcetam (Keppra) 500 MG tablet(Started 08/19/2023) Take 1 (one) tablet by mouth 2 times daily Active Problems Problem Noted Date Diagnosed Date [...] bleed 03/20/2019 Acute alcohol intoxication 09/04/2014 Immunizations * TDAP (7yrs+)(Given 08/17/2023) Social History Tobacco Use Types Packs/Day Years [...] Mass Index 17.71 08/18/2023 7:42 AM CDT Procedures * CBC W AUTO DIFFERENTIAL(Performed 08/18/2023) * COMPREHENSIVE METABOLIC PANEL(Performed 08/18/2023) * ALCOHOL ETHYL BLOOD(Performed 08/18/2023) * CT HEAD WO CONTRAST(Performed 08/18/2023) Performed for Dizziness * CT HEAD WO CONTRAST(Performed 08/17/2023) Performed for Trauma * URINALYSIS W/MICROSCOPIC NO CULTURE(Performed 08/17/2023) * URINE DRUG SCREEN IMMUNOASSAY(Performed 08/17/2023) * CT LUMBAR SPINE WO CONTRAST(Performed 08/17/2023) Performed for Trauma * CT THORACIC SPINE WO CONTRAST(Performed 08/17/2023) Performed for Trauma * CT CHEST ABDOMEN PELVIS W CONT(Performed 08/17/2023) Performed for Trauma * CT CERVICAL SPINE WO CONTRAST(Performed 08/17/2023) Performed for Trauma * CT FACIAL BONES WO CONTRAST(Performed 08/17/2023) Performed for Trauma * CT HEAD WO CONTRAST(Performed 08/17/2023) Performed for Trauma * XR PELVIS 1 OR 2VW(Performed 08/17/2023) Performed for Trauma * XR CHEST 1VW PORTABLE(Performed 08/17/2023) Performed for Trauma * TYPE + SCREEN PANEL(Performed 08/17/2023) * PTT [facility](Performed 08/17/2023) * PT-INR [facility](Performed 08/17/2023) * CBC W AUTO DIFFERENTIAL(Performed 08/17/2023) * BASIC METABOLIC PANEL (CALCIUM TOTAL)(Performed 08/17/2023) * ALCOHOL ETHYL BLOOD(Performed 08/17/2023) * PHOSPHORUS BLOOD(Performed 04/03/2021) * MAGNESIUM BLOOD(Performed 04/03/2021) * TROPONIN I(Performed 04/03/2021) * CBC W AUTO DIFFERENTIAL(Performed 04/03/2021) * ALCOHOL ETHYL BLOOD(Performed 04/03/2021) * COMPREHENSIVE METABOLIC PANEL(Performed 04/03/2021) * HIV-1 HIV-2 ANTIBODY + HIV P24 AG PANEL(Performed 04/03/2021) * HEPATITIS C AB SCREEN RFLX NAAT QUANT(Performed 04/03/2021) * XR CHEST 1VW PORTABLE(Performed 04/03/2021) Performed for Alcohol withdrawal syndrome with complication (HCC) * LAB RESULTS ORDER(Performed 04/30/2019) * PHOSPHORUS BLOOD(Performed 03/21/2019) * MAGNESIUM BLOOD(Performed 03/21/2019) * CBC W/O DIFFERENTIAL(Performed 03/21/2019) * BASIC METABOLIC PANEL (CALCIUM TOTAL)(Performed 03/21/2019) * XR FOREARM LEFT 2VW OR MORE(Performed 03/20/2019) Performed for Subarachnoid bleed (HCC), Closed fracture of orbital wall, initial encounter (HCC), Closed fracture of proximal phalanx of digit of right hand, initial encounter, Fall, initial encounter, Acute alcoholic intoxication with complication (HCC) * PHOSPHORUS BLOOD(Performed 03/20/2019) * MAGNESIUM BLOOD(Performed 03/20/2019) * CBC W/O DIFFERENTIAL(Performed 03/20/2019) * BASIC METABOLIC PANEL (CALCIUM TOTAL)(Performed 03/20/2019) * CT FACIAL BONES WO CONTRAST(Performed 03/20/2019) Performed for Subarachnoid bleed (HCC) * CT ANGIO BRAIN(Performed 03/20/2019) Performed for Subarachnoid bleed (HCC) * HEPATIC FUNCTION PANEL(Performed 03/20/2019) * TEG PLATELET MAPPING(Performed 03/20/2019) * XR KNEE LEFT 3VW(Performed 03/19/2019) Performed for Subarachnoid bleed (HCC) * XR HAND RIGHT 3VW OR MORE(Performed 03/19/2019) Performed for Subarachnoid bleed (HCC) * XR CHEST 1VW(Performed 03/19/2019) Performed for Subarachnoid bleed (HCC) * ALCOHOL ETHYL BLOOD(Performed 03/19/2019) * MAGNESIUM BLOOD(Performed 03/19/2019) * PTT SLH(Performed 03/19/2019) * PT-INR SL(Performed 03/19/2019) * COMPREHENSIVE METABOLIC PANEL(Performed 03/19/2019) * CBC W AUTO DIFFERENTIAL(Performed 03/19/2019) * ALCOHOL ETHYL BLOOD(Performed 09/04/2014) Results * (ABNORMAL) CBC W AUTO DIFFERENTIAL (08/18/2023 8:59 AM CDT) Only the most recent of4 resultswithin the time period is included. WBC 5.9 3.5 - 10.5 10 3/uL 08/18/2023 9:33 AM [facility] RBC 4.79 3.80 - 5.20 10 6/uL 08/18/2023 9:33 AM [facility] Hemoglobin 15.4 12.0 - 15.6 g/dL 08/18/2023 9:33 AM [facility] Hematocrit 45.2(H) 35.0 - 45.0 % 08/18/2023 9:33 AM [facility] MCV 94.4 80.7 - 98.3 fL 08/18/2023 9:33 AM [facility] MCH 32.2 26.7 - 34.0 pg 08/18/2023 9:33 AM [facility] MCHC 34.1 30.8 - 35.9 g/dL 08/18/2023 9:33 AM [facility] RDW-SD 45.3 36.0 - 50.0 fL 08/18/2023 9:33 AM [facility] RDW-CV 13.2 11.2 - 14.8 % 08/18/2023 9:33 AM [facility] Platelet Count 176 150 - 400 10 3/uL 08/18/2023 9:33 AM [facility] MPV 9.0(L) 9.4 - 12.9 fL 08/18/2023 9:33 AM [facility] nRBC Absolute 0.00 0 10 3/uL 08/18/2023 9:33 AM [facility] nRBC Auto 0.0 0 /100 WBC 08/18/2023 9:33 AM [facility] Neutrophils % 74.0(H) 35.0 - 70.0 % 08/18/2023 9:33 AM [facility] Lymphocytes % 13.6(L) 20.0 - 43.0 % 08/18/2023 9:33 AM [facility] Monocytes % 10.4 5.0 - 13.0 % 08/18/2023 9:33 AM [facility] Eosinophils % 0.5 0.0 - 6.0 % 08/18/2023 9:33 AM [facility] Basophil % 0.8 0.0 - 2.0 % 08/18/2023 9:33 AM [facility] Neutrophils Absolute 4.36 1.60 - 7.00 10 3/uL 08/18/2023 9:33 AM [facility] Lymphocyte Absolute 0.80(L) 1.10 - 3.90 10 3/uL 08/18/2023 9:33 AM [facility] Monocytes Absolute 0.61 0.26 - 1.07 10 3/uL 08/18/2023 9:33 AM [facility] Eosinophils Absolute 0.03 0.00 - 0.47 10 3/uL 08/18/2023 9:33 AM [facility] Basophils Absolute 0.05 0.00 - 0.08 10 3/uL 08/18/2023 9:33 AM [facility] Immature Granulocytes % 0.7 0.0 - 1.0 % 08/18/2023 9:33 AM [facility] Immature Granulocytes Absolute 0.04 08/18/2023 9:33 AM [facility] Blood BLOOD SPECIMEN / Unknown Venipuncture / Unknown 08/18/2023 8:59 AM CDT 08/18/2023 9:28 AM T Christian Philippe PA-C LAB - KARIE TOLOGY ORDERABLES [facility] [address] [place] [address], [facility] [phone] * (ABNORMAL) COMPREHENSIVE METABOLIC PANEL (08/18/2023 8:59 AM [facility]) Only the most recent of3 resultswithin the time period is included. BUN 8 7 - 26 mg/dL 08/18/2023 10:01 AM [facility] Creatinine 0.56 0.56 - 0.96 mg/dL 08/18/2023 10:01 AM [facility] Sodium 133(L) 136 - 145 mmol/L 08/18/2023 10:01 AM [facility] Potassium 3.8 3.5 - 4.5 mmol/L 08/18/2023 10:01 AM [facility] Chloride 95(L) 98 - 107 mmol/L 08/18/2023 10:01 AM [facility] CO2 28 22 - 29 mmol/L 08/18/2023 10:01 AM [facility] Glucose 99 70 - 115 mg/dL 08/18/2023 10:01 AM [facility] Calcium 9.3 8.4 - 10.2 mg/dL 08/18/2023 10:01 AM [facility] Protein Total 8.4(H) 6.0 - 8.3 g/dL 08/18/2023 10:01 AM [facility] Albumin 4.0 3.4 - 5.0 g/dL 08/18/2023 10:01 AM [facility] Bilirubin Total 0.8 0.2 - 1.2 mg/dL 08/18/2023 10:01 AM [facility] Alkaline Phosphatase 104 40 - 150 U/L 08/18/2023 10:01 AM [facility] ALT 15 5 - 55 U/L 08/18/2023 10:01 AM [facility] AST 39(H) 5 - 34 U/L 08/18/2023 10:01 AM [facility] Anion Gap 10 6 - 16 08/18/2023 10:01 AM [facility] BUN/Creatinine Ratio 14 7 - 23 08/18/2023 10:01 AM [facility] Osmolality Calculated 274(L) 275 - 295 mOsm/kg 08/18/2023 10:01 AM [facility] Albumin/Globulin Ratio 0.9(L) 1.1 - 2.3 08/18/2023 10:01 AM [facility] eGFR by CKD-EPI >90 >=90 mL/min/1.7 3 m2 08/18/2023 10:01 AM [facility] Blood BLOOD SPECIMEN / Unknown Venipuncture / Unknown 08/18/2023 8:59 AM CDT 08/18/2023 9:28 AM CDT Christian Philippe PA-C LAB - CHEM ISTRY ORDERABLES [facility] [address] [place] [id number], [facility] [phone] * ALCOHOL ETHYL BLOOD (08/18/2023 8:59 AM CDT) Only the most recent of5 resultswithin the time period is included. Ethanol (mg/dL) <10 <10 mg/dL 9:58 AM [facility] Ethanol Calculated (g/dL) <0.010 <=0.010 g/dL 08/18/2023 9:58 AM [facility] Blood BLOOD SPECIMEN / Unknown Venipuncture / Unknown 08/18/2023 8:59 AM CDT 08/18/2023 9:28 AM CDT Narrative [facility] - 08/18/2023 9:58 AM CDT Ethanol Interp <10: None Detected. Depression of [employer]: >100 mg/dl Potentially Critical: >250 mg/dl Potentially Fatal >400 mg/dl Ethanol in the patient's blood will contribute to the osmolar gap. Ethanol's contribution to the osmolar gap can be estimated by dividing the concentration of ethanol in mg/dL by 4.6. This test is for clinical use only and does not equal a EWA for legal purposes. Christian Philippe PA-C LAB - CHEM ISTRY ORDERABLES [address] [id number], [facility] [phone] * CT HEAD WO CONTRAST (08/18/2023 8:24 AM CDT) Only the most recent of3 resultswithin the time period is included. Anatomical Region Laterality Modality Head Computed Tomogra phy 08/18/2023 11:0 9 AM CDT Impressions 08/18/2023 12:55 PM CDT IMPRESSION: 1.Redemonstrated of a small volume of acute subdural hematoma along the left cerebral convexity, unchanged from the prior exam. No associated midline shift or significant mass effect. 2.Small 4 to 5 mm focus of hyperdensity along the left inferior frontal lobe appears more conspicuous compared to prior study suggesting evolving hemorrhagic contusion versus small amount of extra-axial blood products. 3.Otherwise no acute intracranial abnormality. The report is dictated by Renzo Mcghee MD, (resident physician in radiology) These findings were discussed with patient's care provider, Dr. Whitaker, by on 08/18/2023 12:55 PM with read back verification. I, Yolande Barajas MD have personally reviewed and interpreted this examination/study. > Interpreting Provider: Yolande Barajas MD on 08/18/2023 12:55 PM Narrative 08/18/2023 12:55 PM CDT PROCEDURE: CT HEAD WO CONTRAST, DATE/TIME OF EXAM: 08/18/2023 8:25 AM, LOCATION [facility] INDICATION: R42: Dizziness ADDITIONAL CLINICAL INFORMATION: Ordering Provider Reason For Exam: Recent SDH, feels worse EXAMINATION: Computed tomography (CT) of the head without contrast TECHNIQUE: CT of the head was performed without contrast according to standard protocol. CT dose reduction technique was used, including Automated Exposure Control. COMPARISON: CT head without contrast 08/17/2023. FINDINGS: Redemonstrated of a small volume of acute subdural hematoma along the left cerebral convexity, measuring 4 mm (series 6, image 33) without significant mass effect or midline shift, unchanged from the prior. Small 4 to 5 mm focus of hyperdensity along the left inferior frontal lobe appears more conspicuous compared to prior study could be secondary to small hemorrhagic contusion (image 20, series 6). Previously described hyperdense foci within the left parietal lobe is similar in appearance could be secondary to minimal subarachnoid blood products versus calcifications.. Persistent soft tissue swelling/hematoma along the left periorbital area and the left frontal scalp without adjacent bone fracture. No new intracranial hemorrhage or intra- or extra-axial fluid collections are identified. There is mild cerebral volume loss with associated ex vacuo ventricular dilatation. The basal cisterns are patent. No mass effect or midline shift is seen. The lazcano-white matter differentiation is normal. Periventricular white matter hypoattenuation is a nonspecific finding that may be indicative of chronic small vessel ischemic disease. There is atherosclerotic calcification of the carotid siphons. The visualized portions of the orbits, paranasal sinuses, and mastoids appear normal. No acute calvarial fracture is identified. Procedure Note Yolande Barajas MD - 08/18/2023 PROCEDURE: CT HEAD WO CONTRAST, DATE/TIME OF EXAM: 08/18/2023 8:25 AM, LOCATION [facility] INDICATION: R42: Dizziness ADDITIONAL CLINICAL INFORMATION: Ordering Provider Reason For Exam: Recent SDH, feels worse EXAMINATION: Computed tomography (CT) of the head without contrast TECHNIQUE: CT of the head was performed without contrast according to standard protocol. CT dose reduction technique was used, including Automated Exposure Control. COMPARISON: CT head without contrast 08/17/2023. FINDINGS: Redemonstrated of a small volume of acute subdural hematoma along theleft cerebral convexity, measuring 4 mm (series 6, image 33) withoutsignificant mass effect or midline shift, unchanged from the prior. Small 4 to 5 mm focus of hyperdensity along the left inferior frontal lobe appears more conspicuous compared to prior study could be secondary to smallhemorrhagic contusion (image 20, series 6). Previously described hyperdense fociwithin the left parietal lobe is similar in appearance could be secondary to minimal subarachnoid blood products versus calcifications.. Persistentsoft tissue swelling/hematoma along the left periorbital area and the left frontal scalp without adjacent bone fracture. No new intracranial hemorrhage or intra- or extra-axial fluidcollections are identified. There is mild cerebral volume loss with associated exvacuo ventricular dilatation. The basal cisterns are patent. No mass effect or midline shift is seen. The lazcano-white matter differentiation is normal. Periventricular white matter hypoattenuation is a nonspecific findingthat may be indicative of chronic small vessel ischemic disease. There is atherosclerotic calcification of the carotid siphons. The visualized portions of the orbits, paranasal sinuses, and mastoids appear normal. No acute calvarial fracture is identified. IMPRESSION: 1.Redemonstrated of a small volume of acute subdural hematoma along the left cerebral convexity, unchanged from the prior exam. No associated midline shift or significant mass effect. 2.Small 4 to 5 mm focus of hyperdensity along the left inferior frontal lobe appears more conspicuous compared to prior study suggestingevolving hemorrhagic contusion versus small amount of extra-axial blood products. 3.Otherwise no acute intracranial abnormality. The report is dictated by Renzo Mcghee MD, MD (resident physician in radiology) These findings were discussed with patient's care provider, Dr. Whitaker,by on 08/18/2023 12:55 PM with read back verification. I, Yolande Barajas MD have personally reviewed and interpreted this examination/study. > Interpreting Provider: Yolande Barajas MD on 08/18/2023 12:55 PM Christian Philippe PA-C CT ORDERAB LES * (ABNORMAL) URINALYSIS W/MICROSCOPIC NO CULTURE (08/17/2023 5:59 AM CDT) Color UA Yellow Straw, Yellow 08/17/2023 6:17 AM T [facility] Clarity UA Slt Cloudy(A) Clear 08/17/2023 6:17 AM CDT [facility] Specific Murphys UA 1.017 1.005 - 1.030 08/17/2023 6:17 AM [facility] pH UA 6.0 5.0 - 8.0 pH 08/17/2023 6:17 AM [facility] Protein UA Negative Negative 08/17/2023 6:17 AM [facility] Glucose UA Negative Negative 08/17/2023 6:17 AM [facility] Ketone UA Negative Negative 08/17/2023 6:17 AM [facility] Bilirubin UA Negative Negative 08/17/2023 6:17 AM [facility] Blood UA 1+(A) Negative 08/17/2023 6:17 AM [facility] Nitrite UA Negative Negative 08/17/2023 6:17 AM [facility] Leukocyte Esterase 3+(A) Negative 08/17/2023 6:17 AM [facility] Urobilinogen UA Negative Negative mg/dL 08/17/2023 6:17 AM [facility] RBC UA 6-10(A) None Seen, 0-2, 3-5 /HPF 08/17/2023 6:17 AM [facility] WBC UA 6-10(A) None Seen, 0-5 /HPF 08/17/2023 6:17 AM [facility] Squamous Epithelial Cells UA None Seen None Seen, 0-2, 3-5 /HPF 08/17/2023 6:17 AM [facility] Mucus UA 1+ /LPF 08/17/2023 6:17 AM [facility] Urine URINE SPECIMEN OBTAINED BY CLEAN CATCH PROCEDURE / Unknown Collection / Unknown 08/17/2023 5:59 AM CDT 08/17/2023 6:06 AM CDT [facility] - 08/17/2023 6:17 AM CDT Yusuf Thompson MD LAB - URINALYSIS ORD ERABLES Performing Organization Address City/State/[facility] Co de Phone Number [facility] [address] [place] [phone], [facility] [phone] * URINE DRUG SCREEN IMMUNOASSAY (08/17/2023 5:59 AM CDT) Pathologist [facility] Amphetamines Screen Urine Negative Negative: < 1000 ng/mL 08/17/2023 6:39 AM [facility] Barbiturates Screen Urine Negative Negative: < 200 ng/mL 08/17/2023 6:39 AM [facility] Benzodiazepine Screen Urine Negative Negative: < 200 ng/mL 08/17/2023 6:39 AM CDT [facility] Opiates Urine Negative Negative: < 300 ng/mL 08/17/2023 6:39 AM CDT [facility] Cocaine Metabolites Urine Negative Negative: < 300 ng/mL 08/17/2023 6:39 AM CDT [facility] Phencyclidine Screen Urine Negative Negative: < 25 ng/ml 08/17/2023 6:39 AM CDT [facility] Cannabinoids Screen Urine Negative Negative: <50 ng/mL 08/17/2023 6:39 AM CDT [facility] Methadone Screen Urine Negative Negative: < 300 ng/mL 08/17/2023 6:39 AM CDT [facility] Fentanyl Screen Urine Negative Negative: <1.5 ng/mL 08/17/2023 6:39 AM CDT [facility] Urine URINE / Unknown Collection / Unknown 08/17/2023 5:59 AM CDT 08/17/2023 6:06 AM CDT [facility] - 08/17/2023 6:39 AM CDT The Urine Toxicology Screening Panel does not screen for Propoxyphene, Meprobamate, Carisoprodol, Trazodone, [id number] medications and/or volatiles (Acetone, Isopropanol, Methanol or Ethylene Glycol). Ethanol, Salicylate, Acetaminophen, Tricyclic Antidepressants and several therapeutic drugs may be individually assayed in serum or plasma specimen. Toxicology testing by the [facility] is an aid to medical diagnosis and treatment of patients. No documented chain of custody was maintained. Results are intended to be used for clinical purposes only. Yusuf Thompson MD LAB - URINE CHEMISTR Y ORDERABLES [facility] [address] [place] [address], [facility] [phone] * CT CHEST ABDOMEN PELVIS W CONT - Abdomen-pelvis trauma, blunt or penetrating (08/17/2023 5:17 AM CDT) Anatomical Region Laterality Modality Chest, Abdomen, Pelvis Computed Tomography 08/17/2023 5:04 AM CDT Impressions 08/17/2023 9:02 AM CDT Impression Bilateral diffuse ground glass opacities in the dependent lungs, could represent atelectasis or aspiration. No acute injury in the abdomen or pelvis. > Dictated by Mireya Stewart M.D. (resident physician in radiology). I, Neo Angel MD have personally reviewed and interpreted this examination/study. > Interpreting Provider: Neo Angel MD on 08/17/2023 9:02 AM Narrative 08/17/2023 9:02 AM CDT PROCEDURE: CT CHEST ABDOMEN PELVIS W CONT, DATE/TIME OF EXAM: 08/17/2023 4:43 AM, LOCATION [facility] INDICATION: Trauma COMPARISON: None. EXAMINATION: Computed tomography (CT) of the chest, abdomen, and pelvis with contrast TECHNIQUE: CT of the chest, abdomen, and pelvis was performed after the uneventful administration of 100 mL of Isovue 370 intravenous contrast according to standard protocol. Findings Chest: Lower neck and Axilla: Normal. Thoracic Vessels: The thoracic aorta is normal in course and caliber. The pulmonary artery is normal in caliber. Lungs and Pleura: Diffuse bilateral groundglass opacities in the dependent lungs. There is no pleural effusion or pneumothorax. Heart and Pericardium: The heart size is enlarged. No pericardial fluid or thickening is present. Mediastinum and Chel: No mediastinal mass is present. No enlarged lymph nodes are present. Abdomen/pelvis: Liver and Gall Bladder: The liver enhances homogenously. The gallbladder is normal with no evidence of gallstones or pericholecystic fluid. Spleen: Normal. There are multiple splenules. Pancreas: Normal. Kidneys and Adrenals: Bilateral kidneys enhance homogenously with no evidence of renal calculi or hydronephrosis. Gastrointestinal: There is a small hiatal hernia. The small bowel and colon appear normal without wall thickening or obstruction. Mesentery/Peritoneum/Retroperitoneum: Normal. No free fluid, free air, or enlarged lymphadenopathy. Pelvic Structures: The bladder is normal. No pelvic free fluid or enlarged lymphadenopathy. Vasculature: The abdominal aorta and its branches appear normal without evidence of injury. Bones and Soft tissues: Bone windows demonstrate no suspicious lytic or blastic lesions. The visible osseous structures are intact. Degenerative changes are seen in the spine. Mild scoliosis of the spine there is a chronic-appearing sternal deformity. Procedure Note Neo Angel MD - 08/17/2023 PROCEDURE: CT CHEST ABDOMEN PELVIS W CONT, DATE/TIME OF EXAM:08/17/2023 4:43 AM, LOCATION [facility] INDICATION: Trauma COMPARISON: None. EXAMINATION: Computed tomography (CT) of the chest, abdomen, and pelvis with contrast TECHNIQUE: CT of the chest, abdomen, and pelvis was performed after the uneventful administration of 100 mL of Isovue 370 intravenous contrast according to standard protocol. Findings Chest: Lower neck and Axilla: Normal. Thoracic Vessels: The thoracic aorta is normal in course and caliber. The pulmonary arteryis normal in caliber. Lungs and Pleura: Diffuse bilateral groundglass opacities in the dependent lungs. There isno pleural effusion or pneumothorax. Heart and Pericardium: The heart size is enlarged. No pericardial fluid or thickening ispresent. Mediastinum and Chel: No mediastinal mass is present. No enlarged lymph nodes are present. Abdomen/pelvis: Liver and Gall Bladder: The liver enhances homogenously. The gallbladder is normal with noevidence of gallstones or pericholecystic fluid. Spleen: Normal. There are multiple splenules. Pancreas: Normal. Kidneys and Adrenals: Bilateral kidneys enhance homogenously with no evidence of renal calculior hydronephrosis. Gastrointestinal: There is a small hiatal hernia. The small bowel and colon appear normal without wall thickening or obstruction. Mesentery/Peritoneum/Retroperitoneum: Normal. No free fluid, free air, or enlarged lymphadenopathy. Pelvic Structures: The bladder is normal. No pelvic free fluid or enlarged lymphadenopathy. Vasculature: The abdominal aorta and its branches appear normal without evidence of injury. Bones and Soft tissues: Bone windows demonstrate no suspicious lytic or blastic lesions. The visible osseous structures are intact. Degenerative changes are seen inthe spine. Mild scoliosis of the spine there is a chronic-appearing sternal deformity. Impression Bilateral diffuse ground glass opacities in the dependent lungs, could represent atelectasis or aspiration. No acute injury in the abdomen or pelvis. > Dictated by Mireya Stewart M.D. (resident physician in radiology). I, Neo Angel MD have personally reviewed and interpreted this examination/study. > Interpreting Provider: Neo Angel MD on 08/17/2023 9:02 AM Yusuf Thompson MD CT ORDERABLES * CT LUMBAR SPINE WO CONTRAST - T/L-spine trauma, Spine fracture (08/17/2023 5:17 AM CDT) Anatomical Region Laterality Modality Spine Computed Tomogra phy 08/17/2023 5:06 AM CDT Impressions 08/17/2023 2:50 PM CDT IMPRESSION: 1.Acute 4 mm subdural hematoma overlying the left cerebral convexity without significant mass effect or midline shift. 2.No acute facial bone fractures identified. 3.Mild superior endplate compression deformity of the T3 vertebral body with loss of less than 25% of the vertebral body height. No retropulsion. Please correlate with point tenderness 4.Otherwise, no evidence of acute fracture or traumatic malalignment in the cervical, thoracic, or lumbar spine. 5.Groundglass opacities are seen throughout the dependent portions of the bilateral lungs which may represent aspiration in the setting of intoxication and trauma. 6.There is a large hiatal hernia. Preliminary findings were discussed with the patient's care provider, Dr. Patel by Dr. Alatorre in person at 0535 on 08/17/2023 with readback comprehension and verification. Report dictated by Tho Alatorre MD (resident physician in radiology). I, Jaya Loco MD have personally reviewed and interpreted this examination/study. > Interpreting Provider: Jaya Loco MD on 08/17/2023 2:50 PM Narrative 08/17/2023 2:50 PM CDT PROCEDURE: CT HEAD WO CONTRAST, CT LUMBAR SPINE WO CONTRAST, CT THORACIC SPINE WO CONTRAST, CT CERVICAL SPINE WO CONTRAST, CT FACIAL BONES WO CONTRAST, DATE/TIME OF EXAM: 08/17/2023 5:18 AM, LOCATION [facility] INDICATION: Trauma COMPARISON: CT angio brain and maxillofacial bones without contrast 03/20/2019. TECHNIQUE: CT of the head, cervical spine, and maxillofacial bones, orbits, and paranasal sinuses was performed without contrast according to standard protocol. Reformatted axial, sagittal, and coronal images of the thoracic and lumbar spine were obtained by the technologist from a concurrently performed body CT and sent to the workstation for review. FINDINGS: Head: There is an acute subdural hematoma overlying the left cerebral convexity which measures up to 4 mm in thickness (6/35). There is no significant mass effect on the underlying sulci. There are two punctate hyperdense foci within the left parietal lobe which appear grossly similar compared to the prior study from 08/17/2023 and could represent subtle calcification or developmental venous anomaly, (series 4, image 13 for example). There is mild cerebral volume loss with associated ex vacuo ventricular dilatation. The basilar cisterns are patent. No mass effect or midline shift is seen. The lazcano-white matter differentiation is normal. Periventricular white matter hypoattenuation is indicative of chronic small vessel ischemic disease. There is vascular calcification of the carotid siphons. Motion artifact reduces the sensitivity for detection of fractures. There is soft tissue swelling/hematoma along the periorbital soft tissues and the left frontal scalp. There is overlaying skin lacerations. Maxillofacial: There is a chronic fracture deformity of the left lateral orbital wall. The orbits otherwise appear normal. There is mild paranasal sinus disease. Advanced degenerative changes of the left greater than right temporomandibular joints. The hard palate, mandible, and temporomandibular joints otherwise appear normal. No acute facial bone fractures are identified. The patient is edentulous. The mastoid air cells are grossly clear. A hematoma is seen within the left frontal scalp extending inferiorly into the periorbital soft tissues. There is no post septal extension. No subcutaneous gas or radiopaque foreign body. Cervical spine: There is are degraded due to motion artifacts. Within this limitation: The alignment is normal. Vertebral bodies are normal in height without evidence of acute fracture. Other than middle atlantoaxial joint osteoarthritis, the craniocervical junction appears normal. There is mild degenerative disc disease. No significant central canal stenosis is seen. There are varying degrees of moderate facet osteoarthritis. There are varying degrees of mild to moderate uncovertebral joint osteoarthritis with the same degree of neural foraminal stenosis at these levels. No soft tissue abnormality is identified. Thoracic spine: There is slight dextrocurvature. Alignment is otherwise normal. Mild superior endplate compression deformity of the T3 vertebral body with loss of less than 25% of the vertebral body height, (series 6, image 58 for example). No retropulsion. Please correlate with point tenderness. Otherwise, the remaining vertebral bodies are normal in height without evidence of acute fracture. There is mild degenerative disc disease. No central canal stenosis is seen. There are varying degrees of mild facet osteoarthritis. No neural foraminal stenosis is seen. There is cardiomegaly and left atrial enlargement. Groundglass opacities are seen throughout the dependent portions of the bilateral lungs. There is a large hiatal hernia. Lumbar spine: There is levocurvature of the lumbar spine. The alignment is otherwise maintained. Vertebral bodies are normal in height without evidence of acute fracture. There is mild degenerative disc disease. No central canal stenosis is seen. There are varying degrees of mild facet osteoarthritis. There is mild left-sided L5-S1 neural foraminal stenosis. No soft tissue abnormality is identified. Procedure Note Jaya Loco MD - 08/17/2023 PROCEDURE: CT HEAD WO CONTRAST, CT LUMBAR SPINE WO CONTRAST, CTTHORACIC SPINE WO CONTRAST, CT CERVICAL SPINE WO CONTRAST, CT FACIAL BONES WO CONTRAST, DATE/TIME OF EXAM: 08/17/2023 5:18 AM, LOCATION [facility] INDICATION: Trauma COMPARISON: CT angio brain and maxillofacial bones without contrast 03/20/2019. TECHNIQUE: CT of the head, cervical spine, and maxillofacial bones,orbits, and paranasal sinuses was performed without contrast according tostandard protocol. Reformatted axial, sagittal, and coronal images of thethoracic and lumbar spine were obtained by the technologist from a concurrently performed body CT and sent to the workstation for review. FINDINGS: Head: There is an acute subdural hematoma overlying the left cerebralconvexity which measures up to 4 mm in thickness (6/35). There is no significantmass effect on the underlying sulci. There are two punctate hyperdense foci within the left parietal lobe which appear grossly similar compared tothe prior study from 08/17/2023 and could represent subtle calcification or developmental venous anomaly, (series 4, image 13 for example). There is mild cerebral volume loss with associated ex vacuo ventricular dilatation. The basilar cisterns are patent. No mass effect or midline shift is seen. The lazcano-white matter differentiation is normal. Periventricular white matter hypoattenuation is indicative of chronicsmall vessel ischemic disease. There is vascular calcification of the carotid siphons. Motion artifact reduces the sensitivity for detection of fractures. There is soft tissue swelling/hematoma along the periorbital soft tissues and the left frontal scalp. There is overlaying skin lacerations. Maxillofacial: There is a chronic fracture deformity of the left lateral orbital wall.The orbits otherwise appear normal. There is mild paranasal sinus disease. Advanced degenerative changes of the left greater than right temporomandibular joints. The hard palate, mandible, andtemporomandibular joints otherwise appear normal. No acute facial bone fractures are identified. The patient is edentulous. The mastoid air cells are grossly clear. A hematoma is seen within the left frontal scalp extending inferiorly into the periorbital soft tissues. There is no post septal extension. No subcutaneous gas or radiopaque foreign body. Cervical spine: There is are degraded due to motion artifacts. Withinthis limitation: The alignment is normal. Vertebral bodies are normal in height without evidence of acute fracture. Other than middle atlantoaxial joint osteoarthritis, the craniocervical junction appears normal. There ismild degenerative disc disease. No significant central canal stenosis isseen. There are varying degrees of moderate facet osteoarthritis. There are varying degrees of mild to moderate uncovertebral joint osteoarthritiswith the same degree of neural foraminal stenosis at these levels. No soft tissue abnormality is identified. Thoracic spine: There is slight dextrocurvature. Alignment is otherwise normal. Mild superior endplate compression deformity of the T3 vertebral body withloss of less than 25% of the vertebral body height, (series 6, image 58 for example). No retropulsion. Please correlate with point tenderness. Otherwise, the remaining vertebral bodies are normal in height without evidence of acute fracture. There is mild degenerative disc disease. No central canal stenosis is seen. There are varying degrees of mild facet osteoarthritis. No neural foraminal stenosis is seen. There iscardiomegaly and left atrial enlargement. Groundglass opacities are seen throughoutthe dependent portions of the bilateral lungs. There is a large hiatalhernia. Lumbar spine: There is levocurvature of the lumbar spine. The alignment is otherwise maintained. Vertebral bodies are normal in height without evidence ofacute fracture. There is mild degenerative disc disease. No central canal stenosis is seen. There are varying degrees of mild facetosteoarthritis. There is mild left-sided L5-S1 neural foraminal stenosis. No soft tissue abnormality is identified. IMPRESSION: 1.Acute 4 mm subdural hematoma overlying the left cerebral convexity without significant mass effect or midline shift. 2.No acute facial bone fractures identified. 3.Mild superior endplate compression deformity of the T3 vertebral body with loss of less than 25% of the vertebral body height. Noretropulsion. Please correlate with point tenderness 4.Otherwise, no evidence of acute fracture or traumatic malalignment inthe cervical, thoracic, or lumbar spine. 5.Groundglass opacities are seen throughout the dependent portions ofthe bilateral lungs which may represent aspiration in the setting of intoxication and trauma. 6.There is a large hiatal hernia. Preliminary findings were discussed with the patient's care provider,Dr. Patel by Dr. Alatorre in person at 0535 on 08/17/2023 with readback comprehension and verification. Report dictated by Tho Alatorre MD (resident physician in radiology). Jaya Milsl MD have personally reviewed and interpretedthis examination/study. > Interpreting Provider: Jaya Loco MD on 08/17/2023 2:50 PM Yusuf Thompson MD CT ORDERABLES * CT THORACIC SPINE WO CONTRAST - T/L-spine trauma, spine fracture (08/17/2023 5:17 AM CDT) Anatomical Region Laterality Modality Spine Computed Tomogra phy 08/17/2023 5:06 AM CDT Impressions 08/17/2023 2:50 PM CDT IMPRESSION: 1.Acute 4 mm subdural hematoma overlying the left cerebral convexity without significant mass effect or midline shift. 2.No acute facial bone fractures identified. 3.Mild superior endplate compression deformity of the T3 vertebral body with loss of less than 25% of the vertebral body height. No retropulsion. Please correlate with point tenderness 4.Otherwise, no evidence of acute fracture or traumatic malalignment in the cervical, thoracic, or lumbar spine. 5.Groundglass opacities are seen throughout the dependent portions of the bilateral lungs which may represent aspiration in the setting of intoxication and trauma. 6.There is a large hiatal hernia. Preliminary findings were discussed with the patient's care provider, Dr. Patel by Dr. Alatorre in person at 0535 on 08/17/2023 with readback comprehension and verification. Report dictated by Tho Alatorre MD (resident physician in radiology). Jaya Mills MD have personally reviewed and interpreted this examination/study. > Interpreting Provider: Jaya Loco MD on 08/17/2023 2:50 PM Narrative 08/17/2023 2:50 PM CDT PROCEDURE: CT HEAD WO CONTRAST, CT LUMBAR SPINE WO CONTRAST, CT THORACIC SPINE WO CONTRAST, CT CERVICAL SPINE WO CONTRAST, CT FACIAL BONES WO CONTRAST, DATE/TIME OF EXAM: 08/17/2023 5:18 AM, LOCATION [facility] INDICATION: Trauma COMPARISON: CT angio brain and maxillofacial bones without contrast 03/20/2019. TECHNIQUE: CT of the head, cervical spine, and maxillofacial bones, orbits, and paranasal sinuses was performed without contrast according to standard protocol. Reformatted axial, sagittal, and coronal images of the thoracic and lumbar spine were obtained by the technologist from a concurrently performed body CT and sent to the workstation for review. FINDINGS: Head: There is an acute subdural hematoma overlying the left cerebral convexity which measures up to 4 mm in thickness (6/35). There is no significant mass effect on the underlying sulci. There are two punctate hyperdense foci within the left parietal lobe which appear grossly similar compared to the prior study from 08/17/2023 and could represent subtle calcification or developmental venous anomaly, (series 4, image 13 for example). There is mild cerebral volume loss with associated ex vacuo ventricular dilatation. The basilar cisterns are patent. No mass effect or midline shift is seen. The lazcano-white matter differentiation is normal. Periventricular white matter hypoattenuation is indicative of chronic small vessel ischemic disease. There is vascular calcification of the carotid siphons. Motion artifact reduces the sensitivity for detection of fractures. There is soft tissue swelling/hematoma along the periorbital soft tissues and the left frontal scalp. There is overlaying skin lacerations. Maxillofacial: There is a chronic fracture deformity of the left lateral orbital wall. The orbits otherwise appear normal. There is mild paranasal sinus disease. Advanced degenerative changes of the left greater than right temporomandibular joints. The hard palate, mandible, and temporomandibular joints otherwise appear normal. No acute facial bone fractures are identified. The patient is edentulous. The mastoid air cells are grossly clear. A hematoma is seen within the left frontal scalp extending inferiorly into the periorbital soft tissues. There is no post septal extension. No subcutaneous gas or radiopaque foreign body. Cervical spine: There is are degraded due to motion artifacts. Within this limitation: The alignment is normal. Vertebral bodies are normal in height without evidence of acute fracture. Other than middle atlantoaxial joint osteoarthritis, the craniocervical junction appears normal. There is mild degenerative disc disease. No significant central canal stenosis is seen. There are varying degrees of moderate facet osteoarthritis. There are varying degrees of mild to moderate uncovertebral joint osteoarthritis with the same degree of neural foraminal stenosis at these levels. No soft tissue abnormality is identified. Thoracic spine: There is slight dextrocurvature. Alignment is otherwise normal. Mild superior endplate compression deformity of the T3 vertebral body with loss of less than 25% of the vertebral body height, (series 6, image 58 for example). No retropulsion. Please correlate with point tenderness. Otherwise, the remaining vertebral bodies are normal in height without evidence of acute fracture. There is mild degenerative disc disease. No central canal stenosis is seen. There are varying degrees of mild facet osteoarthritis. No neural foraminal stenosis is seen. There is cardiomegaly and left atrial enlargement. Groundglass opacities are seen throughout the dependent portions of the bilateral lungs. There is a large hiatal hernia. Lumbar spine: There is levocurvature of the lumbar spine. The alignment is otherwise maintained. Vertebral bodies are normal in height without evidence of acute fracture. There is mild degenerative disc disease. No central canal stenosis is seen. There are varying degrees of mild facet osteoarthritis. There is mild left-sided L5-S1 neural foraminal stenosis. No soft tissue abnormality is identified. Procedure Note Jaya Loco MD - 08/17/2023 PROCEDURE: CT HEAD WO CONTRAST, CT LUMBAR SPINE WO CONTRAST, CTTHORACIC SPINE WO CONTRAST, CT CERVICAL SPINE WO CONTRAST, CT FACIAL BONES WO CONTRAST, DATE/TIME OF EXAM: 08/17/2023 5:18 AM, LOCATION [facility] INDICATION: Trauma COMPARISON: CT angio brain and maxillofacial bones without contrast 03/20/2019. TECHNIQUE: CT of the head, cervical spine, and maxillofacial bones,orbits, and paranasal sinuses was performed without contrast according tostandard protocol. Reformatted axial, sagittal, and coronal images of thethoracic and lumbar spine were obtained by the technologist from a concurrently performed body CT and sent to the workstation for review. FINDINGS: Head: There is an acute subdural hematoma overlying the left cerebralconvexity which measures up to 4 mm in thickness (6/35). There is no significantmass effect on the underlying sulci. There are two punctate hyperdense foci within the left parietal lobe which appear grossly similar compared tothe prior study from 08/17/2023 and could represent subtle calcification or developmental venous anomaly, (series 4, image 13 for example). There is mild cerebral volume loss with associated ex vacuo ventricular dilatation. The basilar cisterns are patent. No mass effect or midline shift is seen. The lazcano-white matter differentiation is normal. Periventricular white matter hypoattenuation is indicative of chronicsmall vessel ischemic disease. There is vascular calcification of the carotid siphons. Motion artifact reduces the sensitivity for detection of fractures. There is soft tissue swelling/hematoma along the periorbital soft tissues and the left frontal scalp. There is overlaying skin lacerations. Maxillofacial: There is a chronic fracture deformity of the left lateral orbital wall.The orbits otherwise appear normal. There is mild paranasal sinus disease. Advanced degenerative changes of the left greater than right temporomandibular joints. The hard palate, mandible, andtemporomandibular joints otherwise appear normal. No acute facial bone fractures are identified. The patient is edentulous. The mastoid air cells are grossly clear. A hematoma is seen within the left frontal scalp extending inferiorly into the periorbital soft tissues. There is no post septal extension. No subcutaneous gas or radiopaque foreign body. Cervical spine: There is are degraded due to motion artifacts. Withinthis limitation: The alignment is normal. Vertebral bodies are normal in height without evidence of acute fracture. Other than middle atlantoaxial joint osteoarthritis, the craniocervical junction appears normal. There ismild degenerative disc disease. No significant central canal stenosis isseen. There are varying degrees of moderate facet osteoarthritis. There are varying degrees of mild to moderate uncovertebral joint osteoarthritiswith the same degree of neural foraminal stenosis at these levels. No soft tissue abnormality is identified. Thoracic spine: There is slight dextrocurvature. Alignment is otherwise normal. Mild superior endplate compression deformity of the T3 vertebral body withloss of less than 25% of the vertebral body height, (series 6, image 58 for example). No retropulsion. Please correlate with point tenderness. Otherwise, the remaining vertebral bodies are normal in height without evidence of acute fracture. There is mild degenerative disc disease. No central canal stenosis is seen. There are varying degrees of mild facet osteoarthritis. No neural foraminal stenosis is seen. There iscardiomegaly and left atrial enlargement. Groundglass opacities are seen throughoutthe dependent portions of the bilateral lungs. There is a large hiatalhernia. Lumbar spine: There is levocurvature of the lumbar spine. The alignment is otherwise maintained. Vertebral bodies are normal in height without evidence ofacute fracture. There is mild degenerative disc disease. No central canal stenosis is seen. There are varying degrees of mild facetosteoarthritis. There is mild left-sided L5-S1 neural foraminal stenosis. No soft tissue abnormality is identified. IMPRESSION: 1.Acute 4 mm subdural hematoma overlying the left cerebral convexity without significant mass effect or midline shift. 2.No acute facial bone fractures identified. 3.Mild superior endplate compression deformity of the T3 vertebral body with loss of less than 25% of the vertebral body height. Noretropulsion. Please correlate with point tenderness 4.Otherwise, no evidence of acute fracture or traumatic malalignment inthe cervical, thoracic, or lumbar spine. 5.Groundglass opacities are seen throughout the dependent portions ofthe bilateral lungs which may represent aspiration in the setting of intoxication and trauma. 6.There is a large hiatal hernia. Preliminary findings were discussed with the patient's care provider,Dr. Patel by Dr. Alatorre in person at 0535 on 08/17/2023 with readback comprehension and verification. Report dictated by Tho Alatorre MD (resident physician in radiology). I, Jaya Loco MD have personally reviewed and interpretedthis examination/study. > Interpreting Provider: Jaya Loco MD on 08/17/2023 2:50 PM Yusuf Thompson MD CT ORDERABLES * CT CERVICAL SPINE WO CONTRAST - C-Spine Trauma, Spine fracture (08/17/2023 5:17 AM CDT) Anatomical Region Laterality Modality Spine Computed Tomogra phy 08/17/2023 5:06 AM CDT Impressions 08/17/2023 2:50 PM CDT IMPRESSION: 1.Acute 4 mm subdural hematoma overlying the left cerebral convexity without significant mass effect or midline shift. 2.No acute facial bone fractures identified. 3.Mild superior endplate compression deformity of the T3 vertebral body with loss of less than 25% of the vertebral body height. No retropulsion. Please correlate with point tenderness 4.Otherwise, no evidence of acute fracture or traumatic malalignment in the cervical, thoracic, or lumbar spine. 5.Groundglass opacities are seen throughout the dependent portions of the bilateral lungs which may represent aspiration in the setting of intoxication and trauma. 6.There is a large hiatal hernia. Preliminary findings were discussed with the patient's care provider, Dr. Patel by Dr. Alatorre in person at 0535 on 08/17/2023 with readback comprehension and verification. Report dictated by Tho Alatorre MD (resident physician in radiology). I, Jaya Loco MD have personally reviewed and interpreted this examination/study. > Interpreting Provider: Jaya Loco MD on 08/17/2023 2:50 PM Narrative 08/17/2023 2:50 PM CDT PROCEDURE: CT HEAD WO CONTRAST, CT LUMBAR SPINE WO CONTRAST, CT THORACIC SPINE WO CONTRAST, CT CERVICAL SPINE WO CONTRAST, CT FACIAL BONES WO CONTRAST, DATE/TIME OF EXAM: 08/17/2023 5:18 AM, LOCATION [facility] INDICATION: Trauma COMPARISON: CT angio brain and maxillofacial bones without contrast 03/20/2019. TECHNIQUE: CT of the head, cervical spine, and maxillofacial bones, orbits, and paranasal sinuses was performed without contrast according to standard protocol. Reformatted axial, sagittal, and coronal images of the thoracic and lumbar spine were obtained by the technologist from a concurrently performed body CT and sent to the workstation for review. FINDINGS: Head: There is an acute subdural hematoma overlying the left cerebral convexity which measures up to 4 mm in thickness (6/35). There is no significant mass effect on the underlying sulci. There are two punctate hyperdense foci within the left parietal lobe which appear grossly similar compared to the prior study from 08/17/2023 and could represent subtle calcification or developmental venous anomaly, (series 4, image 13 for example). There is mild cerebral volume loss with associated ex vacuo ventricular dilatation. The basilar cisterns are patent. No mass effect or midline shift is seen. The lazcano-white matter differentiation is normal. Periventricular white matter hypoattenuation is indicative of chronic small vessel ischemic disease. There is vascular calcification of the carotid siphons. Motion artifact reduces the sensitivity for detection of fractures. There is soft tissue swelling/hematoma along the periorbital soft tissues and the left frontal scalp. There is overlaying skin lacerations. Maxillofacial: There is a chronic fracture deformity of the left lateral orbital wall. The orbits otherwise appear normal. There is mild paranasal sinus disease. Advanced degenerative changes of the left greater than right temporomandibular joints. The hard palate, mandible, and temporomandibular joints otherwise appear normal. No acute facial bone fractures are identified. The patient is edentulous. The mastoid air cells are grossly clear. A hematoma is seen within the left frontal scalp extending inferiorly into the periorbital soft tissues. There is no post septal extension. No subcutaneous gas or radiopaque foreign body. Cervical spine: There is are degraded due to motion artifacts. Within this limitation: The alignment is normal. Vertebral bodies are normal in height without evidence of acute fracture. Other than middle atlantoaxial joint osteoarthritis, the craniocervical junction appears normal. There is mild degenerative disc disease. No significant central canal stenosis is seen. There are varying degrees of moderate facet osteoarthritis. There are varying degrees of mild to moderate uncovertebral joint osteoarthritis with the same degree of neural foraminal stenosis at these levels. No soft tissue abnormality is identified. Thoracic spine: There is slight dextrocurvature. Alignment is otherwise normal. Mild superior endplate compression deformity of the T3 vertebral body with loss of less than 25% of the vertebral body height, (series 6, image 58 for example). No retropulsion. Please correlate with point tenderness. Otherwise, the remaining vertebral bodies are normal in height without evidence of acute fracture. There is mild degenerative disc disease. No central canal stenosis is seen. There are varying degrees of mild facet osteoarthritis. No neural foraminal stenosis is seen. There is cardiomegaly and left atrial enlargement. Groundglass opacities are seen throughout the dependent portions of the bilateral lungs. There is a large hiatal hernia. Lumbar spine: There is levocurvature of the lumbar spine. The alignment is otherwise maintained. Vertebral bodies are normal in height without evidence of acute fracture. There is mild degenerative disc disease. No central canal stenosis is seen. There are varying degrees of mild facet osteoarthritis. There is mild left-sided L5-S1 neural foraminal stenosis. No soft tissue abnormality is identified. Procedure Note Jaya Loco MD - 08/17/2023 PROCEDURE: CT HEAD WO CONTRAST, CT LUMBAR SPINE WO CONTRAST, CTTHORACIC SPINE WO CONTRAST, CT CERVICAL SPINE WO CONTRAST, CT FACIAL BONES WO CONTRAST, DATE/TIME OF EXAM: 08/17/2023 5:18 AM, LOCATION [facility] INDICATION: Trauma COMPARISON: CT angio brain and maxillofacial bones without contrast 03/20/2019. TECHNIQUE: CT of the head, cervical spine, and maxillofacial bones,orbits, and paranasal sinuses was performed without contrast according tostandard protocol. Reformatted axial, sagittal, and coronal images of thethoracic and lumbar spine were obtained by the technologist from a concurrently performed body CT and sent to the workstation for review. FINDINGS: Head: There is an acute subdural hematoma overlying the left cerebralconvexity which measures up to 4 mm in thickness (6/35). There is no significantmass effect on the underlying sulci. There are two punctate hyperdense foci within the left parietal lobe which appear grossly similar compared tothe prior study from 08/17/2023 and could represent subtle calcification or developmental venous anomaly, (series 4, image 13 for example). There is mild cerebral volume loss with associated ex vacuo ventricular dilatation. The basilar cisterns are patent. No mass effect or midline shift is seen. The lazcano-white matter differentiation is normal. Periventricular white matter hypoattenuation is indicative of chronicsmall vessel ischemic disease. There is vascular calcification of the carotid siphons. Motion artifact reduces the sensitivity for detection of fractures. There is soft tissue swelling/hematoma along the periorbital soft tissues and the left frontal scalp. There is overlaying skin lacerations. Maxillofacial: There is a chronic fracture deformity of the left lateral orbital wall.The orbits otherwise appear normal. There is mild paranasal sinus disease. Advanced degenerative changes of the left greater than right temporomandibular joints. The hard palate, mandible, andtemporomandibular joints otherwise appear normal. No acute facial bone fractures are identified. The patient is edentulous. The mastoid air cells are grossly clear. A hematoma is seen within the left frontal scalp extending inferiorly into the periorbital soft tissues. There is no post septal extension. No subcutaneous gas or radiopaque foreign body. Cervical spine: There is are degraded due to motion artifacts. Withinthis limitation: The alignment is normal. Vertebral bodies are normal in height without evidence of acute fracture. Other than middle atlantoaxial joint osteoarthritis, the craniocervical junction appears normal. There ismild degenerative disc disease. No significant central canal stenosis isseen. There are varying degrees of moderate facet osteoarthritis. There are varying degrees of mild to moderate uncovertebral joint osteoarthritiswith the same degree of neural foraminal stenosis at these levels. No soft tissue abnormality is identified. Thoracic spine: There is slight dextrocurvature. Alignment is otherwise normal. Mild superior endplate compression deformity of the T3 vertebral body withloss of less than 25% of the vertebral body height, (series 6, image 58 for example). No retropulsion. Please correlate with point tenderness. Otherwise, the remaining vertebral bodies are normal in height without evidence of acute fracture. There is mild degenerative disc disease. No central canal stenosis is seen. There are varying degrees of mild facet osteoarthritis. No neural foraminal stenosis is seen. There iscardiomegaly and left atrial enlargement. Groundglass opacities are seen throughoutthe dependent portions of the bilateral lungs. There is a large hiatalhernia. Lumbar spine: There is levocurvature of the lumbar spine. The alignment is otherwise maintained. Vertebral bodies are normal in height without evidence ofacute fracture. There is mild degenerative disc disease. No central canal stenosis is seen. There are varying degrees of mild facetosteoarthritis. There is mild left-sided L5-S1 neural foraminal stenosis. No soft tissue abnormality is identified. IMPRESSION: 1.Acute 4 mm subdural hematoma overlying the left cerebral convexity without significant mass effect or midline shift. 2.No acute facial bone fractures identified. 3.Mild superior endplate compression deformity of the T3 vertebral body with loss of less than 25% of the vertebral body height. Noretropulsion. Please correlate with point tenderness 4.Otherwise, no evidence of acute fracture or traumatic malalignment inthe cervical, thoracic, or lumbar spine. 5.Groundglass opacities are seen throughout the dependent portions ofthe bilateral lungs which may represent aspiration in the setting of intoxication and trauma. 6.There is a large hiatal hernia. Preliminary findings were discussed with the patient's care provider,Dr. Patel by Dr. Alatorre in person at 0535 on 08/17/2023 with readback comprehension and verification. Report dictated by Tho Alatorre MD (resident physician in radiology). Jaya Mills MD have personally reviewed and interpretedthis examination/study. > Interpreting Provider: Jaya Loco MD on 08/17/2023 2:50 PM Yusuf Thompson MD CT ORDERABLES * CT FACIAL BONES WO CONTRAST - Facial trauma, fx suspected, blunt (08/17/2023 5:17 AM CDT) Only the most recent of2 resultswithin the time period is included. Anatomical Region Laterality Modality Head Computed Tomogra phy 08/17/2023 5:06 AM CDT Impressions 08/17/2023 2:50 PM CDT IMPRESSION: 1.Acute 4 mm subdural hematoma overlying the left cerebral convexity without significant mass effect or midline shift. 2.No acute facial bone fractures identified. 3.Mild superior endplate compression deformity of the T3 vertebral body with loss of less than 25% of the vertebral body height. No retropulsion. Please correlate with point tenderness 4.Otherwise, no evidence of acute fracture or traumatic malalignment in the cervical, thoracic, or lumbar spine. 5.Groundglass opacities are seen throughout the dependent portions of the bilateral lungs which may represent aspiration in the setting of intoxication and trauma. 6.There is a large hiatal hernia. Preliminary findings were discussed with the patient's care provider, Dr. Patel by Dr. Alatorre in person at 0535 on 08/17/2023 with readback comprehension and verification. Report dictated by Tho Alatorre MD (resident physician in radiology). Jaya Mills MD have personally reviewed and interpreted this examination/study. > Interpreting Provider: Jaya Loco MD on 08/17/2023 2:50 PM Narrative 08/17/2023 2:50 PM CDT PROCEDURE: CT HEAD WO CONTRAST, CT LUMBAR SPINE WO CONTRAST, CT THORACIC SPINE WO CONTRAST, CT CERVICAL SPINE WO CONTRAST, CT FACIAL BONES WO CONTRAST, DATE/TIME OF EXAM: 08/17/2023 5:18 AM, LOCATION [facility] INDICATION: Trauma COMPARISON: CT angio brain and maxillofacial bones without contrast 03/20/2019. TECHNIQUE: CT of the head, cervical spine, and maxillofacial bones, orbits, and paranasal sinuses was performed without contrast according to standard protocol. Reformatted axial, sagittal, and coronal images of the thoracic and lumbar spine were obtained by the technologist from a concurrently performed body CT and sent to the workstation for review. FINDINGS: Head: There is an acute subdural hematoma overlying the left cerebral convexity which measures up to 4 mm in thickness (6/35). There is no significant mass effect on the underlying sulci. There are two punctate hyperdense foci within the left parietal lobe which appear grossly similar compared to the prior study from 08/17/2023 and could represent subtle calcification or developmental venous anomaly, (series 4, image 13 for example). There is mild cerebral volume loss with associated ex vacuo ventricular dilatation. The basilar cisterns are patent. No mass effect or midline shift is seen. The lazcano-white matter differentiation is normal. Periventricular white matter hypoattenuation is indicative of chronic small vessel ischemic disease. There is vascular calcification of the carotid siphons. Motion artifact reduces the sensitivity for detection of fractures. There is soft tissue swelling/hematoma along the periorbital soft tissues and the left frontal scalp. There is overlaying skin lacerations. Maxillofacial: There is a chronic fracture deformity of the left lateral orbital wall. The orbits otherwise appear normal. There is mild paranasal sinus disease. Advanced degenerative changes of the left greater than right temporomandibular joints. The hard palate, mandible, and temporomandibular joints otherwise appear normal. No acute facial bone fractures are identified. The patient is edentulous. The mastoid air cells are grossly clear. A hematoma is seen within the left frontal scalp extending inferiorly into the periorbital soft tissues. There is no post septal extension. No subcutaneous gas or radiopaque foreign body. Cervical spine: There is are degraded due to motion artifacts. Within this limitation: The alignment is normal. Vertebral bodies are normal in height without evidence of acute fracture. Other than middle atlantoaxial joint osteoarthritis, the craniocervical junction appears normal. There is mild degenerative disc disease. No significant central canal stenosis is seen. There are varying degrees of moderate facet osteoarthritis. There are varying degrees of mild to moderate uncovertebral joint osteoarthritis with the same degree of neural foraminal stenosis at these levels. No soft tissue abnormality is identified. Thoracic spine: There is slight dextrocurvature. Alignment is otherwise normal. Mild superior endplate compression deformity of the T3 vertebral body with loss of less than 25% of the vertebral body height, (series 6, image 58 for example). No retropulsion. Please correlate with point tenderness. Otherwise, the remaining vertebral bodies are normal in height without evidence of acute fracture. There is mild degenerative disc disease. No central canal stenosis is seen. There are varying degrees of mild facet osteoarthritis. No neural foraminal stenosis is seen. There is cardiomegaly and left atrial enlargement. Groundglass opacities are seen throughout the dependent portions of the bilateral lungs. There is a large hiatal hernia. Lumbar spine: There is levocurvature of the lumbar spine. The alignment is otherwise maintained. Vertebral bodies are normal in height without evidence of acute fracture. There is mild degenerative disc disease. No central canal stenosis is seen. There are varying degrees of mild facet osteoarthritis. There is mild left-sided L5-S1 neural foraminal stenosis. No soft tissue abnormality is identified. Procedure Note Jaya Loco MD - 08/17/2023 PROCEDURE: CT HEAD WO CONTRAST, CT LUMBAR SPINE WO CONTRAST, CTTHORACIC SPINE WO CONTRAST, CT CERVICAL SPINE WO CONTRAST, CT FACIAL BONES WO CONTRAST, DATE/TIME OF EXAM: 08/17/2023 5:18 AM, LOCATION [facility] INDICATION: Trauma COMPARISON: CT angio brain and maxillofacial bones without contrast 03/20/2019. TECHNIQUE: CT of the head, cervical spine, and maxillofacial bones,orbits, and paranasal sinuses was performed without contrast according tostandard protocol. Reformatted axial, sagittal, and coronal images of thethoracic and lumbar spine were obtained by the technologist from a concurrently performed body CT and sent to the workstation for review. FINDINGS: Head: There is an acute subdural hematoma overlying the left cerebralconvexity which measures up to 4 mm in thickness (6/35). There is no significantmass effect on the underlying sulci. There are two punctate hyperdense foci within the left parietal lobe which appear grossly similar compared tothe prior study from 08/17/2023 and could represent subtle calcification or developmental venous anomaly, (series 4, image 13 for example). There is mild cerebral volume loss with associated ex vacuo ventricular dilatation. The basilar cisterns are patent. No mass effect or midline shift is seen. The lazcano-white matter differentiation is normal. Periventricular white matter hypoattenuation is indicative of chronicsmall vessel ischemic disease. There is vascular calcification of the carotid siphons. Motion artifact reduces the sensitivity for detection of fractures. There is soft tissue swelling/hematoma along the periorbital soft tissues and the left frontal scalp. There is overlaying skin lacerations. Maxillofacial: There is a chronic fracture deformity of the left lateral orbital wall.The orbits otherwise appear normal. There is mild paranasal sinus disease. Advanced degenerative changes of the left greater than right temporomandibular joints. The hard palate, mandible, andtemporomandibular joints otherwise appear normal. No acute facial bone fractures are identified. The patient is edentulous. The mastoid air cells are grossly clear. A hematoma is seen within the left frontal scalp extending inferiorly into the periorbital soft tissues. There is no post septal extension. No subcutaneous gas or radiopaque foreign body. Cervical spine: There is are degraded due to motion artifacts. Withinthis limitation: The alignment is normal. Vertebral bodies are normal in height without evidence of acute fracture. Other than middle atlantoaxial joint osteoarthritis, the craniocervical junction appears normal. There ismild degenerative disc disease. No significant central canal stenosis isseen. There are varying degrees of moderate facet osteoarthritis. There are varying degrees of mild to moderate uncovertebral joint osteoarthritiswith the same degree of neural foraminal stenosis at these levels. No soft tissue abnormality is identified. Thoracic spine: There is slight dextrocurvature. Alignment is otherwise normal. Mild superior endplate compression deformity of the T3 vertebral body withloss of less than 25% of the vertebral body height, (series 6, image 58 for example). No retropulsion. Please correlate with point tenderness. Otherwise, the remaining vertebral bodies are normal in height without evidence of acute fracture. There is mild degenerative disc disease. No central canal stenosis is seen. There are varying degrees of mild facet osteoarthritis. No neural foraminal stenosis is seen. There iscardiomegaly and left atrial enlargement. Groundglass opacities are seen throughoutthe dependent portions of the bilateral lungs. There is a large hiatalhernia. Lumbar spine: There is levocurvature of the lumbar spine. The alignment is otherwise maintained. Vertebral bodies are normal in height without evidence ofacute fracture. There is mild degenerative disc disease. No central canal stenosis is seen. There are varying degrees of mild facetosteoarthritis. There is mild left-sided L5-S1 neural foraminal stenosis. No soft tissue abnormality is identified. IMPRESSION: 1.Acute 4 mm subdural hematoma overlying the left cerebral convexity without significant mass effect or midline shift. 2.No acute facial bone fractures identified. 3.Mild superior endplate compression deformity of the T3 vertebral body with loss of less than 25% of the vertebral body height. Noretropulsion. Please correlate with point tenderness 4.Otherwise, no evidence of acute fracture or traumatic malalignment inthe cervical, thoracic, or lumbar spine. 5.Groundglass opacities are seen throughout the dependent portions ofthe bilateral lungs which may represent aspiration in the setting of intoxication and trauma. 6.There is a large hiatal hernia. Preliminary findings were discussed with the patient's care provider,Dr. Patel by Dr. Alatorre in person at 0535 on 08/17/2023 with readback comprehension and verification. Report dictated by Tho Alatorre MD (resident physician in radiology). I, Jaya Loco MD have personally reviewed and interpretedthis examination/study. > Interpreting Provider: Jaya Loco MD on 08/17/2023 2:50 PM Yusuf Thompson MD CT ORDERABLES * XR CHEST 1VW PORTABLE (08/17/2023 4:45 AM CDT) Only the most recent of2 resultswithin the time period is included. Anatomical Region Laterality Modality Chest Radiographic Adilia ging 08/17/2023 4:40 AM CDT Narrative 08/17/2023 11:22 AM CDT PROCEDURE: XR CHEST 1VW PORTABLE DATE/TIME OF EXAM: 08/17/2023 4:36 AM CLINICAL INFORMATION: None relevant/not provided if blank. Indication: Trauma COMPARISON: Chest x-ray dated 04/03/2021. FINDINGS/IMPRESSION: right hemidiaphragm elevation, mildly increased. Mild retrocardiac opacity, compatible with a hiatal hernia. The lungs are clear with no focal consolidation, pleural effusion, or pneumothorax. The cardiomediastinal silhouette is normal. The aorta is atherosclerotic. The visible bony thorax is intact. Report dictated by Mireya Stewart MD (resident physician in radiology). Sarthak Mills MD have personally reviewed and interpreted this examination/study. > Interpreting Provider: Sarthak Kenny MD on 08/17/2023 11:22 AM Procedure Note Sarthak Kenny MD - 08/17/2023 PROCEDURE: XR CHEST 1VW PORTABLE DATE/TIME OF EXAM: 08/17/2023 4:36 AM CLINICAL INFORMATION: None relevant/not provided if blank. Indication: Trauma COMPARISON: Chest x-ray dated 04/03/2021. FINDINGS/IMPRESSION: right hemidiaphragm elevation, mildly increased. Mild retrocardiacopacity, compatible with a hiatal hernia. The lungs are clear with no focal consolidation, pleural effusion, or pneumothorax. The cardiomediastinal silhouette is normal. The aorta is atherosclerotic. The visible bonythorax is intact. Report dictated by Mireya Stewart MD (resident physician in radiology). Sarthak Mills MD have personally reviewed and interpreted this examination/study. > Interpreting Provider: Sarthak Kenny MD on 08/17/2023 11:22 AM Yusuf Thompson MD DIAGNOSTIC IMAGING O RDERABLES * XR PELVIS 1 OR 2VW (08/17/2023 4:45 AM CDT) Anatomical Region Laterality Modality Pelvis Radiographic Adilia ging 08/17/2023 4:39 AM CDT Impressions 08/17/2023 11:22 AM CDT IMPRESSION: No acute fracture identified. Report dictated by Mireya Stewart MD (resident physician in radiology). Sarthak Mills MD have personally reviewed and interpreted this examination/study. > Interpreting Provider: Sarthak Kenny MD on 08/17/2023 11:22 AM Narrative 08/17/2023 11:22 AM CDT PROCEDURE: XR PELVIS 1 OR 2VW, DATE/TIME OF EXAM: 08/17/2023 4:36 AM, LOCATION [facility] INDICATION: Trauma Fracture suspected COMPARISON: None. FINDINGS: No acute fracture is identified. The femoral heads appear well-seated within their respective acetabula. The pubic symphysis is intact. Bone density and texture are normal. The sacroiliac joints are normal. Procedure Note Sarthak Kenny MD - 08/17/2023 PROCEDURE: XR PELVIS 1 OR 2VW, DATE/TIME OF EXAM: 08/17/2023 4:36 AM, LOCATION [facility] INDICATION: Trauma Fracture suspected COMPARISON: None. FINDINGS: No acute fracture is identified. The femoral heads appear well-seated within their respective acetabula. The pubic symphysis is intact. Bone density and texture are normal. The sacroiliac joints are normal. IMPRESSION: No acute fracture identified. Report dictated by Mireya Stewart MD (resident physician in radiology). I, Sarthak Kenny MD have personally reviewed and interpreted this examination/study. > Interpreting Provider: Sarthak Kenny MD on 08/17/2023 11:22 AM Yusuf Thompson MD DIAGNOSTIC IMAGING O RDERABLES * PTT [facility] (08/17/2023 4:37 AM CDT) Only the most recent of2 resultswithin the time period is included. APTT 29.1 23.0 - 38.4 Seconds 08/17/2023 5:13 AM CDT [facility] Comment:Suggested therapeuti c range for full dose I.V. unfractionated heparin therapy for venous thromboembolism is 71 to 109 seconds. Blood BLOOD SPECIMEN / Unknown Venipuncture / Unknown 08/17/2023 4:37 AM CDT 08/17/2023 4:47 AM CDT Yusuf Thompson MD LAB - COAGULATION OR DERABLES [facility] [address] [place] [address], [place] [phone] * PT-INR [facility] (08/17/2023 4:37 AM CDT) Only the most recent of2 resultswithin the time period is included. Pathologist [facility] PT 13.1 12.1 - 14.8 Seconds 08/17/2023 5:13 AM CDT [facility] INR 1.0 See Comment 08/17/2023 5:13 AM CDT [facility] Comment:The suggested therap eutic range for standard coumadin (warfarin) therapy is an INR of 2.0-3.0. For high-risk patients (Mechanical Mitral Valve Prosthesis, etc.), the suggested prophylactic therapeutic range is an INR of 2.5-3.5. Blood BLOOD SPECIMEN / Unknown Venipuncture / Unknown 08/17/2023 4:37 AM CDT 08/17/2023 4:47 AM CDT Yusuf Thompson MD LAB - COAGULATION OR DERABLES Performing Organization Address City/[facility]/ZIP Co de Phone Number [address] [address], [facility] [phone] * TYPE + SCREEN PANEL (08/17/2023 4:37 AM CDT) [facility] Antibody Screen NEG 5:37 AM CDT [facility] BLOOD BANK LAB ABO Rh O POS 08/17/2023 5:37 AM CDT [facility] BLOOD [facility] LAB Blood Bank BLOOD SPECIMEN / Unknown Venipuncture / Unknown 08/17/2023 4:37 AM CDT 08/17/2023 4:48 AM CDT Yusuf Thompson MD LAB - BLOOD BANK ORD ERABLES Performing Organization Address City/[facility]/ZIP Co de Phone Number [facility] [address] [place] [phone], [employer] [phone] * (ABNORMAL) BASIC METABOLIC PANEL (CALCIUM TOTAL) (08/17/2023 4:37 AM CDT) Only the most recent of3 resultswithin the time period is included. [facility] BUN 9 7 - 26 mg/dL 08/17/2023 5:17 AM CDT [facility] Creatinine 0.47(L) 0.56 - 0.96 mg/dL 08/17/2023 5:17 AM [facility] Sodium 146(H) 136 - 145 mmol/L 08/17/2023 5:17 AM [facility] Potassium 3.3(L) 3.5 - 4.5 mmol/L 08/17/2023 5:17 AM [facility] Chloride 105 98 - 107 mmol/L 08/17/2023 5:17 AM [facility] CO2 31(H) 22 - 29 mmol/L 08/17/2023 5:17 AM [facility] Glucose 96 70 - 115 mg/dL 08/17/2023 5:17 AM [facility] Calcium 9.2 8.4 - 10.2 mg/dL 08/17/2023 5:17 AM [facility] Anion Gap 10 6 - 16 08/17/2023 5:17 AM [facility] BUN/Creatinine Ratio 19 7 - 23 08/17/2023 5:17 AM [facility] Osmolality Calculated 301(H) 275 - 295 mOsm/kg 08/17/2023 5:17 AM [facility] eGFR by CKD-EPI >90 >=90 mL/min/1.7 3 m2 08/17/2023 5:17 AM [facility] Blood BLOOD SPECIMEN / Unknown Venipuncture / Unknown 08/17/2023 4:37 AM CDT 08/17/2023 4:47 AM T Yusuf Thompson MD LAB - CHEMISTRY MICA SEBASTIAN [facility] Organization Address City/State/ZIP Co de Phone Number [facility] [address] [place] [phone], [facility] [phone] * HEPATITIS C AB SCREEN RFLX NAAT QUANT (04/03/2021 3:08 PM CDT) Hepatitis C Antibody Non-react gilma Non-reac tive 04/03/2021 4:22 PM [facility] Comment:Hepatitis C Antibody screen indicates no serologic [...] Deleon MD LAB - CHEMISTR Y ORDERABLES Performing Organization Address City/[facility]/ZIP Co de Phone Number [address] [phone], [place] [phone] * HIV-1 HIV-2 ANTIBODY + HIV P24 AG PANEL (04/03/2021 3:08 PM CDT) [facility] HIV Antigen/Antibod y 1 & 2 Non-reacti ve Non-react gilma 04/03/2021 4:25 PM CDT [facility] Comment:Neither HIV-1 p24 An tigen nor HIV-1/HIV-2 Antibodies are detected. Blood BLOOD SPECIMEN / Unknown Venipuncture / Unknown 04/03/2021 3:08 PM CDT 04/03/2021 3:34 PM CDT Rome Deleon MD LAB - CHEMISTR Y ORDERABLES Performing Organization Address [facility] Co de Phone Number [address] [address], [place] [phone] * TROPONIN I (04/03/2021 3:08 PM CDT) [facility] Troponin I <0.010 <0.032 ng/mL 04/03/2021 3:53 PM CDT [facility] Blood BLOOD SPECIMEN / Unknown Venipuncture / Unknown 04/03/2021 3:08 PM CDT 04/03/2021 3:23 PM CDT Rome Deleon MD LAB - CHEMISTR Y ORDERABLES Performing Organization Address City/[facility]/ZIP Co de Phone Number [address] [address], [place] [phone] * PHOSPHORUS BLOOD (04/03/2021 3:08 PM CDT) Only the most recent of3 resultswithin the time period is included. Pathologist [facility] Phosphorus 2.6 2.3 - 4.7 mg/dL 04/03/2021 3:48 PM CDT [facility] Blood BLOOD SPECIMEN / Unknown Venipuncture / Unknown 04/03/2021 3:08 PM CDT 04/03/2021 3:23 PM CDT Rome Deleon MD LAB - CHEMISTR Y ORDERABLES [address] [phone], [facility] [phone] * MAGNESIUM BLOOD (04/03/2021 3:08 PM CDT) Only the most recent of4 resultswithin the time period is included. [facility] Magnesium 04/03/2021 3:48 PM CDT [facility] Comment:Hemolysis detected i n this specimen. Hemolysis is known to cause elevations in this analyte. Caution should be exercised in the interpretation of this result. Recommend repeat testing if clinically indicated. Blood BLOOD SPECIMEN / Unknown Venipuncture / Unknown 04/03/2021 3:08 PM CDT 04/03/2021 3:23 PM CDT Rome Deleon MD LAB - CHEMISTR Y ORDERABLES Performing Organization Address City/[facility]/ZIP Co de Phone Number [address] [phone], [facility] [phone] * LAB RESULTS ORDER (04/30/2019 9:04 PM CDT) Narrative 04/30/2019 9:04 PM CDT Ordered by an unspecified provider. Scanned Document LAB - THERAPEUTIC DR RAMIREZ MONITORING ORDERABLES * CBC W/O DIFFERENTIAL (03/21/2019 3:21 AM CDT) Only the most recent of2 resultswithin the time period is included. Pathologist [facility] WBC 4.8 3.5 - 10.5 10 3/uL 03/21/2019 4:33 AM [facility] RBC 3.91 3.90 - 5.00 10 6/uL 03/21/2019 4:33 AM [facility] Hemoglobin 13.3 12.0 - 15.5 g/dL 03/21/2019 4:33 AM [facility] Hematocrit 37.1 35.0 - 45.0 % 03/21/2019 4:33 AM [facility] MCV 94.9 81.0 - 97.0 fL 03/21/2019 4:33 AM [facility] MCH 34.0 28.0 - 34.0 pg 03/21/2019 4:33 AM [facility] MCHC 35.8 32.0 - 36.0 g/dL 03/21/2019 4:33 AM [facility] Platelet Count 187 150 - 400 10 3/uL 03/21/2019 4:33 AM [facility] RDW-SD 46.8 36.0 - 50.0 fL 03/21/2019 4:33 AM [facility] RDW-CV 13.3 11.2 - 14.8 % 03/21/2019 4:33 AM [facility] MPV 9.6 9.3 - 12.8 fL 03/21/2019 4:33 AM [facility] nRBC Absolute 0.00 0 10 3/uL 03/21/2019 4:33 AM [facility] nRBC Auto 0.0 0 /100 WBC 03/21/2019 4:33 AM [facility] Blood BLOOD SPECIMEN / Unknown Lab Venipuncture / Unknown 03/21/2019 3:21 AM CDT 03/21/2019 4:27 AM CDT Jamir Gonsales MD LAB - HEMATOLOGY ORD ERABLES [address] [phone] * XR FOREARM LEFT 2VW (03/20/2019 8:08 AM CDT) Anatomical Region Laterality Modality Upper Extremity Radiographic Adilia ging 03/20/2019 8:09 AM CDT Impressions 03/20/2019 10:42 AM CDT IMPRESSION: No acute fracture or dislocation. Dictated by Blaise De Leon MD (resident physician in radiology). Dr. DEON Mills have personally reviewed and interpreted this examination/study. This report was electronically signed by DEON HAGER on 03/20/2019 10:42 AM . Narrative 03/20/2019 10:42 AM CDT EXAMINATION: XR FOREARM LEFT 2VW HISTORY: 59-year-old female status post fall COMPARISON: No prior study is available for comparison. FINDINGS: No acute fracture or dislocation is identified. The joint spaces are maintained. Soft tissues are normal. Bone mineralization is within normal limits. Procedure Note Deon Hager DO - 03/20/2019 EXAMINATION: XR FOREARM LEFT 2VW HISTORY: 59-year-old female status post fall COMPARISON: No prior study is available for comparison. FINDINGS: No acute fracture or dislocation is identified. The joint spaces are maintained. Soft tissues are normal. Bone mineralization is withinnormal limits. IMPRESSION: No acute fracture or dislocation. Dictated by Blaise De Leon MD (resident physician in radiology). Dr. DEON Mills have personally reviewed and interpreted this examination/study. This report was electronically signed by DEON HAGER on 03/20/2019 10:42 AM . Jamir Gonsales MD DIAGNOSTIC IMAGING O RDERABLES * CT ANGIO BRAIN (03/20/2019 3:08 AM CDT) Anatomical Region Laterality Modality Head Computed Tomogra phy 03/20/2019 7:21 AM CDT Impressions 03/20/2019 2:47 PM CDT IMPRESSION: 1.Redemonstration of a small volume subarachnoid hemorrhage in the left parasylvian fissure. 2.No large arterial occlusions or significant stenoses identified in the head. 3.Redemonstration of mildly displaced fracture of the left lateral lateral orbital wall and minimally displaced fracture of the inferior orbital wall. No extraocular muscle entrapment. 4.Mildly displaced left maxillary sinus anterior and posterior wall fractures with near complete opacification of the left maxillary sinus. There is partial opacification of the left ethmoid air cells, and left frontal sinus. Dictated by Kvng Wong MD (resident physician in radiology) This report was approved by Kvng Wong on 03/20/2019 2:47 PM . I, Dr. JAYA LOCO have personally reviewed and interpreted this examination/study. This report was electronically signed by JAYA LOCO on 03/20/2019 2:47 PM . Narrative 03/20/2019 2:47 PM CDT EXAMINATION: 1. Computed tomographic (CT) angiography of the head without and with contrast 2. Computed tomography (CT) of the maxillofacial bones, orbits, and paranasal sinuses without contrast HISTORY: History of fall with known left sylvian SAH, r/o vascular abnormalities TECHNIQUE: CT of the head was performed without contrast according to standard protocol. Then CT angiography of the head was obtained after the uneventful administration of 75 mL Isovue 370 intravenous contrast. Three dimensional postprocessing was performed by the technologist and sent to the workstation for review. Then, CT of the maxillofacial bones, orbits, and paranasal sinuses was performed without contrast according to standard protocol. COMPARISON: Outside head CT from 03/19/2019 FINDINGS: Non-angiographic findings: There is redemonstration of focal hyperdensity within the left parasylvian fissure compatible with known subarachnoid hemorrhage. There is no significant mass effect or parenchymal changes in the left temporal lobe. Mild adjacent sulcal effacement is seen. No other intra- or extra-axial hemorrhage or fluid collections are identified. No acute infarct is seen. There is mild cerebral volume loss with associated ex vacuo ventricular dilatation. The basilar cisterns are patent. No significant midline shift is seen. Periventricular white matter hypoattenuation is indicative of chronic small vessel ischemic disease. There is vascular calcification of the carotid siphons. No acute calvarial fracture is identified. Angiographic findings: There is atherosclerotic disease involving the distal internal carotid arteries, left more than right without significant focal stenosis. The A1 segment of the right anterior cerebral artery is hypoplastic, appearing smaller in size compared to the left. Variant anatomy with suggestion of azygos A2 segment of the anterior cerebral artery which bifurcates distally. The anterior and middle cerebral arteries appear otherwise patent. The distal vertebral arteries appear normal. The basilar artery and posterior cerebral arteries appear normal. No aneurysms, vascular occlusions, or intracranial stenoses are identified. Face: Mildly displaced fractures of the left lateral orbital wall. Minimally displaced inferior orbital wall. No evidence of extraocular muscle entrapment.. There is mildly displaced fractures of the anterior and posterior huntley of the left maxillary sinus. Mildly displaced left sided paranasal bone fractures are noted. Near complete opacification of the left maxillary sinus, left frontal sinus, and moderate opacification of the left ethmoid air cells, likely represent hemorrhage. Mild mucosal thickening in the right frontal sinus and right ethmoid air cells. The nasal septum is deviated to the right posteriorly and deviated to the left anteriorly. Minimal fat stranding within the inferior aspect of the left orbit. There is left sided periorbital soft tissue swelling. The globes, extraocular muscles, and optic nerve complexes are grossly unremarkable. The hard palate, mandible, and temporomandibular joints appear normal. The mastoid air cells are clear. Procedure Note Jaya Loco MD - 03/20/2019 EXAMINATION: 1. Computed tomographic (CT) angiography of the head without and with contrast 2. Computed tomography (CT) of the maxillofacial bones, orbits, and paranasal sinuses without contrast HISTORY: History of fall with known left sylvian SAH, r/o vascular abnormalities TECHNIQUE: CT of the head was performed without contrast according to standard protocol. Then CT angiography of the head was obtained afterthe uneventful administration of 75 mL Isovue 370 intravenous contrast.Three dimensional postprocessing was performed by the technologist and sent to the workstation for review. Then, CT of the maxillofacial bones, orbits, and paranasal sinuses was performed without contrast according tostandard protocol. COMPARISON: Outside head CT from 03/19/2019 FINDINGS: Non-angiographic findings: There is redemonstration of focal hyperdensity within the leftparasylvian fissure compatible with known subarachnoid hemorrhage. There is no significant mass effect or parenchymal changes in the left temporallobe. Mild adjacent sulcal effacement is seen. No other intra- or extra-axial hemorrhage or fluid collections are identified. No acute infarct is seen. There is mild cerebral volume loss with associated ex vacuo ventricular dilatation. The basilar cisternsare patent. No significant midline shift is seen. Periventricular whitematter hypoattenuation is indicative of chronic small vessel ischemic disease. There is vascular calcification of the carotid siphons. No acutecalvarial fracture is identified. Angiographic findings: There is atherosclerotic disease involving the distal internal carotid arteries, left more than right without significant focal stenosis. TheA1 segment of the right anterior cerebral artery is hypoplastic, appearing smaller in size compared to the left. Variant anatomy with suggestion of azygos A2 segment of the anterior cerebral artery which bifurcates distally. The anterior and middle cerebral arteries appear otherwise patent. The distal vertebral arteries appear normal. The basilar artery and posterior cerebral arteries appear normal. No aneurysms, vascular occlusions, or intracranial stenoses are identified. Face: Mildly displaced fractures of the left lateral orbital wall. Minimally displaced inferior orbital wall. No evidence of extraocular muscle entrapment.. There is mildly displaced fractures of the anterior and posterior huntley of the left maxillary sinus. Mildly displaced left sided paranasal bone fractures are noted. Near complete opacification of the left maxillary sinus, left frontal sinus, and moderate opacification of the left ethmoid air cells, likely represent hemorrhage. Mild mucosal thickening in the right frontal sinus and right ethmoid air cells. The nasal septum is deviated to the right posteriorly and deviated to theleft anteriorly. Minimal fat stranding within the inferior aspect of the left orbit. There is left sided periorbital soft tissue swelling. The globes, extraocular muscles, and optic nerve complexes are grossly unremarkable. The hard palate, mandible, and temporomandibular joints appear normal.The mastoid air cells are clear. IMPRESSION: 1.Redemonstration of a small volume subarachnoid hemorrhage in the left parasylvian fissure. 2.No large arterial occlusions or significant stenoses identified in the head. 3.Redemonstration of mildly displaced fracture of the left laterallateral orbital wall and minimally displaced fracture of the inferior orbital wall. No extraocular muscle entrapment. 4.Mildly displaced left maxillary sinus anterior and posterior wall fractures with near complete opacification of the left maxillary sinus. There is partial opacification of the left ethmoid air cells, and left frontal sinus. Dictated by Kvng Wong MD (resident physician in radiology) This report was approved by Kvng Wong on 03/20/2019 2:47 PM . I, Dr. JAYA LOCO have personally reviewed and interpreted this examination/study. This report was electronically signed by JAYA LOCO on03/20/2019 2:47 PM . Kyler Denny MD CT ORDERABLES * (ABNORMAL) HEPATIC FUNCTION PANEL (03/20/2019 1:57 AM CDT) Pathologist [facility] Protein Total 7.0 6.0 - 8.3 g/dL 019 2:12 AM CDT [facility] Albumin 3.6 3.4 - 5.0 g/dL 03/20/2019 2:12 AM T [facility] Bilirubin Total 0.4 0.2 - 1.2 mg/dL 03/2019 2:12 AM T [facility] Bilirubin Conjugated 0.1 0.0 - 0.5 mg/dL 03/20/2019 2:12 AM [facility] Bilirubin Unconjugated 0.3 Unconjugated Bilirubin is a calculated value: Reference ranges have not been established. mg/dL 03/20/2019 2:12 AM T [facility] Alkaline Phosphatase 62 40 - 150 Units/L 03/20/2019 2:12 AM [facility] ALT 16 0 - 55 Units/L 03/20/2019 2:12 AM [facility] AST 48(H) 5 - 34 Units/L 03/20/2019 2:12 AM [facility] Albumin/Globulin Ratio 1.1 1.1 - 2.3 03/20/2019 2:12 AM [facility] Blood BLOOD SPECIMEN / Unknown Venipuncture / Unknown 03/20/2019 1:57 AM CDT 03/20/2019 1:57 AM CDT Caryn Malin DO LAB - CHEMISTRY MICA SEBASTIAN [facility] [address] [phone] * (ABNORMAL) TEG PLATELET MAPPING (03/20/2019 1:10 AM CDT) Pathologist [facility] Interpretation TEG See Comment 03/20/2019 3:21 AM CDT [facility] React-Time 3.2(L) 5.0 - 10.0 MIN 03/20/2019 3:21 AM [facility]OD [facility] K-Time 1.3 1.0 - 3.0 MIN 03/20/2019 3:21 AM [facility] Angle A-BB 65.9 53.0 - 72.0 Degrees 03/20/2019 3:21 AM [facility] MA (CK) BB 64.9 50.0 - 70.0 mm 03/20/2019 3:21 AM [facility] LY30 0.0 0.0 - 8.0 % 03/20/2019 3:21 AM [facility] CI-Coagulation Index 2.6 -3.0 - 3.0 03/20/2019 3:21 AM [facility] MA-ADP 55.4 Reference Range: None mm 03/20/2019 3:21 AM [facility] MA AA-BB 41.3 Reference Range: None mm 03/20/2019 3:21 AM [facility] % ADP Inhibition 17.9 Reference Range:None % 03/20/2019 3:21 AM [facility] G-Clot Strength 9.3 4.5 - 11.0 d/sc 03/20/2019 3:21 AM [facility] % AA Inhibition 44.4 Reference Range: None % 03/20/2019 3:21 AM [facility] Blood BLOOD SPECIMEN / Unknown Lab Venipuncture / Unknown 03/20/2019 1:10 AM T 03/20/2019 1:[address] [facility] BLOOD BANK LAB - 03/20/2019 3:21 [facility] BELOW TEG Kaolin Sample Type Interpretation TEG Value Hemostasis State R < than 4 min: Enzymatic Hypercoagulability R 11-14 min: Low Clotting Factors R > than 14 min: Very low clotting factors MA 46-54 mm: Low Platelet function MA 41-45 mm: Very low platelet function MA 40 mm or less: Extremely low platelet function MA > 73 mm: Platelet hypercoagulability R < 4 min and Enzymatic and platelet hypercoagulability MA > 73 mm: Angle < 45 deg: Low fibrinogen level LY30 at 7.5% or >, Primary Fibrinolysis CI < than 1.0: LY30 at 7.5% or >, Secondary fibrinolysis CI > than 3.0: LY30 < 7.5%, Prothrombotic state CI > 3.0: Linda Hebert MD LAB - BLOOD BANK ORD ERABLES Performing Organization Address [facility]/State/ZIP Co de Phone Number [facility] [address] * XR KNEE LEFT 3VW (03/19/2019 11:50 PM CDT) Anatomical Region Laterality Modality Lower Extremity Radiographic Adilia ging 03/19/2019 11:5 8 PM CDT Impressions 03/20/2019 9:54 AM CDT IMPRESSION: No acute fracture or dislocation identified. Report dictated by Juan Vega M.D. (resident physician in radiology). I, Dr. DEON HAGER have personally reviewed and interpreted this examination/study. This report was electronically signed by DEON HAGER on 03/20/2019 9:54 AM . Narrative 03/20/2019 9:54 AM CDT EXAMINATION: XR KNEE LEFT 3VW HISTORY: fall COMPARISON: No prior study is available for comparison. FINDINGS: The osseous structures are intact and well aligned without acute fracture or dislocation. The knee joint space is preserved. No joint effusion is seen. Bone density and texture are normal. Procedure Note Deon Hager DO - 03/20/2019 EXAMINATION: XR KNEE LEFT 3VW HISTORY: fall COMPARISON: No prior study is available for comparison. FINDINGS: The osseous structures are intact and well aligned without acutefracture or dislocation. The knee joint space is preserved. No joint effusion is seen. Bone density and texture are normal. IMPRESSION: No acute fracture or dislocation identified. Report dictated by Juan Vega M.D. (resident physician in radiology). Dr. DEON Mills have personally reviewed and interpreted this examination/study. This report was electronically signed by DEON HAGER on 03/20/2019 9:54 AM . Linda Hebert MD DIAGNOSTIC IMAGING O RDERABLES * XR HAND RIGHT 3VW OR MORE (03/19/2019 11:45 PM CDT) Anatomical Region Laterality Modality Wrist / Hand Radiographic Adilia ging 03/19/2019 11:4 8 PM CDT Impressions 03/20/2019 9:53 AM CDT IMPRESSION: Displaced intra-articular fractures of the first distal, first proximal, and fifth distal phalanx base. Report dictated by Juan Vega M.D. (resident physician in radiology). Dr. DEON Mills have personally reviewed and interpreted this examination/study. This report was electronically signed by DEON HAGER on 03/20/2019 9:53 AM . Narrative 03/20/2019 9:53 AM CDT EXAMINATION: XR HAND RIGHT 3VW OR MORE HISTORY: bruising COMPARISON: No prior study is available for comparison. FINDINGS: There are displaced intra-articular fractures of the first distal, first proximal, and fifth distal phalanx base. Joint space narrowing and bony spur formation is noted in the third distal interphalangeal joint. Bone density and texture are normal. Soft tissue swelling is present. Procedure Note Deon Hager, - 03/20/2019 EXAMINATION: XR HAND RIGHT 3VW OR MORE HISTORY: bruising COMPARISON: No prior study is available for comparison. FINDINGS: There are displaced intra-articular fractures of the first distal, first proximal, and fifth distal phalanx base. Joint space narrowing and bony spur formation is noted in the third distal interphalangeal joint. Bone density and texture are normal. Soft tissue swelling is present. IMPRESSION: Displaced intra-articular fractures of the first distal, first proximal, and fifth distal phalanx base. Report dictated by Juan Vega M.D. (resident physician in radiology). Dr. DEON Mills have personally reviewed and interpreted this examination/study. This report was electronically signed by DEON HAGER on 03/20/2019 9:53 AM . Linda Hebert MD DIAGNOSTIC IMAGING O RDERABLES * XR CHEST 1VW (03/19/2019 11:37 PM CDT) Anatomical Region Laterality Modality Chest Radiographic Adilia ging 03/19/2019 11:4 7 PM CDT Impressions 03/20/2019 9:52 AM CDT IMPRESSION: 1.No acute pulmonary process. Report dictated by Juan Vega M.D. (resident physician in radiology). Dr. DEON Mills have personally reviewed and interpreted this examination/study. This report was electronically signed by DEON HAGER on 03/20/2019 9:52 AM . Narrative 03/20/2019 9:52 AM CDT EXAMINATION: XR CHEST 1VW, 03/19/2019 11:38 PM HISTORY: low O2 COMPARISON: No prior study is available for comparison. FINDINGS: There is no focal consolidation, pleural effusion, or pneumothorax. The cardiac silhouette is normal. The mediastinal silhouette is normal. The visible bony thorax is intact. Procedure Note Deon Hager, - 03/20/2019 EXAMINATION: XR CHEST 1VW, 03/19/2019 11:38 PM HISTORY: low O2 COMPARISON: No prior study is available for comparison. FINDINGS: There is no focal consolidation, pleural effusion, or pneumothorax. The cardiac silhouette is normal. The mediastinal silhouette is normal. The visible bony thorax is intact. IMPRESSION: 1.No acute pulmonary process. Report dictated by Juan Vega M.D. (resident physician in radiology). I, Dr. DEON HAGER have personally reviewed and interpreted this examination/study. This report was electronically signed by DEON HAGER on 03/20/2019 9:52 AM . Caryn Malin DO DIAGNOSTIC IMAGING O RDERABLES
--- OUTSIDE RECORDS SUMMARY | 2025-01-28 10:48 | XMS_ITS | Encounter Summary ---
Author Organization [facility] Health Address [address] [facility] [facility] [place] [address] Care Team Providers Care Mathematical Technician Name Role Phone Unavailable Primary Care Provider Unavailabl e Encounter Details Date Type Department Care Team (Late st Contact Info) Description 03/20/2019 Ophth Exam [facility] [address] [place] [address] Kvng Barnard MD [address] [facility] [address] [place] [id number] Social History Tobacco Use Types Packs/Day Years Used Date Smoking Tobacco: Never Smokeless Tobacco: Never Alcohol Use Standard Drinks/Week Comments Yes 12.5 (1 standard drink = 0.6 oz pure alcohol) daily Sex and Gender Information Value Date Recorded Sex Assigned at Not on file Gender Identity Not on file Sexual Orientation Not on file documented as of this encounter Functional Status Functional Status Response Date of Assess ment Is person deaf or have serious hearing difficult y? No 03/20/2019 Is person blind or have serious difficulty seein g? No 03/20/2019 Does person have serious dif ficulty walking/climbing stairs? No 03/20/2019 Does person have difficulty dressing/bathing? No 03/20/2019 Does person have difficulty doing errands alone? No 03/20/2019 Cognitive Status Response Date of Assessm ent Does person have difficulty concentrating/remembering/making decisions? No 03/20/2019 documented as of this encounter Plan of Treatment Not on file documented as of this encounter Visit Diagnoses Not on filedocumented in this encounter
--- OUTSIDE RECORDS SUMMARY | 2025-01-28 10:48 | XMS_ITS | Referral Summary ---
Author Organization [facility] Address [address] [place] [address] Care Team Providers Care Service Inspector Name Role Phone Unavailable Primary Care Provider Unavailabl e Source Comments [facility],non-owned Affiliates and Associated Physician Practices is amultiple site organization consisting of ambulatory clinics and hospital sitesin [place], [place], [place] and [place]. This disclosure is being madepursuant to the Care Everywhere program and may not contain all information available regarding this patient. Last updated 18.[facility] Allergies No known active allergies Medications * [...] Mass Index 17.71 08/18/2023 7:42 AM CDT Functional Status Functional Status Response Date of [...] person have difficulty concentrating/remembering/making decisions? No 03/20/2019 Plan of Treatment Not on file Procedures Procedure Name Priority Date/Time Associated Diagnosis [...] gilma Non-reac tive 04/03/2021 4:22 PM CDT [facility] Comment:Hepatitis C Antibody screen indicates no [...] - CHEMISTR Y ORDERABLES Performing Organization Address City/[facility] [address]/ZIP Co de Phone Number [address] [address], [place] [phone] * HIV-1 HIV-2 ANTIBODY + HIV P24 AG PANEL (04/03/2021 3:08 PM CDT) HIV Antigen/Antibod y 1 & 2 Non-reacti ve Non-react gilma 04/03/2021 4:25 PM CDT [facility] Comment:Neither HIV-1 p24 An tigen nor HIV-1/HIV-2 Antibodies are detected. Blood BLOOD SPECIMEN / Unknown Venipuncture / Unknown 04/03/2021 3:08 PM CDT 04/03/2021 3:34 PM CDT Rome Deleon MD LAB - CHEMISTR Y ORDERABLES Performing Organization Address City/[facility] [address]/ZIP Co de Phone Number [address] [address], [place] [phone] from Last 3 Months or Most Recently Relevant to Health Maintenance Advance Directives * Full Code (Latest Code Status on File) Date Activated Date Inactivated Comments 08/18/2023 5:17 PM 08/19/2023 6:01 PM * Full Code Date Activated Date Inactivated Comments 03/20/2019 2:48 AM 03/21/2019 4:04 PM
--- NOTE | 2025-01-28 11:01 | ED.GENADULT ---
HPI - General Adult General Chief complaint: Shortness of Breath/Dyspnea Stated complaint: dyspnea Time Seen by Provider: 01/28/25 10:36 History of Present Illness HPI narrative: 64-year-old female presenting to the emergency department for evaluation for increased generalized weakness and intermittent shortness of breath. Patient states he has had the symptoms for the last few months but states when she exerts herself the shortness of breath worsens. Patient does have a prior history of anemia but denies any current hematemesis, vaginal bleeding or hematochezia. Related Data Home Medications ?Medication ?Instructions ?Recorded ?Confirmed ?Last Taken ?Type acetaminophen 650 mg 650 mg PO Q8H PRN Pain 08/09/22 01/28/25 01/27/25 History tablet,extended release Allergies Allergy/AdvReac Type Severity Reaction Status Date / Time monosodium glutamate AdvReac Intermediate Vomiting Verified 12/12/23 18:58 Review of Systems Review of Systems: All systems reviewed & are unremarkable except as noted in HPI and below PMFSH Past Medical History Medical History (Updated 01/28/25 @ 13:41 by Marly Rae APRN) Iron deficiency anemia Alcoholic hepatitis Pancreatitis Gastroesophageal reflux disease Alcohol abuse Anxiety Depression History of fracture Including clavicle fracture left foot fracture. Alcohol withdrawal seizure Subarachnoid hemorrhage Surgical History Surgical History History of appendectomy Family History Family History Sibling Multiple sclerosis Sibling Father Colon cancer Arthritis Parents Mother Throat cancer Parents Social History Social History Social History: Surrogate decision maker: Baldemar Strong, brother. Code status: Full code. Smoking status: Never smoker Alcohol intake: never Drinks per week: 20 Alcohol use details: Drinks 6 to 8 airplane shots a day. Substance use: never Substance use type: does not use Do You Feel Safe in your Home?: Yes Lack of Transportation: No Lack of Food: Never True Current Housing: I Have Housing Concerned About Future Housing: No Difficulty Paying Gas/Electric Bills: No Difficulty Paying for Meds: No Currently Unemployed: No Education: Associate Degree Difficulty w/ Childcare or Family Care: No Living arrangements: with family Additional living arrangements comments: The patient lives in [place] with her brother. Occupation/Education: unemployed Additional occupation/education comments: Unemployed. Spiritual care concerns: No Exam Narrative: APPEARANCE: Well appearing, no pain, no distress, well-nourished. HEAD: normocephalic, atraumatic. EYES: PERRLA/EOMI, conjunctivae clear. NOSE: Normal no drainage EARS:TMS clear with good light reflex. THROAT: Pharynx clear, no exudate. NECK: Supple. No adenopathy, no masses. RESPIRATORY: Airway patent, respirations nonlabored. Clear to auscultation bilaterally, no rales, rhonchi, wheezing. CARDIOVASCULAR: Regular rate and rhythm without murmurs rubs or gallops. ABDOMINAL: Soft, nontender, nondistended, normal bowel sounds MUSCULOSKELETAL: Moves all extremities. Strength/ROM intact, No edema, No calf tenderness. NEURO: Alert. Cranial nerves II through XII intact. Good gait. Good coordination SKIN: Warm, dry. Normal Color Course Vital Signs Vital signs: Vital Signs Oxygen Delivery Room Air 01/28/25 10:35 Temperature 97.0 F L 01/28/25 15:27 Pulse Rate 110 H 01/28/25 16:00 Respiratory Rate 18 01/28/25 15:27 Blood Pressure 132/70 01/28/25 15:27 Pulse Oximetry 100 01/28/25 15:27 Oxygen Delivery Room Air 01/28/25 14:14 Medical Decision Making [facility] Narrative Medical decision making narrative: [age] old female presents emergency department for evaluation for worsening shortness of breath over the last few months. Patient states that she attempted to ambulate last night and felt increasingly weak. Patient does have a history of anemia. Patient denies any prior history of GI bleed. Patient denies any current nausea vomiting vaginal bleeding or blood in her stool. Patient's hemoglobin was 3.1. Blood studies were ordered and patient was ordered 3 units of packed red blood cells. Patient was updated on the results of the lab plan for admission. Case discussed with hospitalist patient was accepted for admission. Differential Diagnosis Differential Diagnosis: Colitis, diverticulitis, upper GI bleed, lower GI Vital Signs Vital Signs: Vital Signs Oxygen Delivery Room Air 01/28/25 10:35 Temperature 97.0 F L 01/28/25 15:27 Pulse Rate 110 H 01/28/25 16:00 Respiratory Rate 18 01/28/25 15:27 Blood Pressure 132/70 01/28/25 15:27 Pulse Oximetry 100 01/28/25 15:27 Oxygen Delivery Room Air 01/28/25 14:14 Lab Data Lab results reviewed: Yes I reviewed the patient's lab results. 01/28/25 11:35 01/28/25 11:35 Labs: Lab Results 01/28/25 01/28/25 Range/Units 11:35 12:19 WBC 4.7 (4.5-10.0) K/mm3 RBC 2.05 L (4.2-5.4) M/mm3 Hgb 3.1 L* D (12.0-15.0) g/dL Hct 13.2 L* (37.0-47.0) % MCV 64.4 L (80-100) fl MCH 15.1 L (26-34) pg MCHC 23.5 L (32-36) g/dl RDW 21.2 H (11.5-14.5) % Plt Count 353 (150-375) k/mm3 MPV 8.5 (7.4-10.4) fl Immature Gran % (Auto) 0.9 H (0-0.5) % Neut % (Auto) 59.5 (45.5-73.1) % Lymph % (Auto) 25.1 (18.3-44.2) % Emery % (Auto) 12.2 H (2.6-8.5) % Eos % (Auto) 1.7 (0-4.4) % Baso % (Auto) 0.6 (0.2-1.2) % Lymph # (Auto) 1.17 (0.9-3.2) K/mm3 Emery # (Auto) 0.6 (0.1-0.6) K/mm3 Eos # (Auto) 0.1 (0-0.3) K/mm3 Baso # (Auto) 0.0 (0.0-0.1) K/mm3 Abs Immat Gran (auto) 0.04 H (0.00-0.031) K/mm3 Absolute Neuts (auto) 2.8 (1.3-6.7) K/mm3 Absolute Nucleated RBC 0.030 H (0.0-0.012) K/mm3 Band Neutrophils % 0 (0-6) % Nucleated RBC % 0.6 H (0.0-0.2) % Platelet Estimate Adequate (Adequate) Hypochromasia 3+ Microcytosis 2+ (NORMAL) Target Cells 1+ Ovalocytes 1+ Schistocytes None seen PT 15.8 H (11.1-14.7) Seconds INR 1.2 APTT 29.5 (22.3-36.8) Seconds Sodium 142 (137-145) mmol/L Potassium 3.2 L (3.4-5.0) mmol/L Chloride 109 H (98-107) mmol/L Carbon Dioxide 18 L (22-30) mmol/L Anion Gap 15 H (4-12) mmol/L BUN 12 (7-17) mg/dL Creatinine 0.62 L (0.7-1.0) mg/dL Estim Creat Clear Calc 56 ml/min Estimated GFR > 60 (59 - ) Glucose 84 (65-110) mg/dL Calcium 8.0 L (8.4-10.2) mg/dL Magnesium 1.7 (1.6-2.3) mg/dL Iron 17 L (37-170) ug/dL TIBC 406 (261-462) ug/dL % Saturation 4 L (20-50) % Total Bilirubin 0.2 (0.2-1.3) mg/dL AST 20 (14-36) U/L ALT 13 (6-35) U/L Alkaline Phosphatase 45 (38-126) U/L NT-Pro-B Natriuret Pep 62 (19.9-100) pg/mL Total Protein 6.0 L (6.3-8.2) g/dL Albumin 3.4 L (3.5-5.1) g/dL Influenza A (RT-PCR) Negative (Negative) Influenza B (RT-PCR) Negative (Negative) RSV (RT-PCR) Negative (Negative) SARS-CoV-2 RNA (RT-PCR) Negative (Negative) Blood Type O Positive Antibody Screen Negative Crossmatch See Detail Imaging Data Radiologist's impression: Impressions Chest X-Ray 01/28/25 10:49 Impression: Clear lungs. Probable moderate to large hiatal hernia. Critical Care Time Critical Care Time Critical Care Time: Yes Total Critical Care Time: 35 Discharge Plan Discharge Clinical Impression: Anemia Patient Disposition: Still a Patient Condition: Serious
[2025-01-28 11:52] LABS: Alanine Aminotransferase 13 U/L (6-35); Albumin Level 3.4 g/dL (3.5-5.1); Alkaline Phosphatase 45 U/L (38-126); Anion Gap 15 mmol/L (4-12); Aspartate Amino Transferase 20 U/L (14-36); Bilirubin,Total 0.2 mg/dL (0.2-1.3); Blood Urea Nitrogen 12 mg/dL (7-17); Carbon Dioxide 18 mmol/L (22-30); Chloride 109 mmol/L (98-107); Estimated CRCL calculation 56 ml/min; Estimated Glomerular Filt Rate > 60; Glucose 84 mg/dL (65-110); Magnesium 1.7 mg/dL (1.6-2.3); Potassium 3.2 mmol/L (3.4-5.0); Sodium 142 mmol/L (137-145)
[2025-01-28 11:54] LABS: Basophils Percent Auto 0.6 % (0.2-1.2); Eosinophils Absolute Auto 0.1 K/mm3 (0-0.3); Eosinophils Percent Auto 1.7 % (0-4.4); Immature Granulocyte Absolute 0.04 K/mm3 (0.00-0.031); Immature Granulocyte Percent A 0.9 % (0-0.5); Lymphocytes Absolute Auto 1.17 K/mm3 (0.9-3.2); Lymphocytes Percent Auto 25.1 % (18.3-44.2); Mean Corpuscular HGB Conc 23.5 g/dl (32-36); Mean Corpuscular Hemoglobin 15.1 pg (26-34); Mean Corpuscular Volume 64.4 fl (80-100); Mean Platelet Volume 8.5 fl (7.4-10.4); Monocytes Absolute Auto 0.6 K/mm3 (0.1-0.6); Monocytes Percent Auto 12.2 % (2.6-8.5); Neutrophils Absolute Auto 2.8 K/mm3 (1.3-6.7); Neutrophils Percent Auto 59.5 % (45.5-73.1); Nucleated Red Blood Cells Perc 0.6 % (0.0-0.2); Platelet Count Result 353 k/mm3 (150-375); Red Blood Count 2.05 M/mm3 (4.2-5.4); Red Cell Distribution Width 21.2 % (11.5-14.5); White Blood Count 4.7 K/mm3 (4.5-10.0)
[2025-01-28 11:58] LABS: Hemoglobin 3.1 g/dL (12.0-15.0)
[2025-01-28 11:59] LABS: Hematocrit 13.2 % (37.0-47.0)
[2025-01-28 12:01] LABS: NT Pro B Type Natriuretic Pept 62 pg/mL (19.9-100)
[2025-01-28 12:08] LABS: INR 1.2; Prothrombin Time 15.8 Seconds (11.1-14.7)
[2025-01-28 12:09] LABS: Partial Thromboplastin Time 29.5 Seconds (22.3-36.8)
[2025-01-28 12:14] LABS: Band Neutrophils Percent 0 % (0-6); Hypochromasia 3+; Microcytosis 2+ (NORMAL); Platelet Estimate Adequate (Adequate)
[2025-01-28 12:15] LABS: Ovalocytes 1+; Schistocytes None Seen; Target Cells 1+
[2025-01-28 12:18] LABS: Influenza A QL RT-PCR Negative (Negative); Influenza B QL RT-PCR Negative (Negative); RSV RNA, RT-PCR Negative (Negative); SARS-CoV-2 RNA PCR Negative (Negative)
[2025-01-28 12:46] LABS: Iron 17 ug/dL (37-170)
[2025-01-28 12:55] LABS: Percent Iron Saturation 4 % (20-50)
--- NOTE | 2025-01-28 12:58 | ECG_ITS ---
Test Date: 2025-01-28 10:40:10 Measurements Intervals [place] Rate: 106 P: 34 [place]: 114 QRS: 20 QRSD: 90 T: 3 QT: 341 QTc: 453 Interpretive Statements SINUS TACHYCARDIA WITH SHORT [place] INTERVAL Electronically Signed On 01-29-2025 13:56:54 CDT by Denis Rebolledo D.O
--- NOTE | 2025-01-28 13:16 | ECG_ITS ---
Test Date: 2025-01-28 13:16:33 Measurements Intervals [place] Rate: 97 P: -5 [place]: 117 QRS: 31 QRSD: 78 T: 17 QT: 341 QTc: 435 Interpretive Statements SINUS RHYTHM WITH SHORT [place] INTERVAL Electronically Signed On 01-29-2025 13:58:21 CDT by Denis Rebolledo D.O
--- NOTE | 2025-01-28 13:23 | PM.IMHP ---
H&P: HPI History of Present Illness Date/Time: 01/28/25 13:23 Chief Complaint: Shortness of Breath Narrative: 64 y/o F presents here with shortness of breath with PMH of alcohol abuse, EtOH withdrawal seizure, chronic anemia, GERD, anxiety, depression, and subarachnoid hemorrhage. The patient presents here from a local bus stop via EMS for further evaluation of shortness of breath. She reports initial onset of shortness of breath 3 months ago. The shortness of breath worsens with exertion and is accompanied by generalized weakness. She has a history of chronic anemia due to alcohol use and iron deficiency. Per chart review, the patient was admitted in May of 2023 for symptomatic anemia. At that time she presented with a hemoglobin of 3.6 and was transfused 2-3 units. Hemoccult was negative at that time. She was seen by GI and Hematology during this visit. She underwent iron transfusions, an EGD, and a colonoscopy. EGD revealed a large healing gastric ulcer with no active bleeding. Colonoscopy showed 1 large polyp, this was excised and pathology showed a tubular adenoma. She was started on pantoprazole and iron daily. Since then, the patient reports she no longer takes pantoprazole or iron. Patient stopped taking this medication after the initial script ran out. Patient also reported she had abstained alcohol for 6 months in 2022, however now drinking again and reports last drink was last night. Current use is 4 times per week - bottle of rum each night. Denies hematemesis or dark tarry stools. Initial VS at presentation: 98.3? F, HR 105, RR 16, 100/59, and 97% on RA. ED workup showed: No leukocytosis, hemoglobin 3.1, hematocrit 13.2, MCV 64.4, MCHC low, unremarkable coags, potassium 3.2, creatinine 0.62 and GFR >60, viral PCR negative. CXR showed clear lungs and probable moderate to large hiatal hernia. Initial EKG showed sinus tachycardia with short [place] interval, moderate ST depression, rate 106. Review of Systems Review of Systems: All systems reviewed & are unremarkable except as noted in HPI and below PMFSH Past Medical History Medical History (Updated 01/28/25 @ 13:41 by Marly Rae, CLINICAL STAFF EDUCATOR) Iron deficiency anemia Alcoholic hepatitis Pancreatitis Gastroesophageal reflux disease Alcohol abuse Anxiety Depression History of fracture Including clavicle fracture left foot fracture. Alcohol withdrawal seizure Subarachnoid hemorrhage Surgical History Surgical History History of appendectomy Family History Family History Sibling Multiple sclerosis Sibling Father Colon cancer Arthritis Parents Mother Throat cancer Parents Social History Social History Social History: Surrogate decision maker: Baldemar Strong, brother. Code status: Full code. Smoking status: Never smoker Alcohol intake: never Drinks per week: 20 Alcohol use details: Drinks 6 to 8 airplane shots a day. Substance use: never Substance use type: does not use Do You Feel Safe in your Home?: Yes Lack of Transportation: No Lack of Food: Never True Current Housing: I Have Housing Concerned About Future Housing: No Difficulty Paying Gas/Electric Bills: No Difficulty Paying for Meds: No Currently Unemployed: No Education: Associate Degree Difficulty w/ Childcare or Family Care: No Living arrangements: with family Additional living arrangements comments: The patient lives in [place] with her brother. Occupation/Education: unemployed Additional occupation/education comments: Unemployed. Spiritual care concerns: No Meds Home Medications and Allergies Home Medications ?Medication ?Instructions ?Recorded ?Confirmed ?Type acetaminophen 650 mg 650 mg PO Q8H PRN Pain 08/09/22 01/28/25 History tablet,extended release Allergies Allergy/AdvReac Type Severity Reaction Status Date / Time monosodium glutamate AdvReac Intermediate Vomiting Verified 12/12/23 18:58 Vital Signs Vital Signs - 24 hr 01/28/25 10:35 01/28/25 10:38 01/28/25 11:23 Temperature 98.3 F Pulse Rate 105 H 100 Respiratory Rate 16 18 Blood Pressure 100/59 L 97/59 L Pulse Oximetry 97 100 Oxygen Delivery Room Air Room Air 01/28/25 13:18 Temperature Pulse Rate 105 H Respiratory Rate 16 Blood Pressure 119/73 Pulse Oximetry 100 Oxygen Delivery Exam Const: General: comfortable and no acute distress Other: , female, thin, nontoxic appearance. HENMT: Face/Nose/Sinus: Normal nares present Mouth: Yes dry mucous membranes Eyes: General: appearance normal, both eyes and all related structures Sclera: sclerae normal Pupils: Equal, round and reactive pupils present EOM: EOMs intact bilaterally Resp: Effort & Inspection: normal respiratory effort Auscultation: clear to auscultation bilaterally Cardio: Rate: tachycardic Rhythm: regular rhythm Other: S1-S2 present without murmur, rub, ectopy GI: Other: Abdomen soft, nondistended, nontender. Normoactive bowel sounds in all quadrants. Skin: General skin exam: normal color and no rashes or lesions noted Wounds: no wounds Neuro: Speech: normal speech Motor exam (neuro): 5/5 motor strength present throughout Sensory Exam: normal sensation Other: A&O x4 Extrem: General: normal to inspection Psych: Mental Status: mental status grossly normal Affect: normal affect Other: Good insight and judgment, pleasant. H&P: Results Labs Labs: Short CBC 01/28/25 Range/Units 11:35 WBC 4.7 (4.5-10.0) K/mm3 Hgb 3.1 L* D (12.0-15.0) g/dL Hct 13.2 L* (37.0-47.0) % Plt Count 353 (150-375) k/mm3 BMP 01/28/25 11:35 Sodium 142 Potassium 3.2 L Chloride 109 H Carbon Dioxide 18 L BUN 12 Creatinine 0.62 L Glucose 84 Calcium 8.0 L Liver Function 01/28/25 Range/Units 11:35 Total Bilirubin 0.2 (0.2-1.3) mg/dL AST 20 (14-36) U/L ALT 13 (6-35) U/L Alkaline Phosphatase 45 (38-126) U/L Albumin 3.4 L (3.5-5.1) g/dL Assessment and Plan Assessment and plan (1) Symptomatic anemia: Code(s): D64.9 - Anemia, unspecified Status: Acute Assessment and Plan: - Hgb 3.1, Hct 13.2%, MCV 64.4, MCHC 23.5 - Hx: LEA, gastric ulcer, chronic ETOH use - add iron, TIBC, ferritin, B12, folic acid, and TSH results consistent with LEA, start oral supplementation bid and iron transfusion x1 - start pantoprazole b.i.d., previous history of gastric ulcer. No evidence of acute bleed at this time. - transfuse if <7, current plan for 3 PRBC - trend H&H - stool occult/BRIAN negative in ED 05/2023: Colonoscopy showed ascending colon polyp, appears grossly benign, follow-up colonoscopy advised in 5 years. EGD showed a large hiatal hernia, gastric erosions suspicious for healing ulcer. (2) Alcohol abuse: Code(s): F10.10 - Alcohol abuse, uncomplicated Status: Acute Assessment and Plan: - heavy ETOH use: bottle of rum 4 days per week, previously heavier but has been cutting back due to feeling unwell - last drink: 01/27 - CIWA protocol in place Ativan PRN Librium prn seizure precautions neurochecks Q2H - IV fluids: 1L bolus - antiemetics PRN (3) Hypokalemia: Code(s): E87.6 - Hypokalemia Status: Acute Assessment and Plan: - mild, initial K 3.2 - replete with 40 p.o. KCL, recheck this evening - trend Plan Diet: Heart healthy GI Prophylaxis: Pantoprazole b.i.d. DVT Prophylaxis: SCDs Lines: Peripheral Code Status: Full code Quality VTE Prophylaxis VTE prophylaxis: mechanical ordered Hospitalist [facility] Advance Care Plan I have confirmed that the patient's Advanced Care Plan is present, code status is documented, or surrogate decision maker is listed in patient medical record.: Yes Medication Reconciliation I have utilized all available resources to obtain, update and review the patients current medications (includes all prescriptions, OTC, herbals, cannabis, and nutritional supplements).: Yes
[2025-01-28] MEDS: LACTATED RINGERS 1,000 ML 999 ML IV CONT (13:24)
[2025-01-28] MEDS: TUBING, BLOOD PLUM PUMP TUBING 1 EACH XX (14:15)
[2025-01-28] MEDS: POTASSIUM CHLORIDE 20 MEQ ER TABLET 40 MEQ PO (14:16)
[2025-01-28 18:17] LABS: Glucose Point of Care 102 mg/dl (65-105)
--- NOTE | 2025-01-28 18:56 | PC.NURSE ---
This patient, Radha Strong, was admitted to [facility] Surg Room 303-01. Patient/family oriented to hospital policies and general routines including ID bracelet, bed and alarms, visiting hours, pain management, procedures, bathroom and other care routines, personal items, smoking policy, room service/diet, and visiting hours. Information on how to activate the Rapid Response Team has been discussed. Patient/Family are encouraged to report perceived risks to care and to ask questions if they do not understand what they are told or what they should do.
[2025-01-28] MEDS: PANTOPRAZOLE SODIUM IV 40 MG VIAL IV PUSH (20:34)
[2025-01-28] MEDS: diphenhydrAMINE HCl CAP 25 MG CAPSULE PO (21:35)
[2025-01-28 22:54] LABS: Folic Acid 4.9 ng/mL (2.76->20)
[2025-01-28 23:15] LABS: Glucose Point of Care 115 mg/dl (65-105)
[2025-01-29] VITALS (11 sets, daily range): BP systolic 116–167; BP diastolic 70–96; PULSE 85–110; RESP 18–24; TEMP 36.1–37.2; O2SAT 94–99
[2025-01-29] MEDS: IRON SUCROSE COMPLEX 400 MG, IRON SUCROSE COMPLEX 100 MG in SODIUM CHLORIDE 0.9% IV 250 ML 78.57 MG IVPB (01:38)
[2025-01-29 02:19] LABS: Hemoglobin 8.3 g/dL (12.0-15.0)
[2025-01-29 02:28] LABS: Alanine Aminotransferase 14 U/L (6-35); Albumin Level 3.3 g/dL (3.5-5.1); Alkaline Phosphatase 51 U/L (38-126); Anion Gap 11 mmol/L (4-12); Aspartate Amino Transferase 22 U/L (14-36); Blood Urea Nitrogen 13 mg/dL (7-17); Calcium 8.1 mg/dL (8.4-10.2); Carbon Dioxide 19 mmol/L (22-30); Chloride 109 mmol/L (98-107); Estimated CRCL calculation 72 ml/min; Estimated Glomerular Filt Rate > 60; Glucose 125 mg/dL (65-110); Magnesium 1.6 mg/dL (1.6-2.3); Potassium 3.6 mmol/L (3.4-5.0); Sodium 139 mmol/L (137-145)
[2025-01-29 05:33] LABS: Hematocrit 30.6 % (37.0-47.0)
[2025-01-29 06:05] LABS: Glucose Point of Care 109 mg/dl (65-105)
[2025-01-29] MEDS: PANTOPRAZOLE SODIUM IV 40 MG VIAL IV PUSH ×2 (09:35→20:51)
[2025-01-29 11:55] LABS: Glucose Point of Care 131 mg/dl (65-105)
--- NOTE | 2025-01-29 12:05 | P.PNIM_ITS ---
Progress Note: A&P Assessment and Plan (1) Alcohol abuse: Code(s): F10.10 - Alcohol abuse, uncomplicated Status: Acute (2) Hypokalemia: Code(s): E87.6 - Hypokalemia Status: Acute (3) Hypophosphatemia: Code(s): E83.39 - Other disorders of phosphorus metabolism Status: Acute (4) Anemia: Code(s): D64.9 - Anemia, unspecified Status: Acute (5) Symptomatic anemia: Code(s): D64.9 - Anemia, unspecified Status: Acute Plan 64 y/o F presents here with shortness of breath with PMH of alcohol abuse, EtOH withdrawal seizure, chronic anemia, GERD, anxiety, depression, and subarachnoid hemorrhage. The patient presents here from a local bus stop via EMS for further evaluation of shortness of breath. She reports initial onset of shortness of breath 3 months ago. The shortness of breath worsens with exertion and is accompanied by generalized weakness. She has a history of chronic anemia due to alcohol use and iron deficiency. Per chart review, the patient was admitted in May of 2023 for symptomatic anemia. At that time she presented with a hemoglobin of 3.6 and was transfused 2-3 units. Hemoccult was negative at that time. She was seen by GI and Hematology during this visit. She underwent iron transfusions, an EGD, and a colonoscopy. EGD revealed a large healing gastric ulcer with no active bleeding. Colonoscopy showed 1 large polyp, this was excised and pathology showed a tubular adenoma. (1) Symptomatic anemia: Code(s): D64.9 - Anemia, unspecified Status: Acute Assessment and Plan: - Hgb 3.1, Hct 13.2%, MCV 64.4, MCHC 23.5 - Hx: LEA, gastric ulcer, chronic ETOH use 05/2023: Colonoscopy showed ascending colon polyp, appears grossly benign, follow-up colonoscopy advised in 5 years. EGD showed a large hiatal hernia, gastric erosions suspicious for healing ulcer. - add iron, TIBC, ferritin, B12, folic acid, and TSH results consistent with LEA, start oral supplementation bid and iron transfusion x1 - start pantoprazole b.i.d., previous history of gastric ulcer. No evidence of acute bleed at this time. - transfuse if <7, current plan for 3 PRBC - trend H&H - stool occult/BRIAN negative in ED Hemoglobin stable today. Continue to monitor CBC and hemoglobin (2) Alcohol abuse: Code(s): F10.10 - Alcohol abuse, uncomplicated Status: Acute Assessment and Plan: - heavy ETOH use: bottle of rum 4 days per week, previously heavier but has been cutting back due to feeling unwell - last drink: 01/27 - CIWA protocol in place Ativan PRN Librium prn seizure precautions neurochecks Q2H Still has anxiety - antiemetics PRN (3) Hypokalemia: Code(s): E87.6 - Hypokalemia Status: Acute Assessment and Plan: mild, initial K 3.2 - replete with 40 p.o. KCL, recheck this evening - trend, corrected Plan Diet: Heart healthy GI Prophylaxis: Pantoprazole b.i.d. DVT Prophylaxis: SCDs Lines: Peripheral Code Status: Full code Subjective Date/time seen: 01/29/25 12:05 Interval history: Saw exam patient. Patient still had hallucination in the morning, has some anxiety. Denies headache, nausea vomiting black stools Exam Narrative: GENERAL: Pleasant, in no acute distress. Well-nourished. - EYES: EOMI. Anicteric. - HENT: Moist mucous membranes. - LUNGS: Clear to auscultation bilateral ly, no wheezing, rhonchi, or rales. - CARDIOVASCULAR: Regular rate and rhyth m. No murmur. No JVD. - ABDOMEN: Soft, non-tender and non-dist ended. No palpable masses. - EXTREMITIES: No edema. Peripheral puls es 2+. Non-tender. - NEUROLOGIC: No focal neurological defi cits. CN II-XII grossly intact. - PSYCHIATRIC: Awake, Alert and oriented x 3. Anxious mood and affect. - SKIN: No rashes or lesions. Warm. - LYMPH: No cervical lymphadenopathy. Objective Data Vital Signs Vital Signs: Vital Signs - 24 hr 01/28/25 13:18 01/28/25 13:43 01/28/25 14:10 Temperature 98.8 F Pulse Rate 105 H 103 H Pulse Rate [Bilateral Apical Monitor] 108 H Respiratory Rate 16 16 Blood Pressure 119/73 126/73 Pulse Oximetry 100 98 Oxygen Delivery 01/28/25 14:14 01/28/25 14:27 01/28/25 15:05 Temperature 98.5 F 97.0 F L Pulse Rate 107 H 99 Pulse Rate [Bilateral Apical Monitor] Respiratory Rate 24 H 18 Blood Pressure 123/80 128/77 Pulse Oximetry 94 94 99 Oxygen Delivery Room Air 01/28/25 15:27 01/28/25 16:00 01/28/25 17:55 Temperature 97.0 F L 97.5 F L Pulse Rate 99 100 Pulse Rate [Bilateral Apical Monitor] 110 H Respiratory Rate 18 16 Blood Pressure 132/70 132/72 Pulse Oximetry 100 97 Oxygen Delivery 01/28/25 18:10 01/28/25 18:54 01/28/25 19:10 Temperature 98.1 F 97.1 F L Pulse Rate 102 H 102 H 95 Pulse Rate [Bilateral Apical Monitor] Respiratory Rate 16 16 16 Blood Pressure 132/66 144/84 H Pulse Oximetry 99 99 96 Oxygen Delivery Room Air 01/28/25 20:00 01/28/25 20:00 01/28/25 20:00 Temperature Pulse Rate 106 H 106 H Pulse Rate [Bilateral Apical Monitor] 110 H Respiratory Rate 16 Blood Pressure 140/78 Pulse Oximetry 98 Oxygen Delivery Room Air 01/28/25 20:10 01/28/25 20:31 01/28/25 21:39 Temperature 97.5 F L 97.5 F L 97.5 F L Pulse Rate 105 H 105 H 105 H Pulse Rate [Bilateral Apical Monitor] Respiratory Rate 18 18 18 Blood Pressure 150/81 H 150/81 H 150/81 H Pulse Oximetry 97 97 97 Oxygen Delivery 01/28/25 21:53 01/28/25 22:12 01/28/25 23:12 Temperature 97.2 F L 97.3 F L 97.2 F L Pulse Rate 102 H 106 H 100 Pulse Rate [Bilateral Apical Monitor] Respiratory Rate 18 16 18 Blood Pressure 145/80 H 140/78 160/88 H Pulse Oximetry 99 98 98 Oxygen Delivery 01/29/25 00:00 01/29/25 00:00 01/29/25 00:12 Temperature 97 F L Pulse Rate 103 H 101 H Pulse Rate [Bilateral Apical Monitor] 110 H Respiratory Rate 18 Blood Pressure 149/96 H 149/96 H Pulse Oximetry 97 Oxygen Delivery 01/29/25 00:58 01/29/25 04:00 01/29/25 04:00 Temperature 98.3 F Pulse Rate 92 87 Pulse Rate [Bilateral Apical Monitor] 110 H Respiratory Rate 18 Blood Pressure 158/94 H 158/94 H Pulse Oximetry 99 Oxygen Delivery 01/29/25 06:00 Temperature 98.1 F Pulse Rate 91 Pulse Rate [Bilateral Apical Monitor] Respiratory Rate 18 Blood Pressure 167/92 H Pulse Oximetry 97 Oxygen Delivery Intake/Output Intake/Output: Intake & Output 01/26/25 01/27/25 01/28/25 01/29/25 23:59 23:59 23:59 23:59 Intake Total 1921 1377 Balance 1921 1377 Meds/Results Medications: Active Medications Generic Name Dose Route Start Last Admin Trade Name Freq PRN Reason Stop Dose Admin Acetaminophen 650 mg 01/28/25 17:50 Acetaminophen 325 Mg Tablet PO Q8H PRN Pain Chlordiazepoxide HCl 25 mg 01/28/25 13:43 Chlordiazepoxide (*Crx) 25 Mg Capsule PO Q6H PRN Withdrawal Folic Acid 1 mg 01/29/25 09:00 Folic Acid 1 Mg Tablet PO DAILY [facility] Lorazepam 2 mg 01/28/25 13:43 Lorazepam Inj (*Crx) 2 Mg/Ml Vial IV PUSH Q4H PRN CIWA 8-15 Pantoprazole Sodium 40 mg 01/28/25 21:00 01/28/25 20:34 Pantoprazole Sodium Iv 40 Mg Vial IV PUSH 40 mg Q12HR [facility] Administration Polysaccharide Iron Complex 150 mg 01/29/25 08:00 Polysaccharide Iron Complex 150 Mg Capsule PO BIDWM [facility] Thiamine HCl 100 mg 01/29/25 09:00 Thiamine Hcl 100 Mg Tablet PO QAM [facility] Radiology Results: ITS Impressions Chest X-Ray 01/28/25 10:49 Impression: Clear lungs. Probable moderate to large hiatal hernia. Labs Labs: Laboratory Results - last 24 hr 01/28/25 01/28/25 01/28/25 11:35 12:16 12:19 WBC RBC Hgb Hct MCV MCH MCHC RDW Plt Count MPV Immature Gran % (Auto) Neut % (Auto) Lymph % (Auto) [place] % (Auto) Eos % (Auto) Baso % (Auto) Lymph # (Auto) [place] # (Auto) Eos # (Auto) Baso # (Auto) Abs Immat Gran (auto) Absolute Neuts (auto) Absolute Nucleated RBC Band Neutrophils % 0 Nucleated RBC % Platelet Estimate Adequate % Immature Plt Fraction Hypochromasia 3+ Microcytosis 2+ Target Cells 1+ Ovalocytes 1+ Schistocytes None seen PT 15.8 H INR 1.2 APTT 29.5 Sodium Potassium Chloride Carbon Dioxide Anion Gap BUN Creatinine Estim Creat Clear Calc Estimated GFR Glucose POC Capillary Glucose Calcium Magnesium Iron 17 L TIBC 406 % Saturation 4 L Ferritin 3.50 L Total Bilirubin AST ALT Alkaline Phosphatase Total Protein Albumin Vitamin B12 293.0 Folate 4.9 TSH (Reflex) 2.210 Influenza A (RT-PCR) Negative Influenza B (RT-PCR) Negative RSV (RT-PCR) Negative SARS-CoV-2 RNA (RT-PCR) Negative Blood Type O Positive Antibody Screen Negative Crossmatch See Detail 01/28/25 01/28/25 01/29/25 18:15 23:10 02:14 WBC Cancelled RBC Cancelled Hgb Cancelled Hct MCV MCH MCHC RDW Plt Count MPV Immature Gran % (Auto) Neut % (Auto) Lymph % (Auto) [place] % (Auto) Eos % (Auto) Baso % (Auto) Lymph # (Auto) [place] # (Auto) Eos # (Auto) Baso # (Auto) Abs Immat Gran (auto) Absolute Neuts (auto) Absolute Nucleated RBC Band Neutrophils % Nucleated RBC % Platelet Estimate % Immature Plt Fraction Hypochromasia Microcytosis Target Cells Ovalocytes Schistocytes PT INR APTT Sodium Potassium Chloride Carbon Dioxide Anion Gap BUN Creatinine Estim Creat Clear Calc Estimated GFR Glucose POC Capillary Glucose 102 115 H Calcium Magnesium Iron TIBC % Saturation Ferritin Total Bilirubin AST ALT Alkaline Phosphatase Total Protein Albumin Vitamin B12 Folate TSH (Reflex) Influenza A (RT-PCR) Influenza B (RT-PCR) RSV (RT-PCR) SARS-CoV-2 RNA (RT-PCR) Blood Type Antibody Screen Crossmatch 01/29/25 01/29/25 01/29/25 02:14 02:14 04:48 WBC RBC Hgb 8.3 L D Hct Cancelled 27.0 L MCV Cancelled MCH Cancelled MCHC Cancelled RDW Cancelled Plt Count Cancelled MPV Cancelled Immature Gran % (Auto) Cancelled Neut % (Auto) Cancelled Lymph % (Auto) Cancelled [place] % (Auto) Cancelled Eos % (Auto) Cancelled Baso % (Auto) Cancelled Lymph # (Auto) Cancelled [place] # (Auto) Cancelled Eos # (Auto) Cancelled Baso # (Auto) Cancelled Abs Immat Gran (auto) Cancelled Absolute Neuts (auto) Cancelled Absolute Nucleated RBC Cancelled Band Neutrophils % Nucleated RBC % Cancelled Platelet Estimate % Immature Plt Fraction Cancelled Hypochromasia Microcytosis Target Cells Ovalocytes Schistocytes PT INR APTT Sodium 139 Potassium 3.6 Chloride 109 H Carbon Dioxide 19 L Anion Gap 11 BUN 13 Creatinine 0.52 L Estim Creat Clear Calc 72 Estimated GFR > 60 Glucose 125 H POC Capillary Glucose 109 H Calcium 8.1 L Magnesium 1.6 Iron TIBC % Saturation Ferritin Total Bilirubin 1.0 AST 22 ALT 14 Alkaline Phosphatase 51 Total Protein 6.0 L Albumin 3.3 L Vitamin B12 Folate TSH (Reflex) Influenza A (RT-PCR) Influenza B (RT-PCR) RSV (RT-PCR) SARS-CoV-2 RNA (RT-PCR) Blood Type Antibody Screen Crossmatch 01/29/25 01/29/25 05:28 11:41 WBC RBC Hgb 9.0 L Hct 30.6 L MCV MCH MCHC RDW Plt Count MPV Immature Gran % (Auto) Neut % (Auto) Lymph % (Auto) [place] % (Auto) Eos % (Auto) Baso % (Auto) Lymph # (Auto) [place] # (Auto) Eos # (Auto) Baso # (Auto) Abs Immat Gran (auto) Absolute Neuts (auto) Absolute Nucleated RBC Band Neutrophils % Nucleated RBC % Platelet Estimate % Immature Plt Fraction Hypochromasia Microcytosis Target Cells Ovalocytes Schistocytes PT INR APTT Sodium Potassium Chloride Carbon Dioxide Anion Gap BUN Creatinine Estim Creat Clear Calc Estimated GFR Glucose POC Capillary Glucose 131 H Calcium Magnesium Iron TIBC % Saturation Ferritin Total Bilirubin AST ALT Alkaline Phosphatase Total Protein Albumin Vitamin B12 Folate TSH (Reflex) Influenza A (RT-PCR) Influenza B (RT-PCR) RSV (RT-PCR) SARS-CoV-2 RNA (RT-PCR) Blood Type Antibody Screen Crossmatch
[2025-01-29] MEDS: POLYSACCHARIDE IRON COMPLEX 150 MG CAPSULE PO ×2 (14:35→18:38)
[2025-01-29] MEDS: FOLIC ACID 1 MG TABLET PO (14:35)
[2025-01-29] MEDS: THIAMINE HCL 100 MG TABLET PO (14:36)
[2025-01-29 18:45] LABS: Glucose Point of Care 109 mg/dl (65-105)
[2025-01-30] VITALS (9 sets, daily range): BP systolic 134–145; BP diastolic 81–96; PULSE 80–110; RESP 16–18; TEMP 36.5–37.1; O2SAT 93–96
[2025-01-30 00:28] LABS: Glucose Point of Care 156 mg/dl (65-105)
--- NOTE | 2025-01-30 08:57 | P.PNIM_ITS ---
Progress Note: A&P Assessment and Plan (1) Alcohol abuse: Code(s): F10.10 - Alcohol abuse, uncomplicated Status: Acute (2) Hypokalemia: Code(s): E87.6 - Hypokalemia Status: Acute (3) Hypophosphatemia: Code(s): E83.39 - Other disorders of phosphorus metabolism Status: Acute (4) Anemia: Code(s): D64.9 - Anemia, unspecified Status: Acute (5) Symptomatic anemia: Code(s): D64.9 - Anemia, unspecified Status: Acute Plan 64 y/o F presents here with shortness of breath with PMH of alcohol abuse, EtOH withdrawal seizure, chronic anemia, GERD, anxiety, depression, and subarachnoid hemorrhage. The patient presents here from a local bus stop via EMS for further evaluation of shortness of breath. She reports initial onset of shortness of breath 3 months ago. The shortness of breath worsens with exertion and is accompanied by generalized weakness. She has a history of chronic anemia due to alcohol use and iron deficiency. Per chart review, the patient was admitted in May of 2023 for symptomatic anemia. At that time she presented with a hemoglobin of 3.6 and was transfused 2-3 units. Hemoccult was negative at that time. She was seen by GI and Hematology during this visit. She underwent iron transfusions, an EGD, and a colonoscopy. EGD revealed a large healing gastric ulcer with no active bleeding. Colonoscopy showed 1 large polyp, this was excised and pathology showed a tubular adenoma. (1) Symptomatic anemia: Code(s): D64.9 - Anemia, unspecified Status: Acute Assessment and Plan: - Hgb 3.1, Hct 13.2%, MCV 64.4, MCHC 23.5 - Hx: LEA, gastric ulcer, chronic ETOH use 05/2023: Colonoscopy showed ascending colon polyp, appears grossly benign, follow-up colonoscopy advised in 5 years. EGD showed a large hiatal hernia, gastric erosions suspicious for healing ulcer. - add iron, TIBC, ferritin, B12, folic acid, and TSH results consistent with LEA, start oral supplementation bid and iron transfusion x1 - start pantoprazole b.i.d., previous history of gastric ulcer. No evidence of acute bleed at this time. - transfuse if <7, current plan for 3 PRBC - trend H&H - stool occult/BRIAN negative in ED Continue Venofer IV 400mg once Hemoglobin stable but down slightly . Continue to monitor CBC and hemoglobin (2) Alcohol abuse: Code(s): F10.10 - Alcohol abuse, uncomplicated Status: Acute Assessment and Plan: heavy ETOH use: bottle of rum 4 days per week, previously heavier but has been cutting back due to feeling unwell last drink: 01/[address] Ativan PRN Librium prn seizure precautions neurochecks Q2H antiemetics PRN (3) Hypokalemia: Code(s): E87.6 - Hypokalemia Status: Acute Assessment and Plan: mild, initial K 3.2 - replete with 40 p.o. KCL, recheck this evening - trend, corrected Plan Diet: Heart healthy GI Prophylaxis: Pantoprazole b.i.d. DVT Prophylaxis: SCDs Lines: Peripheral Code Status: Full code Subjective Date/time seen: 01/30/25 08:57 Interval history: Saw exam patient. Patient still had hallucination in the morning, has some anxiety. Denies headache, nausea vomiting black stools. Hemoglobin trending down slightly 8.6 Exam Narrative: GENERAL: Pleasant, in no acute distress. Well-nourished. - EYES: EOMI. Anicteric. - HENT: Moist mucous membranes. - LUNGS: Clear to auscultation bilateral ly, no wheezing, rhonchi, or rales. - CARDIOVASCULAR: Regular rate and rhyth m. No murmur. No JVD. - ABDOMEN: Soft, non-tender and non-dist ended. No palpable masses. - EXTREMITIES: No edema. Peripheral puls es 2+. Non-tender. - NEUROLOGIC: No focal neurological defi cits. CN II-XII grossly intact. - PSYCHIATRIC: Awake, Alert and oriented x 3. Anxious mood and affect. - SKIN: No rashes or lesions. Warm. - LYMPH: No cervical lymphadenopathy. Objective Data Vital Signs Vital Signs: Vital Signs - 24 hr 01/29/25 12:00 01/29/25 12:01/29/25 14:45 Temperature 98.9 F Pulse Rate 85 95 Pulse Rate [Bilateral Apical Monitor] 110 H Respiratory Rate 24 H Blood Pressure 167/92 H 116/70 Pulse Oximetry 95 Oxygen Delivery 01/29/25 16:00 01/29/25 16:00 01/29/25 20:00 Temperature Pulse Rate 95 Pulse Rate [Bilateral Apical Monitor] 110 H 110 H Respiratory Rate Blood Pressure 116/70 116/70 Pulse Oximetry Oxygen Delivery 01/29/25 20:00 01/29/25 20:00 01/29/25 21:54 Temperature 97.9 F Pulse Rate 95 90 88 Pulse Rate [Bilateral Apical Monitor] Respiratory Rate 24 H 18 Blood Pressure 138/85 Pulse Oximetry 95 94 Oxygen Delivery Room Air 01/30/25 00:00 01/30/25 00:00 01/30/25 04:00 Temperature Pulse Rate 83 103 H Pulse Rate [Bilateral Apical Monitor] 110 H Respiratory Rate Blood Pressure 138/85 Pulse Oximetry Oxygen Delivery 01/30/25 05:11 Temperature 97.7 F Pulse Rate 82 Pulse Rate [Bilateral Apical Monitor] Respiratory Rate 18 Blood Pressure 134/81 Pulse Oximetry 96 Oxygen Delivery Intake/Output Intake/Output: Intake & Output 01/27/25 01/28/25 01/29/25 01/30/25 23:59 23:59 23:59 23:59 Intake Total 1920 185 300 Balance 1920 185 300 Meds/Results Medications: Active Medications Generic Name Dose Route Start Last Admin Trade Name Freq PRN Reason Stop Dose Admin Acetaminophen 650 mg 01/28/25 17:50 Acetaminophen 325 Mg Tablet PO Q8H PRN Pain Chlordiazepoxide HCl 25 mg 01/28/25 13:43 Chlordiazepoxide (*Crx) 25 Mg Capsule PO Q6H PRN Withdrawal Folic Acid 1 mg 01/29/25 09:00 01/29/25 14:35 Folic Acid 1 Mg Tablet PO 1 mg DAILY [facility] Administration Lorazepam 2 mg 01/28/25 13:43 Lorazepam Inj (*Crx) 2 Mg/Ml Vial IV PUSH Q4H PRN CIWA 8-15 Pantoprazole Sodium 40 mg 01/28/25 21:00 01/29/25 20:51 Pantoprazole Sodium Iv 40 Mg Vial IV PUSH 40 mg Q12HR [facility] Administration Polysaccharide Iron Complex 150 mg 01/29/25 08:00 01/29/25 18:38 Polysaccharide Iron Complex 150 Mg Capsule PO 150 mg BIDWM [facility] Administration Thiamine HCl 100 mg 01/29/25 09:00 01/29/25 14:36 Thiamine Hcl 100 Mg Tablet PO 100 mg QAM [facility] Administration Radiology Results: ITS Impressions Chest X-Ray 01/28/25 10:49 Impression: Clear lungs. Probable moderate to large hiatal hernia. Labs Labs: Laboratory Results - last 24 hr 01/29/25 01/29/25 01/30/25 11:41 18:33 00:13 POC Capillary Glucose 131 H 109 H 156 H
[2025-01-30] MEDS: PANTOPRAZOLE SODIUM IV 40 MG VIAL IV PUSH ×2 (09:10→21:19)
[2025-01-30] MEDS: POLYSACCHARIDE IRON COMPLEX 150 MG CAPSULE PO ×2 (09:10→17:03)
[2025-01-30] MEDS: THIAMINE HCL 100 MG TABLET PO (09:11)
[2025-01-30] MEDS: FOLIC ACID 1 MG TABLET PO (09:11)
[2025-01-30 09:32] LABS: Hematocrit 28.4 % (37.0-47.0); Hemoglobin 8.6 g/dL (12.0-15.0); Mean Corpuscular HGB Conc 30.3 g/dl (32-36); Mean Corpuscular Hemoglobin 22.2 pg (26-34); Mean Corpuscular Volume 73.2 fl (80-100); Mean Platelet Volume 8.9 fl (7.4-10.4); Platelet Count Result 305 k/mm3 (150-375); Red Blood Count 3.88 M/mm3 (4.2-5.4); Red Cell Distribution Width 24.7 % (11.5-14.5); White Blood Count 8.2 K/mm3 (4.5-10.0)
[2025-01-30 10:09] LABS: Anion Gap 10 mmol/L (4-12); Blood Urea Nitrogen 7 mg/dL (7-17); Calcium 8.4 mg/dL (8.4-10.2); Carbon Dioxide 24 mmol/L (22-30); Chloride 105 mmol/L (98-107); Estimated CRCL calculation 69 ml/min; Estimated Glomerular Filt Rate > 60; Glucose 97 mg/dL (65-110); Potassium 3.3 mmol/L (3.4-5.0); Sodium 139 mmol/L (137-145)
[2025-01-30] MEDS: IRON SUCROSE COMPLEX 400 MG in SODIUM CHLORIDE 0.9% IV 250 ML 108 MG IVPB (11:21)
[2025-01-31] VITALS (7 sets, daily range): BP systolic 129–131; BP diastolic 76–77; PULSE 84–106; RESP 16–18; TEMP 32.7–36.8; O2SAT 94–96
[2025-01-31] MEDS: POLYSACCHARIDE IRON COMPLEX 150 MG CAPSULE PO (09:15)
[2025-01-31] MEDS: FOLIC ACID 1 MG TABLET PO (09:15)
[2025-01-31] MEDS: PANTOPRAZOLE SODIUM IV 40 MG VIAL IV PUSH (09:15)
[2025-01-31] MEDS: THIAMINE HCL 100 MG TABLET PO (09:15)
--- NOTE | 2025-01-31 10:20 | P.PNIM_ITS ---
Progress Note: A&P Assessment and Plan (1) Alcohol abuse: Code(s): F10.10 - Alcohol abuse, uncomplicated Status: Acute (2) Hypokalemia: Code(s): E87.6 - Hypokalemia Status: Acute (3) Hypophosphatemia: Code(s): E83.39 - Other disorders of phosphorus metabolism Status: Acute (4) Anemia: Code(s): D64.9 - Anemia, unspecified Status: Acute (5) Symptomatic anemia: Code(s): D64.9 - Anemia, unspecified Status: Acute Plan 64 y/o F presents here with shortness of breath with PMH of alcohol abuse, EtOH withdrawal seizure, chronic anemia, GERD, anxiety, depression, and subarachnoid hemorrhage. The patient presents here from a local bus stop via EMS for further evaluation of shortness of breath. She reports initial onset of shortness of breath 3 months ago. The shortness of breath worsens with exertion and is accompanied by generalized weakness. She has a history of chronic anemia due to alcohol use and iron deficiency. Per chart review, the patient was admitted in May of 2023 for symptomatic anemia. At that time she presented with a hemoglobin of 3.6 and was transfused 2-3 units. Hemoccult was negative at that time. She was seen by GI and Hematology during this visit. She underwent iron transfusions, an EGD, and a colonoscopy. EGD revealed a large healing gastric ulcer with no active bleeding. Colonoscopy showed 1 large polyp, this was excised and pathology showed a tubular adenoma. (1) Symptomatic anemia: Code(s): D64.9 - Anemia, unspecified Status: Acute Assessment and Plan: - Hgb 3.1, Hct 13.2%, MCV 64.4, MCHC 23.5 - Hx: LEA, gastric ulcer, chronic ETOH use 05/2023: Colonoscopy showed ascending colon polyp, appears grossly benign, follow-up colonoscopy advised in 5 years. EGD showed a large hiatal hernia, gastric erosions suspicious for healing ulcer. - add iron, TIBC, ferritin, B12, folic acid, and TSH results consistent with LEA, start oral supplementation bid and iron transfusion x1 - start pantoprazole b.i.d., previous history of gastric ulcer. No evidence of acute bleed at this time. - transfuse if <7, current plan for 3 PRBC - trend H&H - stool occult/BRIAN negative in ED Received Venofer IV 400mg once 01/30 Hemoglobin stable and is trending up. No active bleeding Continue to monitor CBC and hemoglobin per PCP Continue iron p.o. after discharge (2) Alcohol abuse: Code(s): F10.10 - Alcohol abuse, uncomplicated Status: Acute Assessment and Plan: heavy ETOH use: bottle of rum 4 days per week, previously heavier but has been cutting back due to feeling unwell last drink: 01/[address] Ativan PRN Librium prn seizure precautions neurochecks Q2H antiemetics PRN Patient has no sign of alcohol withdrawal today (3) Hypokalemia: Code(s): E87.6 - Hypokalemia Status: Acute Assessment and Plan: mild, initial K 3.2 - replete with 40 p.o. KCL, recheck this evening - trend, corrected Plan Diet: Heart healthy GI Prophylaxis: Pantoprazole b.i.d. DVT Prophylaxis: SCDs Lines: Peripheral Code Status: Full code Patient is stable, will be discharged today Subjective Date/time seen: 01/31/25 10:20 Interval history: I saw examined patient today, patient feels comfortable, denies nausea vomiting black stools. Patient denies anxiety, headache. Labs reviewed, hemoglobin stable 8.7 slight up since yesterday Exam Narrative: GENERAL: Pleasant, in no acute distress. Well-nourished. - EYES: EOMI. Anicteric. - HENT: Moist mucous membranes. - LUNGS: Clear to auscultation bilateral ly, no wheezing, rhonchi, or rales. - CARDIOVASCULAR: Regular rate and rhyth m. No murmur. No JVD. - ABDOMEN: Soft, non-tender and non-dist ended. No palpable masses. - EXTREMITIES: No edema. Peripheral puls es 2+. Non-tender. - NEUROLOGIC: No focal neurological defi cits. CN II-XII grossly intact. - PSYCHIATRIC: Awake, Alert and oriented x 3. Appropriate mood and affect. - SKIN: No rashes or lesions. Warm. - LYMPH: No cervical lymphadenopathy. Objective Data Vital Signs Vital Signs: Vital Signs - 24 hr 01/30/25 12:00 01/30/25 14:00 01/30/25 16:00 Temperature 98.3 F Pulse Rate 80 94 93 Respiratory Rate 16 Blood Pressure 145/96 H Pulse Oximetry 93 Oxygen Delivery 01/30/25 20:00 01/30/25 20:00 01/30/25 21:16 Temperature 98.7 F Pulse Rate 96 90 96 Respiratory Rate 18 18 Blood Pressure 144/83 H Pulse Oximetry 96 96 Oxygen Delivery Room Air 01/31/25 00:00 01/31/25 04:00 01/31/25 05:46 Temperature 91 F L Pulse Rate 94 84 88 Respiratory Rate 18 Blood Pressure 129/77 Pulse Oximetry 96 Oxygen Delivery 01/31/25 08:44 Temperature Pulse Rate Respiratory Rate Blood Pressure Pulse Oximetry 94 Oxygen Delivery Room Air Intake/Output Intake/Output: Intake & Output 01/28/25 01/29/25 01/30/25 01/31/25 23:59 23:59 23:59 23:59 Intake Total 1921 1857 780 440 Balance 1921 1857 780 440 Meds/Results Medications: Active Medications Generic Name Dose Route Start Last Admin Trade Name Freq PRN Reason Stop Dose Admin Acetaminophen 650 mg 01/28/25 17:50 Acetaminophen 325 Mg Tablet PO Q8H PRN Pain Chlordiazepoxide HCl 25 mg 01/28/25 13:43 Chlordiazepoxide (*Crx) 25 Mg Capsule PO Q6H PRN Withdrawal Folic Acid 1 mg 01/29/25 09:00 01/31/25 09:15 Folic Acid 1 Mg Tablet PO 1 mg DAILY [facility] Administration Lorazepam 2 mg 01/28/25 13:43 Lorazepam Inj (*Crx) 2 Mg/Ml Vial IV PUSH Q4H PRN CIWA 8-15 Pantoprazole Sodium 40 mg 01/28/25 21:00 01/31/25 09:15 Pantoprazole Sodium Iv 40 Mg Vial IV PUSH 40 mg Q12HR [facility] Administration Polysaccharide Iron Complex 150 mg 01/29/25 08:00 01/31/25 09:15 Polysaccharide Iron Complex 150 Mg Capsule PO 150 mg BIDWM [facility] Administration Thiamine HCl 100 mg 01/29/25 09:00 01/31/25 09:15 Thiamine Hcl 100 Mg Tablet PO 100 mg QAM [facility] Administration Radiology Results: ITS Impressions Chest X-Ray 01/28/25 10:49 Impression: Clear lungs. Probable moderate to large hiatal hernia.
--- NOTE | 2025-01-31 10:21 | P.DS_ITS ---
DS: Admitting Diagnosis Discharge Date 01/31 Admitting Diagnosis (1) Alcohol abuse: Code(s): F10.10 - Alcohol abuse, uncomplicated Status: Acute (2) Hypokalemia: Code(s): E87.6 - Hypokalemia Status: Acute (3) Hypophosphatemia: Code(s): E83.39 - Other disorders of phosphorus metabolism Status: Acute (4) Anemia: Code(s): D64.9 - Anemia, unspecified Status: Acute (5) Symptomatic anemia: Code(s): D64.9 - Anemia, unspecified Status: Acute DS: Discharge Diagnosis Discharge Diagnosis (1) Alcohol abuse: Code(s): F10.10 - Alcohol abuse, uncomplicated Status: Acute (2) Hypokalemia: Code(s): E87.6 - Hypokalemia Status: Acute (3) Hypophosphatemia: Code(s): E83.39 - Other disorders of phosphorus metabolism Status: Acute (4) Anemia: Code(s): D64.9 - Anemia, unspecified Status: Acute (5) Symptomatic anemia: Code(s): D64.9 - Anemia, unspecified Status: Acute DS: Summary Hospital Course Hospital Course: Per H&P, 64 y/o F presents here with shortness of breath with PMH of alcohol abuse, EtOH withdrawal seizure, chronic anemia, GERD, anxiety, depression, and subarachnoid hemorrhage. The patient presents here from a local bus stop via EMS for further evaluation of shortness of breath. She reports initial onset of shortness of breath 3 months ago. The shortness of breath worsens with exertion and is accompanied by generalized weakness. She has a history of chronic anemia due to alcohol use and iron deficiency. Per chart review, the patient was admitted in May of 2023 for symptomatic anemia. At that time she presented with a hemoglobin of 3.6 and was transfused 2-3 units. Hemoccult was negative at that time. She was seen by GI and Hematology during this visit. She underwent iron transfusions, an EGD, and a colonoscopy. EGD revealed a large healing gastric ulcer with no active bleeding. Colonoscopy showed 1 large polyp, this was excised and pathology showed a tubular adenoma. The following med issues have been addressed during hospitalization Symptomatic anemia: Code(s): D64.9 - Anemia, unspecified Status: Acute Assessment and Plan: - Hgb 3.1, Hct 13.2%, MCV 64.4, MCHC 23.5 - Hx: LEA, gastric ulcer, chronic ETOH use 05/2023: Colonoscopy showed ascending colon polyp, appears grossly benign, follow-up colonoscopy advised in 5 years. EGD showed a large hiatal hernia, ga stric erosions suspicious for healing ulcer. - add iron, TIBC, ferritin, B12, folic acid, and TSH results consistent with LEA, start oral supplementation bid and iron transfusion x1 - start pantoprazole b.i.d., previous history of gastric ulcer. No evidence of acute bleed at this time. - transfuse if <7, current plan for 3 PRBC - trend H&H - stool occult/BRIAN negative in ED Received Venofer IV 400mg once 01/30 Hemoglobin stable and is trending up. No active bleeding Continue to monitor CBC and hemoglobin per PCP Continue iron p.o. after discharge Patient needs to call GI doctor's office for scheduling follow-up appointment (2) Alcohol abuse: Code(s): F10.10 - Alcohol abuse, uncomplicated Status: Acute Assessment and Plan: heavy ETOH use: bottle of rum 4 days per week, previously heavier but has been cutting back due to feeling unwell last drink: 01/[address] Ativan PRN Librium prn seizure precautions neurochecks Q2H antiemetics PRN Patient has no sign of alcohol withdrawal today (3) Hypokalemia: Code(s): E87.6 - Hypokalemia Status: Acute Assessment and Plan: mild, initial K 3.2 Repleted with 40 p.o. KCL, recheck trend, corrected Patient is stable, will be discharged today Time Spent with Patient Time attestation: Total time spent providing and/or coordinating discharge services: Exam Narrative: GENERAL: Pleasant, in no acute distress. Well-nourished. - EYES: EOMI. Anicteric. - HENT: Moist mucous membranes. - LUNGS: Clear to auscultation bilateral ly, no wheezing, rhonchi, or rales. - CARDIOVASCULAR: Regular rate and rhyth m. No murmur. No JVD. - ABDOMEN: Soft, non-tender and non-dist ended. No palpable masses. - EXTREMITIES: No edema. Peripheral puls es 2+. Non-tender. - NEUROLOGIC: No focal neurological defi cits. CN II-XII grossly intact. - PSYCHIATRIC: Awake, Alert and oriented x 3. Appropriate mood and affect. - SKIN: No rashes or lesions. Warm. - LYMPH: No cervical lymphadenopathy. Discharge Plan Discharge Attending physician on discharge: Margarita Giles Discharging Clinician: Margarita Giles Anticipated Discharge Date/Time: 01/31/25 14:01 Patient Disposition: Home, Self-Care Activity: as tolerated Diet: as tolerated and heart healthy Patient Instructions: Antibiotic Form Patient Language: Surinamese Stand Alone Forms: General Discharge Information Follow-up/Referrals: Bogdan Angulo MD [Physician] - (Patient needs to call GI doctor for follow-up appointment) UNKNOWN,DOCTOR [Primary Care Provider] - (Patient needs to see PCP in 1 week) Discharge Medications: New folic acid 1 mg Tablet 1 mg PO DAILY Qty: 60 0RF thiamine HCl (vitamin B1) [Vitamin B-1] 100 mg Tablet 100 mg PO QAM Qty: 60 0RF polysaccharide iron complex 150 mg iron Capsule 150 mg PO BIDWM Qty: 60 1RF pantoprazole [Protonix] 40 mg tablet,delayed release (DR/EC) 40 mg PO HS 28 Days Qty: 28 0RF sucralfate [Carafate] 1 gram tablet 1 g PO ACHS Qty: 120 0RF Continued acetaminophen 650 mg Tablet Extended Release 650 mg PO Q8H PRN (Reason: Pain) Date of admission: 01/28/25 12:33 Primary Care Provider: UNKNOWN,DOCTOR Admitting Provider: Jb De León Attending physician on admission: Jb De León Condition: Serious
[2025-01-31 11:21] LABS: Anion Gap 10 mmol/L (4-12); Blood Urea Nitrogen 7 mg/dL (7-17); Calcium 8.4 mg/dL (8.4-10.2); Carbon Dioxide 23 mmol/L (22-30); Chloride 101 mmol/L (98-107); Estimated CRCL calculation 78 ml/min; Estimated Glomerular Filt Rate > 60; Glucose 105 mg/dL (65-110); Potassium 3.6 mmol/L (3.4-5.0); Sodium 134 mmol/L (137-145)
[2025-01-31 11:31] LABS: Hematocrit 31.8 % (37.0-47.0); Hemoglobin 8.7 g/dL (12.0-15.0); Mean Corpuscular HGB Conc 27.4 g/dl (32-36); Mean Corpuscular Volume 80.5 fl (80-100); Mean Platelet Volume 8.8 fl (7.4-10.4); Platelet Count Result 258 k/mm3 (150-375); Red Blood Count 3.95 M/mm3 (4.2-5.4); Red Cell Distribution Width 26.9 % (11.5-14.5); White Blood Count 9.2 K/mm3 (4.5-10.0)
== END 2025-01-31 17:20 | disposition home or self-care (01) ==
LOC: ANHED 12:36 → ANH3MEDSUR 01-31 10:23
PROVIDERS: Student in an Organized Health Care Education/Training Program; Admitting Provider Family Medicine; Emergency Provider Emergency Medicine; Visit Provider Hospitalist
DX: D64.9 Anemia, unspecified (principal); F10.10 Alcohol abuse, uncomplicated; D50.9 Iron deficiency anemia, unspecified; E87.6 Hypokalemia; E83.39 Other disorders of phosphorus metabolism; R44.3 Hallucinations, unspecified; K21.9 Gastro-esophageal reflux disease without esophagitis; F41.9 Anxiety disorder, unspecified; F32.A Depression, unspecified; Z20.822 Contact with and (suspected) exposure to COVID-19; Z86.79 Personal history of other diseases of the circulatory system; Z87.11 Personal history of peptic ulcer disease; Z86.0101 Personal history of adenomatous and serrated colon polyps
CPT/HCPCS: 36415; 36430; 71045; 80048; 80053; 82607; 82728; 82746; 82948; 83540; 83550; 83735; 83880; 84443; 85014; 85018; 85025; 85027; 85610; 85730; 86850; 86900; 86901; 86923; 87637; 93005; 96361; 96365; 96366; 96374; 96375; 96376; 99285; A9270; G0378; J1756; J2470; J7050; J7120; P9016

== ENCOUNTER 2025-03-18 18:26 | Emergency (ER) | payer SELFPAY ==
--- NOTE | ~2025-03-18 | XR_ITS ---
EXAM: XR elbow RT min 3V DATE: 03/18/2025 20:06 HISTORY: pain s/p fall . COMPARISON: None available. FINDINGS: Normal mineralization. No fracture or dislocation. No lytic or blastic lesion. Mild degene rative change at the elbow. No erosion or periosteal change. Soft tissues within normal limits. IMPRESSION: No acute osseous finding in the right elbow. Reviewed, dictated and finalized at location K.
--- NOTE | ~2025-03-18 | CT_ITS ---
EXAMINATION: CT cervical spine wo con DATE: 03/18/2025 18:52 INDICATION: fall, head injury TECHNIQUE: Computed tomography (CT) of the cervical spine was performed intravenous contrast. Automat ed exposure control and iterative reconstruction technique were employed. The dose-length product was 605.33 mGy-cm. COMPARISON: 08/17/2023 and 03/19/2019; CTPA 05/12/2022. FINDINGS: Vertebral Body Alignment: Trace retrolisthesis at C2-3 and 2 mm retrolisthesis at C3-4, new since the prior study. Redemonstration of minimal grade 1 anterolisthesis at multiple additional levels in the more distal cervical spine. Craniocervical and atlantoaxial alignment: Moderate degenerative change. Alignment intact. Osseous structures/fracture: No evidence of a lytic or blastic process in the visualized spine. No e vidence of acute fracture. Cervical soft tissues: The paraspinal soft tissues planes are maintained. 4 mm left upper lobe pulmon tank nodule, grossly stable since 2021 given interval differences in technique. Degenerative changes: Multilevel degenerative disc disease and facet arthropathy. No severe central c anal or neural foraminal narrowing.. IMPRESSION: No acute fracture in the cervical spine. Grade 1 retrolistheses at C2-3 and C3-4, new since the prior study. Typically these types of changes are attributed to degenerative disease. Acute/chronic soft tissue or ligamentous injury is not exclud ed. Reviewed, dictated and finalized at location K. IMPRESSION: No acute fracture in the cervical spine. Grade 1 retrolistheses at C2-3 and C3-4, new since the prior study. Typically t hese types of changes are attributed to degenerative disease. Acute/chronic sof t tissue or ligamentous injury is not excluded.
--- NOTE | ~2025-03-18 | CT_ITS ---
EXAMINATION: CT brain wo con DATE: 03/18/2025 18:52 INDICATION: fall, head trauma . TECHNIQUE: Computed tomography (CT) of the head was performed with intravenous contrast. The mA was a djusted according to patient size. Iterative reconstruction technique was employed. The dose-length p roduct was 605.33 mGy-cm. COMPARISON: 08/17/2023. FINDINGS: No acute intracranial hemorrhage or extra-axial fluid collection. No hydrocephalus, mass, or herniation. No acute ischemic infarct. Unremarkable dural venous sinus attenuation. No acute osseous abnormality. Right posterior scalp contusion. The aerated spaces are clear. Moderate atrophy and chronic white matter change. Atherosclerotic intracranial calcification. IMPRESSION: No acute intracranial process. Reviewed, dictated and finalized at location K.
[2025-03-18 18:27] VITALS: BP 119/74; PULSE 80; RESP 16; TEMP 36.3; O2SAT 99
--- OUTSIDE RECORDS SUMMARY | 2025-03-18 18:28 | XMS_ITS | Encounter Summary ---
Author Organization [facility] Health Address [address] [place] [address] Care Team Providers Care Head Of Measurement & Insights Name Role Phone Unavailable Primary Care Provider Unavailabl e Encounter Details Date Type Department Care Team (Late st Contact Info) Description 03/20/2019 Ophth Exam [facility] [address] [place] [address] Kvng Barnard MD [address] [place] [id number] Social History Tobacco Use Types Packs/Day Years Used Date Smoking Tobacco: Never Smokeless Tobacco: Never Alcohol Use Standard Drinks/Week Comments Yes 12.5 (1 standard drink = 0.6 oz pure alcohol) daily Comments Unknown Sex and Gender Information Value Date Recorded Sex Assigned at Not on file Legal Sex Female 11:10 PM CDT Gender Identity Not on file Sexual Orientation Not on file documented as of this encounter Functional Status * Is person deaf or have serious hearing difficulty? Answer Date of Assessment Author No 03/20/2019 6:01 AM Ivan Arauz RN * Is person blind or have serious difficulty seeing? Answer Date of Assessment Author No 03/20/2019 6:01 AM AVELT Ivan Masters RN * Does person have serious difficulty walking/climbing stairs? Answer Date of Assessment Author No 03/20/2019 6:01 AM Ivan Arauz RN * Does person have difficulty dressing/bathing? Answer Date of Assessment Author No 03/20/2019 6:01 AM Ivan Arauz RN * Does person have difficulty doing errands alone? Answer Date of Assessment Author No 03/20/2019 6:01 AM Ivan Arauz RN documented as of this encounter Mental Status * Does person have difficulty concentrating/remembering/making decisions? Answer Entry Date Author No 03/20/2019 6:01 AM Ivan Arauz RN documented in this encounter Plan of Treatment Not on file documented as of this encounter Visit Diagnoses Not on filedocumented in this encounter
--- OUTSIDE RECORDS SUMMARY | 2025-03-18 18:28 | XMS_ITS | Clinical Summary ---
Author Organization [facility] Address [address] [place] [address] Care Team Providers Care Casino Cage Supervisor Name Role Phone Unavailable Primary Care Provider Unavailabl e Source Comments [facility],non-owned Affiliates and Associated Physician Practices is amultiple site organization consisting of ambulatory clinics and hospital sitesin [place], [place], [place] and [place]. This disclosure is being madepursuant to the Care Everywhere program and may not contain all information available regarding this patient. Last updated 18.[employer] [facility] Allergies No known active allergies Medications * Be aware that medications may not be up to date on this document. Alwaysverify current medications with the patient. acetaminophen (TYLENOL) 325 MG tablet Take 2 tablets by mouth every 6 hours as needed for Headache Maximum allowable Acetaminophen amount = 4 Grams (4000 mg) / 24 hours. 9 Active levETIRAcetam (Keppra) 500 MG tablet Take 1 (one) tablet by mouth 2 times daily 12 tablet 3 Active Active Problems Problem Noted Date Diagnosed [...] bleed 03/20/2019 Acute alcohol intoxication 09/04/2014 Immunizations Immunization Administration Dates Next Due TDAP (7yrs+) 08/17/2023 Social History Tobacco Use Types Packs/Day Years Used Date Smoking Tobacco: Never Smokeless Tobacco: Never Tobacco Cessation:Counseling Given: Not Answered Alcohol Use Standard Drinks/Week Comments Yes 0 (1 standard drink = 0.6 oz pur e alcohol) 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 Comments No Sex and Gender Information Value Date Recorded [...] Health Maintenance Due Date Last Done Comments BONE DENSITY TESTING 1960 COLOGUARD (AGES 45-75) - COL ON CA [...] years 1-dose series) 2020 COVID-19 VACCINE (3 2023-2 5 season) 2024 07/05/2021, 06/03/2021 DEPRESSION SCREENING 11/16/2024 INFLUENZA VACCINE (Season Ended) 2025 DTAP/TDAP/TD VACCINES (2 - T d or [...] gilma Non-reac tive 04/03/2021 4:22 PM CDT [facility] Comment:Hepatitis C Antibody screen indicates no [...] 3:08 PM CDT 04/03/2021 3:34 PM CDT us Rome Deleon MD LAB - CHEMISTRY ORDERA BLES Final Result [facility] [address] [address], [facility] [phone] * HIV-1 HIV-2 ANTIBODY + HIV P24 AG PANEL (04/03/2021 3:08 PM CDT) HIV Antigen/Antibod y 1 & 2 Non-reacti ve Non-react gilma 04/03/2021 4:25 PM CDT [facility] Comment:Neither HIV-1 p24 An tigen nor HIV-1/HIV-2 Antibodies are detected. Blood BLOOD SPECIMEN / Unknown Venipuncture / Unknown 04/03/2021 3:08 PM CDT 04/03/2021 3:34 PM CDT us Rome Deleon MD LAB - CHEMISTRY ORDERA BLES Final Result [facility] [address] [place] [id number], [facility] [phone] from Last 3 Months or Most Recently Relevant to Health Maintenance Advance Directives * Full Code (Latest Code Status on File) Date Activated Date Inactivated Comments 08/18/2023 5:17 PM 08/19/2023 6:01 PM * Full Code Date Activated Date Inactivated Comments 03/20/2019 2:48 AM 03/21/2019 4:04 PM
--- OUTSIDE RECORDS SUMMARY | 2025-03-18 19:40 | XMS_ITS | Encounter Summary ---
Author Organization [facility] Health Address [address] [address] Care Team Providers Care Regrader Name Role Phone Unavailable Primary Care Provider Unavailabl e Encounter Details Date Type Department Care Team (Late st Contact Info) Description 03/20/2019 Ophth Exam [facility] [address] [place] [address] Kvng Barnard MD [address] DEPT [place] [id number] Social History Tobacco Use Types Packs/Day Years [...]
--- OUTSIDE RECORDS SUMMARY | 2025-03-18 19:40 | XMS_ITS | Clinical Summary ---
Author Organization [facility] Address [address] [place] [address] Care Team Providers Care Box Press Operator Name Role Phone Unavailable Primary Care Provider Unavailabl e Source Comments [facility],non-owned Affiliates and Associated Physician Practices is amultiple site organization consisting of ambulatory clinics and hospital sitesin [place], [place], [place] and [place]. This disclosure is being madepursuant to the Care Everywhere program and may not contain all information available regarding this patient. Last updated 18.[employer] [facility] Allergies No known active allergies Medications * [...] gilma Non-reac tive 04/03/2021 4:22 PM CDT [facility] Comment:Hepatitis C Antibody screen indicates [...] LAB - CHEMISTRY ORDERA BLES Final Result [facility] [address] [address], [place] [phone] * HIV-1 HIV-2 ANTIBODY + HIV P24 AG PANEL (04/03/2021 3:08 PM CDT) HIV Antigen/Antibod y 1 & 2 Non-reacti ve Non-react gilma 04/03/2021 4:25 PM CDT [facility] Comment:Neither HIV-1 p24 An tigen nor HIV-1/HIV-2 Antibodies are detected. Blood BLOOD SPECIMEN / Unknown Venipuncture / Unknown 04/03/2021 3:08 PM CDT 04/03/2021 3:34 PM CDT us Rome Deleon MD LAB - CHEMISTRY ORDERA BLES Final Result [facility] [address] [place] [id number], [place] [phone] from Last 3 Months or Most Recently Relevant to Health Maintenance Advance Directives * Full Code (Latest Code Status on File) Date Activated Date Inactivated Comments 08/18/2023 5:17 PM 08/19/2023 6:01 PM * Full Code Date Activated Date Inactivated Comments 03/20/2019 2:48 AM 03/21/2019 4:04 PM
[2025-03-18 20:09] VITALS: BP 122/78; PULSE 83; RESP 18; O2SAT 95
--- NOTE | 2025-03-18 20:09 | PC.NURSE ---
Patient placed on bed alarm.
--- NOTE | 2025-03-18 20:52 | PC.NURSE ---
Patient does not have a ride home. Wants to take the bus, still appears intoxicated.
--- NOTE | 2025-03-18 20:57 | ED_ITS ---
HPI - General Adult General Chief complaint: Fall Stated complaint: fall-etoh Time Seen by Provider: 03/18/25 19:32 History of Present Illness HPI narrative: Patient is a 65-year-old female who presents emergency department with chief complaint of head injury. Patient reports that she was having some alcohol today and fell and struck her head patient reports no loss of consciousness reports that she does have history of alcohol abuse reports that she was drinking from her large bottle of alcohol this evening the patient reports that she feels fine now other than a small headache Related Data Home Medications ?Medication ?Instructions ?Recorded ?Confirmed ?Last Taken ?Type acetaminophen 650 mg 650 mg PO Q8H PRN Pain 08/09/22 01/28/25 01/27/25 History tablet,extended release Allergies Allergy/AdvReac Type Severity Reaction Status Date / Time monosodium glutamate AdvReac Intermediate Vomiting Verified 12/12/23 18:58 Review of Systems Review of Systems: A 10 system review of systems was completed on the patient and is negative except for what is stated in the HPI. Nursing and ancillary documentation was reviewed. [facility] Past Medical History Medical History Iron deficiency anemia Alcoholic hepatitis Pancreatitis Gastroesophageal reflux disease Alcohol abuse Anxiety Depression History of fracture Including clavicle fracture left foot fracture. Alcohol withdrawal seizure Subarachnoid hemorrhage Surgical History Surgical History History of appendectomy Family History Family History Sibling Multiple sclerosis Sibling Father Colon cancer Arthritis Parents Mother Throat cancer Parents Social History Social History Social History: Surrogate decision maker: Baldemar Strong, brother. Code status: Full code. Smoking status: Never smoker Alcohol intake: never Drinks per week: 20 Alcohol use details: Drinks 6 to 8 airplane shots a day. Substance use: never Substance use type: does not use Do You Feel Safe in your Home?: Yes Lack of Transportation: No Lack of Food: Never True Current Housing: I Have Housing Concerned About Future Housing: No Difficulty Paying Gas/Electric Bills: No Difficulty Paying for Meds: No Currently Unemployed: No Education: Associate Degree Difficulty w/ Childcare or Family Care: No Living arrangements: with family Additional living arrangements comments: The patient lives in [place] with her brother. Occupation/Education: unemployed Additional occupation/education comments: Unemployed. Spiritual care concerns: No Exam Narrative: GENERAL: Well-appearing, well-nourished, and in no acute distress. HEAD: Normocephalic, small contusion to the occipital region of the scalp. EYES: PERRLA and EOMI. ENT: Nares clear, no rhinorrhea or epistaxis. Mucous membranes moist. NECK: Supple. CHEST: Clear to auscultation. No respiratory distress. HEART: Regular rate and rhythm. No murmur heard. Normal peripheral pulses. ABDOMEN: Soft, nontender, nondistended, normal active bowel sounds. EXTREMITIES: Normal range of motion minimal tenderness present to the right elbow no deformity. No edema. SKIN: Warm, dry, no rash. NEURO: No focal deficits. Alert and oriented x3. PSYCH: Normal mood and affect. Course Vital Signs Vital signs: Vital Signs Temperature 36.3 C L 03/18/25 18:27 Pulse Rate 80 03/18/25 18:27 Respiratory Rate 16 03/18/25 18:27 Blood Pressure 119/74 03/18/25 18:27 Pulse Oximetry 99 03/18/25 18: Temperature 36.3 C L 03/18/25 18:27 Pulse Rate 83 03/18/25 20:09 Respiratory Rate 18 03/18/25 20:09 Blood Pressure 122/78 03/18/25 20:09 Pulse Oximetry 95 03/18/25 20:09 Medical Decision Making [facility] Narrative Medical decision making narrative: Differential diagnosis includes head injury, cervical spine fracture, elbow fracture CT head showed no acute hemorrhage CT C-spine showed no evidence of fracture Plain plain film x-rays of the right elbow showed no evidence fracture The patient is ambulatory without signs of overt intoxication Vital Signs Vital Signs: Vital Signs Temperature 36.3 C L 03/18/25 18:27 Pulse Rate 80 03/18/25 18:27 Respiratory Rate 16 03/18/25 18:27 Blood Pressure 119/74 03/18/25 18:27 Pulse Oximetry 99 03/18/25 18:27 Temperature 36.3 C L 03/18/25 18:27 Pulse Rate 83 03/18/25 20:09 Respiratory Rate 18 03/18/25 20:09 Blood Pressure 122/78 03/18/25 20:09 Pulse Oximetry 95 03/18/25 20:09 Discharge Plan Discharge Clinical Impression: Head injury, Alcohol abuse, Ground-level fall Patient Disposition: Home Condition: Stable Instructions: Antibiotic Form, Head Injury (ED), Abuse of Alcohol (ED) Patient Language: Vietnamese Prescriptions: No Action acetaminophen 650 mg Tablet Extended Release 650 mg PO Q8H PRN (Reason: Pain) polysaccharide iron complex 150 mg iron Capsule 150 mg PO BIDWM Qty: 60 1RF thiamine HCl (vitamin B1) [Vitamin B-1] 100 mg Tablet 100 mg PO QAM Qty: 60 0RF folic acid 1 mg Tablet 1 mg PO DAILY Qty: 60 0RF pantoprazole [Protonix] 40 mg tablet,delayed release (DR/EC) 40 mg PO HS 28 Days Qty: 28 0RF sucralfate [Carafate] 1 gram tablet 1 g PO ACHS Qty: 120 0RF Follow-up/Referrals: UNKNOWN,DOCTOR [Primary Care Provider] - Rojelio Grover MD [Physician] - Time of Disposition: 21:06
--- NOTE | 2025-03-18 21:13 | PC.NURSE ---
Patient ambulated with ED PCT. Reports tolerated well.
[2025-03-18 21:27] VITALS: BP 123/78; PULSE 94; RESP 18; O2SAT 99
== END 2025-03-18 21:29 | disposition home or self-care (01) ==
PROVIDERS: Emergency Provider Emergency Medicine
DX: S09.90XA Unspecified injury of head, initial encounter (principal); W18.30XA Fall on same level, unspecified, initial encounter; F10.10 Alcohol abuse, uncomplicated; K21.9 Gastro-esophageal reflux disease without esophagitis; F41.8 Other specified anxiety disorders
CPT/HCPCS: 70450; 72125; 73080; 99284

== ENCOUNTER 2025-04-20 21:41 | Emergency (ER) | payer SELFPAY ==
[2025-04-20 21:43] VITALS: BP 155/96; PULSE 92; RESP 14; TEMP 36; O2SAT 100
--- OUTSIDE RECORDS SUMMARY | 2025-04-20 21:43 | XMS_ITS | Clinical Summary ---
Author Organization [facility] Address [address] [place] [address] Care Team Providers Care Chief Diversity Officer Name Role Phone Unavailable Primary Care Provider Unavailabl e Source Comments [facility],non-owned Affiliates and Associated Physician Practices is amultiple site organization consisting of ambulatory clinics and hospital sitesin [place], [place], [place] and [place]. This disclosure is being madepursuant to the Care Everywhere program and may not contain all information available regarding this patient. Last updated 18.[employer] [facility] Allergies No known active allergies Medications * [...] 7:42 AM CDT Height 160 cm (5' 3) 08/18/2023 7:42 AM CDT Body Mass Index [...] gilma Non-reac tive 04/03/2021 4:[address] [facility] Comment:Hepatitis C Antibody screen indicates [...] LAB - CHEMISTRY ORDERA BLES Final Result [facility] [address] [address], [facility] [phone] * HIV-1 HIV-2 ANTIBODY + HIV P24 [...] LAB - CHEMISTRY ORDERA BLES Final Result [facility] [address] [place] [id number], [facility] [phone] from Last 3 Months or Most Recently Relevant to Health Maintenance Advance Directives * Full Code (Latest Code Status on File) Date Activated Date Inactivated Comments 08/18/2023 5:17 PM 08/19/2023 6:01 PM * Full Code Date Activated Date Inactivated Comments 03/20/2019 2:48 AM 03/21/2019 4:04 PM
--- OUTSIDE RECORDS SUMMARY | 2025-04-20 21:43 | XMS_ITS | Encounter Summary ---
Author Organization [facility] Health Address [address] [place] [address] Care Team Providers Care Rubber Roller Grinder Operator Name Role Phone Unavailable Primary Care Provider Unavailabl e Encounter Details Date Type Department Care Team (Late st Contact Info) Description 03/20/2019 Ophth Exam [facility] [address] [place] [address] Kvng Barnard MD [address] [place] [id number] Social History Tobacco Use Types Packs/Day Years [...]
--- NOTE | 2025-04-20 22:13 | ED_ITS ---
HPI - General Adult General Chief complaint: Unspecified Stated complaint: states has been kidnapped; possible confusion Time Seen by Provider: 04/20/25 22:05 History of Present Illness HPI narrative: 65-year-old female presenting to the emergency department for confusion. Patient is a well-known patient to this facility with frequent visits for alcohol abuse and alcohol intoxication. She is not sure why she is in the hospital or how she got here. She has no visible signs of injury trauma and otherwise appears intoxicated but not any distress. Denies any complaints such as headache, vision changes, nausea vomiting, chest pain, shortness a breath, abdominal pain, back pain. Endorses drinking earlier this afternoon. On review of the EMR and with collateral formation from nursing staff patient has presented very similarly in the past and has snuck alcohol into the emergency department and drinks during her previous visits. Related Data Home Medications ?Medication ?Instructions ?Recorded ?Confirmed ?Last Taken ?Type acetaminophen 650 mg 650 mg PO Q8H PRN Pain 08/09/22 01/28/25 01/27/25 History tablet,extended release Allergies Allergy/AdvReac Type Severity Reaction Status Date / Time monosodium glutamate AdvReac Intermediate Vomiting Verified 04/20/25 21:41 Review of Systems 2 Review of Systems: As reviewed above in HPI [facility] Past Medical History Medical History Iron deficiency anemia Alcoholic hepatitis Pancreatitis Gastroesophageal reflux disease Alcohol abuse Anxiety Depression History of fracture Including clavicle fracture left foot fracture. Alcohol withdrawal seizure Subarachnoid hemorrhage Surgical History Surgical History History of appendectomy Family History Family History Sibling Multiple sclerosis Sibling Father Colon cancer Arthritis Parents Mother Throat cancer Parents Social History Social History Social History: Surrogate decision maker: Baldemar Strong, saraer. Code status: Full code. Smoking status: Never smoker Alcohol intake: never Drinks per week: 20 Alcohol use details: Drinks 6 to 8 airplane shots a day. Substance use: never Substance use type: does not use Do You Feel Safe in your Home?: Yes Lack of Transportation: No Lack of Food: Never True Current Housing: I Have Housing Concerned About Future Housing: No Difficulty Paying Gas/Electric Bills: No Difficulty Paying for Meds: No Currently Unemployed: No Education: Associate Degree Difficulty w/ Childcare or Family Care: No Living arrangements: with family Additional living arrangements comments: The patient lives in [place] with her brother. Occupation/Education: unemployed Additional occupation/education comments: Unemployed. Spiritual care concerns: No Exam 2 Narrative: GENERAL: Disheveled but not any acute distress HEAD: [Normocephalic, atraumatic.] EYES: [PERRLA and EOMI.] ENT: Nares clear, no rhinorrhea or epistaxis. Mucous membranes moist. NECK: Supple. CHEST: [Clear to auscultation. No respiratory distress.] HEART: [Regular rate and rhythm]. No murmur heard. [Normal peripheral pulses.] ABDOMEN: [Soft, nondistended], [nontender], [No rigidity or guarding] EXTREMITIES: Normal range of motion. [No edema.] SKIN: Warm, dry, no rash. NEURO: [No focal deficits]. Alert and oriented x2, appears intoxicated and slightly confused but moving all extremities, ambulatory. PSYCH: [Normal mood and affect.] Course Vital Signs Vital signs: Vital Signs Temperature 36.0 C L 04/20/25 21:43 Pulse Rate 92 04/20/25 21:43 Respiratory Rate 14 04/20/25 21:43 Blood Pressure 155/96 H 04/20/25 21:43 Pulse Oximetry 100 04/20/25 21:43 Oxygen Delivery Room Air 04/20/25 21:43 Temperature 36.6 C 04/21/25 06:15 Pulse Rate 66 04/21/25 06:15 Respiratory Rate 16 04/21/25 06:15 Blood Pressure 114/65 04/21/25 06:15 Pulse Oximetry 98 04/21/25 06:15 Oxygen Delivery Room Air 04/20/25 21:43 Medical Decision Making [facility] Narrative Medical decision making narrative: 65-year-old female with a history of alcohol abuse presenting to the emergency department for confusion and potential alcohol intoxication. She states she was drinking earlier today and is not sure how she got to the emergency department. She is not any acute distress and denies any emergent complaints. She has normal vital signs aside from some mild hypertension. She is afebrile, no tachycardia, tachypnea or hypoxia. She has an unremarkable neurological examination she is moving all extremities and ambulatory in the examination room. Denies any suicidal or homicidal ideation or any hallucinations. She does appear intoxicated and this is the likely etiology behind her symptomatology here but other potential causes or electrolyte derangements, dehydration, less likely infectious. She has no signs of trauma denies any headache, neck pain or vision changes. Low suspicion intracranial pathology but will re-evaluated after workup. CBC, CMP, magnesium and alcohol level were drawn. Patient's laboratory studies showed no leukocytosis or anemia. Normal electrolytes., normal creatinine. Mildly elevated AST but otherwise unremarkable LFTs. Alcohol is elevated at 358. Patient's symptomatology likely secondary to alcohol intoxication. Will be observed here for clinical sobriety and likely discharge home. Based on level of intoxication patient will be sober approximately 6am. Patient re-evaluated at 6:00 a.m., ambulated here in the emergency department as clinically sober. She is safe for discharge home at this time. Medical Records Medical records reviewed: Yes I reviewed the external patient's medical records. Vital Signs Vital Signs: Vital Signs Temperature 36.0 C L 04/20/25 21:43 Pulse Rate 92 04/20/25 21:43 Respiratory Rate 14 04/20/25 21:43 Blood Pressure 155/96 H 04/20/25 21:43 Pulse Oximetry 100 04/20/25 21:43 Oxygen Delivery Room Air 04/20/25 21:43 Temperature 36.6 C 04/21/25 06:15 Pulse Rate 66 04/21/25 06:15 Respiratory Rate 16 04/21/25 06:15 Blood Pressure 114/65 04/21/25 06:15 Pulse Oximetry 98 04/21/25 06:15 Oxygen Delivery Room Air 04/20/25 21:43 Lab Data Lab results reviewed: Yes I reviewed the patient's lab results. 04/20/25 22:24 04/20/25 22:24 Labs: Lab Results 04/20/25 Range/Units 22:24 WBC 5.7 (4.5-10.0) K/mm3 RBC 4.15 L (4.2-5.4) M/mm3 Hgb 13.0 D (12.0-15.0) g/dL Hct 40.3 (37.0-47.0) % MCV 97.1 (80-100) fl MCH 31.3 (26-34) pg MCHC 32.3 (32-36) g/dl RDW 16.1 H (11.5-14.5) % Plt Count 200 (150-375) k/mm3 MPV 8.5 (7.4-10.4) fl Immature Gran % (Auto) 0.5 (0-0.5) % Neut % (Auto) 38.0 L (45.5-73.1) % Lymph % (Auto) 48.9 H (18.3-44.2) % Sanders % (Auto) 9.1 H (2.6-8.5) % Eos % (Auto) 2.6 (0-4.4) % Baso % (Auto) 0.9 (0.2-1.2) % Lymph # (Auto) 2.79 (0.9-3.2) K/mm3 Sanders # (Auto) 0.5 (0.1-0.6) K/mm3 Eos # (Auto) 0.2 (0-0.3) K/mm3 Baso # (Auto) 0.1 (0.0-0.1) K/mm3 Abs Immat Gran (auto) 0.03 (0.00-0.031) K/mm3 Absolute Neuts (auto) 2.2 (1.3-6.7) K/mm3 Absolute Nucleated RBC 0.000 (0.0-0.012) K/mm3 Nucleated RBC % 0.0 (0.0-0.2) % Sodium 144 (137-145) mmol/L Potassium 3.8 (3.4-5.0) mmol/L Chloride 107 (98-107) mmol/L Carbon Dioxide 26 (22-30) mmol/L Anion Gap 11 (4-12) mmol/L BUN 16 (7-17) mg/dL Creatinine 0.54 L (0.7-1.0) mg/dL Estim Creat Clear Calc 63 ml/min Estimated GFR > 60 (59 - ) Glucose 99 (65-110) mg/dL Calcium 8.8 (8.4-10.2) mg/dL Magnesium 1.9 (1.6-2.3) mg/dL Total Bilirubin 0.3 (0.2-1.3) mg/dL AST 48 H (14-36) U/L ALT 15 (6-35) U/L Alkaline Phosphatase 63 (38-126) U/L Total Protein 7.7 (6.3-8.2) g/dL Albumin 4.3 (3.5-5.1) g/dL Ethyl Alcohol 358 H* (<10) mg/dL Discharge Plan Discharge Clinical Impression: Alcohol intoxication Patient Disposition: Home Condition: Stable Instructions: Antibiotic Form, Abuse of Alcohol (DC) Additional Instructions: Refrain from drinking significant amounts of alcohol. Return with any emergencies, follow-up with your regular doctor. Patient Language: Albanian Prescriptions: No Action acetaminophen 650 mg Tablet Extended Release 650 mg PO Q8H PRN (Reason: Pain) polysaccharide iron complex 150 mg iron Capsule 150 mg PO BIDWM Qty: 60 1RF thiamine HCl (vitamin B1) [Vitamin B-1] 100 mg Tablet 100 mg PO QAM Qty: 60 0RF folic acid 1 mg Tablet 1 mg PO DAILY Qty: 60 0RF pantoprazole [Protonix] 40 mg tablet,delayed release (DR/EC) 40 mg PO HS 28 Days Qty: 28 0RF sucralfate [Carafate] 1 gram tablet 1 g PO ACHS Qty: 120 0RF Follow-up/Referrals: UNKNOWN,DOCTOR [Primary Care Provider] - Time of Disposition: 06:13
--- NOTE | 2025-04-20 22:19 | PC.NURSE ---
Pt belongings secured in locked cabinets and labeled with patient stickers. Blue bag with personal belongings, including handle of spiced rum.
--- OUTSIDE RECORDS SUMMARY | 2025-04-20 22:33 | XMS_ITS | Encounter Summary ---
Author Organization [facility] Address [address] [place] [address] Care Team Providers Care Crowning Hammer Operator Name Role Phone Unavailable Primary Care Provider Unavailabl e Encounter Details Date Type Department Care Team (Late st Contact Info) Description 03/20/2019 Ophth Exam [facility] [address] [place] [address] Kvng Barnard MD [address] [place] [phone] Social History Tobacco Use Types Packs/Day Years [...]
--- OUTSIDE RECORDS SUMMARY | 2025-04-20 22:33 | XMS_ITS | Clinical Summary ---
Author Organization [facility] [employer] Address [address] [place] [address] Care Team Providers Care Crime Scene Technician Name Role Phone Unavailable Primary Care Provider Unavailabl e Source Comments [facility] [employer],non-owned Affiliates and Associated Physician Practices is amultiple site organization consisting of ambulatory clinics and hospital sitesin [place], [place], [place] and [place]. This disclosure is being madepursuant to the Care Everywhere program and may not contain all information available regarding this patient. Last updated 18.[employer] Allergies No known active allergies Medications * [...] gilma Non-reac tive 04/03/2021 4:22 PM CDT [facility] Comment:Hepatitis C Antibody screen [...] LAB - CHEMISTRY ORDERA BLES Final Result [facility] [address] [phone], [facility] [phone] * HIV-1 HIV-2 ANTIBODY + HIV P24 AG PANEL (04/03/2021 3:08 PM CDT) HIV Antigen/Antibod y 1 & 2 Non-reacti ve Non-react gilma 04/03/2021 4:25 PM CDT [facility] Comment:Neither HIV-1 p24 An tigen nor HIV-1/HIV-2 Antibodies are detected. Blood BLOOD SPECIMEN / Unknown Venipuncture / Unknown 04/03/2021 3:08 PM CDT 04/03/2021 3:34 PM CDT us Rome Deleon MD LAB - CHEMISTRY ORDERA BLES Final Result [facility] [address] [place] [phone], [facility] [phone] from Last 3 Months or Most Recently Relevant to Health Maintenance Advance Directives * Full Code (Latest Code Status on File) Date Activated Date Inactivated Comments 08/18/2023 5:17 PM 08/19/2023 6:01 PM * Full Code Date Activated Date Inactivated Comments 03/20/2019 2:48 AM 03/21/2019 4:04 PM
[2025-04-20 22:36] LABS: Basophils Absolute Auto 0.1 K/mm3 (0.0-0.1); Basophils Percent Auto 0.9 % (0.2-1.2); Eosinophils Absolute Auto 0.2 K/mm3 (0-0.3); Eosinophils Percent Auto 2.6 % (0-4.4); Hematocrit 40.3 % (37.0-47.0); Immature Granulocyte Absolute 0.03 K/mm3 (0.00-0.031); Immature Granulocyte Percent A 0.5 % (0-0.5); Lymphocytes Absolute Auto 2.79 K/mm3 (0.9-3.2); Lymphocytes Percent Auto 48.9 % (18.3-44.2); Mean Corpuscular HGB Conc 32.3 g/dl (32-36); Mean Corpuscular Hemoglobin 31.3 pg (26-34); Mean Corpuscular Volume 97.1 fl (80-100); Mean Platelet Volume 8.5 fl (7.4-10.4); Monocytes Absolute Auto 0.5 K/mm3 (0.1-0.6); Monocytes Percent Auto 9.1 % (2.6-8.5); Neutrophils Absolute Auto 2.2 K/mm3 (1.3-6.7); Platelet Count Result 200 k/mm3 (150-375); Red Blood Count 4.15 M/mm3 (4.2-5.4); Red Cell Distribution Width 16.1 % (11.5-14.5); White Blood Count 5.7 K/mm3 (4.5-10.0)
[2025-04-20 23:05] LABS: Ethanol 358 mg/dL (<10)
[2025-04-20 23:08] LABS: Alanine Aminotransferase 15 U/L (6-35); Albumin Level 4.3 g/dL (3.5-5.1); Alkaline Phosphatase 63 U/L (38-126); Anion Gap 11 mmol/L (4-12); Aspartate Amino Transferase 48 U/L (14-36); Bilirubin,Total 0.3 mg/dL (0.2-1.3); Blood Urea Nitrogen 16 mg/dL (7-17); Calcium 8.8 mg/dL (8.4-10.2); Carbon Dioxide 26 mmol/L (22-30); Chloride 107 mmol/L (98-107); Estimated CRCL calculation 63 ml/min; Estimated Glomerular Filt Rate > 60; Glucose 99 mg/dL (65-110); Magnesium 1.9 mg/dL (1.6-2.3); Potassium 3.8 mmol/L (3.4-5.0); Sodium 144 mmol/L (137-145); Total Protein 7.7 g/dL (6.3-8.2)
--- NOTE | 2025-04-21 01:26 | PC.NURSE ---
pt given sandwich and chips at this time.
[2025-04-21 06:15] VITALS: BP 114/65; PULSE 66; RESP 16; TEMP 36.6; O2SAT 98
== END 2025-04-21 06:51 | disposition home or self-care (01) ==
PROVIDERS: Emergency Provider Student in an Organized Health Care Education/Training Program
DX: F10.129 Alcohol abuse with intoxication, unspecified (principal); Y90.8 Blood alcohol level of 240 mg/100 ml or more; K70.10 Alcoholic hepatitis without ascites; K21.9 Gastro-esophageal reflux disease without esophagitis; D50.9 Iron deficiency anemia, unspecified; F41.9 Anxiety disorder, unspecified; F32.A Depression, unspecified
CPT/HCPCS: 36415; 80053; 82077; 83735; 85025; 99283

== ENCOUNTER 2025-06-23 23:21 | Emergency (ER) | payer SELFPAY ==
--- NOTE | ~2025-06-23 | CT_ITS ---
EXAMINATION: CT brain wo con DATE: 06/24/2025 00:41 INDICATION: Altered mental status. Intoxication. TECHNIQUE: Computed tomography (CT) of the head was performed without intravenous contrast. Sagittal and coronal reconstructions were performed. The mA was adjusted according to patient size. Iterative reconstruction technique was employed. The dose-length product was 681.00 mGy-cm. COMPARISON: head CT dated 03/18/2025 FINDINGS: No acute intracranial hemorrhage, acute infarction or abnormal extra axial fluid collection. There is mild scattered white matter hypoattenuation consistent with chronic small vessel ischemic disease. S ymmetric prominence of the sulci consistent with moderate diffuse cerebral volume loss somewhat dispr oportionate for age. Ventricles are normal and symmetric. No mass/mass effect. The orbits, paranasal sinuses and mastoid air cells are normal. IMPRESSION: 1. No acute intracranial process. 2. Moderate diffuse volume loss and mild scattered white matter hypoattenuation consistent with chron ic small vessel ischemic disease. Reviewed, dictated and finalized at location A. IMPRESSION: 1. No acute intracranial process. 2. Moderate diffuse volume loss and mild scattered white matter hypoattenuation consistent with chronic small vessel ischemic disease.
[2025-06-23 23:22] VITALS: BP 136/90; PULSE 91; RESP 16; TEMP 36.7; O2SAT 97
--- OUTSIDE RECORDS SUMMARY | 2025-06-23 23:24 | XMS_ITS | Encounter Summary ---
Author Organization [facility] Address [address] [place] [address] Care Team Providers Care Lumber Tailer Name Role Phone Unavailable Primary Care Provider Unavailabl e Encounter Details Date Type Department Care Team (Late st Contact Info) Description 03/20/2019 Ophth Exam [facility] [address] [place] [address] Kvng Barnard MD [address] DEPT [place] [phone] Social History Tobacco Use Types Packs/Day Years [...]
--- OUTSIDE RECORDS SUMMARY | 2025-06-23 23:24 | XMS_ITS | Clinical Summary ---
Author Organization [facility] [employer] Address [address] [place] [address] Care Team Providers Care Medical Assistant Name Role Phone Unavailable Primary Care Provider Unavailabl e Source Comments [facility] [employer],non-owned Affiliates and Associated Physician Practices is amultiple site organization consisting of ambulatory clinics and hospital sitesin [place], [place], [place] and [place]. This disclosure is being madepursuant to the Care Everywhere program and may not contain all information available regarding this patient. Last updated 18.[employer] Allergies No known active allergies Medications * [...] LIPID TESTING 1960 MAMMOGRAM 1960 PAP SMEAR 02/10/1981 PNEUMOCOCCAL VACCINE 50+ (1 of 1 - PCV) 02/10/2010 ZOSTER VACCINE (1 of 2) 02/10/2010 Respiratory Syncytial Virus (RSV) Vaccine Pt: or over 60 yrs (1 - Risk 60-74 years 1-dose series) 2020 COVID-19 VACCINE (3 - 2023-2 5 season) 2024 07/05/2021, 06/03/2021 DEPRESSION SCREENING 11/16/2024 INFLUENZA VACCINE (#1) 2025 DTAP/TDAP/TD VACCINES (2 - T d [...] gilma Non-reac tive 04/03/2021 4:22 PM CDT [facility] Comment:Hepatitis C Antibody screen indicates [...] LAB - CHEMISTRY ORDERA BLES Final Result [facility] [address] [address], [facility] [phone] * HIV-1 HIV-2 ANTIBODY + HIV P24 AG PANEL (04/03/2021 3:08 PM CDT) HIV Antigen/Antibod y 1 & 2 Non-reacti ve Non-react gilma 04/03/2021 4:25 PM CDT [facility] Comment:Neither HIV-1 p24 An tigen nor HIV-1/HIV-2 Antibodies are detected. Blood BLOOD SPECIMEN / Unknown Venipuncture / Unknown 04/03/2021 3:08 PM CDT 04/03/2021 3:34 PM CDT us Rome Deleon MD LAB - CHEMISTRY ORDERA BLES Final Result [facility] [address] [place] [phone], [facility] [phone] from Last 3 Months or Most Recently Relevant to Health Maintenance Advance Directives * Full Code (Latest Code Status on File) Date Activated Date Inactivated Comments 08/18/2023 5:17 PM 08/19/2023 6:01 PM * Full Code Date Activated Date Inactivated Comments 03/20/2019 2:48 AM 03/21/2019 4:04 PM
--- OUTSIDE RECORDS SUMMARY | 2025-06-24 00:36 | XMS_ITS | Clinical Summary ---
Author Organization [facility] Address [address] [place] [address] Care Team Providers Care National Sales Associate Name Role Phone Unavailable Primary Care Provider Unavailabl e Source Comments [facility],non-owned Affiliates and Associated Physician Practices is amultiple site organization consisting of ambulatory clinics and hospital sitesin [place], [place] and [place]. This disclosure is being madepursuant to the Care Everywhere program and may not contain all information available regarding this patient. Last updated 18.[employer] Allergies No known active allergies Medications * [...] gilma Non-reac tive 04/03/2021 4:22 PM CDT [facility] Comment:Hepatitis C Antibody screen indicates [...] LAB - CHEMISTRY ORDERA BLES Final Result [facility] [address] [address], [facility] [phone] * HIV-1 HIV-2 ANTIBODY + HIV P24 AG PANEL (04/03/2021 3:08 PM CDT) HIV Antigen/Antibod y 1 & 2 Non-reacti ve Non-react gilma 04/03/2021 4:25 PM CDT [facility] Comment:Neither HIV-1 p24 An tigen nor HIV-1/HIV-2 Antibodies are detected. Blood BLOOD SPECIMEN / Unknown Venipuncture / Unknown 04/03/2021 3:08 PM CDT 04/03/2021 3:34 PM CDT us Rome Deleon MD LAB - CHEMISTRY ORDERA BLES Final Result [facility] [address] [place] [phone], [facility] [phone] from Last 3 Months or Most Recently Relevant to Health Maintenance Advance Directives * Full Code (Latest Code Status on File) Date Activated Date Inactivated Comments 08/18/2023 5:17 PM 08/19/2023 6:01 PM * Full Code Date Activated Date Inactivated Comments 03/20/2019 2:48 AM 03/21/2019 4:04 PM
--- OUTSIDE RECORDS SUMMARY | 2025-06-24 00:36 | XMS_ITS | Encounter Summary ---
Author Organization [facility] Address [address] [place] [address] Care Team Providers Care Marker Maker Name Role Phone Unavailable Primary Care Provider Unavailabl e Encounter Details Date Type Department Care Team (Late st Contact Info) Description 03/20/2019 Ophth Exam [facility] [address] [place] [address] Kvng Barnard MD [address] [place] [phone] Social History Tobacco Use Types Packs/Day Years [...]
--- NOTE | 2025-06-24 00:52 | ED_ITS ---
HPI - Alcohol General Chief Complaint: Alcohol <Kylie Souza APRN - Last Filed: 06/24/25 03:36> Stated Complaint: etoh, found on side of the road <Kylie Souza APRN - Last Filed: 06/24/25 03:36> Time Seen by Provider: 06/24/25 00:18 <Kylie Souza APRN - Last Filed: 06/24/25 03:36> History of Present Illness HPI narrative: Patient is a 65-year-old female who presents to the ER with alcohol intoxication. She is well known to our emergency department. Patient was passed out on the side of the road. A bystander noticed her and called EMS. When asked if patient knew why she was here she said ?I have no idea. Patient is alert and oriented x4. She reports she drink about a pt of vodka today. Patient is unsure when she had her last alcoholic drink. She endorses a history of alcoholism, RA, and gout. Patient endorses slight headache. She denies any chest pain, shortness of breath, recent fevers, numbness/tingling in her extremities, or significant visual changes. <Kylie Souza APRN - Last Filed: 06/24/25 03:36> Related Data Home Medications: Home Medications ?Medication ?Instructions ?Recorded ?Confirmed ?Last Taken ?Type acetaminophen 650 mg 650 mg PO Q8H PRN Pain 08/09/22 01/28/25 01/27/25 History tablet,extended release <Kylie Souza APRN - Last Filed: 06/24/25 03:36> Allergies/Adverse Reactions: Allergies Allergy/AdvReac Type Severity Reaction Status Date / Time monosodium glutamate AdvReac Intermediate Vomiting Verified 04/20/25 21:41 <Kylie Souza APRN - Last Filed: 06/24/25 03:36> Review of Systems 2 Review of Systems: All systems reviewed & are unremarkable except as noted in HPI and below <Kylie Souza APRN - Last Filed: 06/24/25 03:36> PMFSH Past Medical History Medical History: Medical History Iron deficiency anemia Alcoholic hepatitis Pancreatitis Gastroesophageal reflux disease Alcohol abuse Anxiety Depression History of fracture Including clavicle fracture left foot fracture. Alcohol withdrawal seizure Subarachnoid hemorrhage <Kylie Souza APRN - Last Filed: 06/24/25 03:36> Surgical History Surgical History: Surgical History History of appendectomy <Kylie Souza APRN - Last Filed: 06/24/25 03:36> Family History Family History: Family History Sibling Multiple sclerosis Sibling Father Colon cancer Arthritis Parents Mother Throat cancer Parents <Kylie Souza APRN - Last Filed: 06/24/25 03:36> Social History Social History: Social History Social History: Surrogate decision maker: Baldemar Strong, brother. Code status: Full code. Smoking status: Never smoker Alcohol intake: never Drinks per week: 20 Alcohol use details: Drinks 6 to 8 airplane shots a day. Substance use: never Substance use type: does not use Do You Feel Safe in your Home?: Yes Lack of Transportation: No Lack of Food: Never True Current Housing: I Have Housing Concerned About Future Housing: No Difficulty Paying Gas/Electric Bills: No Difficulty Paying for Meds: No Currently Unemployed: No Education: Associate Degree Difficulty w/ Childcare or Family Care: No Living arrangements: with family Additional living arrangements comments: The patient lives in [place] with her brother. Occupation/Education: unemployed Additional occupation/education comments: Unemployed. Spiritual care concerns: No <Kylie Souza APRN - Last Filed: 06/24/25 03:36> Exam 2 Narrative: GENERAL: Ill- appearing, well-nourished, non-toxic, in no acute distress. HEAD: Normocephalic, atraumatic. NECK: Supple. No adenopathy, no masses. RESPIRATORY: Airway patent, respirations nonlabored. Clear to auscultation bilaterally, no rales, rhonchi, wheezing. CARDIOVASCULAR: Regular rate and rhythm without murmurs, rubs, or gallops. Peripheral pulses 2+ and equal bilaterally. ABDOMINAL: Soft, nontender, nondistended, no hepatosplenomegaly. Normoactive BS. MUSCULOSKELETAL: Moves all extremities. Strength/ROM intact without gross deformities. SKIN: Warm, dry, normal color. No rashes. NEURO: A&O X3. Speech clear. Cranial nerves II-XII intact. Negative CIWA score. PSYCHIATRIC: Appropriate mood and affect. Normal interaction. <Kylie Souza, [employer] - Last Filed: 06/24/25 03:36> Course Course Emergency Course: Patient signed over by previous practitioner pending re-evaluation after sobriety. Patient is sober and not in any acute distress. Ambulatory with steady gait. Awake alert oriented. Patient lives locally and wishes to go home. She is clinically sober and safe for discharge given her unremarkable workup today. <Diego Brenner MD - Last Filed: 06/24/25 06:24> Vital Signs Vital signs: Vital Signs Temperature 36.7 C 06/23/25 23:22 Pulse Rate 91 06/23/25 23:22 Respiratory Rate 16 06/23/25 23:22 Blood Pressure 136/90 06/23/25 23:22 Pulse Oximetry 97 06/23/25 23:22 Oxygen Delivery Room Air 06/23/25 23:22 Temperature 36.7 C 06/23/25 23:22 Pulse Rate 85 06/24/25 01:19 Respiratory Rate 15 06/24/25 01:19 Blood Pressure 129/84 06/24/25 01:19 Pulse Oximetry 93 06/24/25 01:19 Oxygen Delivery Room Air 06/23/25 23:22 <Kylie Souza, [employer] - Last Filed: 06/24/25 03:36> Vital Signs Temperature 36.7 C 06/23/25 23:22 Pulse Rate 91 06/23/25 23:22 Respiratory Rate 16 06/23/25 23:22 Blood Pressure 136/90 06/23/25 23:22 Pulse Oximetry 97 06/23/25 23:22 Oxygen Delivery Room Air 06/23/25 23:22 Temperature 36.7 C 06/23/25 23:22 Pulse Rate 85 06/24/25 01:19 Respiratory Rate 15 06/24/25 01:19 Blood Pressure 129/84 06/24/25 01:19 Pulse Oximetry 93 06/24/25 01:19 Oxygen Delivery Room Air 06/23/25 23:22 <Diego Brenner MD - Last Filed: 06/24/25 06:24> MDM - Alcohol MDM Narrative Medical decision making narrative: Patient is a 65-year-old female who presents to the ER with alcohol intoxication. She is well known to our emergency department. Patient was passed out on the side of the road. A bystander noticed her and called EMS. When asked if patient knew why she was here she said ?I have no idea. Patient is alert and oriented x4. She reports she drank about a pt of vodka today. Patient is unsure when she had her last alcoholic drink. She endorses a history of alcoholism, RA, and gout. Patient endorses a slight headache. She denies any chest pain, shortness of breath, recent fevers, numbness/tingling in her extremities, or significant visual changes. Patient reports she has had alcohol withdrawal seizures in the past but has not been ?for years. Labs Ordered: CBC, CMP, EtOH, UA, magnesium, phosphorus Imaging Ordered: CT brain Medications Ordered: 1L NS IV bolus, Thiamine IV, Folic Acid IV Results: Patient's CT brain indicates no acute intracranial findings, no skull fracture. Her initial ethanol level is 348. Diagnosis: Alcohol intoxication 0340- Pt care signed out to Dr. Brenner. <Kylie Souza APRN - Last Filed: 06/24/25 03:36> Differential Diagnosis Differential diagnosis: Likely hypomagnesemia, alcohol intoxication and other (Subdural hematoma, altered mental status) <Kylie Souza APRN - Last Filed: 06/24/25 03:36> Lab Data Attestation: I reviewed the patient's lab results. <Kyile Souza APRN - Last Filed: 06/24/25 03:36> Result diagrams: 06/24/25 01:05 06/24/25 01:05 <Kylie Souza APRN - Last Filed: 06/24/25 03:36> Labs: Lab Results 06/23/25 06/24/25 Range/Units 01:05 01:05 WBC 4.3 L (4.5-10.0) K/mm3 RBC 4.03 L (4.2-5.4) M/mm3 Hgb 12.8 (12.0-15.0) g/dL Hct 38.5 (37.0-47.0) % MCV 95.5 (80-100) fl MCH 31.8 (26-34) pg MCHC 33.2 (32-36) g/dl RDW 13.5 (11.5-14.5) % Plt Count 216 (150-375) k/mm3 MPV 8.4 (7.4-10.4) fl Immature Gran % (Auto) 0.2 (0-0.5) % Neut % (Auto) 26.7 L (45.5-73.1) % Lymph % (Auto) 52.3 H (18.3-44.2) % [place] % (Auto) 16.4 H (2.6-8.5) % Eos % (Auto) 3.0 (0-4.4) % Baso % (Auto) 1.4 H (0.2-1.2) % Lymph # (Auto) 2.26 (0.9-3.2) K/mm3 [place] # (Auto) 0.7 H (0.1-0.6) K/mm3 Eos # (Auto) 0.1 (0-0.3) K/mm3 Baso # (Auto) 0.1 (0.0-0.1) K/mm3 Abs Immat Gran (auto) 0.01 (0.00-0.031) K/mm3 Absolute Neuts (auto) 1.2 L (1.3-6.7) K/mm3 Absolute Nucleated RBC 0.000 (0.0-0.012) K/mm3 Nucleated RBC % 0.0 (0.0-0.2) % Sodium 144 (137-145) mmol/L Potassium 3.3 L (3.4-5.0) mmol/L Chloride 104 (98-107) mmol/L Carbon Dioxide 27 (22-30) mmol/L Anion Gap 13 H (4-12) mmol/L BUN 12 (7-17) mg/dL Creatinine 0.58 L (0.7-1.0) mg/dL Estim Creat Clear Calc 59 ml/min Estimated GFR > 60 (59 - ) Glucose 96 (65-110) mg/dL Calcium 9.1 (8.4-10.2) mg/dL Phosphorus 4.0 (2.5-4.5) mg/dL Magnesium 1.6 (1.6-2.3) mg/dL Total Bilirubin 0.3 (0.2-1.3) mg/dL AST 59 H (14-36) U/L ALT 20 (6-35) U/L Alkaline Phosphatase 69 (38-126) U/L Total Protein 8.0 (6.3-8.2) g/dL Albumin 4.3 (3.5-5.1) g/dL Ethyl Alcohol 348 H* (<10) mg/dL <Kylie Souza, [employer] - Last Filed: 06/24/25 03:36> Lab Results 06/23/25 06/24/25 Range/Units 01:05 01:05 WBC 4.3 L (4.5-10.0) K/mm3 RBC 4.03 L (4.2-5.4) M/mm3 Hgb 12.8 (12.0-15.0) g/dL Hct 38.5 (37.0-47.0) % MCV 95.5 (80-100) fl MCH 31.8 (26-34) pg MCHC 33.2 (32-36) g/dl RDW 13.5 (11.5-14.5) % Plt Count 216 (150-375) k/mm3 MPV 8.4 (7.4-10.4) fl Immature Gran % (Auto) 0.2 (0-0.5) % Neut % (Auto) 26.7 L (45.5-73.1) % Lymph % (Auto) 52.3 H (18.3-44.2) % [place] % (Auto) 16.4 H (2.6-8.5) % Eos % (Auto) 3.0 (0-4.4) % Baso % (Auto) 1.4 H (0.2-1.2) % Lymph # (Auto) 2.26 (0.9-3.2) K/mm3 [place] # (Auto) 0.7 H (0.1-0.6) K/mm3 Eos # (Auto) 0.1 (0-0.3) K/mm3 Baso # (Auto) 0.1 (0.0-0.1) K/mm3 Abs Immat Gran (auto) 0.01 (0.00-0.031) K/mm3 Absolute Neuts (auto) 1.2 L (1.3-6.7) K/mm3 Absolute Nucleated RBC 0.000 (0.0-0.012) K/mm3 Nucleated RBC % 0.0 (0.0-0.2) % Sodium 144 (137-145) mmol/L Potassium 3.3 L (3.4-5.0) mmol/L Chloride 104 (98-107) mmol/L Carbon Dioxide 27 (22-30) mmol/L Anion Gap 13 H (4-12) mmol/L BUN 12 (7-17) mg/dL Creatinine 0.58 L (0.7-1.0) mg/dL Estim Creat Clear Calc 59 ml/min Estimated GFR > 60 (59 - ) Glucose 96 (65-110) mg/dL Calcium 9.1 (8.4-10.2) mg/dL Phosphorus 4.0 (2.5-4.5) mg/dL Magnesium 1.6 (1.6-2.3) mg/dL Total Bilirubin 0.3 (0.2-1.3) mg/dL AST 59 H (14-36) U/L ALT 20 (6-35) U/L Alkaline Phosphatase 69 (38-126) U/L Total Protein 8.0 (6.3-8.2) g/dL Albumin 4.3 (3.5-5.1) g/dL Ethyl Alcohol 348 H* (<10) mg/dL <Diego Brenner MD - Last Filed: 06/24/25 06:24> Imaging Data Attestation: I personally reviewed and interpreted this imaging study as follows: < Kylie Souza APRN - Last Filed: 06/24/25 03:36> Radiologist's impression: Patient's CT brain indicates no acute intracranial findings, no skull fracture. <Kylie Souza APRN - Last Filed: 06/24/25 03:36> Discharge Plan Discharge Clinical Impression: Alcoholic intoxication, Alcohol abuse, Hypokalemia <Kylie Souza APRN - Last Filed: 06/24/25 03:36> Patient Disposition: Home <Kylie Souza APRN - Last Filed: 06/24/25 03:36> Condition: Guarded Prognosis <Kylie Souza APRN - Last Filed: 06/24/25 03:36> Instructions: Antibiotic Form, Abuse of Alcohol (ED), Alcohol Dependence (ED) <Kylie Souza APRN - Last Filed: 06/24/25 03:36> Additional Instructions: Please return to the ER with any worsening symptoms. Follow-up with your primary care provider. Take all medications as prescribed, including regularly scheduled medications. It is in your best interest to seek treatment for alcohol dependence. <Kylie Souza APRN - Last Filed: 06/24/25 03:36> Patient Language: Chinese <Kylie Souza APRN - Last Filed: 06/24/25 03:36> Prescriptions: No Action acetaminophen 650 mg Tablet Extended Release 650 mg PO Q8H PRN (Reason: Pain) polysaccharide iron complex 150 mg iron Capsule 150 mg PO BIDWM Qty: 60 1RF thiamine HCl (vitamin B1) [Vitamin B-1] 100 mg Tablet 100 mg PO QAM Qty: 60 0RF folic acid 1 mg Tablet 1 mg PO DAILY Qty: 60 0RF pantoprazole [Protonix] 40 mg tablet,delayed release (DR/EC) 40 mg PO HS 28 Days Qty: 28 0RF sucralfate [Carafate] 1 gram tablet 1 g PO ACHS Qty: 120 0RF <Kylie Souza APRN - Last Filed: 06/24/25 03:36> Follow-up/Referrals: UNKNOWN,DOCTOR [Primary Care Provider] - <Kylie Souza APRN - Last Filed: 06/24/25 03:36> Time of Disposition: 06:23 <Kylie Souza APRN - Last Filed: 06/24/25 03:36> 06:23 <Diego Brenner MD - Last Filed: 06/24/25 06:24>
[2025-06-24 01:19] VITALS: BP 129/84; PULSE 85; RESP 15; O2SAT 93
[2025-06-24 01:25] LABS: Hematocrit 38.5 % (37.0-47.0); Hemoglobin 12.8 g/dL (12.0-15.0); Immature Granulocyte Percent A 0.2 % (0-0.5); Lymphocytes Absolute Auto 2.26 K/mm3 (0.9-3.2); Mean Corpuscular HGB Conc 33.2 g/dl (32-36); Mean Corpuscular Hemoglobin 31.8 pg (26-34); Mean Corpuscular Volume 95.5 fl (80-100); Nucleated Red Blood Cells Absolute Auto 0.000 K/mm3 (0.0-0.012); Nucleated Red Blood Cells Perc 0.0 % (0.0-0.2); Platelet Count Result 216 k/mm3 (150-375); Red Blood Count 4.03 M/mm3 (4.2-5.4); White Blood Count 4.3 K/mm3 (4.5-10.0)
[2025-06-24 01:26] LABS: Alanine Aminotransferase 20 U/L (6-35); Albumin Level 4.3 g/dL (3.5-5.1); Alkaline Phosphatase 69 U/L (38-126); Anion Gap 13 mmol/L (4-12); Aspartate Amino Transferase 59 U/L (14-36); Bilirubin,Total 0.3 mg/dL (0.2-1.3); Blood Urea Nitrogen 12 mg/dL (7-17); Calcium 9.1 mg/dL (8.4-10.2); Carbon Dioxide 27 mmol/L (22-30); Chloride 104 mmol/L (98-107); Estimated CRCL calculation 59 ml/min; Estimated Glomerular Filt Rate > 60; Glucose 96 mg/dL (65-110); Potassium 3.3 mmol/L (3.4-5.0); Sodium 144 mmol/L (137-145); Total Protein 8.0 g/dL (6.3-8.2)
[2025-06-24 02:43] LABS: Magnesium 1.6 mg/dL (1.6-2.3)
[2025-06-24] MEDS: POTASSIUM CHLORIDE 20 MEQ ER TABLET 40 MEQ PO (02:56)
[2025-06-24] MEDS: CYANOCOBALAMIN 1,000 MCG TABLET 1000 MCG PO (02:57)
[2025-06-24] MEDS: THIAMINE HCL 200 MG/2 ML VIAL 100 MG IV PUSH (02:57)
[2025-06-24] MEDS: FOLIC ACID 1 MG/0.2 ML INJ IV PUSH (02:57)
[2025-06-24] MEDS: SODIUM CHLORIDE 0.9% IV 1,000 ML 999 ML IV CONT (02:58)
[2025-06-24 06:35] VITALS: BP 124/74; PULSE 74; RESP 18; TEMP 36.9; O2SAT 99
== END 2025-06-24 06:36 | disposition home or self-care (01) ==
PROVIDERS: Emergency Provider Registered Nurse
DX: F10.129 Alcohol abuse with intoxication, unspecified (principal); E87.6 Hypokalemia; M06.9 Rheumatoid arthritis, unspecified; M10.9 Gout, unspecified; K21.9 Gastro-esophageal reflux disease without esophagitis; F41.8 Other specified anxiety disorders
CPT/HCPCS: 36415; 70450; 80053; 82077; 83735; 84100; 85025; 96361; 96374; 96375; 99284; A9270; J3411; J7030

== ENCOUNTER 2025-08-03 12:55 | Outpatient (CLI) | payer MEDICAID, SELFPAY ==
--- NOTE | 2025-08-03 | ECG_ITS ---
Test Date: 2025-08-03 13:39:14 Measurements Intervals [place] Rate: 84 P: 168 MS: 120 QRS: 145 QRSD: 86 T: 136 QT: 351 QTc: 415 Interpretive Statements SINUS RHYTHM ARM LEADS REVERSED [INVERTED P AND QRS IN I] ABNORMAL ECG Compared to ECG 01/28/2025 13:16:33 Short MS interval no longer present Electronically Signed On 08-03-2025 17:57:14 CDT by Donavan Sarkar M.D.
--- OUTSIDE RECORDS SUMMARY | 2025-08-03 13:08 | XMS_ITS | Encounter Summary ---
Author Organization [facility] Health Address [address] [place] [address] Care Team Providers Care Advertising Internship Name Role Phone Unavailable Primary Care Provider Unavailabl e Encounter Details Date Type Department Care Team (Late st Contact Info) Description 03/20/2019 Ophth Exam [facility] [address] [place] [address] Kvng Barnard MD [address] [place] [id number] Social History Tobacco Use Types Packs/Day Years [...]
--- OUTSIDE RECORDS SUMMARY | 2025-08-03 13:08 | XMS_ITS | Clinical Summary ---
Author Organization [facility] Address [address] [place] [address] Care Team Providers Care Beef Boner Name Role Phone Unavailable Primary Care Provider Unavailabl e Source Comments [facility],non-owned Affiliates and Associated Physician Practices is amultiple site organization consisting of ambulatory clinics and hospital sitesin [place], [place], [place] and [place]. This disclosure is being madepursuant to the Care Everywhere program and may not contain all information available regarding this patient. Last updated 18.[facility] Allergies No known active allergies Medications * [...] - Risk 60-74 years 1-dose series) 2020 DEPRESSION SCREENING 11/16/2024 COVID-19 VACCINE (3 - 2024-2 6 season) 2025 07/05/2021, 06/03/2021 INFLUENZA VACCINE (#1) 2025 DTAP/TDAP/TD VACCINES (2 [...] gilma Non-reac tive 04/03/2021 4:22 PM CDT [facility] Comment:Hepatitis C Antibody screen indicates [...] LAB - CHEMISTRY ORDERA BLES Final Result [facility] [address] [id number], [facility] [phone] * HIV-1 HIV-2 ANTIBODY + HIV P24 AG PANEL (04/03/2021 3:08 PM CDT) HIV Antigen/Antibod y 1 & 2 Non-reacti ve Non-react gilma 04/03/2021 4:25 PM CDT [facility] Comment:Neither HIV-1 p24 An tigen nor HIV-1/HIV-2 Antibodies are detected. Blood BLOOD SPECIMEN / Unknown Venipuncture / Unknown 04/03/2021 3:08 PM CDT 04/03/2021 3:34 PM CDT us Rome Deleon MD LAB - CHEMISTRY ORDERA BLES Final Result [facility] [address] [place] [phone], [facility] [phone] from Last 3 Months or Most Recently Relevant to Health Maintenance Advance Directives * Full Code (Latest Code Status on File) Date Activated Date Inactivated Comments 08/18/2023 5:17 PM 08/19/2023 6:01 PM * Full Code Date Activated Date Inactivated Comments 03/20/2019 2:48 AM 03/21/2019 4:04 PM
== END 2025-08-03 12:56 | disposition home or self-care (01) ==
DX: I49.9 Cardiac arrhythmia, unspecified (principal); R94.31 Abnormal electrocardiogram [ECG] [EKG]
CPT/HCPCS: 93005